=== PATIENT | male | born 1960 | race Caucasian/White ===

== ENCOUNTER → 2020-08-08 17:06 | Outpatient (CLI) | payer MEDICAID, SELFPAY ==
[2020-08-08 18:03] LABS: Anion Gap 10.4 mEq/L (5-15); Blood Urea Nitrogen 31 mg/dl (9-20); Calcium 9.2 mg/dl (8.4-10.2); Carbon Dioxide 29 mmol/L (22.0-30.0); Chloride 97 mmol/L (98-107); Estimated Glomerular Filt Rate 48 ml/min (>60); GFR (African American) 58 ML/MIN (>60); Potassium 4.4 mmoL/L (3.5-5.1); Sodium 132 mmol/L (136-145)
[2020-08-08 18:11] LABS: Glucose 469 mg/dl (74-100)
[2020-08-08 18:32] LABS: Hemoglobin A1C > 14.0 % (4.0-6.0)
== END ==
PROVIDERS: Visit Provider Family Medicine
DX: Z00.00 Encounter for general adult medical examination without abnormal findings (principal); I25.10 Atherosclerotic heart disease of native coronary artery without angina pectoris; E11.9 Type 2 diabetes mellitus without complications; E78.5 Hyperlipidemia, unspecified; I10 Essential (primary) hypertension; I73.9 Peripheral vascular disease, unspecified; Z79.4 Long term (current) use of insulin; Z72.0 Tobacco use
CPT/HCPCS: 80048; 83036

== ENCOUNTER → 2020-10-07 09:57 | Outpatient (CLI) | payer MEDICAID, SELFPAY ==
--- NOTE | 2020-10-07 09:59 | CA_ITS ---
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 Thomason CRT Ht: 6 ft 3 in Wt: 145lbs BSA: 1.91 BP: 122/62 mmHg Indications: Congestive Heart Failure, Shortness of Breath, Diabetes, Hyperlipidemia, Hypertension/HDD, stents, CABG x4, smoker 2D Dimensions LVOT 2.10 cm (M/F) 1.5-2.5 M-Mode Dimensions RVDd 3.26 cm (0.9-2.6) LA Diam 3.59 cm (1.9-4.0) LVDd 4.45 cm (3.5-5.7) Ao Diam 4.16 cm (2.0-3.7) LVDs 3.28 cm (3.5-5.7) IVSd 1.31 cm (0.6-1.1) PWd 1.31 cm (0.6-1.1) EF (Teich) 51.70% FS 26.30% EDV (Teich) 90.10 mL ESV (Teich) 43.50 mL LV Diastology E Decel Time 117.00 (160-240 msec) E/A Ratio 0.92 MED E' 3.90 (< 7 cm/sec) E'/MED E' Ratio 19.36 (>14) LAT E' 6.50 (<10 cm/sec) E/LAT E' Ratio 11.62 (>14) Mitral Valve MV A Velocity 82.00 (40-130 cm/s) E/A Ratio 0.92 MV Decel. Time 117.00 (160-240 ms) Pulmonary Valve PV Peak Velocity 135.00 (50-150 cm/s) Tricuspid Valve TR P. Velocity 128.00 cm/s Left Ventricle Left atrium is mildly enlarged, left ventricle is normal size, mild concentric left ventricular hypertrophy, visually estimated ejection fraction 40 to 45%, there appears to be moderate hypokinesis involving the distal septum and anteroapical wall. Endocardial surfaces are poorly visualized, grade 1 diastolic dysfunction seen with tissue Doppler evidence of raise left atrial pressure. Right Ventricle Right atrium and right ventricle are normal size and contractility. Aortic Valve Aortic valve is minimally thickened and fibrosed, there is no aortic stenosis or aortic insufficiency. Mitral Valve Mitral valve leaflets are minimally thickened, there is mild mitral regurgitation. Tricuspid Valve Tricuspid valve is grossly normal, there is mild tricuspid regurgitation, tricuspid regurgitation jet velocity is inadequate for calculation of the right ventricular systolic pressure. Pulmonic Valve Pulmonic valve is poorly visualized. Great Vessels Aortic root is normal size. Pericardium No significant pericardial effusion noted. Conclusion 1. Mildly enlarged left atrium, normal left ventricular size, mild concentric left ventricular hypertrophy, visually estimated ejection fraction of 40 to 45% with segmental wall motion abnormality described above, grade 1 diastolic dysfunction seen with tissue Doppler evidence of raise left atrial pressure. 2. Mild mitral and tricuspid regurgitation. 3. No significant pericardial effusion noted. Electronically signed by : Jeb Ye, 10/08/2020 05:41:08
== END ==
PROVIDERS: PCP Family Medicine; Visit Provider Nurse Practitioner Family
DX: R06.00 Dyspnea, unspecified (principal); I25.10 Atherosclerotic heart disease of native coronary artery without angina pectoris; I10 Essential (primary) hypertension; I25.2 Old myocardial infarction; E78.5 Hyperlipidemia, unspecified; I73.9 Peripheral vascular disease, unspecified; F17.200 Nicotine dependence, unspecified, uncomplicated; Z95.1 Presence of aortocoronary bypass graft
CPT/HCPCS: 93306

== ENCOUNTER → 2021-02-05 16:55 | Outpatient (CLI) | payer MEDICAID, SELFPAY ==
[2021-02-05 17:16] LABS: Basophils % 0.2 % (0.1-2.0); Eosinophils # 0.2 K/mm3 (0.0-0.4); Eosinophils % 1.2 % (0.1-12.0); Hematocrit 35.4 % (42.0-52.0); Hemoglobin 11.5 g/dL (14.1-18.0); Lymphocytes # 1.8 K/mm3 (0.7-4.5); Lymphocytes % 13.8 % (10-50); Mean Corpuscular HGB Conc 32.6 g/dL (31.8-35.4); Mean Corpuscular Hemoglobin 31.2 pg (27.0-31.2); Mean Corpuscular Volume 95.6 fl (80-94); Mean Platelet Volume 9.4 fl (7.4-10.4); Monocytes # 0.7 K/mm3 (0.1-1.0); Neutrophils # 10.3 K/mm3 (1.8-7.8); Neutrophils % 79.7 % (37.0-80.0); Platelet Count 225 K/mm3 (142-424); Red Cell Distribution Width 13.2 % (11.5-17.5); White Blood Count 12.9 K/mm3 (4.8-10.8)
[2021-02-05 17:36] LABS: Alanine Aminotransferase 16 U/L (12-78); Albumin Level 3.7 g/dl (3.5-5.0); Albumin/Globulin Ratio 1.4 (1.1-1.8); Alkaline Phosphatase 134 U/L (38-126); Anion Gap 11.9 mEq/L (5-15); Aspartate Amino Transferase 16 U/L (17-59); Bilirubin,Total 0.3 mg/dl (0.2-1.3); Blood Urea Nitrogen 37 mg/dl (9-20); Calcium 9.1 mg/dl (8.4-10.2); Carbon Dioxide 25 mmol/L (22.0-30.0); Chloride 101 mmol/L (98-107); Chol/HDL Ratio 2.8 (1-3.5); Cholesterol 72 mg/dl (140-200); Estimated Glomerular Filt Rate 44 ml/min (>60); GFR (African American) 53 ML/MIN (>60); Globulin 2.7 g/dL (1.3-3.2); HDL Cholesterol 26 mg/dl (40-60); Potassium 4.9 mmoL/L (3.5-5.1); Sodium 133 mmol/L (136-145); Total Protein,Serum 6.4 g/dl (6.3-8.2); Triglycerides 87 mg/dl (30-150); VLDL Cholesterol 17 mg/dL (0-40)
[2021-02-05 17:40] LABS: Glucose 478 mg/dl (74-100)
[2021-02-05 17:48] LABS: Direct LDL Cholesterol < 30.00 mg/dL (100-129)
[2021-02-05 17:53] LABS: T4 (Thyroxine) 10.3 ug/dl (5.53-11.0)
[2021-02-05 18:07] LABS: Prostate Specific Ag Screen 3.4 ng/ml (0.0-4.0); Thyroid Stimulating Hormone 1.12 uIU/mL (0.465-4.68)
[2021-02-05 18:34] LABS: Creatinine,Urine Random 66 mg/dL (Not Estab.)
[2021-02-05 19:54] LABS: Microalbumin/Creatinine Ratio 1055.4
== END ==
PROVIDERS: Visit Provider Family Medicine
DX: E11.9 Type 2 diabetes mellitus without complications (principal); Z79.4 Long term (current) use of insulin; Z12.5 Encounter for screening for malignant neoplasm of prostate; Z79.899 Other long term (current) drug therapy
CPT/HCPCS: 80053; 80061; 82043; 82570; 83036; 84436; 84443; 85025; G0103

== ENCOUNTER 2021-03-22 19:39 | Inpatient (IN) | payer MEDICAID, SELFPAY ==
[2021-03-22] VITALS (7 sets, daily range): BP systolic 136–178; BP diastolic 69–95; PULSE 95–101; RESP 16–22; TEMP 36.8; O2SAT 95–100; BMI 18.3; BMI 17.0
--- NOTE | 2021-03-22 20:02 | CT_ITS ---
PROCEDURE INFORMATION: Exam: CT Abdomen And Pelvis With Contrast Exam date and time: 03/22/2021 8:02 PM Age: 60 years old Clinical indication: Vomiting; Abdominal pain; Flank; Left; Additional info: Left flank pain w/ black emesis TECHNIQUE: Imaging protocol: Computed tomography of the abdomen and pelvis with contrast. Radiation optimization: All CT scans at this facility use at least one of these dose optimization techniques: automated exposure control; mA and/or kV adjustment per patient size (includes targeted exams where dose is matched to clinical indication); or iterative reconstruction. Contrast material: ISOVUE; Contrast volume: 75 ml; Contrast route: IV; COMPARISON: No relevant prior studies available. FINDINGS: Pleural spaces: Left pleural based scarring changes. Liver: Normal. No mass. Gallbladder and bile ducts: Normal. No calcified stones. No ductal dilation. Pancreas: Normal. No ductal dilation. Spleen: Splenic calcified granulomas. Adrenal glands: Normal. No mass. Kidneys and ureters: Normal. No hydronephrosis. Stomach and bowel: Unremarkable. No obstruction. No mucosal thickening. Appendix: No evidence of appendicitis. Intraperitoneal space: Unremarkable. No free air. No significant fluid collection. Vasculature: Abdominal aorta and iliac arteries contain scattered calcified and noncalcified plaque. Lymph nodes: Unremarkable. No enlarged lymph nodes. Urinary bladder: Unremarkable as visualized. Reproductive: Unremarkable as visualized. Bones/joints: Mid sternotomy wires and postoperative changes of CABG noted. Soft tissues: Unremarkable. IMPRESSION: No acute appearing findings.
[2021-03-22 20:19] LABS: Basophils % 0.2 % (0.1-2.0); Eosinophils % 0.3 % (0.1-12.0); Hematocrit 34.1 % (42.0-52.0); Hemoglobin 11.1 g/dL (14.1-18.0); Lymphocytes # 1.3 K/mm3 (0.7-4.5); Lymphocytes % 10.7 % (10-50); Mean Corpuscular HGB Conc 32.6 g/dL (31.8-35.4); Mean Corpuscular Hemoglobin 30.6 pg (27.0-31.2); Mean Corpuscular Volume 93.7 fl (80-94); Mean Platelet Volume 8.1 fl (7.4-10.4); Monocytes # 0.5 K/mm3 (0.1-1.0); Monocytes % 3.6 % (1.7-9.3); Neutrophils # 10.7 K/mm3 (1.8-7.8); Neutrophils % 85.3 % (37.0-80.0); Platelet Count 341 K/mm3 (142-424); Red Blood Count 3.64 M/mm3 (4.60-6.20); Red Cell Distribution Width 13.2 % (11.5-17.5); White Blood Count 12.5 K/mm3 (4.8-10.8)
[2021-03-22 20:25] LABS: Alanine Aminotransferase 80 U/L (12-78); Albumin Level 3.9 g/dl (3.5-5.0); Albumin/Globulin Ratio 1.3 (1.1-1.8); Alkaline Phosphatase 529 U/L (38-126); Amylase 40 U/L (30-110); Anion Gap 21.8 mEq/L (5-15); Aspartate Amino Transferase 24 U/L (17-59); Bilirubin,Total 0.6 mg/dl (0.2-1.3); Blood Urea Nitrogen 35 mg/dl (9-20); Calcium 9.5 mg/dl (8.4-10.2); Carbon Dioxide 30 mmol/L (22.0-30.0); Chloride 90 mmol/L (98-107); Creatinine Clearance Estimated 52 mL/min (50-200); Estimated Glomerular Filt Rate 52 ml/min (>60); GFR (African American) 62 ML/MIN (>60); Globulin 3.1 g/dL (1.3-3.2); Lipase 128 U/L (23-300); MANUAL DIFFERENTIAL MANUAL DIFFERENTIAL (MANUAL DIFF); Potassium 4.8 mmoL/L (3.5-5.1); Sodium 137 mmol/L (136-145)
[2021-03-22 20:26] LABS: Lactic Acid 1.4 mmol/L (0.7-2.1)
[2021-03-22 20:31] LABS: C-Reactive Protein 35.1 mg/L (0-4); Glucose 489 mg/dl (74-100)
[2021-03-22 20:44] LABS: Procalcitonin 0.136 ng/mL (0.0-2.0)
[2021-03-22 20:54] LABS: Erythrocyte Sedimentation Rate > 140 mm/hr (0-20)
[2021-03-22 20:59] LABS: Lymphocytes % 8 % (10-50); Monocytes % 8 % (2-9); Neutrophils % 84 % (42-76); Total Cells Counted 100
[2021-03-22 21:00] LABS: Platelet Estimate Normal; RBC Morphology Normal
--- NOTE | 2021-03-22 21:01 | HMH.EDNVD ---
ED Disposition Clinical Impression: History of coronary artery bypass graft, Renal insufficiency DKA (diabetic ketoacidoses) Qualifiers: Diabetes mellitus type: type 1 Diabetes mellitus complication detail: without coma Qualified Code(s): E10.10 - Type 1 diabetes mellitus with ketoacidosis without coma DM2 (diabetes mellitus, type 2) Qualifiers: Diabetes mellitus intermediate project manager insulin use: unspecified intermediate project manager insulin use status Diabetes mellitus complication status: with other specified complication Qualified Code(s): E11.69 - Type 2 diabetes mellitus with other specified complication Coronary artery disease Qualifiers: Coronary Disease-Associated Artery/Lesion type: [place] artery [place] vs. transplanted heart: [place] heart Associated angina: unspecified whether angina present Qualified Code(s): I25.10 - Atherosclerotic heart disease of [place] coronary artery without angina pectoris Disposition: Admitted As Inpatient Condition on Discharge: Fair Instructions: DI for Diarrhea and Traveler's Diarrhea -- Adult, DI for Diarrhea and Traveler's Diarrhea -- Child, DI for Nausea -- Adult, DI for Nausea -- Child Referrals: Balaji Rosado MD [Primary Care Provider] - - Critical Care Critical Care Time: No Attestation: On 03/22/21, the high probability of a clinically significant, sudden or life threatening deterioration of the following system(s) required my full and direct attention, intervention and personal management. The time I documented below is in addition to time spent performing reported procedures but includes the following listed in this critical care notation. Medical Decision Making - Medical Records Medical records reviewed: Yes: I reviewed the patient's medical records. - [place] Inquiry Pt receiving controlled substance: No Vital Signs: 03/22/21 19:50 Temperature 98.3 F Temperature Source Oral Pulse Rate [Right] 100 H Respiratory Rate 18 Blood Pressure [Right Arm] 149/83 H Blood Pressure Mean [Right Arm] 105 Blood Pressure Source [Right Arm] Automatic Cuff Blood Pressure Position [Right Arm] Supine 02 Sat by Pulse Oximetry 99 Oxygen Delivery Method Room Air - Lab Data Lab results reviewed: Yes: I reviewed the patient's lab results. Lab Results 03/22/21 20:00: WBC 12.5 H, RBC 3.64 L, Hgb 11.1 L, Hct 34.1 L, MCV 93.7, MCH 30.6, MCHC 32.6, RDW 13.2, Plt Count 341, MPV 8.1, Neut % (Auto) 85.3 H, Lymph % (Auto) 10.7, [place] % (Auto) 3.6, Eos % (Auto) 0.3, Baso % (Auto) 0.2, Neut # (Auto) 10.7 H, Lymph # (Auto) 1.3, [place] # (Auto) 0.5, Eos # (Auto) 0.0, Baso # (Auto) 0.0, Total Counted 100, Neutrophils % (Manual) 84 H, Lymphocytes % (Manual) 8 L, Monocytes % (Manual) 8, Platelet Estimate Normal, RBC Morphology Normal, ESR > 140 H 03/22/21 20:00: Sodium 137, Potassium 4.8, Chloride 90 L, Carbon Dioxide 30, Anion Gap 21.8 H, BUN 35 H, Creatinine 1.40 H, Estimated Creat Clear 52, Estimated GFR 52 L, Est GFR ( Amer) 62, Glucose 489 H*, Calcium 9.5, Total Bilirubin 0.6, AST 24, ALT 80 H, Alkaline Phosphatase 529 H, C-Reactive Protein 35.1 H, Total Protein 7.0, Albumin 3.9, Globulin 3.1, Albumin/Globulin Ratio 1.3, Amylase 40, Lipase 128, Procalcitonin 0.136 03/22/21 20:00: Lactate 1.4 Result diagrams: 03/22/21 20:00 03/22/21 20:00 Orders (Tests/Meds): ED MEDICATIONS Generic Name Dose Route Start Last Admin Trade Name Freq PRN Reason Stop Dose Admin Sodium Chloride 1,000 mls @ 999 mls/hr 03/22/21 20:15 03/22/21 21:01 Sod Chlor 0.9% 1000ml Bag IV 03/22/21 21:15 999 mls/hr .Q1H1M ROMULO Administration Discontinued Medications Generic Name Dose Route Start Last Admin Trade Name Freq PRN Reason Stop Dose Admin Pantoprazole Sodium 80 mg/ 100 mls @ 100 mls/hr 03/22/21 20:02 03/22/21 21:01 Sodium Chloride IV 03/22/21 21:01 100 mls/hr ONCE ONE Administration Iopamidol 75 ml 03/22/21 20:51 03/22/21 20:53 Iopamidol-370 (76%);100ml Bottle IV 03/22/21 20:52 75 ml ONCE ONE A
--- NOTE | 2021-03-22 21:02 | XR_ITS ---
PROCEDURE INFORMATION: Exam: XR Chest Exam date and time: 03/22/2021 9:02 PM Age: 60 years old Clinical indication: Other: Black emesis; Prior surgery; Surgery date: 6+ months; Patient HX: Bypass SX. Stents TECHNIQUE: Imaging protocol: XR of the chest. Views: 2 views. COMPARISON: No relevant prior studies available. FINDINGS: Lungs: Unremarkable. No consolidation. Pleural spaces: Unremarkable. No pleural effusion. No pneumothorax. Heart/Mediastinum: Unremarkable. No cardiomegaly. Bones/joints: Mid sternotomy wires and postoperative changes of CABG noted. Mild multilevel degenerative changes of the spine. IMPRESSION: No acute cardiopulmonary findings.
[2021-03-22 22:07] LABS: Adenovirus,PCR Not Detected (NotDetected); Bordetella Pertussis Not Detected (NotDetected); Chlamydophila Pneumoniae, PCR Not Detected (NotDetected); Coronavirus 19, PCR Not Detected (NotDetected); Coronavirus 229E Not Detected (NotDetected); Coronavirus NL63 Not Detected (NotDetected); Coronavirus OC43 Not Detected (NotDetected); Coronovirus HKU1,PCR Not Detected (NotDetected); Human Metapneumovirus Not Detected (NotDetected); Influenza A, PCR Not Detected (NotDetected); Influenza AH1, 2009 Not Detected (NotDetected); Influenza AH1, PCR Not Detected (NotDetected); Influenza AH3,PCR Not Detected (NotDetected); Influenza B, PCR Not Detected (NotDetected); Mycoplasma Pneumoniae, PCR Not Detected (NotDetected); Parainfluenza 1, PCR Not Detected (NotDetected); Parainfluenza 2, PCR Not Detected (NotDetected); Parainfluenza 3, PCR Not Detected (NotDetected); Parainfluenza 4, PCR Not Detected (NotDetected); Respiratory Syncytial Virus Not Detected (NotDetected); Rhinovirus/Enterovirus Not Detected (NotDetected)
--- NOTE | 2021-03-22 22:30 | PC.NURSE ---
password set up with family is Cindy
[2021-03-22 22:57] LABS: Occult Blood,Stool Negative (Negative)
[2021-03-22 23:01] LABS: Acetone, Serum (Rapid) Small (None Detect)
--- NOTE | 2021-03-22 23:49 | PC.NURSE ---
FSBS done result 384 Dr Muñoz Notified, no new orders at this time.
[2021-03-22 23:54] LABS: POC Glucose,Bedside 384 (70-110)
--- NOTE | 2021-03-22 23:59 | PC.NURSE ---
patient up to floor via wheelchair.
[2021-03-23] VITALS (8 sets, daily range): BP systolic 108–127; BP diastolic 52–70; PULSE 74–95; RESP 16–20; TEMP 36.7–36.9; O2SAT 97–99; BMI 16.9
[2021-03-23 05:55] LABS: POC Glucose,Bedside 410 (70-110)
[2021-03-23 06:21] LABS: Anion Gap 10.4 mEq/L (5-15); Blood Urea Nitrogen 34 mg/dl (9-20); Carbon Dioxide 33 mmol/L (22.0-30.0); Chloride 96 mmol/L (98-107); Creatinine Clearance Estimated 52 mL/min (50-200); Estimated Glomerular Filt Rate 56 ml/min (>60); GFR (African American) 68 ML/MIN (>60); Glucose 385 mg/dl (74-100); Potassium 4.4 mmoL/L (3.5-5.1); Sodium 135 mmol/L (136-145)
--- NOTE | 2021-03-23 06:23 | PC.NURSE ---
pateint has rested throughout shift, no complaints of nausea, vomiting or diarrhea this shift.
[2021-03-23 06:26] LABS: Basophils % 0.1 % (0.1-2.0); Eosinophils # 0.1 K/mm3 (0.0-0.4); Eosinophils % 0.6 % (0.1-12.0); Mean Corpuscular HGB Conc 34.1 g/dL (31.8-35.4); Mean Corpuscular Hemoglobin 30.8 pg (27.0-31.2); Mean Corpuscular Volume 90.4 fl (80-94); Mean Platelet Volume 8.1 fl (7.4-10.4); Monocytes # 0.4 K/mm3 (0.1-1.0); Monocytes % 4.2 % (1.7-9.3); Neutrophils # 7.6 K/mm3 (1.8-7.8); Platelet Count 293 K/mm3 (142-424); Red Blood Count 3.06 M/mm3 (4.60-6.20); Red Cell Distribution Width 13.2 % (11.5-17.5); White Blood Count 10.1 K/mm3 (4.8-10.8)
[2021-03-23 06:27] LABS: Hematocrit 27.7 % (42.0-52.0); Hemoglobin 9.4 g/dL (14.1-18.0)
[2021-03-23 07:16] LABS: Calcium 8.5 mg/dl (8.4-10.2)
[2021-03-23 08:37] LABS: Acetone, Serum (Rapid) Small (None Detect)
--- NOTE | 2021-03-23 08:43 | P.CONPHA_ITS ---
[facility] Pharmacy VTE Monitoring - Patient Demographics Admission date: 03/23/21 Report Date: 03/23/21 Time: 08:44 Allergies/Adverse Reactions: Patient Allergies gabapentin [From Neurontin] Allergy (Verified 03/22/21 20:05) Penicillins Allergy (Verified 03/22/21 20:05) acetaminophen [From Percocet] Adverse Reaction (Verified 03/12/21 13:09) Vomiting oxycodone [From Percocet] Adverse Reaction (Verified 03/12/21 13:09) Vomiting Height: 1.91 m Weight: 62.142 kg Patient Problems: Current Active Problems DKA (diabetic ketoacidoses) (Acute) Renal insufficiency (Acute) Coronary artery disease (Chronic) DM2 (diabetes mellitus, type 2) (Chronic) History of coronary artery bypass graft (Chronic) - VTE Risk Labs: VTE Related Lab Results Hgb 9.4 g/dL (14.1-18.0) L D 03/23/21 05:26 Hct 27.7 % (42.0-52.0) L 03/23/21 05:26 Plt Count 293 K/mm3 (142-424) 03/23/21 05:26 BUN 34 mg/dl (9-20) H 03/23/21 05:26 Creatinine 1.30 mg/dl (0.66-1.25) H 03/23/21 05:26 Estimated Creat Clear 52 mL/min (50-200) 03/23/21 05:26 Was VTE Risk Assessment Performed: Yes VTE Score: 7 VTE Risk Level: Moderate Risk Clinical Trial Participant: No - Prophylaxis VTE Prophylaxis Ordered?: Yes Types of VTE Prophylaxis: TEDS Knee High
--- NOTE | 2021-03-23 09:06 | HMH.HP ---
*Admission Date: 03/23/21 *Chief complaint: n/v *History of present illness: 60 yr old male presented to ed with c/o n/v with dark vomitus over the last 4 days with dec po intake but denied abd pain- no melena reported. pt states he has not been able to keep any food or liquids down. Pt states he has a hx of glucose being up and down when he is ill. Pt states no other family ill. pt admitted for elevated glucose, n/v for futher work up, iv fluids. pt states at this time he does not feel hungry. [facility] History I have reviewed the patient's past medical history: Yes Medical History: Reports:: Coronary Artery Disease, Cerebrovascular Accident, Depression, Diabetes Mellitus Type 2, Hyperlipidemia, Hypertension, Myocardial Infarction, Peripheral Vascular Disease Denies:: Cancer, MRSA *Have you ever received a pneumonia vaccine?: No (refused) *Have you received a flu vaccine this season?: No (refused) Laterality Cases: Left: Arthroscopy Knee Other Surgeries: Yes: CABG, Cardiac Catheterization, Cardiac Surgery, Open Heart Surgery Amputation: Yes (Toe) Fractures: No - *Social History Smoking Status: Current every day smoker Tobacco Type: cigarettes # Packs/Day (cigarettes): 1 Alcohol Intake: current Alcohol Intake Frequency:: a few times a month Substance Use Type: denies use *Occupational Status:: disabled *Travel in the last 8 weeks: None - Psychiatric History Pschychiatric History:: Reports:: Depression Family Hx:: Diabetes, Coronary Artery Disease, Stroke Review of Systems - Review of Systems Review of systems:: pertinent systems reviewed and negative unless documented below - Constitutional Denies body ache(s), Denies fever(s) - Eyes Denies blurry vision - ENT Denies sore throat - *Cardiovascular Denies chest pain at rest - *Respiratory Denies change in phlegm color, Denies shortness of breath - *Gastrointestinal Reports loose stools, Reports nausea, Reports vomiting - *Genitourinary Denies difficulty urinating - *Musculoskeletal Denies joint pain - Integumentary/Breasts Denies rash - *Neurologic Reports weakness, Denies localized weakness, Denies seizure-like activity - Psychiatric Denies lack of enjoyment - Endocrine Denies excessive sweating - Hematologic/Lymphatic Denies easy bruising - Allergic/Immunologic Denies itchy eyes Meds Home Medications Medication Instructions Recorded Confirmed Type albuterol sulfate 90 mcg/actuation 2 puff INHALATION Q4-6H PRN 07/25/18 03/22/21 History aerosol inhaler ascorbic acid (vitamin C) 500 mg 500 mg PO BID 07/25/18 03/23/21 History tablet nitroglycerin 0.4 mg sublingual 0.4 mg SUBLINGUAL Q5-15M PRN 07/25/18 03/22/21 History tablet ondansetron 4 mg disintegrating 4 mg PO TID PRN 07/25/18 03/22/21 History tablet hydrocodone 7.5 mg-acetaminophen 1 tab PO DAILY PRN #30 tab 03/12/21 03/23/21 Rx 325 mg tablet Aspirin [Low Dose Aspirin EC] 81 mg PO DAILY 03/22/21 03/23/21 History Atorvastatin Calcium [Lipitor 40mg 40 mg PO DAILY 03/22/21 03/23/21 History Tab] Furosemide [Furosemide 40MG tAB*] 40 mg PO DAILY 03/22/21 03/23/21 History Insulin Aspart [Insulin Aspart 15 unit SQ TID 03/22/21 03/23/21 History Flexpen] Insulin Degludec [Tresiba 100 unit SQ DAILY 03/22/21 03/23/21 History FlexTouch U-100] Metoprolol Tartrate [Lopressor 25 mg PO BID 03/22/21 03/23/21 History 25mg tablet] Semaglutide [Ozempic] 1 mg SQ WEEKLY 03/22/21 03/23/21 History Sennosides/Docusate Sodium 1 tab PO HS 03/22/21 03/23/21 History [Sennosides-Docusate Sodium Tab] Ticagrelor [Brilinta] 90 mg PO BID 03/22/21 03/23/21 History lisinopriL [Lisinopril 2.5mg Tab] 2.5 mg PO DAILY 03/22/21 03/23/21 History Allergies Allergy/AdvReac Type Severity Reaction Status Date / Time gabapentin [From Neurontin] Allergy Verified 03/22/21 20:05 Penicillins Allergy Verified 03/22/21 20:05 acetaminophen [From Percocet] AdvReac Vomiting Verified
[2021-03-23 10:11] LABS: POC Glucose,Bedside 224 (70-110)
--- NOTE | 2021-03-23 10:34 | HMH.PHAINT ---
clarified home medication list using list from [facility] primary care, patient's outpatient pharmacy and speaking with Dr. Rosado.
[2021-03-23 10:37] LABS: Microscopic, Urine URINE MICROSCOPIC (MICROSCOPIC)
[2021-03-23 10:58] LABS: Appearance,Urine CLEAR (Clear); Blood, Urine 2+ (Negative); Color,Urine YELLOW (Yellow); Glucose,Urine (UA) 3+ (Negative); Ketones,Urine 1+ (Negative); Leukocyte Esterase,Urine 2+ (Negative); Nitrate,Urine Negative (Negative); Protein,Urine 2+ (Negative); Urobilinogen,Urine 0.2 EU/dl (0.2)
[2021-03-23 11:39] LABS: Bilirubin,Urine 1+ (Negative)
[2021-03-23 11:58] LABS: POC Glucose,Bedside 250 (70-110)
--- NOTE | 2021-03-23 13:02 | SW/DCPLANNER ---
Addendum entered by Cici Gallardo 03/24/21 09:40: This patient will discharge home today. Patient has no further needs at this time. I have spoke with Rose Campbell regarding [facility] for this patient. Rose will follow up with this patient once he returns home. Original Note: I spoke with this patient today regarding discharge plans. Patient stated that he resides at home alone and his brother lives right beside him. Patient stated that he does well at home and intends on returning home once medically stable for discharge. Patient did not have nay needs at this time. I will continue to follow up with this patient until time for discharge.
--- NOTE | 2021-03-23 13:19 | PC.NURSE ---
late entry: 1009 called and clarified order with Dr Muñoz. pt sugar is 224, order for 5units ivp lispro insulin ordered. hold per Dr Muñoz, order was entered r/t thinking pt sugar was 410 and untreated. (pt had received 15 units sub q at 0600 when fsbs was 410)
--- NOTE | 2021-03-23 13:21 | PC.NURSE ---
late entry: 1148 pt is npo and is requesting something to eat. message left with front office associate staff.
[2021-03-23 16:41] LABS: POC Glucose,Bedside 257 (70-110)
[2021-03-23 17:21] LABS: Acetone, Serum (Rapid) None Detected (None Detect)
--- NOTE | 2021-03-23 19:35 | PC.NURSE ---
pt has rested well in his room this shift. bowel sounds are active, lungs are clear throughout. pt has slept off and on most of the day. urine in urinal continues to look very turbid. pt voices no complaints or concerns.
[2021-03-23 20:04] LABS: POC Glucose,Bedside 241 (70-110)
[2021-03-24] VITALS: BP 129/70; PULSE 79; PULSE 80; RESP 18; TEMP 36.8; O2SAT 98
--- NOTE | 2021-03-24 01:24 | PC.NURSE ---
He is A&Ox4. He reports that he ambulates with a straight cane at home. His shoes with braces are in the room. He reports chronic back painj. Refused acetaminophen. Reported that he normally takes vicodan. When asked about it he stated that it was lortab. He is voiding per urinal. Urine is yellow, cloudy; consistency of pineapple juice. He continues on RA.
[2021-03-24 04:00] VITALS: BP 144/82; PULSE 82; PULSE 90; RESP 16; TEMP 36.6; O2SAT 94
[2021-03-24 05:22] LABS: POC Glucose,Bedside 495 (70-110)
[2021-03-24 06:56] LABS: Basophils % 0.1 % (0.1-2.0); Eosinophils # 0.2 K/mm3 (0.0-0.4); Eosinophils % 1.6 % (0.1-12.0); Hematocrit 29.3 % (42.0-52.0); Hemoglobin 9.9 g/dL (14.1-18.0); Lymphocytes % 8.6 % (10-50); Mean Corpuscular HGB Conc 33.8 g/dL (31.8-35.4); Mean Corpuscular Hemoglobin 31.2 pg (27.0-31.2); Mean Corpuscular Volume 92.2 fl (80-94); Mean Platelet Volume 7.8 fl (7.4-10.4); Monocytes # 0.4 K/mm3 (0.1-1.0); Monocytes % 3.4 % (1.7-9.3); Neutrophils # 9.9 K/mm3 (1.8-7.8); Neutrophils % 86.2 % (37.0-80.0); Platelet Count 235 K/mm3 (142-424); Red Blood Count 3.18 M/mm3 (4.60-6.20); Red Cell Distribution Width 12.8 % (11.5-17.5); White Blood Count 11.5 K/mm3 (4.8-10.8)
[2021-03-24 07:00] LABS: MANUAL DIFFERENTIAL MANUAL DIFFERENTIAL (MANUAL DIFF)
[2021-03-24 07:06] LABS: Anion Gap 5.5 mEq/L (5-15); Blood Urea Nitrogen 30 mg/dl (9-20); Calcium 7.8 mg/dl (8.4-10.2); Carbon Dioxide 30 mmol/L (22.0-30.0); Chloride 100 mmol/L (98-107); Creatinine Clearance Estimated 62 mL/min (50-200); Estimated Glomerular Filt Rate 68 ml/min (>60); GFR (African American) 82 ML/MIN (>60); Potassium 3.5 mmoL/L (3.5-5.1); Sodium 132 mmol/L (136-145)
[2021-03-24 07:12] LABS: Glucose 420 mg/dl (74-100)
[2021-03-24 08:00] VITALS: BP 121/64; PULSE 80; PULSE 85; RESP 18; TEMP 36.9; O2SAT 100
--- NOTE | 2021-03-24 09:56 | HMH.DCSUM ---
General - General Admission date:: 03/22/21 Discharge date: 03/24/21 HPI HPI: 60 yr old male presented to ed with c/o n/v with dark vomitus over the last 4 days with dec po intake but denied abd pain- no melena reported. pt states he has not been able to keep any food or liquids down. Pt states he has a hx of glucose being up and down when he is ill. Pt states no other family ill. pt admitted for elevated glucose, n/v for futher work up, iv fluids. pt states at this time he does not feel hungry. Hospital Course Hospital Course: 60 yr old male presented to ed with c/o n/v with dark vomitus over the last 4 days with dec po intake but denied abd pain- no melena reported. pt states he has not been able to keep any food or liquids down. Pt states he has a hx of glucose being up and down when he is ill. Pt states no other family ill. pt admitted for elevated glucose, n/v for futher work up, iv fluids. pt states at this time he does not feel hungry. 03/22/2021 abdomen/pelvis CT: FINDINGS: Pleural spaces: Left pleural based scarring changes. Liver: Normal. No mass. Gallbladder and bile ducts: Normal. No calcified stones. No ductal dilation. Pancreas: Normal. No ductal dilation. Spleen: Splenic calcified granulomas. Adrenal glands: Normal. No mass. Kidneys and ureters: Normal. No hydronephrosis. Stomach and bowel: Unremarkable. No obstruction. No mucosal thickening. Appendix: No evidence of appendicitis. Intraperitoneal space: Unremarkable. No free air. No significant fluid collection. Vasculature: Abdominal aorta and iliac arteries contain scattered calcified and noncalcified plaque. Lymph nodes: Unremarkable. No enlarged lymph nodes. Urinary bladder: Unremarkable as visualized. Reproductive: Unremarkable as visualized. Bones/joints: Mid sternotomy wires and postoperative changes of CABG noted. Soft tissues: Unremarkable. IMPRESSION: No acute appearing findings. Electronically signed by Ivan Ken MD 03/22/2021 chest x-ray: FINDINGS: Lungs: Unremarkable. No consolidation. Pleural spaces: Unremarkable. No pleural effusion. No pneumothorax. Heart/Mediastinum: Unremarkable. No cardiomegaly. Bones/joints: Mid sternotomy wires and postoperative changes of CABG noted. Mild multilevel degenerative changes of the spine. IMPRESSION: No acute cardiopulmonary findings. Electronically signed by Ivan Ken MD Blood sugars have been 251-.300 Urine culture shows no growth at 24 hours Blood cultures x2 are pending 60-year-old male patient sitting up in bed resting quietly, he denies any shortness of breath, chest pain, nausea/vomiting/diarrhea, confusion, or sweating. Discussed home diabetes regimen, patient verbalizes understanding and will continue all medications per instruction. He also will follow up with primary care provider March 30 or will call office for any concerns. PLAN: 1. Continue current diabetic regimen 2. Follow-up with Dr. Rosado March 30 3. Call office for any concerns Objective Vital signs: Temp Pulse Resp BP Pulse Ox 98.4 F 85 18 121/64 100 03/24/21 08:00 03/24/21 08:00 03/24/21 08:00 03/24/21 08:00 03/24/21 08:00 no acute distress - *Routine HEENT Exam Head: Present: normocephalic Eye: Present: EOMI ENT: Present: mucous membranes moist - *Routine Neck Exam Present: supple, trachea midline. Absent: tracheal deviation - *Routine Respiratory Exam Present: CTA bilaterally. Absent: accessory muscle use - *Routine Cardiovascular Exam Present: RRR - *Routine Abdominal Exam Present: soft, normoactive bowel sounds. Absent: tenderness, firm - *Routine Extremities Exam Present: full ROM, pulses intact. Absent: cyanosis, clubbing, edema, calf tenderness - *Routine Skin Exam Present: intact, dry, warm. Absent: cyanosis, erythema - *Routine Neurological Exam Present: alert, oriented X3. Absent: motor
[2021-03-24 10:14] LABS: Lymphocytes % 10 % (10-50); Monocytes % 3 % (2-9); Neutrophils % 87 % (42-76); RBC Morphology Normal; Total Cells Counted 100
[2021-03-24 10:15] LABS: Platelet Estimate Normal
[2021-03-24 11:14] LABS: POC Glucose,Bedside 314 (70-110)
== END 2021-03-24 11:21 | disposition home or self-care (01) | DRG 639 ==
LOC: ER 23:06 → 2ND 23:16
PROVIDERS: Nurse Practitioner Family; Admitting Provider Emergency Medicine; Emergency Provider Emergency Medicine; PCP Family Medicine; Visit Provider Emergency Medicine
DX: E11.10 Type 2 diabetes mellitus with ketoacidosis without coma (principal); E78.5 Hyperlipidemia, unspecified; I25.10 Atherosclerotic heart disease of native coronary artery without angina pectoris; I10 Essential (primary) hypertension; I25.2 Old myocardial infarction; E11.51 Type 2 diabetes mellitus with diabetic peripheral angiopathy without gangrene; F17.210 Nicotine dependence, cigarettes, uncomplicated; Z79.4 Long term (current) use of insulin; Z88.5 Allergy status to narcotic agent; Z88.0 Allergy status to penicillin
CPT/HCPCS: 36415; 71046; 74177; 80048; 80053; 81001; 82009; 82150; 82272; 82962; 83605; 83690; 83735; 84145; 85007; 85025; 85651; 86140; 87040; 87086; 87088; 87186; 87581; 87633; 87798; 96365; 96375; 99284; G0328; J2405; Q9967

== ENCOUNTER → 2021-04-29 11:16 | Outpatient (CLI) | payer MEDICAID, SELFPAY ==
--- NOTE | 2021-04-29 11:21 | NM_ITS ---
APPROVED REPORT Exam: Nuclear Stress Test Indication: CAD, H/O M.I., CABG, CHF, HTN, D.M., HYPERLIPIDEMIA, TOB USE, FM HX., ANGINA, SOB, SYNCOPE, FATIGUE Patient Location: Outpatient Stress Tech: Darcy Bae [place] Tech:Rosa So, ARRIker RT (R)(N)(M) Ht: 6 ft 3 in Wt: 135 lbs HR: 87 bpm BP: 103/54 mmHg BSA: 1.86 m2 BMI: 16.8 Procedure: Patient received a 0.4 mg of intravenous Lexiscan, resting heart rate 87 bpm, resting blood pressure 103/54 mmHg, with Lexiscan maximum heart rate achived was 98 bpm which is % of the maximum predicted heart rate and blood pressure was 88/52 mmHg. TIGHTNESS Cardiac Stress and Resting SPECT Images: Cardiac Stress and Resting SPECT images were obtained using technetium 99m Myoview 31.1 mCi stress and 10.74 mCi at rest. Apical and septal dyskinesia Low ejection fraction of 40% Large fixed defect in the nterior wall extending toward the apex consistant with infarction. No reversible defects. Conclusion: Apical and septal dyskinesia Low ejection fraction of 40% Large fixed defect in the nterior wall extending toward the apex consistant with infarction. No reversible defects. Electronically signed by : Ivan Perales MD 05/01/2021 14:16:51
--- NOTE | 2021-04-29 13:56 | CA_ITS ---
APPROVED REPORT Exam: Pharmacologic Technologist: Darcy Bae, Ht: 6 ft 3 in Wt: 139 lbs BSA: 1.88 m2 HR: 87 bpm BP: 103/54 mmHg Medical History Medications: Lisinopril,,,,, Aspirin,,,,, Metoprolol,,,,, Atorvastatin,,,,, Iron,,,,, Albuterol,,,,, BRILINTA,,,,, Nitroglycerin,,,,, DOxycycline,,,,, ONdansetron,,,,, Gl[place],,,,, Furosemide,,,,, Stress Test Details Test: LEXISCAN HR Resting HR: 87 bpm Max Heart Rate (APMHR): 158.017383 bpm Max HR Achieved: 100 bpm Target HR (85% APMHR): 134.962095 bpm % of APMHR: 63.29 Recovery HR: 95 bpm BP Resting BP: 103/54 mmHg Max BP: 103/54 mmHg Recovery BP: 99.0/49.0 mmHg ECG Resting ECG: NSR, PAC, LAFB, poor R wave progression, cannot R/O old lateral VA Clinical Exercise duration: 04:00 min Highest Stage Achieved: Exercise capacity: 1.0 METs Stress ECG Conclusion Symptoms: SOA, mild chest tightness, lightheaded. Arrhythmias/Ectopy: Occ PAC. ST-T Changes: No signifficant changes. Conclusion: Unremarkable Lexiscan stress. Myoview images reported separately. Test Summary RECOVERY 04:20 . . 95 . 99/ 49 . . Stage 1 . . . . . . . Cardiolite injected Stage 1 01:00 . . 92 . . . . Stage 2 01:00 . . 96 . . . . Stage 3 01:00 . . 94 . 89/ 45 . . Stage 4 01:00 . . 94 . 92/ 48 . Stop exercise at 04:00 RECOVERY 01:00 . . 96 . 99/ 51 . . RECOVERY 02:00 . . 97 . 88/ 52 . . RECOVERY 03:00 . . 96 . 91/ 49 . . RECOVERY 04:00 . . 95 . 99/ 49 . . RECOVERY 04:20 . . 95 . 99/ 49 . . Electronically signed by : Kelvin Juan, 05/01/2021 13:17:47
== END ==
PROVIDERS: PCP Family Medicine; Visit Provider Physician Assistant
DX: R06.09 Other forms of dyspnea (principal); Z95.1 Presence of aortocoronary bypass graft; I20.8 Other forms of angina pectoris
CPT/HCPCS: 78452; 93017; A9502; J2785

== ENCOUNTER → 2021-05-14 12:10 | Outpatient (CLI) | payer MEDICAID, SELFPAY ==
[2021-05-14 13:10] LABS: Basophils % 0.4 % (0.1-2.0); Eosinophils # 0.2 K/mm3 (0.0-0.4); Eosinophils % 2.5 % (0.1-12.0); Hematocrit 29.7 % (42.0-52.0); Lymphocytes # 1.8 K/mm3 (0.7-4.5); Lymphocytes % 28.5 % (10-50); Mean Corpuscular HGB Conc 33.8 g/dL (31.8-35.4); Mean Corpuscular Hemoglobin 31.3 pg (27.0-31.2); Mean Corpuscular Volume 92.7 fl (80-94); Monocytes # 0.3 K/mm3 (0.1-1.0); Monocytes % 4.5 % (1.7-9.3); Neutrophils % 64.2 % (37.0-80.0); Platelet Count 266 K/mm3 (142-424); Red Cell Distribution Width 16.1 % (11.5-17.5); White Blood Count 6.2 K/mm3 (4.8-10.8)
[2021-05-14 13:24] LABS: Chloride 104 mmol/L (98-107); Sodium 138 mmol/L (136-145)
[2021-05-14 13:27] LABS: Blood Urea Nitrogen 14 mg/dl (9-20); Carbon Dioxide 27 mmol/L (22.0-30.0); Estimated Glomerular Filt Rate 98 ml/min (>60); GFR (African American) 119 ML/MIN (>60)
[2021-05-14 13:28] LABS: Calcium 8.6 mg/dl (8.4-10.2); Glucose 158 mg/dl (74-100)
== END ==
PROVIDERS: Visit Provider Internal Medicine
DX: Z01.812 Encounter for preprocedural laboratory examination (principal); Z20.822 Contact with and (suspected) exposure to COVID-19; I20.8 Other forms of angina pectoris; R94.31 Abnormal electrocardiogram [ECG] [EKG]
CPT/HCPCS: 36415; 80048; 85025; U0003

== ENCOUNTER 2021-05-15 08:10 | Day surgery (SDC) | payer MEDICAID, SELFPAY ==
[2021-05-15] VITALS (13 sets, daily range): BP systolic 110–186; BP diastolic 70–90; PULSE 66–88; RESP 16–20; TEMP 36.9; O2SAT 96–100; BMI 17.4
--- NOTE | 2021-05-15 | IR_ITS ---
APPROVED REPORT Patient Location: Outpatient [facility] Machine Setter: MAYNOR Michel RT (R) PROCEDURES Left heart catheterization Left ventriculogram Selective coronary angiogram Selective engagement left internal mammary artery Selective engagement of saphenous vein graft to the right coronary Selective engage the saphenous vein graft to circumflex artery Drug-eluting stent deployment to the proximal LAD INDICATION Typical angina pectoris, Coronary disease, History of coronary bypass surgery, Informed consent was obtained prior to the procedure. COMPLICATIONS NONE Estimated Blood Loss: LESS THAN 10 ML TECHNIQUE One percent lidocaine used to anesthetize the right groin. The right femoral artery was accessed via the Seldinger technique and a 5 Finnish sheath was placed in the right femoral artery. A JL 4, JR4 catheter were used to perform left heart catheterization, left ventriculogram selective coronary angiography as well as selective engagement of the 2 vein grafts and the left internal mammary artery. At the end of the diagnostic procedure therapeutic heparin was administered giving a therapeutic ACT and the 5 Finnish sheath was exchanged for a 6 Finnish sheath. An EBU 3.75 guide catheter was placed in the left main artery and a Choice PT floppy wire was used to traverse the stenosis in the LAD. A 2.5 x 12 mm resolute Dawood stent was deployed at 24 isaiah reducing the severe stenosis to 0%. At the end of the procedure the apparatus was removed the groin was reprepped gloves were changed sheath was removed and hemostasis was achieved using Perclose device patient was transferred the postop putting in stable addition ANGIOGRAPHIC RESULTS The left main artery Has a stent in the ostial segment which extends into the proximal LAD. The stent is widely patent in the left main The left anterior descending artery Has a stent which originates from the left main artery. Proximal there is a concentric 90% stenosis. Antegrade flow provides flow to the LAD. There is no competitive flow from the left internal mammary artery The circumflex artery Is subtotally occluded proximally The right coronary artery Is a dominant vessel and has proximal 50% stenosis and then occluded distally The SMITH ventriculogram reveals Mildly reduced at 45% with mild anterior wall hypokinesis The left ventricular end-diastolic pressure 10 mmHg Left internal mammary artery is widely patent to the diagonal artery with no demonstrable backflow feeding to the LAD. Proximally the diagonal artery has an ostial 90% stenosis Saphenous vein graft to the right coronary is widely patent Saphenous vein graft to the circumflex arteries widely patent IMPRESSION Unbypassed LAD with an adequate retrograde filling of the [place] vessel via COLON graft to the diagonal artery Successful stenting of a proximal ID severe disease reduced to less than 10% with 1 drug-eluting stent Patent saphenous vein graft to an obtuse marginal artery Patent saphenous vein graft to the posterior descending artery of the right coronary Reduced ejection fraction with normal left ventricular end-diastolic pressure PLAN 1. Dual antiplatelet therapy 2. Avoidance of tobacco products 3. Risk factor modification 4. Cardiac rehabilitation 5. LDL less than 55 Electronically signed by : Kelvin Juan, 05/15/2021 12:11:54
[2021-05-15 13:38] LABS: CATHL Activated Clotting Time 296 SEC (74-125)
--- NOTE | 2021-05-15 14:31 | HMH.PHACLD ---
Jama White has received discharge medication counseling on the following medications: PATIENT IS CURRENTLY BRILINTA 90 MG BID, ATORVASTATIN 40 MG HS, LISINOPRIL 2.5 MG DAILY, METOPROLOL TARTRATE 25 MG BID, AND ASPIRIN EC 81 MG DAILY. NO NEW MEDICATIONS.
== END 2021-05-15 14:28 | disposition hospice, home (50) ==
LOC: CATHLAB 08:11
PROVIDERS: PCP Family Medicine; Visit Provider Internal Medicine
DX: I25.118 Atherosclerotic heart disease of native coronary artery with other forms of angina pectoris (principal); E11.9 Type 2 diabetes mellitus without complications; Z79.4 Long term (current) use of insulin; Z79.02 Long term (current) use of antithrombotics/antiplatelets; Z95.1 Presence of aortocoronary bypass graft; I50.42 Chronic combined systolic (congestive) and diastolic (congestive) heart failure; I11.0 Hypertensive heart disease with heart failure; I48.0 Paroxysmal atrial fibrillation; F17.210 Nicotine dependence, cigarettes, uncomplicated; J44.9 Chronic obstructive pulmonary disease, unspecified
CPT/HCPCS: 85347; 92928; 93459; 99152; 99153; C1725; C1760; C1769; C1876; C1894; C9600; J1644; Q9967

== ENCOUNTER → 2021-05-21 17:25 | Outpatient (CLI) | payer MEDICAID, SELFPAY ==
[2021-05-21 18:05] LABS: Basophils % 0.6 % (0.1-2.0); Eosinophils # 0.2 K/mm3 (0.0-0.4); Eosinophils % 3.2 % (0.1-12.0); Hematocrit 30.4 % (42.0-52.0); Hemoglobin 10.1 g/dL (14.1-18.0); Lymphocytes # 2.5 K/mm3 (0.7-4.5); Lymphocytes % 35.9 % (10-50); Mean Corpuscular HGB Conc 33.2 g/dL (31.8-35.4); Mean Corpuscular Hemoglobin 31.1 pg (27.0-31.2); Mean Corpuscular Volume 93.6 fl (80-94); Mean Platelet Volume 9.2 fl (7.4-10.4); Monocytes # 0.4 K/mm3 (0.1-1.0); Monocytes % 5.2 % (1.7-9.3); Neutrophils # 3.8 K/mm3 (1.8-7.8); Neutrophils % 55.1 % (37.0-80.0); Platelet Count 306 K/mm3 (142-424); Red Blood Count 3.25 M/mm3 (4.60-6.20); Red Cell Distribution Width 15.7 % (11.5-17.5); White Blood Count 6.9 K/mm3 (4.8-10.8)
[2021-05-21 18:22] LABS: Chloride 105 mmol/L (98-107); Potassium 4.5 mmoL/L (3.5-5.1); Sodium 139 mmol/L (136-145)
[2021-05-21 18:25] LABS: Alanine Aminotransferase 30 U/L (12-78); Albumin Level 3.5 g/dl (3.5-5.0); Albumin/Globulin Ratio 1.3 (1.1-1.8); Alkaline Phosphatase 104 U/L (38-126); Anion Gap 12.5 mEq/L (5-15); Aspartate Amino Transferase 30 U/L (17-59); Bilirubin,Total 0.5 mg/dl (0.2-1.3); Blood Urea Nitrogen 26 mg/dl (9-20); Carbon Dioxide 26 mmol/L (22.0-30.0); Cholesterol 101 mg/dl (140-200); Estimated Glomerular Filt Rate 61 ml/min (>60); GFR (African American) 74 ML/MIN (>60); Globulin 2.7 g/dL (1.3-3.2); Total Protein,Serum 6.2 g/dl (6.3-8.2); Triglycerides 75 mg/dl (30-150); VLDL Cholesterol 15 mg/dL (0-40)
[2021-05-21 18:26] LABS: Calcium 9.1 mg/dl (8.4-10.2); Chol/HDL Ratio 2.7 (1-3.5); Glucose 175 mg/dl (74-100); HDL Cholesterol 38 mg/dl (40-60)
[2021-05-21 18:41] LABS: 25-OH Vitamin D, Total 32.6 ng/mL (30-100)
[2021-05-21 19:33] LABS: Hemoglobin A1C 7.2 % (4.0-6.0)
[2021-05-21 19:58] LABS: Thyroid Stimulating Hormone 2.67 uIU/mL (0.465-4.68)
[2021-05-23 13:16] LABS: C-Peptide 2.9 ng/mL (1.1-4.4)
== END ==
PROVIDERS: Visit Provider Nurse Practitioner Family
DX: E11.21 Type 2 diabetes mellitus with diabetic nephropathy (principal); I10 Essential (primary) hypertension; E78.5 Hyperlipidemia, unspecified; F17.200 Nicotine dependence, unspecified, uncomplicated; Z79.4 Long term (current) use of insulin; Z79.899 Other long term (current) drug therapy
CPT/HCPCS: 80053; 80061; 82306; 83036; 84436; 84443; 84681; 85025

== ENCOUNTER → 2021-08-04 08:26 | Outpatient (CLI) | payer MEDICAID, SELFPAY ==
--- NOTE | 2021-08-04 08:36 | CT_ITS ---
PROCEDURE: CT CHEST WO/W CON CLINCAL INDICATION: right rib pain/smoker COMPARISON: No exams were available for comparison TECHNIQUE: IV Contrast: 75ml Isovue 370 Axial images obtained with sagittal and coronal reformats. All CT scans at the facility use one or more dose reduction, viz: automated exposure control, ma/kV adjustment per patient size (including targeted exams where dose is matched to indication, i.e. head), or iterative reconstruction technique. FINDINGS: HEART AND MEDIASTINAL STRUCTURES: Status post CABG. No mediastinal or hilar mass or adenopathy. Coronary artery stents are present. LUNGS AND PLEURAL SPACES: COPD changes with scattered areas of scarring nonspecific subpleural nodular opacity right middle lobe anteriorly at 5 mm possibly due to an area scarring. Mildly prominent irregular density is present in the left lower lobe posteriorly in the subpleural region also may be due to an area of subpleural scarring. BONY STRUCTURES: Mild degenerative changes in the thoracic spine with mild kyphosis. There is minimal wedging of T7 and T8 which may be chronic. UPPER ABDOMEN: There is air within the upper esophagus. Mild nonspecific thickening of the GE junction. ADDITIONAL FINDINGS: No other significant abnormalities. IMPRESSION: COPD with suspected scarring in the left lower lobe. Nonspecific nodular opacity subpleural region right upper lobe at 5 mm. Recommend six-month follow-up to confirm stability of these 2 findings. No acute finding. Dictated by: Ivan Perales MD 08/05/2021 11:44 Ivan Perales MD in [place] 08/05/2021 11:44
--- NOTE | 2021-08-04 09:17 | CA_ITS ---
APPROVED REPORT Director Medical Science: Ayala Magana RVT Laterality: Bilateral Study Quality: Good Indications: carotid bruit Risk Factors Hypertension: TIA/CVA History Hyperlipidemia Diabetes Smoking Doppler Spectral Velocity Analysis ECA (R) 86.60/10.70 cm/s ECA (L) 73.80/10.70 cm/s dICA (R) 135.80/39.60 cm/s dICA (L) 112.30/22.50 cm/s Hoa (R) 102.70/25.70 cm/s Hoa (L) 144.40/31.00 cm/s pICA (R) 79.10/23.50 cm/s pICA (L) 99.40/21.40 cm/s dCCA (R) 68.40/15.00 cm/s dCCA (L) 92.00/24.60 cm/s pCCA (R) 85.50/12.80 cm/s pCCA (L) 79.10/11.80 cm/s Vert (R) 42.80/12.80 cm/s Vert (L) 72.70/15.00 cm/s ICA/CCA 1.98 ICA/CCA 1.57 Findings Study suggests less than 20% stenosis of the right internal cartoid artery. Study suggests 20-49% stenosis of the left internal cartoid artery. Antegrade flow seen bilateral vertebral arteries. Conclusion Study suggests less than 20% stenosis of the right internal cartoid artery. Study suggests 20-49% stenosis of the left internal cartoid artery. Antegrade flow seen bilateral vertebral arteries. Electronically signed by : Ivan Perales MD 08/04/2021 16:48:05
[2021-08-04 09:20] LABS: Blood Urea Nitrogen 32 mg/dl (9-20); Estimated Glomerular Filt Rate 56 ml/min (>60); GFR (African American) 68 ML/MIN (>60)
== END ==
PROVIDERS: Internal Medicine; Visit Provider Physician Assistant
DX: R09.89 Other specified symptoms and signs involving the circulatory and respiratory systems (principal); R06.00 Dyspnea, unspecified; E78.5 Hyperlipidemia, unspecified; F17.200 Nicotine dependence, unspecified, uncomplicated; I25.10 Atherosclerotic heart disease of native coronary artery without angina pectoris; I50.20 Unspecified systolic (congestive) heart failure; I11.0 Hypertensive heart disease with heart failure; I48.91 Unspecified atrial fibrillation; I73.9 Peripheral vascular disease, unspecified; Z95.1 Presence of aortocoronary bypass graft
CPT/HCPCS: 36415; 71270; 82565; 84520; 93880; Q9967

== ENCOUNTER → 2022-01-29 13:16 | Outpatient (CLI) | payer MEDICAID, SELFPAY ==
[2022-01-28 18:19] LABS: Basophils % 0.4 % (0.1-2.0); Eosinophils # 0.3 K/mm3 (0.0-0.4); Eosinophils % 3.9 % (0.1-12.0); Hematocrit 27.4 % (42.0-52.0); Hemoglobin 8.8 g/dL (14.1-18.0); Lymphocytes # 1.4 K/mm3 (0.7-4.5); Lymphocytes % 20.6 % (10-50); Mean Corpuscular Hemoglobin 31.1 pg (27.0-31.2); Mean Corpuscular Volume 97.3 fl (80-94); Mean Platelet Volume 8.9 fl (7.4-10.4); Monocytes # 0.5 K/mm3 (0.1-1.0); Neutrophils # 4.5 K/mm3 (1.8-7.8); Platelet Count 424 K/mm3 (142-424); Red Blood Count 2.81 M/mm3 (4.60-6.20); Red Cell Distribution Width 15.8 % (11.5-17.5); White Blood Count 6.6 K/mm3 (4.8-10.8)
[2022-01-28 18:47] LABS: Hemoglobin A1C 7.6 % (4.0-6.0)
[2022-01-28 18:54] LABS: Alanine Aminotransferase 16 U/L (12-78); Albumin Level 2.9 g/dl (3.5-5.0); Albumin/Globulin Ratio 1.1 (1.1-1.8); Alkaline Phosphatase 104 U/L (38-126); Aspartate Amino Transferase 18 U/L (17-59); Bilirubin,Total 0.5 mg/dl (0.2-1.3); Blood Urea Nitrogen 19 mg/dl (9-20); Carbon Dioxide 25 mmol/L (22.0-30.0); Chloride 108 mmol/L (98-107); Chol/HDL Ratio 3.6 (1-3.5); Cholesterol 153 mg/dl (140-200); Estimated Glomerular Filt Rate 76 ml/min (>60); GFR (African American) 92 ML/MIN (>60); Globulin 2.7 g/dL (1.3-3.2); Glucose 143 mg/dl (74-100); HDL Cholesterol 43 mg/dl (40-60); Sodium 137 mmol/L (136-145); Total Protein,Serum 5.6 g/dl (6.3-8.2); Triglycerides 93 mg/dl (30-150); VLDL Cholesterol 19 mg/dL (0-40)
[2022-01-28 19:05] LABS: Direct LDL Cholesterol 82.41 mg/dL (100-129)
[2022-01-28 19:25] LABS: Thyroid Stimulating Hormone 1.85 uIU/mL (0.465-4.68)
== END ==
PROVIDERS: Visit Provider Family Medicine
DX: R42 Dizziness and giddiness (principal); E11.10 Type 2 diabetes mellitus with ketoacidosis without coma; Z79.4 Long term (current) use of insulin
CPT/HCPCS: 80053; 80061; 83036; 84443; 85025

== ENCOUNTER → 2022-02-04 13:45 | Outpatient (CLI) | payer MEDICAID, SELFPAY ==
[2022-02-05 18:03] LABS: Hematocrit 27.8 % (42.0-52.0); Hemoglobin 9.3 g/dL (14.1-18.0)
[2022-02-05 19:41] LABS: Hemoglobin A1C 7.1 % (4.0-6.0)
== END ==
PROVIDERS: Visit Provider Nurse Practitioner Family
DX: E11.59 Type 2 diabetes mellitus with other circulatory complications (principal); Z79.4 Long term (current) use of insulin
CPT/HCPCS: 83036; 85014; 85018

== ENCOUNTER → 2022-03-04 09:33 | Outpatient (CLI) | payer MEDICAID, SELFPAY ==
[2022-03-04 10:10] LABS: Prothrombin Time 10.3 seconds (10.1-12.5)
[2022-03-04 10:57] LABS: Iron 79 ug/dL (49-181)
[2022-03-04 11:07] LABS: Total Iron Binding Capacity 282 ug/dL (261-462)
[2022-03-04 11:34] LABS: Ferritin 203 ng/ml (17.9-464)
[2022-03-04 14:12] LABS: Vitamin B12 757 pg/mL (239-931)
[2022-03-05 09:18] LABS: HIV Screen 4th Generation wRfx Non Reactive (Non Reactive)
== END ==
PROVIDERS: Visit Provider Surgery
DX: D64.9 Anemia, unspecified (principal); Z11.4 Encounter for screening for human immunodeficiency virus [HIV]
CPT/HCPCS: 36415; 82607; 82728; 83540; 83550; 85610; 86703; G0432

== ENCOUNTER → 2022-03-08 08:47 | Outpatient (CLI) | payer MEDICAID, SELFPAY ==
[2022-03-08 11:39] LABS: Occult Blood,Stool Negative (Negative)
== END ==
PROVIDERS: PCP Family Medicine; Visit Provider Surgery
DX: D64.9 Anemia, unspecified (principal)
CPT/HCPCS: 82272; G0328

== ENCOUNTER → 2022-08-09 12:54 | Outpatient (CLI) | payer MEDICAID, SELFPAY ==
--- NOTE | 2022-08-09 12:54 | CA_ITS ---
APPROVED REPORT EXAM: Comprehensive 2D, Doppler, and color-flow Echocardiogram [facility] Rn: Ayala Magana RVT Ht: 6 ft 3 in Wt: 150lbs BSA: 1.94 BP: 86/82 mmHg Indications: CHF,CAD,COPD,HTN,HLD,SYNCOPE 2D Dimensions LVOT 2.50 cm (M/F) 1.5-2.5 LA Volume 40.40 mL LA Volume Index 20.82 mL/m2 (M/F) 16-34 M-Mode Dimensions RVDd 2.97 cm (0.9-2.6) LA Diam 4.18 cm (1.9-4.0) LVDd 5.15 cm (3.5-5.7) Ao Diam 3.43 cm (2.0-3.7) LVDs 3.90 cm (3.5-5.7) IVSd 1.25 cm (0.6-1.1) PWd 0.86 cm (0.6-1.1) EF (Teich) 47.90% FS 24.30% EDV (Teich) 126.60 mL TAPSE 1.88 (<1.7) ESV (Teich) 65.90 mL LV Diastology E Decel Time 150.00 (160-240 msec) E/A Ratio 0.8 MED E' 5.10 (< 7 cm/sec) E'/MED E' Ratio 14.14 (>14) LAT E' 8.10 (<10 cm/sec) E/LAT E' Ratio 8.90 (>14) Aortic Valve AO Peak GR. 3.70 mmHg Mitral Valve MV E Max Raf. 72.00 (40-130 cm/s) MV A Velocity 91.00 (40-130 cm/s) E/A Ratio 0.80 MV Decel. Time 150.00 (160-240 ms) MV PHT 44.00 ms Pulmonary Valve PV Peak Velocity 114.00 (50-150 cm/s) Left Ventricle Left atrium is mildly enlarged, left ventricle is normal size mild concentric left ventricular hypertrophy, estimated ejection fraction 40 to 45% with mild left ventricular global hypokinesis, grade 1 diastolic dysfunction seen without tissue Doppler evidence of raise left atrial pressure. Right Ventricle Right atrium and right ventricle are mildly enlarged with normal contractility. Aortic Valve Aortic valve is minimally thickened and calcified without aortic stenosis or aortic insufficiency. Mitral Valve Mitral valve is grossly normal, there is mild mitral regurgitation. Tricuspid Valve Tricuspid valve grossly normal, there is mild tricuspid regurgitation, tricuspid regurgitation jet velocity is inadequate for calculation of the right ventricular systolic pressure. Pulmonic Valve Pulmonic valve is poorly visualized. Great Vessels Aortic root is normal size. Inferior vena cava is mildly dilated with more than 50% i inspiratory collapse. Pericardium No significant pericardial effusion noted. Conclusion 1. Mild biatrial lodgment, normal left ventricular size, mild concentric left ventricular hypertrophy, estimated ejection fraction 40 to 45% with mild left ventricular global hypokinesis, grade 1 diastolic dysfunction seen without tissue Doppler evidence of raise left atrial pressure. 2. Mildly enlarged right ventricle with normal contractility. 3. Mild mitral and tricuspid regurgitation. 4. No significant pericardial effusion noted. 5. Inferior vena cava is mildly dilated with more than 50% inspiratory collapse. Electronically signed by : Jeb Ye MD 08/09/2022 15:41:13
== END ==
PROVIDERS: PCP Family Medicine; Visit Provider Internal Medicine
DX: R06.02 Shortness of breath (principal); I11.0 Hypertensive heart disease with heart failure; I50.22 Chronic systolic (congestive) heart failure; I50.32 Chronic diastolic (congestive) heart failure; I25.118 Atherosclerotic heart disease of native coronary artery with other forms of angina pectoris; E78.2 Mixed hyperlipidemia; F17.200 Nicotine dependence, unspecified, uncomplicated
CPT/HCPCS: 93306

== ENCOUNTER → 2023-03-14 23:13 | Outpatient (CLI) | payer MEDICAID, SELFPAY ==
[2023-03-14 18:45] LABS: Basophils % 0.3 % (0.1-2.0); Eosinophils # 0.2 K/mm3 (0.0-0.4); Eosinophils % 2.2 % (0.1-12.0); Hematocrit 31.9 % (42.0-52.0); Hemoglobin 10.3 g/dL (14.1-18.0); Lymphocytes # 1.6 K/mm3 (0.7-4.5); Lymphocytes % 17.7 % (10-50); Mean Corpuscular HGB Conc 32.2 g/dL (31.8-35.4); Mean Corpuscular Volume 96.2 fl (80-94); Mean Platelet Volume 8.8 fl (7.4-10.4); Monocytes # 0.5 K/mm3 (0.1-1.0); Monocytes % 5.8 % (1.7-9.3); Neutrophils # 6.6 K/mm3 (1.8-7.8); Neutrophils % 73.9 % (37.0-80.0); Platelet Count 278 K/mm3 (142-424); Red Blood Count 3.31 M/mm3 (4.60-6.20); Red Cell Distribution Width 13.5 % (11.5-17.5)
[2023-03-14 19:23] LABS: Alanine Aminotransferase 16 U/L (12-78); Albumin Level 3.4 g/dl (3.5-5.0); Albumin/Globulin Ratio 1.3 (1.1-1.8); Alkaline Phosphatase 97 U/L (38-126); Anion Gap 12.8 mEq/L (5-15); Aspartate Amino Transferase 20 U/L (17-59); Bilirubin,Total 0.3 mg/dl (0.2-1.3); Blood Urea Nitrogen 41 mg/dl (9-20); Calcium 8.5 mg/dl (8.4-10.2); Carbon Dioxide 23 mmol/L (22.0-30.0); Chloride 110 mmol/L (98-107); Chol/HDL Ratio 2.5 (1-3.5); Cholesterol 96 mg/dl (140-200); Estimated Glomerular Filt Rate 44 ml/min (>60); GFR (African American) 53 ML/MIN (>60); Globulin 2.7 g/dL (1.3-3.2); Glucose 181 mg/dl (74-100); HDL Cholesterol 39 mg/dl (40-60); Potassium 4.8 mmoL/L (3.5-5.1); Sodium 141 mmol/L (136-145); Total Protein,Serum 6.1 g/dl (6.3-8.2); Triglycerides 94 mg/dl (30-150); VLDL Cholesterol 19 mg/dL (0-40)
[2023-03-14 19:37] LABS: Direct LDL Cholesterol 41.82 mg/dL (100-129)
[2023-03-14 20:51] LABS: Hemoglobin A1C 9.1 % (4.0-6.0)
== END ==
PROVIDERS: PCP Family Medicine; Visit Provider Family Medicine
DX: E11.9 Type 2 diabetes mellitus without complications (principal)
CPT/HCPCS: 80053; 80061; 83036; 85025

== ENCOUNTER → 2023-05-19 13:39 | Outpatient (CLI) | payer MEDICAID, SELFPAY ==
[2023-05-19 18:29] LABS: Chloride 105 mmol/L (98-107); Sodium 141 mmol/L (136-145)
[2023-05-19 18:31] LABS: Blood Urea Nitrogen 37 mg/dl (9-20); Estimated Glomerular Filt Rate 41 ml/min (>60); GFR (African American) 49 ML/MIN (>60)
[2023-05-19 18:32] LABS: Alanine Aminotransferase 23 U/L (12-78); Albumin Level 3.6 g/dl (3.5-5.0); Albumin/Globulin Ratio 1.3 (1.1-1.8); Alkaline Phosphatase 100 U/L (38-126); Aspartate Amino Transferase 25 U/L (17-59); Calcium 9.1 mg/dl (8.4-10.2); Carbon Dioxide 27 mmol/L (22.0-30.0); Cholesterol 110 mg/dl (140-200); Globulin 2.7 g/dL (1.3-3.2); Glucose 91 mg/dl (74-100); Total Protein,Serum 6.3 g/dl (6.3-8.2); Triglycerides 63 mg/dl (30-150); VLDL Cholesterol 13 mg/dL (0-40)
[2023-05-19 18:33] LABS: Chol/HDL Ratio 2.7 (1-3.5); HDL Cholesterol 41 mg/dl (40-60)
[2023-05-19 18:38] LABS: Bilirubin,Total 0.1 mg/dl (0.2-1.3)
[2023-05-19 18:41] LABS: Basophils % 0.4 % (0.1-2.0); Eosinophils # 0.3 K/mm3 (0.0-0.4); Eosinophils % 4.6 % (0.1-12.0); Hematocrit 32.4 % (42.0-52.0); Hemoglobin 10.3 g/dL (14.1-18.0); Lymphocytes # 1.7 K/mm3 (0.7-4.5); Lymphocytes % 28.4 % (10-50); Mean Corpuscular HGB Conc 31.7 g/dL (31.8-35.4); Mean Corpuscular Hemoglobin 30.6 pg (27.0-31.2); Mean Corpuscular Volume 96.8 fl (80-94); Mean Platelet Volume 9.7 fl (7.4-10.4); Monocytes # 0.4 K/mm3 (0.1-1.0); Monocytes % 6.4 % (1.7-9.3); Neutrophils # 3.6 K/mm3 (1.8-7.8); Neutrophils % 60.2 % (37.0-80.0); Platelet Count 252 K/mm3 (142-424); Red Blood Count 3.35 M/mm3 (4.60-6.20); Red Cell Distribution Width 14.1 % (11.5-17.5)
[2023-05-19 18:44] LABS: Direct LDL Cholesterol 50.34 mg/dL (100-129)
== END ==
PROVIDERS: PCP Family Medicine; Visit Provider Family Medicine
DX: Z76.0 Encounter for issue of repeat prescription (principal); N49.3 Fournier gangrene; I25.10 Atherosclerotic heart disease of native coronary artery without angina pectoris; I10 Essential (primary) hypertension; M15.4 Erosive (osteo)arthritis; E11.21 Type 2 diabetes mellitus with diabetic nephropathy; Z79.4 Long term (current) use of insulin; Z79.899 Other long term (current) drug therapy
CPT/HCPCS: 80053; 80061; 83036; 85025

== ENCOUNTER → 2023-08-26 08:48 | Outpatient (CLI) | payer MEDICAID, SELFPAY ==
[2023-08-26 18:35] LABS: Amphetamine/Metha Screen,Urine Negative ng/ml (<1000); Barbiturates Screen,Urine Negative ng/ml (<200)
[2023-08-26 18:36] LABS: Benzodiazepines Screen,Urine Negative ng/ml (<200)
[2023-08-26 18:37] LABS: Cannabinoid Screen,Urine Negative ng/ml (<50); Cocaine Screen,Urine Negative ng/ml (<300)
[2023-08-26 18:38] LABS: Methadone Screen,Urine Negative ng/ml (<300)
[2023-08-26 18:39] LABS: Opiate Screen,Urine Positive ng/ml (<300); Phencyclidine Screen,Urine Negative ng/ml (<25)
== END ==
PROVIDERS: PCP Family Medicine; Visit Provider Family Medicine
DX: Z79.899 Other long term (current) drug therapy (principal)
CPT/HCPCS: 80305

== ENCOUNTER → 2023-10-28 09:19 | Outpatient (CLI) | payer MEDICARE, MEDICAID, SELFPAY ==
[2023-10-28 18:13] LABS: Basophils % 0.3 % (0.1-2.0); Eosinophils # 0.2 K/mm3 (0.0-0.4); Eosinophils % 3.8 % (0.1-12.0); Hematocrit 30.5 % (42.0-52.0); Hemoglobin 10.3 g/dL (14.1-18.0); Lymphocytes # 1.5 K/mm3 (0.7-4.5); Lymphocytes % 24.4 % (10-50); Mean Corpuscular HGB Conc 33.6 g/dL (31.8-35.4); Mean Corpuscular Hemoglobin 31.4 pg (27.0-31.2); Mean Corpuscular Volume 93.5 fl (80-94); Monocytes # 0.4 K/mm3 (0.1-1.0); Monocytes % 6.8 % (1.7-9.3); Neutrophils % 64.7 % (37.0-80.0); Platelet Count 242 K/mm3 (142-424); Red Blood Count 3.26 M/mm3 (4.60-6.20); Red Cell Distribution Width 14.6 % (11.5-17.5); White Blood Count 6.2 K/mm3 (4.8-10.8)
[2023-10-28 18:43] LABS: Alanine Aminotransferase 23 U/L (12-78); Albumin Level 2.9 g/dl (3.5-5.0); Albumin/Globulin Ratio 1.1 (1.1-1.8); Alkaline Phosphatase 108 U/L (38-126); Anion Gap 7.4 mEq/L (5-15); Aspartate Amino Transferase 28 U/L (17-59); Bilirubin,Total 0.3 mg/dl (0.2-1.3); Blood Urea Nitrogen 16 mg/dl (9-20); Calcium 7.6 mg/dl (8.4-10.2); Carbon Dioxide 24 mmol/L (22.0-30.0); Chloride 110 mmol/L (98-107); Estimated Glomerular Filt Rate 47 ml/min (>60); GFR (African American) 57 ML/MIN (>60); Globulin 2.6 g/dL (1.3-3.2); Glucose 141 mg/dl (74-100); Potassium 3.4 mmoL/L (3.5-5.1); Sodium 138 mmol/L (136-145); Total Protein,Serum 5.5 g/dl (6.3-8.2)
[2023-10-28 19:10] LABS: Thyroid Stimulating Hormone 2.47 uIU/mL (0.465-4.68)
[2023-10-28 20:42] LABS: Hemoglobin A1C 8.1 % (4.0-6.0)
[2023-11-05 19:09] LABS: 1,25 Dihydroxy Vitamin D 21 pg/mL (.); 1,25-Dihydroxy, Vitamin D-2 <10 pg/mL (.); 1,25-Dihydroxy, Vitamin D-3 18 pg/mL (.)
== END ==
PROVIDERS: Family Medicine; PCP Family Medicine; Visit Provider Family Medicine
DX: R06.09 Other forms of dyspnea (principal); R06.02 Shortness of breath; I50.20 Unspecified systolic (congestive) heart failure; I20.89 Other forms of angina pectoris; I25.2 Old myocardial infarction; I10 Essential (primary) hypertension; E78.5 Hyperlipidemia, unspecified; G89.29 Other chronic pain; M15.4 Erosive (osteo)arthritis; F17.200 Nicotine dependence, unspecified, uncomplicated; Z95.1 Presence of aortocoronary bypass graft; N18.30 Chronic kidney disease, stage 3 unspecified; Z79.899 Other long term (current) drug therapy
CPT/HCPCS: 80053; 82652; 83036; 84443; 85025

== ENCOUNTER 2023-11-22 12:48 | Outpatient (CLI) | payer MEDICAID, SELFPAY ==
--- NOTE | 2023-11-22 12:52 | XR_ITS ---
FINAL REPORT CLINICAL HISTORY: dyspnea. weakness FINDINGS: TWO-VIEW CHEST The heart size is normal. The patient is status post median sternotomy. There is bibasilar atelectasis with small right and moderate left effusions. There is no pneumothorax. IMPRESSION: Bibasilar atelectasis with bilateral effusions, left greater than right. Reviewed, Interpreted and Dictated by Darren Tellez III, MD Transcribed by Cheryle Smith Authenticated and [facility]
== END 2023-11-22 23:59 ==
PROVIDERS: PCP Family Medicine; Visit Provider Internal Medicine
DX: I11.0 Hypertensive heart disease with heart failure (principal); I21.3 ST elevation (STEMI) myocardial infarction of unspecified site; I25.10 Atherosclerotic heart disease of native coronary artery without angina pectoris; I48.91 Unspecified atrial fibrillation; I50.20 Unspecified systolic (congestive) heart failure; I73.9 Peripheral vascular disease, unspecified; R06.00 Dyspnea, unspecified; E11.9 Type 2 diabetes mellitus without complications; E78.5 Hyperlipidemia, unspecified; J44.9 Chronic obstructive pulmonary disease, unspecified; Z95.1 Presence of aortocoronary bypass graft; Z79.4 Long term (current) use of insulin; F17.200 Nicotine dependence, unspecified, uncomplicated
CPT/HCPCS: 71046

== ENCOUNTER 2023-12-13 09:51 | Inpatient (IN) | payer MEDICARE, MEDICAID, SELFPAY ==
[2023-12-13] VITALS (13 sets, daily range): BP systolic 140–176; BP diastolic 62–98; PULSE 54–70; RESP 18–20; TEMP 36.4–37.1; O2SAT 84–97; BMI 24.0; BMI 23.8; BMI 24.4
--- NOTE | 2023-12-13 10:11 | EXP.UTC ---
Discharge Plan Disposition Patient Disposition: Still a Patient Condition: Fair Prescriptions Prescriptions: No Action nitroglycerin 0.4 mg tablet, sublingual 0.4 mg SUBLINGUAL Q5-15M PRN (Reason: Chest Pain) isosorbide mononitrate 60 mg tablet extended release 24 hr 60 mg PO DAILY Qty: 90 3RF clopidogrel [Plavix] 75 mg tablet 75 mg PO DAILY Qty: 90 3RF Breztri Aerosphere 160-9-4.8 mcg/actuation HFA aerosol inhaler 2 inh inhalation BID metoprolol succinate 100 mg tablet extended release 24 hr 100 mg PO BID Qty: 180 3RF Gvoke HypoPen 2-Pack 0.5 mg/0.1 mL auto-injector 1 mg SQ ONCE PRN (Reason: diabetis) insulin asp prt-insulin aspart [Novolog Mix 70-30FlexPen U-100] 100 unit/mL (70-30) insulin pen 10 unit SQ BID Qty: 15 3RF Rx Instructions: 12 units in PM furosemide [Lasix] 40 mg tablet See Rx Instructions .ROUTE .COMPLEX Qty: 120 4RF Rx Instructions: twice a day until edema improves, then back down to once a day cephalexin 500 mg capsule 500 mg PO Q8H 10 Days Qty: 30 0RF (DME) pen needle, diabetic [BD Ultra-Fine Cheryle Pen Needle] 32 gauge x 5/32 needle See Rx Instructions .Route Qty: 100 2RF Rx Instructions: As directed sennosides-docusate sodium [Stool Softener-Stimulant Laxat] 8.6-50 mg tablet See Rx Instructions .ROUTE .COMPLEX Qty: 30 0RF Dose Instruction: TAKE ONE (1) TABLET BY MOUTH AT BEDTIME. Rx Instructions: TAKE ONE (1) TABLET BY MOUTH AT BEDTIME. lisinopril 10 mg tablet 10 mg PO DAILY Qty: 90 3RF atorvastatin 40 mg tablet See Rx Instructions .ROUTE .COMPLEX Qty: 90 0RF Dose Instruction: TAKE 1 TABLET BY MOUTH DAILY. Rx Instructions: TAKE 1 TABLET BY MOUTH DAILY. (DME) Blood Glucose Test Strip See Rx Instructions .Route Qty: 50 10RF Rx Instructions: As directed ([facility]) blood-glucose meter Kit See Rx Instructions .Route Qty: 1 10RF Rx Instructions: As directed ([facility]) lancing device Misc See Rx Instructions .Route Qty: 1 10RF Rx Instructions: As directed hydrocodone-acetaminophen 7.5-325 mg tablet 1 tab PO BID PRN (Reason: pain) Qty: 60 0RF aspirin 81 MG tablet,delayed release (DR/EC) 81 mg PO DAILY Referrals Follow up/Referrals: Balaji Rosado MD [Primary Care Provider] - See instructions Discharge ED Provider: Gogo Nguyen [facility] [place] General Stated complaint: blisters on feet Time Seen by Provider: 12/13/23 10:11 History of Present Illness Provider Complaint: He states that he has been dealing with ulcers and blisters on his feet for some time now related to his diabetes. Over the past week he has had a worsening blister on is left heel. He states that he saw his pcp (Dr. Rosado) yesterday for his chf and the blister on his left foot. He was started on cephalexin then. Since then he states that the blister has busted and the wound has worsened. He has been chilling and feeling bad. He denies documented fever. Related Data Home Medications Medication Instructions Recorded Confirmed nitroglycerin 0.4 mg sublingual 0.4 mg sublingual Q5-15M PRN Chest 07/25/18 12/13/23 tablet Pain aspirin 81 mg tablet,delayed 81 mg PO DAILY heart health 03/22/21 12/13/23 release glucagon 0.5 mg/0.1 mL 1 mg SQ ONCE PRN diabetis 05/04/21 12/13/23 subcutaneous auto-injector (Gvoke HypoPen 2-Pack) budesonide 160 mcg-glycopyr 9 2 inh inhalation BID 10/28/23 12/13/23 mcg-formot 4.8 mcg/actuation HFA inhaler (Breztri Aerosphere) Previous Rx's Medication Instructions Recorded insulin aspar prot-insulin aspart 10 unit (0.1 mL) SQ BID #15 mL 01/10/23 100 unit/mL (70-30) subcutaneous pen (Novolog Mix 70-30FlexPen U-100) pen needle, diabetic 32 gauge x #100 ea 01/21/23 (BD Ultra-Fine Cheryle Pen Needle) isosorbide mononitrate 60 mg 60 mg PO DAILY #90 tabs 04/14/23 tablet,extended release 24 hr sennosides 8.6 mg-docusate sodium See Rx Instructions .Route 04/22/23 50 mg tablet (Stool .COMPLEX #30 tabs Softener-Stimulant Laxative) lisinopril 10 mg tablet 10 mg PO DAILY #90 tabs 10/17/23 atorvastatin 40 mg tablet See Rx Instructions .Route 10/24/23 .COMPLEX #90 tabs blood sugar diagnostic (Blood #50 ea 10/28/23 Glucose Test strips) blood-glucose meter #1 ea 10/28/23 clopidogrel 75 mg tablet (Plavix) 75 mg PO DAILY #90 tabs 10/28/23 lancing device #1 ea 10/28/23 metoprolol succinate 100 mg 100 mg PO BID #180 tabs 11/22/23 tablet,extended release 24 hr hydrocodone 7.5 mg-acetaminophen 1 tab PO BID PRN pain #60 tabs 12/01/23 325 mg tablet cephalexin 500 mg capsule 500 mg PO Q8H 10 days #30 caps 12/12/23 furosemide 40 mg tablet (Lasix) See Rx Instructions .Route 12/12/23 .COMPLEX #120 tabs Allergies Allergy/AdvReac Type Severity Reaction Status Date / Time gabapentin [From Neurontin] Allergy Verified 12/12/23 10:34 Penicillins Allergy Verified 12/12/23 10:34 acetaminophen [From Percocet] AdvReac Vomiting Verified 12/12/23 10:34 NSAIDS (Non-Steroidal AdvReac Verified 12/12/23 10:34 Anti-Inflamma oxycodone [From Percocet] AdvReac Vomiting Verified 12/12/23 10:34 PFSH PFSH Disclaimer: The information contained in this section may have been updated after the patient was seen, as this information can be updated by other users. Medical History Acute [place] Recent ST elevation myocardial infarction (STEMI) STEMI (ST elevation myocardial infarction) Social History Smoking Status: Current every day smoker tobacco type: cigarettes packs per day: 1 second hand exposure: No alcohol intake: never substance use type: denies use current occupational status: disabled Travel in the last 8 weeks: None housing: house current occupational exposures/hazards: No caffeine: Yes ROS Obtained: Yes All systems reviewed & no additional complaints except as documented Constitutional Constitutional: Reports as per HPI, Reports chills and Denies fever(s) Eyes Eyes: Denies eye discharge ENT Ears, Nose, Mouth, and Throat: Denies dizziness, Denies otalgia and Denies sore throat Cardiovascular Cardiovascular: Denies chest pain Respiratory Respiratory: Denies shortness of breath, Denies chest congestion, Denies cough, Denies stridor and Denies wheezing Gastrointestinal Gastrointestingal: Denies nausea or vomiting Musculoskeletal Musculoskeletal: Reports system reviewed and no additional complaints, except as documented and Denies arthralgias Integumentary/Breasts Skin/Breast: Reports as per HPI Neurologic Neurologic: Denies dizziness and Denies paresthesias Allergic/Immunologic Allergic/Immunologic: Denies wheezing Physical Exam General General appearance: alert and in no apparent distress Head Head exam: atraumatic, normocephalic and normal inspection Eye Eye exam: Present normal appearance, PERRL and EOMI ENT ENT exam: Present normal exam, normal oropharynx, mucous membranes moist, TM's normal bilaterally and normal external ear exam Neck Neck exam: Present normal inspection, full ROM and trachea midline; Absent meningismus or lymphadenopathy Chest Chest inspection: Present normal inspection and symmetric chest wall rise; Absent tenderness Respiratory Respiratory exam: Present normal lung sounds bilaterally; Absent respiratory distress Cardiovascular Cardiovascular exam: Present regular rate and normal rhythm; Absent JVD Abdominal Exam Abdominal exam: Present soft and normal bowel sounds; Absent distention, tenderness or guarding Extremities Exam Extremities exam: Present normal inspection, full ROM and normal capillary refill; Absent calf tenderness Back Exam Back exam: Present normal inspection; Absent tenderness Neurological Exam Neurological exam: Present alert and oriented X3 Psychiatric Psychiatric exam: Present normal affect and normal mood Skin Skin exam: Present other (there is a purplish area on his left heel that measures 5 cm diameter) Lymphatic Lymphatic Findings: no adenopathy Medical Decision Making Medical Records Medical records reviewed: No I reviewed the patient's medical records. [place] Inquiry Pt receiving controlled substance: No Medical Decision Narrative: He was transferred to the er for further evaluation due to the severity of the wound, his systemic symptoms and history of diabetes and chf.
--- NOTE | 2023-12-13 10:50 | CA_ITS ---
FINAL REPORT TECHNIQUE: Bilateral lower extremity venous duplex was performed with augmentation and compression. CLINICAL HISTORY: BLE swelling, blistering, pain, denies trauma, hx of CABG, CAD, smoker, HTN, HLD. Visible sores on bilateral legs with oozing from blisters. FINDINGS: Proper flow is seen throughout the deep venous systems bilaterally. There is no evidence of deep venous thrombosis. There are prominent right inguinal lymph nodes. Fatty kate is preserved. Nodes measure up to 2.8 cm. IMPRESSION: No evidence of deep venous thrombosis. Reviewed, Interpreted and Dictated by Luis Mccoy MD Transcribed by Cheryle Smtih Authenticated and [facility]
--- NOTE | 2023-12-13 10:50 | CT_ITS ---
FINAL REPORT CLINICAL HISTORY: BLE pain/swelling, diminished pulses FINDINGS: Post contrast axial imaging of the aorta and bilateral lower extremity was obtained and reviewed. This study was performed with techniques to keep radiation doses as low as reasonably achievable (ALARA). Individualized dose reduction techniques using automated exposure control or adjustment of mA and/or kV according to the patient's size were employed. There are moderate bilateral effusions with bibasilar consolidation. The liver parenchyma is homogeneous. The gallbladder is contracted. The spleen and pancreas appear unremarkable. Bilateral adrenal hyperplasia is identified. The kidneys appear unremarkable. There are multiple fluid-filled loops of small bowel. There are advanced hypertrophic changes of degenerative disc disease at L4-5 and L5-S1 with high-grade bilateral neural foraminal narrowing at L5-S1. The celiac axis and SMA are patent. There is widely patent single renal arteries. There is dense vascular calcification and irregularity throughout the infrarenal abdominal aorta. There is moderate calcification of the common iliac arteries bilaterally. The external iliac arteries are widely patent. Right lower extremity: Moderate calcification of the right common femoral artery. No significant stenosis identified. The superficial femoral artery is patent. There is mild calcification at the adductor canal. Moderate calcification in the popliteal artery results in stenosis of 50%. The trifurcation is patent. There is three-vessel runoff to the foot. There is extensive subcutaneous edema. Left lower extremity: There is moderate calcification in the left common femoral artery. Stenosis measures less than 50%. There is moderate calcifications in the adductor canal. There is stenosis measuring up to 60% in the adductor canal. The trifurcation is patent. There is three-vessel runoff to the foot. There is extensive subcutaneous edema. IMPRESSION: Bilateral effusions and bibasilar consolidation. Atherosclerotic calcification, most evident at the right popliteal artery and in the left adductor canal. Reviewed, Interpreted and Dictated by Luis Mccoy MD Transcribed by Cheryle Smith Authenticated and [facility]
--- NOTE | 2023-12-13 10:50 | CT_ITS ---
FINAL REPORT TECHNIQUE: The patient was injected with IV contrast. Axial images were obtained through the chest in a PE protocol. 3-D reconstruction images were also performed. Individualized dose reduction techniques using automated exposure control or adjustment of the MA and/or KV according to patient's size were employed. CLINICAL HISTORY: CP/BLE swelling FINDINGS: Mediastinal vasculature is adequately opacified. There are multiple sternotomy wires. There is dense coronary artery calcification. No pulmonary artery filling defects are identified to suggest PE. There is no aortic dissection. There is no axillary adenopathy. There is no hilar or mediastinal adenopathy. The heart size is normal. There is no pericardial effusion. Limited images of the upper abdomen are unremarkable. There are moderate bilateral pleural effusions with bibasilar consolidation. IMPRESSION: No pulmonary embolus. Moderate bilateral pleural effusions with bibasilar consolidation. Reviewed, Interpreted and Dictated by Luis Mccoy MD Transcribed by Dontae Galloway Authenticated and [facility]
--- NOTE | 2023-12-13 11:04 | PC.NURSE ---
vascular at bedside for doppler
[2023-12-13 11:08] LABS: Basophils % 0.6 % (0.1-2.0); Eosinophils # 0.2 K/mm3 (0.0-0.4); Eosinophils % 2.9 % (0.1-12.0); Hematocrit 29.9 % (42.0-52.0); Hemoglobin 9.6 g/dL (14.1-18.0); Lymphocytes # 1.2 K/mm3 (0.7-4.5); Lymphocytes % 16.6 % (10-50); Mean Corpuscular HGB Conc 32.1 g/dL (31.8-35.4); Mean Corpuscular Hemoglobin 30.6 pg (27.0-31.2); Mean Corpuscular Volume 95.2 fl (80-94); Mean Platelet Volume 9.5 fl (7.4-10.4); Monocytes # 0.4 K/mm3 (0.1-1.0); Monocytes % 6.2 % (1.7-9.3); Neutrophils # 5.3 K/mm3 (1.8-7.8); Neutrophils % 73.8 % (37.0-80.0); Platelet Count 280 K/mm3 (142-424); Red Blood Count 3.14 M/mm3 (4.60-6.20); Red Cell Distribution Width 15.4 % (11.5-17.5); White Blood Count 7.2 K/mm3 (4.8-10.8)
--- NOTE | 2023-12-13 11:10 | ED_ITS ---
Discharge Plan Disposition Patient Disposition: Admitted Condition: Fair Clinical Impressions Clinical Impression: CHF exacerbation, Leg swelling, Blister of foot, left, KENNA (acute kidney injury), Pleural effusion Discharge ED Provider: Gogo Nguyen General Adult HPI General Chief complaint: Skin/Abscess/Foreign Body Stated complaint: blisters on feet Time Seen by Provider: 12/13/23 10:11 Mode of Arrival: Wheelchair Source of Information: Patient Limitations: No Limitations Description of Symptoms (Recalled from ER Triage Doc. by RN): Patient states swelling in bilateral legs for awhile, blisters started to appear this morning. Blister to the left heel has opened. Patient was seen by yesterday and instructed to increase Lasix and started an antibiotic. History of Present Illness HPI narrative: This patient is a 63-year-old male with a history of type 2 diabetes, hypertension, hyperlipidemia, peripheral neuropathy, CAD status post stenting and CABG, atrial fibrillation, dual antiplatelet therapy with Brilinta and aspirin, CHF with an EF of 40 to 45%, COPD, and tobacco dependence presenting to the emergency department for evaluation with concern for bilateral lower extremity swelling. Patient is had lower extremity swelling for some time now, for which she has been seeing his primary care provider as well as cardiology. They have been increasing his beta-jhoana and diuretics, but it is not improving. His family does note that he does not keep his feet up at home. With prompted him to come in today was that he developed significant blistering to his lower extremities, especially on his left heel. No fevers, chills, redne ss, warmth, purulent drainage, or other concerns, but the blisters have been weeping. He was put on Keflex by his primary care provider as well with concern for possible cellulitis, but his symptoms been persisting. He went to the urgent treatment center today, who sent him over for evaluation because they were very concerned about the appearance of his legs. I had an interactive discussion with the provider who sent him over who describes a blistering. No other concerns noted at this time. Related Data Home Medications Medication Instructions Recorded Confirmed nitroglycerin 0.4 mg sublingual 0.4 mg sublingual Q5-15M PRN Chest 07/25/18 12/13/23 tablet Pain aspirin 81 mg tablet,delayed 81 mg PO DAILY heart health 03/22/21 12/13/23 release glucagon 0.5 mg/0.1 mL 1 mg SQ ONCE PRN diabetis 05/04/21 12/13/23 subcutaneous auto-injector (Gvoke HypoPen 2-Pack) budesonide 160 mcg-glycopyr 9 2 inh inhalation BID 10/28/23 12/13/23 mcg-formot 4.8 mcg/actuation HFA inhaler (Breztri Aerosphere) Previous Rx's Medication Instructions Recorded insulin aspar prot-insulin aspart 10 unit (0.1 mL) SQ BID #15 mL 01/10/23 100 unit/mL (70-30) subcutaneous pen (Novolog Mix 70-30FlexPen U-100) pen needle, diabetic 32 gauge x #100 ea 01/21/23 (BD Ultra-Fine Cheryle Pen Needle) isosorbide mononitrate 60 mg 60 mg PO DAILY #90 tabs 04/14/23 tablet,extended release 24 hr sennosides 8.6 mg-docusate sodium See Rx Instructions .Route 04/22/23 50 mg tablet (Stool .COMPLEX #30 tabs Softener-Stimulant Laxative) lisinopril 10 mg tablet 10 mg PO DAILY #90 tabs 10/17/23 atorvastatin 40 mg tablet See Rx Instructions .Route 10/24/23 .COMPLEX #90 tabs blood sugar diagnostic (Blood #50 ea 10/28/23 Glucose Test strips) blood-glucose meter #1 ea 10/28/23 clopidogrel 75 mg tablet (Plavix) 75 mg PO DAILY #90 tabs 10/28/23 lancing device #1 ea 10/28/23 metoprolol succinate 100 mg 100 mg PO BID #180 tabs 11/22/23 tablet,extended release 24 hr hydrocodone 7.5 mg-acetaminophen 1 tab PO BID PRN pain #60 tabs 12/01/23 325 mg tablet cephalexin 500 mg capsule 500 mg PO Q8H 10 days #30 caps 12/12/23 furosemide 40 mg tablet (Lasix) See Rx Instructions .Route 12/12/23 .COMPLEX #120 tabs Allergies Allergy/AdvReac Type Severity Reaction Status Date / Time gabapentin [From Neurontin] Allergy Verified 12/12/23 10:34 Penicillins Allergy Verified 12/12/23 10:34 acetaminophen [From Percocet] AdvReac Vomiting Verified 12/12/23 10:34 NSAIDS (Non-Steroidal AdvReac Verified 12/12/23 10:34 Anti-Inflamma oxycodone [From Percocet] AdvReac Vomiting Verified 12/12/23 10:34 [facility] Disclaimer: The information contained in this section may have been updated after the pat ient was seen, as this information can be updated by other users. Medical History Acute [place] Recent ST elevation myocardial infarction (STEMI) STEMI (ST elevation myocardial infarction) Social History Smoking Status: Current every day smoker tobacco type: cigarettes packs per day: 1 second hand exposure: No alcohol intake: never substance use type: denies use current occupational status: disabled Travel in the last 8 weeks: None housing: house current occupational exposures/hazards: No caffeine: Yes ROS Obtained: Yes All systems reviewed & no additional complaints except as documented Physical Exam General General appearance: alert and in no apparent distress Head Head exam: atraumatic and normocephalic Eye Eye exam: Present normal appearance, PERRL and EOMI ENT ENT exam: Present normal exam, normal oropharynx, mucous membranes moist and normal external ear exam Neck Neck exam: Present normal inspection, full ROM and trachea midline; Absent tenderness Chest Chest inspection: Present normal inspection and symmetric chest wall rise; Absent tenderness Respiratory Respiratory exam: Present normal lung sounds bilaterally; Absent respiratory distress, wheezes, stridor or accessory muscle use Cardiovascular Cardiovascular exam: Present regular rate and normal rhythm Abdominal Exam Abdominal exam: Present soft; Absent distention, tenderness or guarding Extremities Exam Extremities exam: Present normal capillary refill, edema (Significant bilateral lower extremity edema, worse in the right lower extremity, with chronic skin meghan nges large fluid-filled blister to the left heel without surrounding erythema, warmth, or purulence. Limited range of motion of the bilateral ankles given significant swelling. ) and other (Warm and well-perfused distally in the bilateral lower extremities with chronically diminished sensation secondary to peripheral neuropathy); Absent tenderness Back Exam Back exam: Present normal inspection and full ROM; Absent tenderness Neurological Exam Neurological exam: Present alert, oriented X3, CN II-XII intact and normal gait; Absent motor sensory deficit Psychiatric Psychiatric exam: Present normal affect and normal mood Skin Skin exam: Present warm and dry Medical Decision Making Medical Records Medical records reviewed: Yes I reviewed the patient's medical records. [place] Inquiry Pt receiving controlled substance: No Vital Signs: 12/13/23 10:00 12/13/23 10:47 12/13/23 12:00 Temperature 98.5 F 98.7 F Temperature Source Oral Oral Pulse Rate 54 L Pulse Rate [Right Radial] 57 L 57 L Respiratory Rate 18 18 20 Blood Pressure 167/74 H Blood Pressure [Right Arm] 151/89 H 176/82 H Blood Pressure Mean 105 Blood Pressure Mean [Right Arm] 109 113 Blood Pressure Source [Right Arm] Automatic Cuff Automatic Cuff Blood Pressure Position [Right Arm] Sitting Sitting 02 Sat by Pulse Oximetry 96 96 96 Oxygen Delivery Method Room Air Room Air 12/13/23 12:30 12/13/23 13:00 12/13/23 13:59 Temperature Temperature Source Pulse Rate 54 L 57 L 61 Pulse Rate [Right Radial] Respiratory Rate 20 20 20 Blood Pressure 157/66 H 160/62 H 140/71 Blood Pressure [Right Arm] Blood Pressure Mean 96 94 94 Blood Pressure Mean [Right Arm] Blood Pressure Source [Right Arm] Blood Pressure Position [Right Arm] 02 Sat by Pulse Oximetry 92 L 91 L 92 L Oxygen Delivery Method 12/13/23 14:01 Temperature Temperature Source Pulse Rate 62 Pulse Rate [Right Radial] Respiratory Rate 20 Blood Pressure 155/70 H Blood Pressure [Right Arm] Blood Pressure Mean 90 Blood Pressure Mean [Right Arm] Blood Pressure Source [Right Arm] Blood Pressure Position [Right Arm] 02 Sat by Pulse Oximetry 84 L Oxygen Delivery Method Lab Data Lab results reviewed: Yes I reviewed the patient's lab results. Lab Results 12/13/23 10:55: WBC 7.2, RBC 3.14 L, Hgb 9.6 L, Hct 29.9 L, MCV 95.2 H, MCH 30.6, MCHC 32.1, RDW 15.4, Plt Count 280, MPV 9.5, Neut % (Auto) 73.8, Lymph % (Auto) 16.6, [place] % (Auto) 6.2, Eos % (Auto) 2.9, Baso % (Auto) 0.6, Neut # (Auto) 5.3, Lymph # (Auto) 1.2, [place] # (Auto) 0.4, Eos # (Auto) 0.2, Baso # (Auto) 0.0, ESR > 140 H, PT 11.2, INR 1.04, APTT 27.8, Sodium 141, Potassium 4.7, Chloride 108 H, Carbon Dioxide 30, Anion Gap 7.7, BUN 40 H, Creatinine 2.00 H, Estimated Creat Clear 46, Estimated GFR 34 L, Est GFR ( Amer) 41 L, G lucose 185 H, Lactate 0.5 L, Calcium 8.1 L, Total Bilirubin 0.3, AST 36, ALT 34, Alkaline Phosphatase 162 H, Total Creatine Kinase 108, C-Reactive Protein 11.1 H , NT-Pro-B Natriuret Pep 50627 H, Total Protein 6.2 L, Albumin 3.0 L, Globulin 3.2, Albumin/Globulin Ratio 0.9 L 12/13/23 10:55 12/13/23 10:55 Orders (Tests/Meds): ED MEDICATIONS Generic Name Dose Route Start Last Admin Trade Name Freq PRN Reason Stop Dose Admin Hydrocodone Bitart/Acetaminophen 1 tab 12/13/23 14:11 Apap/Hydrocodone 325mg/7.5mg Tab PO 01/12/24 14:10 BIDP PRN Moderate Pain (4-6) Aspirin 81 mg 12/14/23 09:00 Aspirin Ec 81mg Tablet PO 01/13/24 08:59 DAILY [facility] Atorvastatin Calcium 40 mg 12/14/23 09:00 Atorvastatin 40mg Tablet PO 01/13/24 08:59 DAILY [facility] Clopidogrel Bisulfate 75 mg 12/14/23 09:00 Clopidogrel 75mg Tab PO 01/13/24 08:59 DAILY [facility] Insulin Human Lispro 0 unit 12/13/23 16:30 Humalog 100 Units/Ml 3ml Vial (Ssi) SQ 01/12/24 16:29 ACHS [facility] Protocol Isosorbide Mononitrate 60 mg 12/14/23 09:00 Isosorbide [place] 60mg Tab.Er.24h PO 01/13/24 08:59 DAILY [facility] Metoprolol Succinate 100 mg 12/13/23 21:00 Metoprolol Succinate Xl 100mg Tablet PO 01/12/24 20:59 BID [facility] Non-Formulary Medication 2 inh 12/13/23 21:00 [id number] [Breztri Aerosphere] IH 01/12/24 20:59 BID ROMULO Discontinued Medications Generic Name Dose Route Start Last Admin Trade Name Gabriel PRN Reason Stop Dose Admin Bumetanide 2 mg 12/13/23 14:10 12/13/23 14:19 Bumetanide 1mg/4ml Vial IV 12/13/23 14:11 2 mg ONCE ONE Administration Iopamidol 195 ml 12/13/23 11:51 12/13/23 11:56 Iopamidol-370 (76%);100ml Bottle IV 12/13/23 11:52 195 ml ONCE ONE Administration Sodium Chloride 10 ml 12/13/23 11:51 12/13/23 11:56 Sodium Chloride 0.9% 10ml Syr (Rad Only) IV 12/13/23 11:52 10 ml ONCE ONE Administration Sodium Chloride 50 ml 12/13/23 11:51 12/13/23 11:55 0.9 % Sodium Chloride 50 Ml Vial IV 12/13/23 11:52 50 ml ONCE ONE Administration Sodium Chloride 50 ml 12/13/23 11:55 12/13/23 11:56 0.9 % Sodium Chloride 50 Ml Vial IV 12/13/23 11:56 50 ml ONCE ONE Administration ORDERS Category Date Time Status CT angio abdomen/femoral Stat Cat Scan 12/13/23 10:[address] angio chest PE protocol Stat Cat Scan 12/13/23 10:50 Completed Cardiology Consult [Consult to Cardiology] [CONS] Cons 12/13/23 14:10 Active Routine Activated Partial Thrombo Time Stat Lab 12/13/23 10:55 Completed Brain Natriuretic Peptide Stat Lab 12/13/23 10:55 Completed CRP [C-Reactive Protein] Stat Lab 12/13/23 10:55 Completed Complete Blood Count Auto Diff AMLAB Lab 12/14/23 06:00 Ordered Complete Blood Count Auto Diff Stat Lab 12/13/23 10:55 Completed Comprehensive Metabolic Panel AMLAB Lab 12/14/23 06:00 Ordered Comprehensive Metabolic Panel Stat Lab 12/13/23 10:55 Completed Creatine Kinase Stat Lab 12/13/23 10:55 Completed Erythrocyte Sedimentation Rate Stat Lab 12/13/23 10:55 Completed Lactic Acid Stat Lab 12/13/23 10:55 Completed Magnesium AMLAB Lab 12/14/23 06:00 Ordered Prothrombin Time INR Stat Lab 12/13/23 10:55 Completed Blood Culture Stat Micro 12/13/23 14:30 Received CA venous doppler LE BI Stat Y 12/13/23 10:50 Completed Medical Decision Narrative: In summary, this patient is a 63-year-old male presenting to the Emergency Department for evaluation of bilateral lower extremity swelling and blistering. Differential diagnoses considered include but are not limited to CHF exacerbation, venous insufficiency, DVT, phlegmasia, cellulitis, NSTI, arterial insufficiency. Ruling out the most morbid conditions drove assessment. It should be noted patient's history includes extensive cardiac history as well as type 2 diabetes and COPD which are not at goal therapy. This complicates all aspects of care by increasing patient's risk for morbidity. I reviewed patient's past medical records and noted previous evaluations by cardiology as well as primary care provider detailing workup and instructions as per HPI. On exam, the patient is in no acute distress. Vitals are reassuring on cardiac telemetry. He does have significant bilateral lower extremity edema with blistering and chronic skin changes, however he does not have any redness, warmth, purulence, or other concerns. He is warm and well-perfused. Workup included CBC, CMP, ESR, CRP, PT, PTT, lactic acid, CK, bilateral DVT ultrasound, and CT angiogram with runoff. Patient's labs did demonstrate a KENNA with creatinine of 2, however I feel the benefit of imaging would outweigh any risk for potential kidney injury at this time. Given this, decision was made to proceed with CT angiogram despite the risk. I independently interpreted CT scans prior to the radiologist read and noted atherosclerosis without definitive occlusion. No soft tissue gas noted. He does have pleural effusions. Please see their read for final interpretation. Labs were obtained that demonstrated KENNA as above. He also has a elevated BNP.. I had an interactive discussion with the solid waste facility operator who advised that the patient does not have DVT, however he has significant inguinal lymphadenopathy in the right groin, and his right lower extremity swelling is significantly worse. At this time, feel patient has complex situation with fluid overload secondary to CHF as well as KENNA. Given the severity of his CHF exacerbation, feel he would benefit from admission for continued monitoring. I called and had an interactive discussion with Dr. Handley who graciously spoke with the patient for admission. He was admitted in stable condition. Critical Care Critical Care Time Critical Care Time: No
[2023-12-13 11:13] LABS: Chloride 108 mmol/L (98-107); Potassium 4.7 mmoL/L (3.5-5.1); Sodium 141 mmol/L (136-145)
[2023-12-13 11:15] LABS: Blood Urea Nitrogen 40 mg/dl (9-20); Creatinine Clearance Estimated 46 mL/min (50-200); Estimated Glomerular Filt Rate 34 ml/min (>60); GFR (African American) 41 ML/MIN (>60)
[2023-12-13 11:16] LABS: Alanine Aminotransferase 34 U/L (12-78); Albumin/Globulin Ratio 0.9 (1.1-1.8); Alkaline Phosphatase 162 U/L (38-126); Anion Gap 7.7 mEq/L (5-15); Aspartate Amino Transferase 36 U/L (17-59); Bilirubin,Total 0.3 mg/dl (0.2-1.3); Calcium 8.1 mg/dl (8.4-10.2); Carbon Dioxide 30 mmol/L (22.0-30.0); Globulin 3.2 g/dL (1.3-3.2); Glucose 185 mg/dl (74-100); Total Protein,Serum 6.2 g/dl (6.3-8.2)
[2023-12-13 11:17] LABS: Lactic Acid 0.5 mmol/L (0.7-2.1)
[2023-12-13 11:21] LABS: C-Reactive Protein 11.1 mg/L (0-4)
[2023-12-13 11:38] LABS: Creatine Kinase 108 U/L (55-170)
[2023-12-13] MEDS: 0.9 % SODIUM CHLORIDE 50 ML VIAL IV ×2 (11:55→11:56)
[2023-12-13] MEDS: SODIUM CHLORIDE 0.9% 10ML SYR (RAD ONLY) 10 ML IV (11:56)
[2023-12-13] MEDS: IOPAMIDOL-370 (76%);100ML BOTTLE 195 ML IV (11:56)
[2023-12-13 12:06] LABS: Erythrocyte Sedimentation Rate > 140 mm/hr (0-20)
[2023-12-13 12:07] LABS: NT Pro Brain Natriuretic Pep. 44300 pg/mL (0-125)
[2023-12-13 12:10] LABS: Activated Partial Thrombo Time 27.8 seconds (22.8-30.6); INR 1.04 (0.9-1.1); Prothrombin Time 11.2 seconds (10.1-12.5)
--- NOTE | 2023-12-13 14:05 | PC.NURSE ---
PT PLACED ON 2L/NC FOR O2 SAT 85%
--- NOTE | 2023-12-13 14:07 | PC.NURSE ---
DR WILL SPEAKING WITH DR QUINTERO FOR ADMISSION
--- NOTE | 2023-12-13 14:08 | PC.NURSE ---
LAB NOTIFIED FOR CULTURES
--- NOTE | 2023-12-13 14:10 | PC.NURSE ---
CARE MANAGEMENT NOTIFIED OF ADMISSION
--- NOTE | 2023-12-13 14:14 | P.HP_ITS ---
History of Present Illness *Admission Date: 12/13/23 *Reason for visit:: leg swelling *History of present illness: Mr. White is a 63yo M with history of diabetes, hyperlipidemia, neuropathy, CAD, CABG, A-fib and heart failure with reduced ejection fraction. Presented to the ER with complaint of worsening bilateral lower extremity edema, blister on left heel that ruptured today. States the blister began to appear over the past 24 hours on his left heel and open this morning. Had seen his PCP yesterday who instructed him to increase his Lasix. On arrival to the ER he states he has had worsening swelling for some time. He has been following with cardiology and his PCP. They have made adjustments in the outpatient setting but he has not seen improvement. He denies any bleeding, warmth, streaking redness, fever, chills. Has been having weeping of serous fluid from his blisters. Started on Keflex yesterday. Initially presented to the [facility] and was sent to the ER for further evaluation. On workup, noted to have severely elevated BNP and elevated creatinine. Medicine consulted for admission for treatment of CHF exacerbation, edema, blisters on legs. On arrival to the floor, patient is on room air. Hemodynamically stable. 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 [facility] Disclaimer: The information contained in this section may have been updated after the patient was seen, as this information can be updated by other users. Medical History Acute GA Afib Amputation toe CHF (congestive heart failure) Diabetes mellitus FH: CABG (coronary artery bypass surgery) History of cataract Recent ST elevation myocardial infarction (STEMI) STEMI (ST elevation myocardial infarction) Surgical History History of colonoscopy History of knee surgery Family History Family history of cancer Family history of coronary artery disease Social History Smoking Status: Current every day smoker tobacco type: cigarettes packs per day: 1 second hand exposure: No alcohol intake: never substance use type: denies use current occupational status: disabled Travel in the last 8 weeks: None housing: house current occupational exposures/hazards: No caffeine: Yes Review of Systems Review of Systems Review of systems (narrative): 14 point review of systems performed, pertinent positives and negatives as per HPI ENT Ears, Nose, Mouth, and Throat: Denies dizziness *Neurologic Neurologic: Denies dizziness and Denies paresthesias Meds Home Medications and Allergies Home Medications Medication Instructions Recorded Confirmed Type nitroglycerin 0.4 mg sublingual 0.4 mg sublingual Q5-15M PRN Chest 07/25/18 12/13/23 History tablet Pain aspirin 81 mg tablet,delayed 81 mg PO DAILY heart health 03/22/21 12/13/23 History release glucagon 0.5 mg/0.1 mL 1 mg SQ ONCE PRN diabetis 05/04/21 12/13/23 History subcutaneous auto-injector (Gvoke HypoPen 2-Pack) insulin aspar prot-insulin aspart 10 unit (0.1 mL) SQ BID #15 mL 01/10/23 12/13/23 Rx 100 unit/mL (70-30) subcutaneous pen (Novolog Mix 70-30FlexPen U-100) pen needle, diabetic 32 gauge x #100 ea 01/21/23 12/12/23 Rx 5/32 (BD Ultra-Fine Cheryle Pen Needle) isosorbide mononitrate 60 mg 60 mg PO DAILY #90 tabs 04/14/23 12/13/23 Rx tablet,extended release 24 hr sennosides 8.6 mg-docusate sodium See Rx Instructions .Route 04/22/23 12/13/23 Rx 50 mg tablet (Stool .COMPLEX #30 tabs Softener-Stimulant Laxative) lisinopril 10 mg tablet 10 mg PO DAILY #90 tabs 10/17/23 12/13/23 Rx atorvastatin 40 mg tablet See Rx Instructions .Route 10/24/23 12/13/23 Rx .COMPLEX #90 tabs blood sugar diagnostic (Blood #50 ea 10/28/23 12/12/23 Rx Glucose Test strips) blood-glucose meter #1 ea 10/28/23 12/12/23 Rx budesonide 160 mcg-glycopyr 9 2 inh inhalation BID 10/28/23 12/13/23 History mcg-formot 4.8 mcg/actuation HFA inhaler (Breztri Aerosphere) clopidogrel 75 mg tablet (Plavix) 75 mg PO DAILY #90 tabs 10/28/23 12/13/23 Rx lancing device #1 ea 10/28/23 12/12/23 Rx metoprolol succinate 100 mg 100 mg PO BID #180 tabs 11/22/23 12/13/23 Rx tablet,extended release 24 hr hydrocodone 7.5 mg-acetaminophen 1 tab PO BID PRN pain #60 tabs 12/01/23 12/13/23 Rx 325 mg tablet cephalexin 500 mg capsule 500 mg PO Q8H 10 days #30 caps 12/12/23 12/13/23 Rx furosemide 40 mg tablet (Lasix) See Rx Instructions .Route 12/12/23 12/13/23 Rx .COMPLEX #120 tabs New Prescriptions to Start Prescriptions: Allergies Allergy/AdvReac Type Severity Reaction Status Date / Time gabapentin [From Neurontin] Allergy Verified 12/13/23 16:01 Penicillins Allergy Verified 12/13/23 16:01 acetaminophen [From Percocet] AdvReac Vomiting Verified 12/13/23 16:01 NSAIDS (Non-Steroidal AdvReac Verified 12/13/23 16:01 Anti-Inflamma oxycodone [From Percocet] AdvReac Vomiting Verified 12/13/23 16:01 Exam Data for Last 24 hours Vital signs and Labs for Last 24 Hours: Temp Pulse Resp BP Pulse Ox O2 Del Method 98.7 F 57 L 20 160/62 H 91 L Room Air 12/13/23 10:47 12/13/23 13:00 12/13/23 13:00 12/13/23 13:00 12/13/23 13:00 12/13/23 10:47 Laboratory Results - last 24 hr 12/13/23 10:55: WBC 7.2, RBC 3.14 L, Hgb 9.6 L, Hct 29.9 L, MCV 95.2 H, MCH 30.6, MCHC 32.1, RDW 15.4, Plt Count 280, MPV 9.5, Neut % (Auto) 73.8, Lymph % (Auto) 16.6, [place] % (Auto) 6.2, Eos % (Auto) 2.9, Baso % (Auto) 0.6, Neut # (Auto) 5.3, Lymph # (Auto) 1.2, [place] # (Auto) 0.4, Eos # (Auto) 0.2, Baso # (Auto) 0.0, ESR > 140 H, PT 11.2, INR 1.04, APTT 27.8, Sodium 141, Potassium 4.7, Chloride 108 H, Carbon Dioxide 30, Anion Gap 7.7, BUN 40 H, Creatinine 2.00 H, Estimated Creat Clear 46, Estimated GFR 34 L, Est GFR ( Amer) 41 L, Glucose 185 H, Lactate 0.5 L, Calcium 8.1 L, Total Bilirubin 0.3, AST 36, ALT 34, Alkaline Phosphatase 162 H, Total Creatine Kinase 108, C-Reactive Protein 11.1 H, NT-Pro-B Natriuret Pep 69901 H, Total Protein 6.2 L, Albumin 3.0 L, Globulin 3.2, Albumin/Globulin Ratio 0.9 L I & O for Last 24 hours: Intake & Output 12/10/23 12/11/23 12/12/23 12/13/23 23:59 23:59 23:59 23:59 Weight 87.09 kg Constitutional Constitutional: no acute distress, average body habitus, chronically ill appearing and cooperative *Routine HEENT Exam Head: Present normocephalic and atraumatic Eye: Present EOMI and PERRL ENT: Present mucous membranes moist *Routine Neck Exam Neck: Present supple; Absent JVD Routine Chest/Breast/Axilla Exam Chest wall: Absent tenderness *Routine Respiratory Exam Respiratory: Present crackles (In bases); Absent accessory muscle use, respiratory distress, rhonchi or wheezes *Routine Cardiovascular Exam Cardiovascular: Present RRR, Normal S1 and Normal S2; Absent murmur *Routine Abdominal Exam Abdominal: Present soft and normoactive bowel sounds; Absent tenderness or distended *Routine Rectal Exam Rectal:: deferred *Routine Genitalia Exam Genitalia:: deferred *Routine Extremities Exam Extremities: Present edema (2+ today's, blistering of lower extremities with weeping); Absent cyanosis or clubbing Comments: Thenar wasting bilaterally; weak peripheral pulses *Routine Skin Exam Skin: Present intact and erythema; Absent cyanosis Comments: Chronic stasis changes of the legs *Routine Neurological Exam Neurological: Present alert, oriented X3, CN II-XII intact and moving all extremities; Absent sensory deficit or altered mental status Routine Psychiatric Exam Psychiatric: Present normal affect and normal thought process; Absent suicidal ideation or homicidal ideation Assessment and Plan *Assessment and plan (1) CHF (congestive heart failure): Status: Chronic Qualifiers: Heart failure chronicity: acute on chronic Heart failure type: diastolic Qualified Code(s): I50.33 - Acute on chronic diastolic (congestive) heart failure Category: Medical Code(s): I50.9 - Heart failure, unspecified (2) KENNA (acute kidney injury): Status: Acute Category: Medical Code(s): N17.9 - Acute kidney failure, unspecified (3) Blister of foot, left: Status: Acute Category: Medical Code(s): S90.822A - Blister (nonthermal), left foot, initial encounter (4) Chronic obstructive lung disease: Status: Chronic Qualifiers: COPD type: unspecified COPD Qualified Code(s): J44.9 - Chronic obstructive pulmonary disease, unspecified Category: Medical Code(s): J44.9 - Chronic obstructive pulmonary disease, unspecified (5) Peripheral vascular disease: Status: Chronic Category: Medical Code(s): I73.9 - Peripheral vascular disease, unspecified (6) Atrial fibrillation: Status: Chronic Qualifiers: Atrial fibrillation type: paroxysmal Qualified Code(s): I48.0 - Paroxysmal atrial fibrillation Category: Medical Code(s): I48.91 - Unspecified atrial fibrillation (7) HTN (hypertension): Status: Chronic Qualifiers: Hypertension type: essential hypertension Qualified Code(s): I10 - Essential (primary) hypertension Category: Medical Code(s): I10 - Essential (primary) hypertension (8) HLD (hyperlipidemia): Status: Chronic Qualifiers: Hyperlipidemia type: mixed hyperlipidemia Qualified Code(s): E78.2 - Mixed hyperlipidemia Category: Medical Code(s): E78.5 - Hyperlipidemia, unspecified (9) DM2 (diabetes mellitus, type 2): Status: Chronic Qualifiers: Diabetes mellitus complication detail: with other circulatory complications Diabetes mellitus complication status: with circulatory complication 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 Presents with increased swelling and weeping of his legs and KENNA. Discussed case with the ER physician, request admission for diuresis and cardiology consult. Medicine agreed to admit. Will diurese x 1 today. Monitor for urine output. Requires inpatient management. Problems addressed as follows: Acute on chronic combined CHF -Cardiology consulted, appreciate their recommendations. - Continue Lipitor 40 mg daily, aspirin 81 mg daily, Plavix 75 mg daily. Continue metoprolol succinate 100 mg twice daily and isosorbide mononitrate 60 mg daily. - Holding lisinopril 10 mg daily given KENNA. - Will attempt diuresis with 2 mg Bumex IV x 1. Repeat labs in the morning to monitor kidney function. - Echo from July 2022 shows EF of 40 to 45% with grade 1 diastolic dysfunction. Repeat echo pending. - BNP elevated at 44,300 - repeat CBC, CMP Mg pending for the morning Anemia: Hemoglobin 9.6 on presentation, chronically 9-10. Iron studies, folate, and B12 pending Diabetes: A1C pending. SSI with FSGS achs KENNA: Creatinine 2.0, baseline 1.5. Patient states he wants to be DNR, will have nurse verify Diabetic diet Heparin subcu
[2023-12-13] MEDS: BUMETANIDE 1MG/4ML VIAL 2 MG IV (14:19)
--- NOTE | 2023-12-13 14:29 | PC.NURSE ---
Report called to PHIL Enciso
--- NOTE | 2023-12-13 15:44 | PC.NURSE ---
Pt. on the floor.
[2023-12-13 15:54] LABS: POC Glucose,Bedside 185 (70-110)
--- NOTE | 2023-12-13 16:23 | PC.WOUNDNOTE ---
Left Lower Extremity
[2023-12-13] MEDS: humaLOG 100 UNITS/ML 3ML VIAL (SSI) SQ ×2 (16:30→20:42)
--- NOTE | 2023-12-13 16:45 | PC.NURSE ---
urine sent to lab.
--- NOTE | 2023-12-13 17:01 | PC.NURSE ---
Betadine dressing 4x4 and cling applied to left heel per dr. Handley request.
[2023-12-13 20:16] LABS: POC Glucose,Bedside 240 (70-110)
[2023-12-13] MEDS: METOPROLOL SUCCINATE XL 100MG TABLET 100 MG PO (20:43)
[2023-12-13] MEDS: IPRATROPIUM/ALBUTEROL 3 ML NEB IH (23:25)
[2023-12-14] VITALS (11 sets, daily range): BP systolic 99–169; BP diastolic 61–94; PULSE 57–87; RESP 18–20; TEMP 36.4–36.8; O2SAT 90–97; BMI 24.3
[2023-12-14 05:24] LABS: POC Glucose,Bedside 108 (70-110)
[2023-12-14] MEDS: IPRATROPIUM/ALBUTEROL 3 ML NEB IH ×4 (06:20→23:04)
[2023-12-14 06:37] LABS: Basophils % 0.5 % (0.1-2.0); Eosinophils # 0.2 K/mm3 (0.0-0.4); Hematocrit 24.6 % (42.0-52.0); Lymphocytes # 1.3 K/mm3 (0.7-4.5); Lymphocytes % 16.5 % (10-50); Mean Corpuscular HGB Conc 33.3 g/dL (31.8-35.4); Mean Corpuscular Hemoglobin 31.4 pg (27.0-31.2); Mean Corpuscular Volume 94.3 fl (80-94); Mean Platelet Volume 9.2 fl (7.4-10.4); Monocytes # 0.5 K/mm3 (0.1-1.0); Neutrophils # 5.9 K/mm3 (1.8-7.8); Neutrophils % 73.9 % (37.0-80.0); Platelet Count 252 K/mm3 (142-424); Red Blood Count 2.62 M/mm3 (4.60-6.20); Red Cell Distribution Width 15.2 % (11.5-17.5); White Blood Count 7.9 K/mm3 (4.8-10.8)
[2023-12-14 06:40] LABS: Alanine Aminotransferase 30 U/L (12-78); Albumin Level 2.5 g/dl (3.5-5.0); Albumin/Globulin Ratio 0.8 (1.1-1.8); Alkaline Phosphatase 131 U/L (38-126); Anion Gap 9.1 mEq/L (5-15); Aspartate Amino Transferase 31 U/L (17-59); Bilirubin,Total 0.2 mg/dl (0.2-1.3); Blood Urea Nitrogen 43 mg/dl (9-20); Calcium 7.8 mg/dl (8.4-10.2); Carbon Dioxide 27 mmol/L (22.0-30.0); Chloride 109 mmol/L (98-107); Creatinine Clearance Estimated 43 mL/min (50-200); Estimated Glomerular Filt Rate 30 ml/min (>60); GFR (African American) 37 ML/MIN (>60); Globulin 3.1 g/dL (1.3-3.2); Glucose 95 mg/dl (74-100); Magnesium 2.1 mg/dl (1.6-2.3); Potassium 5.1 mmoL/L (3.5-5.1); Sodium 140 mmol/L (136-145); Total Protein,Serum 5.6 g/dl (6.3-8.2)
[2023-12-14 06:55] LABS: Hemoglobin 8.2 g/dL (14.1-18.0)
--- NOTE | 2023-12-14 08:08 | HMH.PHAINT1 ---
Pharmacy Intervention Comments: Home med list verified with patient at bedside and with external pharmacy list.
[2023-12-14] MEDS: ASPIRIN EC 81MG TABLET 81 MG PO (08:50)
[2023-12-14] MEDS: METOPROLOL SUCCINATE XL 100MG TABLET 100 MG PO ×2 (08:51→22:00)
[2023-12-14] MEDS: CLOPIDOGREL 75MG TAB 75 MG PO (08:51)
[2023-12-14] MEDS: ISOSORBIDE MONO 60MG TAB.ER.24H 60 MG PO (08:51)
[2023-12-14] MEDS: ATORVASTATIN 40MG TABLET 40 MG PO (08:51)
[2023-12-14] MEDS: HYDRALAZINE HCL 25MG TABLET 25 MG PO (10:01)
[2023-12-14] MEDS: EMPAGLIFLOZIN 10MG TABLET 10 MG PO (10:01)
[2023-12-14] MEDS: BUMETANIDE 1 MG TABLET 2 MG PO ×2 (10:01→15:53)
[2023-12-14] MEDS: SPIRONOLACTONE 25MG TABLET 25 MG PO (10:02)
[2023-12-14 10:46] LABS: Iron 31 ug/dL (49-181)
[2023-12-14 10:56] LABS: Total Iron Binding Capacity 251 ug/dL (261-462)
--- NOTE | 2023-12-14 11:21 | HMH.PTWOUND ---
Rehab Inpt Wound Evaluation Rehab IP Wound Evaluation Start: 12/13/23 16:44 Freq: ONCE Status: Active Protocol: Document 12/14/23 11:00 AFSHIN (Rec: 12/14/23 11:17 AFSHIN [id number]) Rehab PT Wound Assessment Subjective Subjective Pt greeted semi-supine in bed and agreeable to PT evaluation . Pt reports he had his left heel wound prior to admission to [facility]. Per history and physical: Mr. White is a 63yo M with history of diabetes, hyperlipidemia, neuropathy, CAD, CABG, A-fib and heart failure with reduced ejection fraction. Presented to the ER with complaint of worsening bilateral lower extremity edema, blister on left heel that ruptured today. States the blister began to appear over the past 24 hours on his left heel and open this morning. Had seen his PCP yesterday who instructed him to increase his Lasix. On arrival to the ER he states he has had worsening swelling for some time. He has been following with cardiology and his PCP. They have made adjustments in the outpatient setting but he has not seen improvement. He denies any bleeding, warmth, streaking redness, fever, chills. Has been having weeping of serous fluid from his blisters. Started on Keflex yesterday. Initially presented to the [facility] and was sent to the ER for further evaluation. On workup , noted to have severely elevated BNP and elevated creatinine. Medicine consulted for admission for treatment of CHF exacerbation, edema, blisters on legs. Wound Left Heel Wound Type Blister Is This a Chronic Wound No Wound Length (cm) 5.5 Wound Width (cm) 8.0 Wound Bed Appearance [place] Wound Margins Description Well Defined Edema Degree 1+ Query Text:1+ Trace, Barely Detectable, Rebound 15-30 seconds 2+ Moderate, Slight Indentation, Rebound 10-20 seconds 3+ Deep, Deeper Indentation, Rebound > 30 seconds 4+ Very Deep, Rebound > 60 seconds Wound Drainage Description Serous Drainage Amount Moderate Primary Dressing Absorbant Pad Comment Calcium alginate Wound Secondary Dressing Type Non-Adherent Gauze Pad,Gauze Roll/Wrap,Adhering Gauze Roll Plan/Recommendation Comment Pt able to d/c home from [facility] when deemed medically stable. Nursing to continue dressing changes once every 2-3 days. Eval Complexity Eval Charge Codes 51957 - High Complexity PHYSICIAN CERTIFICATION: I certify the specified therapy services for Jama Cindy are required, authorized, and reviewed every 30 days.
[2023-12-14 11:23] LABS: Ferritin 42.5 ng/ml (17.9-464)
--- NOTE | 2023-12-14 11:28 | P.CONCA_ITS ---
History of Present Illness History of Present Illness Consult date: 12/14/23 Requesting physician: Donato Handley Consult reason: congestive heart failure Chief complaint: leg swelling Additional Medical History:: History of present illness: 63-year-old white male established patient of our office with history of CAD status post CABG 2017, stents in 2017 and 2020. He has ischemic cardiomyopathy with EF 40%, COPD, diabetes, hypertension. Patient presented to the emergency room yesterday with complaints of worsening lower extremity edema and a ruptured blister on his left heel. Workup in the ED are revealed proBNP 44,000, CTA chest with moderate bilateral effusions, creatinine 2.2. Venous ultrasound was negative for DVT. He was admitted overnight for diuresis and medical management. This morning denies chest pain but does have ongoing orthopnea and productive cough. His left lower extremity is wrapped, he has numerous excoriations and skin breakdown bilateral lower extremities. He has right 4th- 5th toes amputated. [facility] Disclaimer: The information contained in this section may have been updated after the patient was seen, as this information can be updated by other users. Medical History Acute IA Afib Amputation toe CHF (congestive heart failure) Diabetes mellitus FH: CABG (coronary artery bypass surgery) History of cataract Recent ST elevation myocardial infarction (STEMI) STEMI (ST elevation myocardial infarction) Surgical History History of colonoscopy History of knee surgery Family History Other Family history of cancer Family history of coronary artery disease Social History Smoking Status: Current every day smoker tobacco type: cigarettes packs per day: 1 second hand exposure: No alcohol intake: never substance use type: denies use current occupational status: disabled Travel in the last 8 weeks: None housing: house current occupational exposures/hazards: No caffeine: Yes Review of Systems Constitutional Constitutional: Reports fatigue and Reports weakness Eyes Eyes: Denies loss of vision ENT Ears, Nose, Mouth, and Throat: Denies dizziness *Cardiovascular Cardiovascular: Denies chest pain, Reports dyspnea and Reports orthopnea *Respiratory Respiratory: Denies cough and Reports dyspnea *Gastrointestinal Gastrointestinal: Denies change in stool character, Denies nausea and Denies vomiting *Genitourinary Genitourinary: Denies difficulty urinating *Musculoskeletal Musculoskeletal: Denies muscle weakness Integumentary/Breasts Skin/Breast: Denies changing lesions, Reports skin ulcer and Reports sores Comments: BLE Edema knee high *Neurologic Neurologic: Denies dizziness, Denies loss of vision, Denies paresthesias and Reports weakness Endocrine Endocrine: Reports fatigue Exam Data for Last 24 hours Vital signs and Labs for Last 24 Hours: Temp Pulse Resp BP Pulse Ox O2 Del Method O2 Flow Rate 98.1 F 61 18 169/82 H 90 L Room Air 2 12/14/23 11:18 12/14/23 11:18 12/14/23 11:18 12/14/23 11:18 12/14/23 11:18 12/14/23 11:18 12/14/23 06:20 Laboratory Results - last 24 hr 12/13/23 10:55: WBC 7.2, RBC 3.14 L, Hgb 9.6 L, Hct 29.9 L, MCV 95.2 H, MCH 30.6, MCHC 32.1, RDW 15.4, Plt Count 280, MPV 9.5, Neut % (Auto) 73.8, Lymph % (Auto) 16.6, [place] % (Auto) 6.2, Eos % (Auto) 2.9, Baso % (Auto) 0.6, Neut # (Auto) 5.3, Lymph # (Auto) 1.2, [place] # (Auto) 0.4, Eos # (Auto) 0.2, Baso # (Auto) 0.0, ESR > 140 H, PT 11.2, INR 1.04, APTT 27.8, Total Creatine Kinase 108, NT-Pro-B Natriuret Pep 49939 H 12/13/23 15:48: POC Glucose 185 H 12/13/23 20:05: POC Glucose 240 H 12/14/23 05:12: POC Glucose 108 12/14/23 06:20: WBC 7.9, RBC 2.62 L, Hgb 8.2 L D, Hct 24.6 L, MCV 94.3 H, MCH 31.4 H, MCHC 33.3, RDW 15.2, Plt Count 252, MPV 9.2, Neut % (Auto) 73.9, Lymph % (Auto) 16.5, [place] % (Auto) 6.0, Eos % (Auto) 3.0, Baso % (Auto) 0.5, Neut # (Auto) 5.9, Lymph # (Auto) 1.3, [place] # (Auto) 0.5, Eos # (Auto) 0.2, Baso # (Auto) 0.0, Sodium 140, Potassium 5.1, Chloride 109 H, Carbon Dioxide 27, Anion Gap 9.1, BUN 43 H, Creatinine 2.20 H, Estimated Creat Clear 43, Estimated GFR 30 L, Est GFR ( Amer) 37 L, Glucose 95 D, Calcium 7.8 L, Magnesium 2.1, Iron 31 L, TIBC 251 L, Iron Saturation 12.86576 L, Total Bilirubin 0.2, AST 31, ALT 30, Alkaline Phosphatase 131 H, Total Protein 5.6 L, Albumin 2.5 L D, Globulin 3.1, Albumin/Globulin Ratio 0.8 L I & O for Last 24 hours: Intake & Output 12/11/23 12/12/23 12/13/23 12/14/23 23:59 23:59 23:59 23:59 Intake Total 600 / 720 590 / 590 Output Total 0 / 0 Balance 600 / 720 590 / 590 Weight 195 lb 7 oz 195 lb 8 oz Constitutional Constitutional: no acute distress and cooperative *Routine HEENT Exam Eye: Present PERRL *Routine Respiratory Exam Respiratory: Present CTA bilaterally; Absent accessory muscle use, wheezes or crackles Comments: Moderately severe bilateral wheezing and coarse breath sounds with productive cough *Routine Cardiovascular Exam Cardiovascular: Present RRR, Normal S1 and Normal S2; Absent murmur, gallop or rubs *Routine Abdominal Exam Abdominal: Present soft; Absent tenderness *Routine Extremities Exam Extremities: Present pulses intact; Absent cyanosis or edema *Routine Skin Exam Skin: Present intact; Absent erythema or wounds Comments: Left lower extremity wound is wrapped, he has numerous superficial excoriations and erythema noted to bilateral lower extremities. Right fourth and fifth dig its are amputated. *Routine Neurological Exam Neurological: Present alert and oriented X3 Routine Psychiatric Exam Psychiatric: Present cooperative Meds Home Medications and Allergies Home Medications Medication Instructions Recorded Confirmed Type nitroglycerin 0.4 mg sublingual 0.4 mg sublingual Q5-15M PRN Chest 07/25/18 12/13/23 History tablet Pain aspirin 81 mg tablet,delayed 81 mg PO DAILY 03/22/21 12/13/23 History release glucagon 0.5 mg/0.1 mL 1 mg SQ ONCE PRN Low blood sugar 05/04/21 12/13/23 History subcutaneous auto-injector (Gvoke HypoPen 2-Pack) pen needle, diabetic 32 gauge x #100 ea 01/21/23 12/12/23 Rx /32 (BD Ultra-Fine Cheryle Pen Needle) isosorbide mononitrate 60 mg 60 mg PO DAILY #90 tabs 04/14/23 12/13/23 Rx tablet,extended release 24 hr lisinopril 10 mg tablet 10 mg PO DAILY #90 tabs 10/17/23 12/13/23 Rx blood sugar diagnostic (Blood #50 ea 10/28/23 12/12/23 Rx Glucose Test strips) blood-glucose meter #1 ea 10/28/23 12/12/23 Rx budesonide 160 mcg-glycopyr 9 2 inh inhalation BID 10/28/23 12/13/23 History mcg-formot 4.8 mcg/actuation HFA inhaler (Breztri Aerosphere) clopidogrel 75 mg tablet (Plavix) 75 mg PO DAILY #90 tabs 10/28/23 12/13/23 Rx lancing device #1 ea 10/28/23 12/12/23 Rx cephalexin 500 mg capsule 500 mg PO Q8H 10 days #30 caps 12/12/23 12/13/23 Rx atorvastatin 40 mg tablet 40 mg PO HS 12/14/23 12/14/23 History furosemide 20 mg tablet 40 mg PO DAILY 12/14/23 12/14/23 History hydrocodone 5 mg-acetaminophen 325 1 tab PO TID 12/14/23 12/14/23 History mg tablet insulin aspar prot-insulin aspart 10 - 12 unit SQ BIDP PRN Blood 12/14/23 12/14/23 History 100 unit/mL (70-30) subcutaneous sugar pen (Novolog Mix 70-30FlexPen U-100) metoprolol succinate 100 mg 100 mg PO DAILY 12/14/23 12/14/23 History tablet,extended release 24 hr sennosides 8.6 mg-docusate sodium 1 tab PO HS 12/14/23 12/14/23 History 50 mg tablet (Senna with Docusate Sodium) New Prescriptions to Start Prescriptions: Allergies Allergy/AdvReac Type Severity Reaction Status Date / Time gabapentin [From Neurontin] Allergy Verified 12/13/23 16:01 Penicillins Allergy Verified 12/13/23 16:01 acetaminophen [From Percocet] AdvReac Vomiting Verified 12/13/23 16:01 NSAIDS (Non-Steroidal AdvReac Verified 12/13/23 16:01 Anti-Inflamma oxycodone [From Percocet] AdvReac Vomiting Verified 12/13/23 16:01 Assessment and Plan *Assessment and plan (1) Acute on chronic left systolic heart failure: Status: Acute Category: Medical Code(s): I50.23 - Acute on chronic systolic (congestive) heart failure (2) Chronic obstructive lung disease: Status: Chronic Qualifiers: COPD type: unspecified COPD Qualified Code(s): J44.9 - Chronic obstructive pulmonary disease, unspecified Category: Medical Code(s): J44.9 - Chronic obstructive pulmonary disease, unspecified (3) History of coronary artery bypass graft: Status: Chronic Category: Surgical Code(s): Z95.1 - Presence of aortocoronary bypass graft (4) Coronary arteriosclerosis: Status: Chronic Category: Medical Code(s): I25.10 - Atherosclerotic heart disease of [place] coronary artery without angina pectoris (5) Tobacco dependence syndrome: Status: Chronic Category: Medical Code(s): F17.200 - Nicotine dependence, unspecified, uncomplicated (6) DM2 (diabetes mellitus, type 2): Status: Chronic 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 Diabetes mellitus complication status: with circulatory complication Diabetes mellitus complication detail: with other circulatory complications Qualified Code(s): E11.59 - Type 2 diabetes mellitus with other circulatory complications Category: Medical Code(s): E11.9 - Type 2 diabetes mellitus without complications (7) HTN (hypertension): Status: Chronic Qualifiers: Hypertension type: essential hypertension Qualified Code(s): I10 - Essential (primary) hypertension Category: Medical Code(s): I10 - Essential (primary) hypertension Plan Acute on chronic HFrEF -Known diagnosis with EF 40%, presented to ER with moderate bilateral effusions and proBNP 44,000 -Add Bumex 2 mg twice daily, may increase dose depending on his response -Continue home dose metoprolol, hold lisinoprilin order to transition to Entresto -Add hydralazine, Imdur, Jardiance, Aldactone. -strict I/O, low Na diet MV-CAD s/p CABGx4 2016 and numerous stents 2017, 2020 - CCS = 0 - Cont DAPT, BB, Statin PAD with BLE wounds - inpatient wound care - DC Tob - cont DAPT, Statin - further workup outpatient COPD with ongoing tobacco use - recommend tob cessation - nebs, steroids, ab per Hospitalist DM-II - add Jardiance for CV benefit - glucose management per primary service 12/14: Stable but needs more diuresis and med management. Anticipate 2-3 day admission
[2023-12-14] MEDS: humaLOG 100 UNITS/ML 3ML VIAL (SSI) SQ ×3 (11:34→22:56)
[2023-12-14 11:37] LABS: Vitamin B12 827 pg/mL (239-931)
--- NOTE | 2023-12-14 11:45 | P.PN_ITS ---
Subjective *Date: 12/14/23 *Time: 11:45 Interval history: Denies any chest pain, shortness of breath, nausea, vomiting. Tolerating diuretic well. No fever or chills Medical Exam Vital signs and Labs for Last 24 Hours: Vital Signs Temp Pulse Pulse Resp BP BP Pulse Ox 12/14/23 11:31 87 12/14/23 11:31 77 12/14/23 11:18 98.1 F 61 18 169/82 H 90 L 12/14/23 10:48 12/14/23 08:00 69 12/14/23 08:00 12/14/23 09:00 12/14/23 08:00 12/14/23 08:00 97.9 F 67 18 160/70 H 90 L 12/14/23 06:20 60 12/14/23 06:20 57 L 12/14/23 06:20 94 L 12/14/23 04:00 97.6 F 59 L 20 99/61 L 97 12/14/23 04:00 57 L 12/14/23 00:00 60 12/14/23 05:00 12/14/23 03:00 12/14/23 00:45 12/14/23 00:00 97 12/14/23 00:00 97.9 F 60 18 168/81 H 97 12/13/23 23:00 12/13/23 21:00 12/13/23 23:25 60 12/13/23 23:25 60 12/13/23 23:25 91 L 12/13/23 20:00 62 12/13/23 20:00 97.6 F 62 18 150/98 H 90 L 12/13/23 19:36 97 12/13/23 16:00 97.6 F 58 L 19 169/71 H 97 12/13/23 16:20 70 12/13/23 17:44 12/13/23 16:00 95 12/13/23 16:09 12/13/23 15:16 97.9 F 56 L 18 169/71 H 12/13/23 14:01 62 20 155/70 H 84 L 12/13/23 13:59 61 20 140/71 92 L 12/13/23 13:00 57 L 20 160/62 H 91 L 12/13/23 12:30 54 L 20 157/66 H 92 L 12/13/23 12:00 54 L 20 167/74 H 96 O2 Del Method O2 Flow Rate 12/14/23 11:31 12/14/23 11:31 12/14/23 11:18 Room Air 12/14/23 10:48 Room Air 12/14/23 08:00 12/14/23 08:00 Room Air 12/14/23 09:00 Room Air 12/14/23 08:00 Room Air 12/14/23 08:00 Room Air 12/14/23 06:20 12/14/23 06:20 12/14/23 06:20 Nasal Cannula 2 12/14/23 04:00 Nasal Cannula 2 12/14/23 04:00 12/14/23 00:00 12/14/23 05:00 Nasal Cannula 2 12/14/23 03:00 Nasal Cannula 2 12/14/23 00:45 Nasal Cannula 2 12/14/23 00:00 Nasal Cannula 2 12/14/23 00:00 Nasal Cannula 2 12/13/23 23:00 Nasal Cannula 2 12/13/23 21:00 Room Air 12/13/23 23:25 12/13/23 23:25 12/13/23 23:25 Nasal Cannula 2 12/13/23 20:00 12/13/23 20:00 Room Air 12/13/23 19:36 Room Air 12/13/23 16:00 Room Air 12/13/23 16:20 12/13/23 17:44 Room Air 12/13/23 16:00 Room Air 12/13/23 16:09 Room Air 12/13/23 15:16 Nasal Cannula 2 12/13/23 14:01 12/13/23 13:59 12/13/23 13:00 12/13/23 12:30 12/13/23 12:00 Intake and Output 12/13/23 12/14/23 12/14/23 23:59 07:59 15:59 Intake Total 600 / 720 120 / 590 470 / 590 Output Total 0 / 0 Balance 600 / 720 120 / 590 470 / 590 Intake: Intake, Oral Amount 600 / 720 120 / 590 470 / 590 Output: Output, Urine Amount 0 / 0 Other: Number of Voids 1 Number of Unmeasured Voids 1 Weight 88.649 kg 88.677 kg Patient Weight 12/14/23 23:59 Weight 88.677 kg Laboratory Results - last 24 hr 12/13/23 10:55: WBC 7.2, RBC 3.14 L, Hgb 9.6 L, Hct 29.9 L, MCV 95.2 H, MCH 30.6, MCHC 32.1, RDW 15.4, Plt Count 280, MPV 9.5, Neut % (Auto) 73.8, Lymph % (Auto) 16.6, [place] % (Auto) 6.2, Eos % (Auto) 2.9, Baso % (Auto) 0.6, Neut # (Auto) 5.3, Lymph # (Auto) 1.2, [place] # (Auto) 0.4, Eos # (Auto) 0.2, Baso # (Auto) 0.0, ESR > 140 H, PT 11.2, INR 1.04, APTT 27.8, NT-Pro-B Natriuret Pep 55745 H 12/13/23 15:48: POC Glucose 185 H 12/13/23 20:05: POC Glucose 240 H 12/14/23 05:12: POC Glucose 108 12/14/23 06:20: WBC 7.9, RBC 2.62 L, Hgb 8.2 L D, Hct 24.6 L, MCV 94.3 H, MCH 31.4 H, MCHC 33.3, RDW 15.2, Plt Count 252, MPV 9.2, Neut % (Auto) 73.9, Lymph % (Auto) 16.5, [place] % (Auto) 6.0, Eos % (Auto) 3.0, Baso % (Auto) 0.5, Neut # (Auto) 5.9, Lymph # (Auto) 1.3, [place] # (Auto) 0.5, Eos # (Auto) 0.2, Baso # (Auto) 0.0, Sodium 140, Potassium 5.1, Chloride 109 H, Carbon Dioxide 27, Anion Gap 9.1, BUN 43 H, Creatinine 2.20 H, Estimated Creat Clear 43, Estimated GFR 30 L, Est GFR ( Amer) 37 L, Glucose 95 D, Calcium 7.8 L, Magnesium 2.1, Iron 31 L, TIBC 251 L, Iron Saturation 12.03897 L, Ferritin 42.5 D, Total Bilirubin 0.2, AST 31, ALT 30, Alkaline Phosphatase 131 H, Total Protein 5.6 L, Albumin 2.5 L D, Globulin 3.1, Albumin/Globulin Ratio 0.8 L I & O for Labs for Last 24 Hours: Intake & Output 12/11/23 12/12/23 12/13/23 12/14/23 23:59 23:59 23:59 23:59 Intake Total 600 / 720 590 / 590 Output Total 0 / 0 Balance 600 / 720 590 / 590 Weight 88.649 kg 88.677 kg Constitutional: Present no acute distress, average body habitus, chronically ill appearing and cooperative Head: Present atraumatic and normocephalic ENT: Present normal exam Neck: Present normal inspection Respiratory: Present prolonged expiratory phase and normal respiratory effort; Absent rhonchi, wheezes or crackles Cardiac: Present Reg Rate and Rhythm GI: Present normal bowel sounds; Absent tenderness Extremities: Present normal inspection, full ROM and edema (2+ to knees, wrinkling of skin) Comment:: Thenar wasting bilaterally Skin: Present intact; Absent erythema Comment:: Ruptured blister left heel, no erythema. Serous drainage. Stasis changes of legs bilaterally Neuro: Present Grossly Intact, alert, awake, oriented x 3 and moves all extremities Assessment and Plan *Assessment and plan (1) CHF (congestive heart failure): Status: Chronic Qualifiers: Heart failure chronicity: acute on chronic Heart failure type: diastolic Qualified Code(s): I50.33 - Acute on chronic diastolic (congestive) heart failure Category: Medical Code(s): I50.9 - Heart failure, unspecified (2) KENNA (acute kidney injury): Status: Acute Category: Medical Code(s): N17.9 - Acute kidney failure, unspecified (3) Blister of foot, left: Status: Acute Category: Medical Code(s): S90.822A - Blister (nonthermal), left foot, initial encounter (4) Chronic obstructive lung disease: Status: Chronic Qualifiers: COPD type: unspecified COPD Qualified Code(s): J44.9 - Chronic obstructive pulmonary disease, unspecified Category: Medical Code(s): J44.9 - Chronic obstructive pulmonary disease, unspecified (5) Peripheral vascular disease: Status: Chronic Category: Medical Code(s): I73.9 - Peripheral vascular disease, unspecified (6) Atrial fibrillation: Status: Chronic Qualifiers: Atrial fibrillation type: paroxysmal Qualified Code(s): I48.0 - Paroxysmal atrial fibrillation Category: Medical Code(s): I48.91 - Unspecified atrial fibrillation (7) HTN (hypertension): Status: Chronic Qualifiers: Hypertension type: essential hypertension Qualified Code(s): I10 - Essential (primary) hypertension Category: Medical Code(s): I10 - Essential (primary) hypertension (8) HLD (hyperlipidemia): Status: Chronic Qualifiers: Hyperlipidemia type: mixed hyperlipidemia Qualified Code(s): E78.2 - Mixed hyperlipidemia Category: Medical Code(s): E78.5 - Hyperlipidemia, unspecified (9) DM2 (diabetes mellitus, type 2): Status: Chronic Qualifiers: Diabetes mellitus custodial insulin use: with remote computer terminal operator use Diabetes mellitus complication status: with circulatory complication Diabetes mellitus complication detail: with other circulatory complications Qualified Code(s): E11.59 - Type 2 diabetes mellitus with other circulatory complications Category: Medical Code(s): E11.9 - Type 2 diabetes mellitus without complications (10) Pleural effusion: Status: Acute Category: Medical Code(s): J90 - Pleural effusion, not elsewhere classified Plan 63-year-old male with history of combined heart failure, CABG, CKD, diabetes, peripheral artery disease. Presents with increased swelling and weeping of his legs and KENNA. Discussed case with the ER physician, request admission for diuresis and cardiology consult. Medicine agreed to admit. Monitoring urine output, responding to Bumex. Improvement in wrinkling of legs. Continues to require inpatient management. Problems addressed as follows: Acute on chronic combined CHF Peripheral artery disease -Cardiology consulted, appreciate their recommendations. Discussed case today, recommend continuing Bumex 2 mg twice daily IV. Hold on lisinopril or Entresto in the setting of KENNA. Will continue metoprolol, hydralazine, Imdur, Jardiance, Aldactone. Close monitoring of kidney function with diuresis. - Continue Lipitor 40 mg daily, aspirin 81 mg daily, Plavix 75 mg daily. - Echo from July 2022 shows EF of 40 to 45% with grade 1 diastolic dysfunction. Repeat echo obtained, read pending - BNP elevated at 44,300 on admission. - repeat CBC, CMP Mg pending for the morning -Wound care consult for blister on heel. COPD: On room air intermittently, goal sats greater 90%. DuoNeb scheduled every 6 hours Anemia: Hemoglobin 9.6 on presentation, chronically 9-10. Iron studies, folate, and B12 pending Diabetes: A1C 8.1 in October.. SSI with FSGS achs. Addition of Jardiance today. Glucose 95 on morning labs. KENNA: Creatinine 2.0, baseline 1.5. Tobacco use disorder: Nicotine patch while admitted. Patient has no desire to quit. Patient states he wants to be DNR, will have nurse verify Diabetic diet Heparin subcu
[2023-12-14 11:59] LABS: Folate > 20.00 ng/mL
[2023-12-14] MEDS: HYDRALAZINE HCL 25MG TABLET 50 MG PO ×2 (13:54→22:00)
--- NOTE | 2023-12-14 16:52 | PC.NURSE ---
Patient is alert, oriented x4. PT continues with dressing to lower left extremity. Denies any pain at this time. No discomfort noted. Patient was bladder scanned noted 359 mls per scan , notified doctor, no new orders at this time, continue to monitor.
--- NOTE | 2023-12-14 18:38 | PC.NURSE ---
Patient stated that he voided but he did not use his urinal. Re educated on using the urinal
[2023-12-14 22:11] LABS: POC Glucose,Bedside 241 (70-110)
--- NOTE | 2023-12-14 22:53 | CA_ITS ---
APPROVED REPORT EXAM: Comprehensive 2D, Doppler, and color-flow Echocardiogram Refrigeration Operator: Linda Thomason CRT Ht: 6 ft 3 in Wt: 189lbs BSA: 2.14 BP: 163/60 mmHg Indications: Chest Pressure, Congestive Heart Failure, COPD, CAD, Hypertension/HDD, CABG M-Mode Dimensions RVDd 2.83 cm (0.9-2.6) LA Diam 4.13 cm (1.9-4.0) LVDd 5.49 cm (3.5-5.7) LVDs 3.74 cm (3.5-5.7) IVSd 1.63 cm (0.6-1.1) PWd 1.07 cm (0.6-1.1) EF (Teich) 59.40% FS 31.90% EDV (Teich) 146.80 mL ESV (Teich) 59.60 mL LV Diastology E Decel Time 173 (160-240 msec) E/A Ratio 1.84 MED A' 5.70 cm/s LAT A' 6.70 cm/s Aortic Valve AO Peak GR. 5.50 mmHg Mitral Valve MV E Max Raf. 132.0 (40-130 cm/s) MV A Velocity 72.0 (40-130 cm/s) E/A Ratio 1.84 MV PHT 51.0 ms Pulmonary Valve PV Peak Velocity 293.0 (50-150 cm/s) Tricuspid Valve TR P. Velocity 302.00 cm/s RAP Estimate 10.00 mmHg RVSP 46.50 mmHg Left Ventricle The left ventricle is normal size. The left ventricular systolic function is low-normal. There is increased LV wall thickness. There is normal LV segmental wall motion. The left ventricular diastolic function is normal. LVEF is 50%. Right Ventricle Right ventricle is moderate to severely dilated. Right ventricle is moderately hypokinetic. Atria The left atrium size is normal. Right atrium is mildly dilated. There is no Doppler evidence of interatrial shunt. Aortic Valve The aortic valve is normal in structure. The aortic valve is trileaflet. There is no aortic valvular stenosis. No aortic regurgitation is present. Mitral Valve The mitral valve is normal in structure. No evidence of mitral valve stenosis. Mild mitral regurgitation. Tricuspid Valve The tricuspid valve leaflets are thin and pliable. Mild tricuspid regurgitation. RVSP is 35 mmHg + RA pressure. Pulmonic Valve The pulmonary valve is normal in structure. Mild pulmonic regurgitation. Great Vessels The aortic root is normal in size. The ascending aorta is not well visualized. The IVC is not well visualized. Pericardium There is no pericardial effusion. Pleural effusion is present. Other Information Study Quality: Adequate Conclusion Low-normal LV systolic function (LVEF 50%). Moderate to severe RV dilation with moderate RV dysfunction. Mild MR, mild TR, mild CT. Elevated RVSP 35 mmHg + RA pressure. Pleural effusion is present. Electronically signed by : Noemy Wilson MD 12/16/2023 19:28:27
[2023-12-14] MEDS: APAP/HYDROCODONE 325MG/7.5MG TAB 1 TAB PO (22:55)
[2023-12-15] VITALS (9 sets, daily range): BP systolic 131–153; BP diastolic 64–81; PULSE 56–76; RESP 16–19; TEMP 36.6–36.7; O2SAT 94–97; BMI 24.9
[2023-12-15] MEDS: IPRATROPIUM/ALBUTEROL 3 ML NEB IH ×3 (05:30→23:45)
[2023-12-15 06:58] LABS: POC Glucose,Bedside 124 (70-110)
[2023-12-15] MEDS: BUMETANIDE 1 MG TABLET 2 MG PO (08:15)
[2023-12-15] MEDS: CLOPIDOGREL 75MG TAB 75 MG PO (08:15)
[2023-12-15] MEDS: EMPAGLIFLOZIN 10MG TABLET 10 MG PO (08:15)
[2023-12-15] MEDS: ASPIRIN EC 81MG TABLET 81 MG PO (08:15)
[2023-12-15] MEDS: ATORVASTATIN 40MG TABLET 40 MG PO (08:15)
[2023-12-15] MEDS: METOPROLOL SUCCINATE XL 100MG TABLET 100 MG PO ×2 (08:16→21:08)
[2023-12-15] MEDS: ISOSORBIDE MONO 60MG TAB.ER.24H 60 MG PO (08:16)
[2023-12-15] MEDS: SPIRONOLACTONE 25MG TABLET 25 MG PO (08:16)
[2023-12-15] MEDS: HYDRALAZINE HCL 25MG TABLET 50 MG PO ×3 (08:16→21:08)
[2023-12-15] MEDS: APAP/HYDROCODONE 325MG/7.5MG TAB 1 TAB PO (08:20)
--- NOTE | 2023-12-15 09:03 | XR_ITS ---
FINAL REPORT CLINICAL HISTORY: CHF, COPD COMPARISON: 11/22/2023 FINDINGS: The heart size is mildly enlarged. Sternotomy wires are present. There is a small right and moderate left pleural effusion with bibasilar atelectasis. There is no pneumothorax. There is no osseous abnormality. IMPRESSION: Bilateral pleural effusions with bibasilar atelectasis, similar to the prior study Reviewed, Interpreted and Dictated by Luis Mccoy MD Transcribed by Nila Koehler Authenticated and [facility]
--- NOTE | 2023-12-15 09:15 | PC.NURSE ---
pts 02 on room air was 85. pt is back on 2L NC at the moment
[2023-12-15 10:47] LABS: NT Pro Brain Natriuretic Pep. 60200 pg/mL (0-125)
[2023-12-15 10:52] LABS: Basophils % 0.4 % (0.1-2.0); Chloride 108 mmol/L (98-107); Eosinophils # 0.2 K/mm3 (0.0-0.4); Eosinophils % 2.6 % (0.1-12.0); Hematocrit 23.1 % (42.0-52.0); Hemoglobin 7.9 g/dL (14.1-18.0); Lymphocytes # 1.2 K/mm3 (0.7-4.5); Mean Corpuscular Hemoglobin 32.1 pg (27.0-31.2); Mean Corpuscular Volume 94.3 fl (80-94); Mean Platelet Volume 9.1 fl (7.4-10.4); Monocytes # 0.5 K/mm3 (0.1-1.0); Monocytes % 6.6 % (1.7-9.3); Neutrophils # 5.7 K/mm3 (1.8-7.8); Neutrophils % 74.4 % (37.0-80.0); Platelet Count 228 K/mm3 (142-424); Red Blood Count 2.45 M/mm3 (4.60-6.20); Red Cell Distribution Width 15.7 % (11.5-17.5); Sodium 137 mmol/L (136-145); White Blood Count 7.6 K/mm3 (4.8-10.8)
[2023-12-15 10:53] LABS: Potassium 5.1 mmoL/L (3.5-5.1)
[2023-12-15 10:55] LABS: Blood Urea Nitrogen 48 mg/dl (9-20); Creatinine Clearance Estimated 33 mL/min (50-200); Estimated Glomerular Filt Rate 22 ml/min (>60); GFR (African American) 27 ML/MIN (>60)
[2023-12-15 10:56] LABS: Anion Gap 7.1 mEq/L (5-15); Calcium 7.6 mg/dl (8.4-10.2); Carbon Dioxide 27 mmol/L (22.0-30.0); Glucose 148 mg/dl (74-100)
[2023-12-15] MEDS: humaLOG 100 UNITS/ML 3ML VIAL (SSI) SQ ×3 (11:28→21:07)
--- NOTE | 2023-12-15 12:11 | SW/DCPLANNER ---
Addendum entered by Cici Gallardo 12/23/23 12:25: I have updated [facility] and faxed information that patient will discharge today. Addendum entered by Cici Gallardo 12/19/23 10:12: I have updated [facility] that patient did not discharge over the weekend. I will follow up w/ [facility] once medically stable for discharge. Discharge date is unknown at this time. Addendum entered by Cici Gallardo 12/16/23 10:51: I have updated Shankar that patient will not discharge today. Addendum entered by Cici Gallardo 12/16/23 09:26: Shankar w/ [facility] stated that services will begin this weekend. Original Note: I spoke w/ this patient regarding plans once medically stable for discharge. Patient will require assistance w/ dressing changes and is agreeable to home health services w/ [facility]. Patient information/order for wound care will be faxed to [facility] at time of discharge. Patient may discharge later this afternoon.
--- NOTE | 2023-12-15 14:58 | EXP.CARD.PN ---
Subjective Subjective Date: 12/15/23 Time: 10:00 Interval history: Diuresed well overnight. Legs feeling much better. 2D echo shows EF 50% mild LVH but he has moderate to severe RV dilation with group 3 cor pulmonale. Blood pressure is much improved 130s. Patient reports he is still fatigued and mildly short of breath. Exam Data for Last 24 hours Vital signs and Labs for Last 24 Hours: Temp Pulse Resp BP Pulse Ox O2 Del Method O2 Flow Rate 97.9 F 62 17 153/81 H 97 Room Air 2 12/15/23 11:54 12/15/23 11:54 12/15/23 11:54 12/15/23 11:54 12/15/23 11:54 12/15/23 12:38 12/15/23 11:54 Laboratory Results - last 24 hr 12/14/23 21:49: POC Glucose 241 H 12/15/23 06:38: POC Glucose 124 H 12/15/23 09:52: WBC 7.6, RBC 2.45 L, Hgb 7.9 L, Hct 23.1 L, MCV 94.3 H, MCH 32.1 H, MCHC 34.0, RDW 15.7, Plt Count 228, MPV 9.1, Neut % (Auto) 74.4, Lymph % (Auto) 16.0, [place] % (Auto) 6.6, Eos % (Auto) 2.6, Baso % (Auto) 0.4, Neut # (Auto) 5.7, Lymph # (Auto) 1.2, [place] # (Auto) 0.5, Eos # (Auto) 0.2, Baso # (Auto) 0.0, Sodium 137, Potassium 5.1, Chloride 108 H, Carbon Dioxide 27, Anion Gap 7.1, BUN 48 H, Creatinine 2.90 H D, Estimated Creat Clear 33, Estimated GFR 22 L, Est GFR ( Amer) 27 L D, Glucose 148 H, Calcium 7.6 L, NT-Pro-B Natriuret Pep 45857 H I & O for Last 24 hours: Intake & Output 12/12/23 12/13/23 12/14/23 12/15/23 23:59 23:59 23:59 23:59 Intake Total 600 / 720 1070 / 1190 830 / 830 Output Total 0 / 0 300 / 500 350 / 350 Balance 600 / 720 770 / 690 480 / 480 Weight 195 lb 7 oz 195 lb 8 oz 200 lb 6.4 oz Constitutional Constitutional: no acute distress and cooperative *Routine HEENT Exam Eye: Present PERRL *Routine Respiratory Exam Respiratory: Present CTA bilaterally; Absent accessory muscle use, wheezes or crackles Comments: Moderately severe bilateral wheezing and coarse breath sounds with productive cough *Routine Cardiovascular Exam Cardiovascular: Present RRR, Normal S1 and Normal S2; Absent murmur, gallop or rubs *Routine Abdominal Exam Abdominal: Present soft; Absent tenderness *Routine Extremities Exam Extremities: Present pulses intact; Absent cyanosis or edema *Routine Skin Exam Skin: Present intact; Absent erythema or wounds Comments: Left lower extremity wound is wrapped, he has numerous superficial excoriations and erythema noted to bilateral lower extremities. 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 *Routine Neurological Exam Neurological: Present alert and oriented X3 Routine Psychiatric Exam Psychiatric: Present cooperative Progress Note: A&P Assessment and plan (1) CHF (congestive heart failure): Status: Chronic (2) KENNA (acute kidney injury): Status: Acute (3) Blister of foot, left: Status: Acute (4) Chronic obstructive lung disease: Status: Chronic (5) Peripheral vascular disease: Status: Chronic (6) Atrial fibrillation: Status: Chronic (7) HTN (hypertension): Status: Chronic (8) HLD (hyperlipidemia): Status: Chronic (9) DM2 (diabetes mellitus, type 2): Status: Chronic (10) Pleural effusion: Status: Acute Assessment and Plan Assessment and Plan for All Diagnoses:: Acute on chronic HFpEF, Cor Pulmonale -Known diagnosis with EF 40%, presented to ER with moderate bilateral effusions and proBNP 44,000 -Continue home dose metoprolol, hold lisinoprilin order to transition to Entresto -Cont hydralazine, Imdur, Jardiance, Aldactone. -strict I/O, low Na diet 12/15: Repeat ECHO shows normal EF, severe RV dilation. ProBNP up to 60k, Cr up to 2.9. Reduce Bumex. Trend labs daily. MV-CAD s/p CABGx4 2016 and numerous stents 2017, 2020 - CCS = 0 - Cont DAPT, BB, Statin PAD with BLE wounds - inpatient wound care - DC Tob - cont DAPT, Statin - further workup outpatient COPD with ongoing tobacco use - recommend tob cessation - nebs, steroids, ab per Hospitalist DM-II - add Jardiance for CV benefit - glucose management per primary service
--- NOTE | 2023-12-15 15:17 | XR_ITS ---
FINAL REPORT CLINICAL HISTORY: increased cough, COPD exac vs PNA COMPARISON: 12/15/2023 FINDINGS: SINGLE-VIEW CHEST There is mild cardiomegaly. The patient is status post median sternotomy. Bilateral pleural effusions are noted, left greater than right. There is patchy airspace opacity at the left base, probably due to pneumonia. Findings are similar to prior. There is no pneumothorax. IMPRESSION: No significant change. Reviewed, Interpreted and Dictated by Luis Mccoy MD Transcribed by Cheryle Smith Authenticated and [facility]
--- NOTE | 2023-12-15 17:09 | EXP.ACUTE.PN ---
Subjective *Date: 12/15/23 *Time: 22:14 Interval history: Patient not feeling much better today. Having some nausea. Oxygen this morning but is weaned to room air during the day. Somewhat of a productive cough today. Afebrile. No diarrhea. Tolerating at least 50% of p.o. intake. Voiding independently with diuresis Medical Exam Vital signs and Labs for Last 24 Hours: Vital Signs Temp Pulse Pulse Resp BP Pulse Ox O2 Del Method 12/15/23 15:48 97.9 F 70 19 141/68 H 95 Nasal Cannula 12/15/23 15:00 Nasal Cannula 12/15/23 12:38 Room Air 12/15/23 11:00 Nasal Cannula 12/15/23 11:54 97.9 F 62 17 153/81 H 97 Nasal Cannula 12/15/23 08:00 Nasal Cannula 12/15/23 09:00 Nasal Cannula 12/15/23 08:00 Nasal Cannula 12/15/23 08:00 70 12/15/23 08:00 97.8 F 61 17 131/64 94 L Nasal Cannula 12/15/23 04:00 56 L 12/15/23 05:30 56 L 12/15/23 05:30 57 L 12/15/23 05:30 95 Nasal Cannula 12/15/23 05:00 Nasal Cannula 12/15/23 03:00 Nasal Cannula 12/15/23 04:00 97.9 F 57 L 16 153/76 H 96 12/15/23 01:00 Nasal Cannula 12/14/23 23:00 Nasal Cannula 12/14/23 21:00 Nasal Cannula 12/15/23 00:00 60 12/15/23 00:00 Nasal Cannula 12/15/23 00:00 97.8 F 60 18 147/67 H 97 Room Air 12/14/23 20:00 70 12/14/23 23:04 63 12/14/23 23:04 63 12/14/23 20:00 98.3 F 70 20 163/94 H 90 L Room Air 12/14/23 18:52 63 12/14/23 18:52 63 12/14/23 18:52 92 L Nasal Cannula 12/14/23 18:30 Room Air O2 Flow Rate 12/15/23 15:48 2 12/15/23 15:00 2 12/15/23 12:38 12/15/23 11:00 12/15/23 11:54 2 12/15/23 08:00 2 12/15/23 09:00 12/15/23 08:00 1 12/15/23 08:00 12/15/23 08:00 1 12/15/23 04:00 12/15/23 05:30 12/15/23 05:30 12/15/23 05:30 2 12/15/23 05:00 2 12/15/23 03:00 2 12/15/23 04:00 12/15/23 01:00 2 12/14/23 23:00 2 12/14/23 21:00 2 12/15/23 00:00 12/15/23 00:00 2 12/15/23 00:00 12/14/23 20:00 12/14/23 23:04 12/14/23 23:04 12/14/23 20:00 12/14/23 18:52 12/14/23 18:52 12/14/23 18:52 2 12/14/23 18:30 Intake and Output 12/15/23 12/15/23 12/15/23 07:59 15:59 23:59 Intake Total 120 / 830 710 / 830 Output Total 350 / 350 Balance -230 / 480 710 / 480 Intake: Intake, Oral Amount 120 / 830 710 / 830 Output: Output, Urine Amount 350 / 350 Other: Number of Unmeasured Voids 0 Weight 90.9 kg Patient Weight 12/15/23 23:59 Weight 90.9 kg Laboratory Results - last 24 hr 12/14/23 21:49: POC Glucose 241 H 12/15/23 06:38: POC Glucose 124 H 12/15/23 09:52: WBC 7.6, RBC 2.45 L, Hgb 7.9 L, Hct 23.1 L, MCV 94.3 H, MCH 32.1 H, MCHC 34.0, RDW 15.7, Plt Count 228, MPV 9.1, Neut % (Auto) 74.4, Lymph % (Auto) 16.0, [place] % (Auto) 6.6, Eos % (Auto) 2.6, Baso % (Auto) 0.4, Neut # (Auto) 5.7, Lymph # (Auto) 1.2, [place] # (Auto) 0.5, Eos # (Auto) 0.2, Baso # (Auto) 0.0, Sodium 137, Potassium 5.1, Chloride 108 H, Carbon Dioxide 27, Anion Gap 7.1, BUN 48 H, Creatinine 2.90 H D, Estimated Creat Clear 33, Estimated GFR 22 L, Est GFR ( Amer) 27 L D, Glucose 148 H, Calcium 7.6 L, NT-Pro-B Natriuret Pep 64774 H I & O for Labs for Last 24 Hours: Intake & Output 12/12/23 12/13/23 12/14/23 12/15/23 23:59 23:59 23:59 23:59 Intake Total 600 / 720 1070 / 1190 830 / 830 Output Total 0 / 0 300 / 500 350 / 350 Balance 600 / 720 770 / 690 480 / 480 Weight 88.649 kg 88.677 kg 90.9 kg Constitutional: Present no acute distress, average body habitus, chronically ill appearing and cooperative Head: Present atraumatic and normocephalic ENT: Present normal exam Neck: Present normal inspection Respiratory: Present prolonged expiratory phase, rhonchi, crackles (bases) and normal respiratory effort; Absent wheezes Cardiac: Present Reg Rate and Rhythm GI: Present normal bowel sounds; Absent tenderness Extremities: Present normal inspection, full ROM and edema (2+ to knees, wrinkling of skin) Comment:: Thenar wasting bilaterally Skin: Present intact; Absent erythema Comment:: Ruptured blister left heel, no erythema. Serous drainage. Stasis changes of legs bilaterally Neuro: Present Grossly Intact, alert, awake, oriented x 3 and moves all extremities Assessment and Plan *Assessment and plan (1) CHF (congestive heart failure): Status: Chronic Qualifiers: Heart failure chronicity: acute on chronic Heart failure type: diastolic Qualified Code(s): I50.33 - Acute on chronic diastolic (congestive) heart failure Category: Medical Code(s): I50.9 - Heart failure, unspecified (2) COPD exacerbation: Status: Acute Category: Medical Code(s): J44.1 - Chronic obstructive pulmonary disease with (acute) exacerbation (3) KENNA (acute kidney injury): Status: Acute Category: Medical Code(s): N17.9 - Acute kidney failure, unspecified (4) Blister of foot, left: Status: Acute Category: Medical Code(s): S90.822A - Blister (nonthermal), left foot, initial encounter (5) Chronic obstructive lung disease: Status: Chronic Qualifiers: COPD type: unspecified COPD Qualified Code(s): J44.9 - Chronic obstructive pulmonary disease, unspecified Category: Medical Code(s): J44.9 - Chronic obstructive pulmonary disease, unspecified (6) Peripheral vascular disease: Status: Chronic Category: Medical Code(s): I73.9 - Peripheral vascular disease, unspecified (7) Atrial fibrillation: Status: Chronic Qualifiers: Atrial fibrillation type: paroxysmal Qualified Code(s): I48.0 - Paroxysmal atrial fibrillation Category: Medical Code(s): I48.91 - Unspecified atrial fibrillation (8) HTN (hypertension): Status: Chronic Qualifiers: Hypertension type: essential hypertension Qualified Code(s): I10 - Essential (primary) hypertension Category: Medical Code(s): I10 - Essential (primary) hypertension (9) HLD (hyperlipidemia): Status: Chronic Qualifiers: Hyperlipidemia type: mixed hyperlipidemia Qualified Code(s): E78.2 - Mixed hyperlipidemia Category: Medical Code(s): E78.5 - Hyperlipidemia, unspecified (10) DM2 (diabetes mellitus, type 2): Status: Chronic Qualifiers: Diabetes mellitus complication detail: with other circulatory complications Diabetes mellitus complication status: with circulatory complication Diabetes mellitus group home insulin use: with group home use Qualified Code(s): E11.59 - Type 2 diabetes mellitus with other circulatory complications Category: Medical Code(s): E11.9 - Type 2 diabetes mellitus without complications (11) Pleural effusion: Status: Acute Category: Medical Code(s): J90 - Pleural effusion, not elsewhere classified Plan 63-year-old male with history of combined heart failure, CABG, CKD, diabetes, peripheral artery disease. Presents with increased swelling and weeping of his legs and KENNA. Discussed case with the ER physician, request admission for diuresis and cardiology consult. Medicine agreed to admit. Monitoring urine output, responding to Bumex. Improvement in wrinkling of legs. Creatinine increased to 2.9. Wound care assisting with management of heel. Continues to require inpatient management. Problems addressed as follows: Acute on chronic combined CHF Peripheral artery disease -Cardiology consulted, appreciate their recommendations. Discussed case today, recommend continuing Bumex, will decrease to once daily given bump in creatinine. Hold on lisinopril or Entresto in the setting of KENNA. Will continue metoprolol, hydralazine, Imdur, Jardiance, Aldactone. Close monitoring of kidney function with diuresis. - Continue Lipitor 40 mg daily, aspirin 81 mg daily, Plavix 75 mg daily. - Echo from July 2022 shows EF of 40 to 45% with grade 1 diastolic dysfunction. Repeat echo obtained, read pending - BNP elevated at 60K today. -Wound care consulted and assisting with blister on heel. COPD: On room air intermittently, goal sats greater 90%. DuoNeb scheduled every 6 hours Anemia: Hemoglobin decreased to 7.9, iron studies low, will order Venofer 200mg x 1 tomorrow morning; CBC ordered for the morning Diabetes: A1C 8.1 in October.. SSI with FSGS achs. Addition of Jardiance. KENNA: Creatinine increased to 2.9. Holding diuresis at this time. Repeat CMP, magnesium ordered for the morning. baseline 1.5. Tobacco use disorder: Nicotine patch while admitted. Patient has no desire to quit. Patient states he wants to be DNR, will have nurse verify Diabetic diet Heparin subcu
[2023-12-15] MEDS: DOXYCYCLINE HYCLATE 100 MG in 0.9 % SODIUM CHLORIDE 250 ML 166.667 MG IV (17:53)
--- NOTE | 2023-12-15 18:06 | PC.NURSE ---
patient is alert oriented x4, denies any pain or discomfort. Oxygen on 2L NC staying around 94-95 percent with that. Denies any SOB. Head kept elevated.
[2023-12-15 20:54] LABS: POC Glucose,Bedside 165 (70-110)
[2023-12-16] VITALS (22 sets, daily range): BP systolic 133–169; BP diastolic 62–86; PULSE 58–75; RESP 16–20; TEMP 36.6–37.1; O2SAT 93–97; BMI 24.9
[2023-12-16] MEDS: DOXYCYCLINE HYCLATE 100 MG in 0.9 % SODIUM CHLORIDE 250 ML 166.667 MG IV ×2 (04:50→16:16)
[2023-12-16] MEDS: APAP/HYDROCODONE 325MG/7.5MG TAB 1 TAB PO ×2 (04:58→20:13)
[2023-12-16] MEDS: IPRATROPIUM/ALBUTEROL 3 ML NEB IH ×4 (06:41→23:43)
[2023-12-16 06:56] LABS: Basophils % 0.4 % (0.1-2.0); Eosinophils # 0.2 K/mm3 (0.0-0.4); Eosinophils % 2.6 % (0.1-12.0); Hematocrit 23.8 % (42.0-52.0); Hemoglobin 7.7 g/dL (14.1-18.0); Lymphocytes # 1.2 K/mm3 (0.7-4.5); Lymphocytes % 17.2 % (10-50); Mean Corpuscular HGB Conc 32.6 g/dL (31.8-35.4); Mean Corpuscular Hemoglobin 30.9 pg (27.0-31.2); Mean Corpuscular Volume 94.6 fl (80-94); Mean Platelet Volume 8.8 fl (7.4-10.4); Monocytes # 0.5 K/mm3 (0.1-1.0); Monocytes % 7.8 % (1.7-9.3); Neutrophils # 4.8 K/mm3 (1.8-7.8); Platelet Count 229 K/mm3 (142-424); Red Blood Count 2.51 M/mm3 (4.60-6.20); Red Cell Distribution Width 15.8 % (11.5-17.5); White Blood Count 6.7 K/mm3 (4.8-10.8)
[2023-12-16 07:09] LABS: Alanine Aminotransferase 25 U/L (12-78); Albumin Level 2.4 g/dl (3.5-5.0); Albumin/Globulin Ratio 0.8 (1.1-1.8); Alkaline Phosphatase 118 U/L (38-126); Anion Gap 9.9 mEq/L (5-15); Aspartate Amino Transferase 28 U/L (17-59); Bilirubin,Total 0.2 mg/dl (0.2-1.3); Blood Urea Nitrogen 50 mg/dl (9-20); Calcium 7.9 mg/dl (8.4-10.2); Carbon Dioxide 23 mmol/L (22.0-30.0); Chloride 110 mmol/L (98-107); Creatinine Clearance Estimated 27 mL/min (50-200); Estimated Glomerular Filt Rate 18 ml/min (>60); GFR (African American) 21 ML/MIN (>60); Globulin 2.9 g/dL (1.3-3.2); Glucose 82 mg/dl (74-100); Magnesium 2.1 mg/dl (1.6-2.3); Potassium 4.9 mmoL/L (3.5-5.1); Sodium 138 mmol/L (136-145); Total Protein,Serum 5.3 g/dl (6.3-8.2)
[2023-12-16] MEDS: CLOPIDOGREL 75MG TAB 75 MG PO (08:31)
[2023-12-16] MEDS: HYDRALAZINE HCL 25MG TABLET 50 MG PO ×3 (08:31→20:07)
[2023-12-16] MEDS: SPIRONOLACTONE 25MG TABLET 25 MG PO (08:31)
[2023-12-16] MEDS: ATORVASTATIN 40MG TABLET 40 MG PO (08:31)
[2023-12-16] MEDS: METOPROLOL SUCCINATE XL 100MG TABLET 100 MG PO ×2 (08:31→20:07)
[2023-12-16] MEDS: ASPIRIN EC 81MG TABLET 81 MG PO (08:31)
[2023-12-16] MEDS: ISOSORBIDE MONO 60MG TAB.ER.24H 60 MG PO (08:31)
[2023-12-16] MEDS: 0.9 % SODIUM CHLORIDE 250 ML 25 ML IV (08:38)
[2023-12-16] MEDS: IRON SUCROSE COMPLEX 200 MG in 0.9 % SODIUM CHLORIDE 100 ML 220 MG IV (08:38)
[2023-12-16] MEDS: humaLOG 100 UNITS/ML 3ML VIAL (SSI) SQ ×3 (11:37→20:08)
--- NOTE | 2023-12-16 11:37 | EXP.CARD.PN ---
Subjective Subjective Date: 12/16/23 Time: 10:00 Interval history: Breathing peripheral edema subjectively better, creatinine up further overnight to 3.5 Exam Data for Last 24 hours Vital signs and Labs for Last 24 Hours: Temp Pulse Resp BP Pulse Ox O2 Del Method O2 Flow Rate 98.1 F 60 16 161/75 H 95 Nasal Cannula 2 12/16/23 10:55 12/16/23 11:09 12/16/23 10:55 12/16/23 10:55 12/16/23 10:55 12/16/23 09:00 12/16/23 09:00 Laboratory Results - last 24 hr 12/15/23 20:44: POC Glucose 165 H 12/16/23 06:32: WBC 6.7, RBC 2.51 L, Hgb 7.7 L, Hct 23.8 L, MCV 94.6 H, MCH 30.9, MCHC 32.6, RDW 15.8, Plt Count 229, MPV 8.8, Neut % (Auto) 72.0, Lymph % (Auto) 17.2, [place] % (Auto) 7.8, Eos % (Auto) 2.6, Baso % (Auto) 0.4, Neut # (Auto) 4.8, Lymph # (Auto) 1.2, [place] # (Auto) 0.5, Eos # (Auto) 0.2, Baso # (Auto) 0.0, Sodium 138, Potassium 4.9, Chloride 110 H, Carbon Dioxide 23, Anion Gap 9.9, BUN 50 H, Creatinine 3.50 H D, Estimated Creat Clear 27, Estimated GFR 18 L*, Est GFR ( Amer) 21 L D, Glucose 82 D, Calcium 7.9 L, Magnesium 2.1, Total Bilirubin 0.2, AST 28, ALT 25, Alkaline Phosphatase 118, Total Protein 5.3 L, Albumin 2.4 L, Globulin 2.9, Albumin/Globulin Ratio 0.8 L, Blood Type Confirm O Positive 12/16/23 08:09: Blood Type O Positive, Antibody Screen Negative, Crossmatch (G) See Detail I & O for Last 24 hours: Intake & Output 12/13/23 12/14/23 12/15/23 12/16/23 23:59 23:59 23:59 23:59 Intake Total 600 / 720 1070 / 1190 1550 / 1670 892 / 892 Output Total 0 / 0 300 / 500 450 / 450 350 / 350 Balance 600 / 720 770 / 690 1100 / 1220 542 / 542 Weight 195 lb 7 oz 195 lb 8 oz 200 lb 6.4 oz 200 lb 6.4 oz Microbiology Reports for the Last 24 Hours: Microbiology 12/13/23 14:30 Blood Blood Culture - Preliminary 12/13/23 10:55 Blood Blood Culture - Preliminary Constitutional Constitutional: no acute distress and cooperative *Routine HEENT Exam Eye: Present PERRL *Routine Respiratory Exam Respiratory: Present CTA bilaterally; Absent accessory muscle use, wheezes or crackles Comments: Moderately severe bilateral wheezing and coarse breath sounds with productive cough *Routine Cardiovascular Exam Cardiovascular: Present RRR, Normal S1 and Normal S2; Absent murmur, gallop or rubs *Routine Abdominal Exam Abdominal: Present soft; Absent tenderness *Routine Extremities Exam Extremities: Present pulses intact; Absent cyanosis or edema *Routine Skin Exam Skin: Present intact; Absent erythema or wounds Comments: Left lower extremity wound is wrapped, he has numerous superficial excoriations and erythema noted to bilateral lower extremities. 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 *Routine Neurological Exam Neurological: Present alert and oriented X3 Routine Psychiatric Exam Psychiatric: Present cooperative Progress Note: A&P Assessment and plan (1) CHF (congestive heart failure): Status: Chronic (2) COPD exacerbation: Status: Acute (3) KENNA (acute kidney injury): Status: Acute (4) Blister of foot, left: Status: Acute (5) Chronic obstructive lung disease: Status: Chronic (6) Peripheral vascular disease: Status: Chronic (7) Atrial fibrillation: Status: Chronic (8) HTN (hypertension): Status: Chronic (9) HLD (hyperlipidemia): Status: Chronic (10) DM2 (diabetes mellitus, type 2): Status: Chronic (11) Pleural effusion: Status: Acute Assessment and Plan Assessment and Plan for All Diagnoses:: Acute on chronic HFpEF, Cor Pulmonale -Known diagnosis with EF 40%, presented to ER with moderate bilateral effusions and proBNP 44,000 -Continue home dose metoprolol, hold lisinoprilin order to transition to Entresto -Cont hydralazine, Imdur, Jardiance, Aldactone. -strict I/O, low Na diet 12/15: Repeat ECHO shows normal EF, severe RV dilation. ProBNP up to 60k, Cr up to 2.9. Reduce Bumex. Trend labs daily. 12/16: Worsening renal function, hold diuretics and Aldactone, gentle fluid resuscitation MV-CAD s/p CABGx4 2016 and numerous stents 2017, 2020 - CCS = 0 - Cont DAPT, BB, Statin PAD with BLE wounds - inpatient wound care - DC Tob - cont DAPT, Statin - further workup outpatient COPD with ongoing tobacco use - recommend tob cessation - nebs, steroids, ab per Hospitalist DM-II - add Jardiance for CV benefit - glucose management per primary service Severe iron deficiency anemia -Transfusion in process by primary service 12/16: Difficult to manage volume status with concurrent heart failure and renal failure, presenting in volume overload. He needs gentle fluid resuscitation while maintaining intravascular volume but also needs blood transfusion and iron supplementation. I expect he will be here several more days.
[2023-12-16 11:49] LABS: POC Glucose,Bedside 171 (70-110)
--- NOTE | 2023-12-16 13:29 | P.PN_ITS ---
Subjective *Date: 12/16/23 *Time: 13:29 Interval history: Patient still feeling weak. Denies any fever. Cough mildly productive. Tolerating 2 L intermittently with weaning to room air intermittently. No nausea or vomiting. Medical Exam Vital signs and Labs for Last 24 Hours: Vital Signs Temp Pulse Pulse Resp BP BP Pulse Ox 12/16/23 12:55 98.3 F 60 18 146/77 H 95 12/16/23 12:10 98.4 F 62 18 148/74 H 94 L 12/16/23 08:00 95 12/16/23 11:10 98.2 F 61 16 157/71 H 95 12/16/23 11:09 60 12/16/23 11:09 60 12/16/23 10:55 98.1 F 60 16 161/75 H 95 12/16/23 10:40 98.0 F 60 20 145/62 H 95 12/16/23 10:25 97.9 F 61 16 157/69 H 96 12/16/23 09:00 12/16/23 10:20 98.3 F 61 16 139/71 94 L 12/16/23 10:15 98.4 F 61 18 133/68 94 L 12/16/23 08:00 94 L 12/16/23 10:10 98.7 F 62 16 152/72 H 95 12/16/23 10:05 97.8 F 61 16 148/80 H 94 L 12/16/23 07:40 97.8 F 66 18 157/77 H 97 12/16/23 06:43 12/16/23 05:00 12/16/23 06:41 73 12/16/23 06:41 75 12/16/23 06:41 93 L 12/16/23 04:00 62 12/16/23 04:00 98.4 F 62 16 155/71 H 95 12/16/23 03:00 12/16/23 00:00 97.8 F 62 18 156/78 H 95 12/16/23 00:49 12/16/23 00:00 62 12/15/23 23:45 67 12/15/23 23:45 67 12/15/23 21:00 12/15/23 20:00 66 12/15/23 20:00 98.0 F 63 18 145/65 H 95 12/15/23 18:32 74 12/15/23 18:32 76 12/15/23 18:32 94 L 12/15/23 18:25 12/15/23 16:00 12/15/23 17:00 12/15/23 15:48 97.9 F 70 19 141/68 H 95 12/15/23 15:00 O2 Del Method O2 Flow Rate 12/16/23 12:55 12/16/23 12:10 12/16/23 08:00 Nasal Cannula 2 12/16/23 11:10 12/16/23 11:09 12/16/23 11:09 12/16/23 10:55 12/16/23 10:40 12/16/23 10:25 12/16/23 09:00 Nasal Cannula 2 12/16/23 10:20 12/16/23 10:15 12/16/23 08:00 Nasal Cannula 2 12/16/23 10:10 12/16/23 10:05 12/16/23 07:40 Nasal Cannula 2 12/16/23 06:43 Nasal Cannula 2 12/16/23 05:00 Nasal Cannula 2 12/16/23 06:41 12/16/23 06:41 12/16/23 06:41 Nasal Cannula 3 12/16/23 04:00 12/16/23 04:00 12/16/23 03:00 Nasal Cannula 2 12/16/23 00:00 Nasal Cannula 2 12/16/23 00:49 Nasal Cannula 2 12/16/23 00:00 12/15/23 23:45 12/15/23 23:45 12/15/23 21:00 Nasal Cannula 2 12/15/23 20:00 12/15/23 20:00 Nasal Cannula 12/15/23 18:32 12/15/23 18:32 12/15/23 18:32 Nasal Cannula 2 12/15/23 18:25 Nasal Cannula 2 12/15/23 16:00 Nasal Cannula 12/15/23 17:00 Nasal Cannula 12/15/23 15:48 Nasal Cannula 2 12/15/23 15:00 Nasal Cannula 2 Intake and Output 12/15/23 12/16/23 12/16/23 23:59 07:59 15:59 Intake Total 720 / 1670 590 / 1510 920 / 1510 Output Total 100 / 450 350 / 350 Balance 620 / 1220 240 / 1160 920 / 1160 Intake: Intake, Oral Amount 470 / 1420 590 / 1260 670 / 1260 Intake, Total IV Amount 250 / 250 Doxycycline Hyclate 100 mg In 0 250 / 250 .9 % Sodium Chloride 250 ml @ 166.667 mls/hr IV 0500,1700 [facility] Rx#:[id number] Intake (Blood Product) Amt 250 / 250 Red Blood Cells Unit 250 / 250 [id number] Output: Output, Urine Amount 100 / 450 350 / 350 Other: Number of Unmeasured Voids 1 Weight 90.9 kg 90.9 kg Patient Weight 12/16/23 23:59 Weight 90.9 kg Laboratory Results - last 24 hr 12/15/23 20:44: POC Glucose 165 H 12/16/23 06:32: WBC 6.7, RBC 2.51 L, Hgb 7.7 L, Hct 23.8 L, MCV 94.6 H, MCH 30.9, MCHC 32.6, RDW 15.8, Plt Count 229, MPV 8.8, Neut % (Auto) 72.0, Lymph % (Auto) 17.2, [place] % (Auto) 7.8, Eos % (Auto) 2.6, Baso % (Auto) 0.4, Neut # (Auto) 4.8, Lymph # (Auto) 1.2, [place] # (Auto) 0.5, Eos # (Auto) 0.2, Baso # (Auto) 0.0, Sodium 138, Potassium 4.9, Chloride 110 H, Carbon Dioxide 23, Anion Gap 9.9, BUN 50 H, Creatinine 3.50 H D, Estimated Creat Clear 27, Estimated GFR 18 L*, Est GFR ( Amer) 21 L D, Glucose 82 D, Calcium 7.9 L, Magnesium 2.1, Total Bilirubin 0.2, AST 28, ALT 25, Alkaline Phosphatase 118, Total Protein 5.3 L, Albumin 2.4 L, Globulin 2.9, Albumin/Globulin Ratio 0.8 L, Blood Type Confirm O Positive 12/16/23 08:09: Blood Type O Positive, Antibody Screen Negative, Crossmatch (AHG) See Detail 12/16/23 11:36: POC Glucose 171 H I & O for Labs for Last 24 Hours: Intake & Output 12/13/23 12/14/23 12/15/23 12/16/23 23:59 23:59 23:59 23:59 Intake Total 600 / 720 1070 / 1190 1550 / 1670 1510 / 1510 Output Total 0 / 0 300 / 500 450 / 450 350 / 350 Balance 600 / 720 770 / 690 1100 / 1220 1160 / 1160 Weight 88.649 kg 88.677 kg 90.9 kg 90.9 kg Microbiology Reports for the Last 24 Hours: Microbiology 12/13/23 14:30 Blood Blood Culture - Preliminary 12/13/23 10:55 Blood Blood Culture - Preliminary Constitutional: Present no acute distress, average body habitus, chronically ill appearing and cooperative Head: Present atraumatic and normocephalic ENT: Present normal exam Neck: Present normal inspection Respiratory: Present prolonged expiratory phase, rhonchi, crackles (bases) and normal respiratory effort; Absent wheezes Cardiac: Present Reg Rate and Rhythm GI: Present normal bowel sounds; Absent tenderness Extremities: Present normal inspection, full ROM and edema (1+ to knees, wrinkling of skin) Comment:: Thenar wasting bilaterally Skin: Present intact; Absent erythema Comment:: Ruptured blister left heel, no erythema. Serous drainage. Stasis changes of legs bilaterally Neuro: Present Grossly Intact, alert, awake, oriented x 3 and moves all extremities Assessment and Plan *Assessment and plan (1) CHF (congestive heart failure): Status: Chronic Qualifiers: Heart failure chronicity: acute on chronic Heart failure type: diastolic Qualified Code(s): I50.33 - Acute on chronic diastolic (congestive) heart failure Category: Medical Code(s): I50.9 - Heart failure, unspecified (2) COPD exacerbation: Status: Acute Category: Medical Code(s): J44.1 - Chronic obstructive pulmonary disease with (acute) exacerbation (3) KENNA (acute kidney injury): Status: Acute Category: Medical Code(s): N17.9 - Acute kidney failure, unspecified (4) Blister of foot, left: Status: Acute Category: Medical Code(s): S90.822A - Blister (nonthermal), left foot, initial encounter (5) Chronic obstructive lung disease: Status: Chronic Qualifiers: COPD type: unspecified COPD Qualified Code(s): J44.9 - Chronic obstructive pulmonary disease, unspecified Category: Medical Code(s): J44.9 - Chronic obstructive pulmonary disease, unspecified (6) Peripheral vascular disease: Status: Chronic Category: Medical Code(s): I73.9 - Peripheral vascular disease, unspecified (7) Atrial fibrillation: Status: Chronic Qualifiers: Atrial fibrillation type: paroxysmal Qualified Code(s): I48.0 - Paroxysmal atrial fibrillation Category: Medical Code(s): I48.91 - Unspecified atrial fibrillation (8) HTN (hypertension): Status: Chronic Qualifiers: Hypertension type: essential hypertension Qualified Code(s): I10 - Essential (primary) hypertension Category: Medical Code(s): I10 - Essential (primary) hypertension (9) HLD (hyperlipidemia): Status: Chronic Qualifiers: Hyperlipidemia type: mixed hyperlipidemia Qualified Code(s): E78.2 - Mixed hyperlipidemia Category: Medical Code(s): E78.5 - Hyperlipidemia, unspecified (10) DM2 (diabetes mellitus, type 2): Status: Chronic Qualifiers: Diabetes mellitus half-way insulin use: 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 Diabetes mellitus complication status: with circulatory complication Diabetes mellitus complication detail: with other circulatory complications Qualified Code(s): E11.59 - Type 2 diabetes mellitus with other circulatory complications Category: Medical Code(s): E11.9 - Type 2 diabetes mellitus without complications (11) Pleural effusion: Status: Acute Category: Medical Code(s): J90 - Pleural effusion, not elsewhere classified (12) Anemia: Status: Acute Qualifiers: Anemia type: iron deficiency Iron deficiency anemia type: unspecified iron deficiency Qualified Code(s): D50.9 - Iron deficiency anemia, unspecified Category: Medical Code(s): D64.9 - Anemia, unspecified Plan 63-year-old male with history of combined heart failure, CABG, CKD, diabetes, peripheral artery disease. Presents with increased swelling and weeping of his legs and KENNA. Discussed case with the ER physician, request admission for diuresis and cardiology consult. Medicine agreed to admit. Monitoring urine output, responding to Bumex. Improvement in wrinkling of legs. Creatinine increased again. Hemoglobin low, necessitating transfusion. Continues to require inpatient management. Problems addressed as follows: Acute on chronic combined CHF Peripheral artery disease -Cardiology consulted, appreciate their recommendations. Holding on diuretics. Hold on lisinopril or Entresto in the setting of KENNA. Will continue metoprolol, hydralazine, Imdur, Jardiance, Aldactone. - Continue Lipitor 40 mg daily, aspirin 81 mg daily, Plavix 75 mg daily. - Echo from July 2022 shows EF of 40 to 45% with grade 1 diastolic dysfunction. Repeat echo obtained, read pending -Wound care consulted and assisting with blister on heel. COPD: On room air intermittently, goal sats greater 90%. DuoNeb scheduled every 6 hours Anemia: Hemoglobin decreased to 7.7, in the setting of CAD and PAD, will transfuse with goal of hemoglobin of 9. 1 unit packed red blood cells today. Status post 1 dose of Venofer this morning. Diabetes: A1C 8.1 in October.. SSI with FSGS achs. Addition of Jardiance. KENNA: Creatinine increased to 3.5, BUN 50. Holding diuretics today. Repeat BMP this afternoon, Repeat CMP, magnesium ordered for the morning. baseline ~1.5. Tobacco use disorder: Nicotine patch while admitted. Patient has no desire to quit. DNR Diabetic diet Heparin subcu
[2023-12-16 14:24] LABS: Hematocrit 26.6 % (42.0-52.0)
[2023-12-16 14:26] LABS: Anion Gap 10.1 mEq/L (5-15); Blood Urea Nitrogen 53 mg/dl (9-20); Calcium 7.8 mg/dl (8.4-10.2); Carbon Dioxide 25 mmol/L (22.0-30.0); Chloride 108 mmol/L (98-107); Creatinine Clearance Estimated 27 mL/min (50-200); Estimated Glomerular Filt Rate 18 ml/min (>60); GFR (African American) 21 ML/MIN (>60); Glucose 160 mg/dl (74-100); Potassium 5.1 mmoL/L (3.5-5.1); Sodium 138 mmol/L (136-145)
[2023-12-16 14:44] LABS: Hemoglobin 8.8 g/dL (14.1-18.0)
[2023-12-16 16:25] LABS: POC Glucose,Bedside 195 (70-110)
[2023-12-16 20:19] LABS: POC Glucose,Bedside 222 (70-110)
[2023-12-17] VITALS (9 sets, daily range): BP systolic 135–159; BP diastolic 49–83; PULSE 50–64; RESP 18–20; TEMP 36.6–36.8; O2SAT 94–98; BMI 24.9
--- NOTE | 2023-12-17 05:07 | PC.NURSE ---
0430 RECEIVED REPORT FROM Ga DESAI RN. VITAL SIGNS STABLE. H&H IMPROVED AFTER BLOOD TRANSFUSION YESTERDAU. SR ON TELE. NO C/O PAIN OR SOA. 02 2LNC.
[2023-12-17] MEDS: DOXYCYCLINE HYCLATE 100 MG in 0.9 % SODIUM CHLORIDE 250 ML 166.667 MG IV ×2 (05:22→16:26)
[2023-12-17 05:41] LABS: POC Glucose,Bedside 125 (70-110)
[2023-12-17] MEDS: IPRATROPIUM/ALBUTEROL 3 ML NEB IH ×4 (06:05→23:30)
[2023-12-17 07:06] LABS: Alanine Aminotransferase 26 U/L (12-78); Albumin Level 2.5 g/dl (3.5-5.0); Albumin/Globulin Ratio 0.8 (1.1-1.8); Alkaline Phosphatase 115 U/L (38-126); Anion Gap 9.9 mEq/L (5-15); Aspartate Amino Transferase 29 U/L (17-59); Bilirubin,Total 0.3 mg/dl (0.2-1.3); Blood Urea Nitrogen 54 mg/dl (9-20); Carbon Dioxide 25 mmol/L (22.0-30.0); Chloride 110 mmol/L (98-107); Creatinine Clearance Estimated 27 mL/min (50-200); Estimated Glomerular Filt Rate 18 ml/min (>60); GFR (African American) 21 ML/MIN (>60); Glucose 113 mg/dl (74-100); Potassium 4.9 mmoL/L (3.5-5.1); Sodium 140 mmol/L (136-145); Total Protein,Serum 5.5 g/dl (6.3-8.2)
[2023-12-17 07:11] LABS: Basophils % 0.4 % (0.1-2.0); Eosinophils # 0.3 K/mm3 (0.0-0.4); Eosinophils % 4.2 % (0.1-12.0); Hematocrit 27.5 % (42.0-52.0); Hemoglobin 9.1 g/dL (14.1-18.0); Lymphocytes # 1.3 K/mm3 (0.7-4.5); Lymphocytes % 19.9 % (10-50); Mean Corpuscular HGB Conc 33.2 g/dL (31.8-35.4); Mean Corpuscular Hemoglobin 31.2 pg (27.0-31.2); Mean Corpuscular Volume 94.1 fl (80-94); Monocytes # 0.5 K/mm3 (0.1-1.0); Monocytes % 7.2 % (1.7-9.3); Neutrophils # 4.4 K/mm3 (1.8-7.8); Neutrophils % 68.3 % (37.0-80.0); Platelet Count 224 K/mm3 (142-424); Red Blood Count 2.92 M/mm3 (4.60-6.20); Red Cell Distribution Width 15.4 % (11.5-17.5); White Blood Count 6.5 K/mm3 (4.8-10.8)
[2023-12-17 07:39] LABS: Magnesium 2.3 mg/dl (1.6-2.3)
[2023-12-17] MEDS: CLOPIDOGREL 75MG TAB 75 MG PO (08:21)
[2023-12-17] MEDS: METOPROLOL SUCCINATE XL 100MG TABLET 100 MG PO ×2 (08:21→20:57)
[2023-12-17] MEDS: ATORVASTATIN 40MG TABLET 40 MG PO (08:21)
[2023-12-17] MEDS: HYDRALAZINE HCL 25MG TABLET 50 MG PO ×3 (08:21→20:57)
[2023-12-17] MEDS: ASPIRIN EC 81MG TABLET 81 MG PO (08:21)
[2023-12-17] MEDS: ISOSORBIDE MONO 60MG TAB.ER.24H 60 MG PO (08:21)
[2023-12-17] MEDS: APAP/HYDROCODONE 325MG/7.5MG TAB 1 TAB PO ×2 (08:24→18:10)
--- NOTE | 2023-12-17 11:19 | P.PN_ITS ---
Subjective *Date: 12/17/23 *Time: 12:02 Interval history: Patient still feeling weak. Denies any fever. Cough mildly productive. Tolerating 2 L intermittently with weaning to room air intermittently. No nausea or vomiting. states he feels marginally better. Medical Exam Vital signs and Labs for Last 24 Hours: Vital Signs Temp Pulse Pulse Resp BP BP Pulse Ox 12/17/23 08:00 98.2 F 63 20 154/76 H 94 L 12/17/23 08:59 12/17/23 08:20 12/17/23 06:05 58 L 12/17/23 06:05 58 L 12/17/23 06:05 98 12/17/23 06:45 12/17/23 05:00 12/17/23 04:00 97.9 F 57 L 18 143/49 H 97 12/17/23 04:00 50 L 12/17/23 00:00 60 12/17/23 03:00 12/17/23 01:00 12/16/23 23:00 12/16/23 21:00 12/17/23 00:00 98.1 F 58 L 18 135/62 94 L 12/17/23 00:00 12/16/23 20:00 12/16/23 20:00 98.5 F 70 18 169/77 H 93 L 12/16/23 23:49 58 L 12/16/23 23:49 58 L 12/16/23 20:00 70 12/16/23 19:00 12/16/23 17:57 60 12/16/23 17:57 61 12/16/23 17:57 96 12/16/23 17:00 12/16/23 16:00 59 L 12/16/23 16:00 94 L 12/16/23 15:00 12/16/23 13:55 98.2 F 59 L 16 167/86 H 95 12/16/23 12:00 60 12/16/23 13:00 12/16/23 12:55 98.3 F 60 18 146/77 H 95 12/16/23 12:10 98.4 F 62 18 148/74 H 94 L O2 Del Method O2 Flow Rate 12/17/23 08:00 Room Air 12/17/23 08:59 Room Air 12/17/23 08:20 Room Air 12/17/23 06:05 12/17/23 06:05 12/17/23 06:05 Nasal Cannula 2 12/17/23 06:45 Room Air 12/17/23 05:00 Nasal Cannula 2 12/17/23 04:00 Nasal Cannula 2 12/17/23 04:00 12/17/23 00:00 12/17/23 03:00 Nasal Cannula 2 12/17/23 01:00 Nasal Cannula 2 12/16/23 23:00 Nasal Cannula 2 12/16/23 21:00 Nasal Cannula 2 12/17/23 00:00 Nasal Cannula 2 12/17/23 00:00 Nasal Cannula 2 12/16/23 20:00 Nasal Cannula 2 12/16/23 20:00 Nasal Cannula 2 12/16/23 23:49 12/16/23 23:49 12/16/23 20:00 12/16/23 19:00 Nasal Cannula 2 12/16/23 17:57 12/16/23 17:57 12/16/23 17:57 Nasal Cannula 2 12/16/23 17:00 Nasal Cannula 2 12/16/23 16:00 12/16/23 16:00 Nasal Cannula 2 12/16/23 15:00 Nasal Cannula 2 12/16/23 13:55 12/16/23 12:00 12/16/23 13:00 Nasal Cannula 2 12/16/23 12:55 12/16/23 12:10 Intake and Output 12/16/23 12/17/23 12/17/23 23:59 07:59 15:59 Intake Total 240 1989 490 / 1160 670 / 1160 Output Total 300 / 800 475 / 475 Balance -60 / 1190 15 / 685 670 / 685 Intake: Intake, Oral Amount 240 / 1740 240 / 660 420 / 660 Intake, Total IV Amount 250 / 500 250 / 500 Doxycycline Hyclate 100 mg In 0 250 / 500 250 / 500 .9 % Sodium Chloride 250 ml @ 166.667 mls/hr IV 0500,1700 [facility] Rx#:[id number] Output: Output, Urine Amount 300 / 800 475 / 475 Other: Number of Unmeasured Voids 1 Weight 90.9 kg Patient Weight 12/17/23 23:59 Weight 90.9 kg Laboratory Results - last 24 hr 12/16/23 08:09: Crossmatch (AHG) See Detail 12/16/23 11:36: POC Glucose 171 H 12/16/23 14:03: Hgb 8.8 L D, Hct 26.6 L, Sodium 138, Potassium 5.1, Chloride 108 H, Carbon Dioxide 25, Anion Gap 10.1, BUN 53 H, Creatinine 3.50 H, Estimated Creat Clear 27, Estimated GFR 18 L*, Est GFR ( Amer) 21 L, Glucose 160 H D, Calcium 7.8 L 12/16/23 16:15: POC Glucose 195 H 12/16/23 20:07: POC Glucose 222 H 12/17/23 05:27: POC Glucose 125 H 12/17/23 06:47: WBC 6.5, RBC 2.92 L, Hgb 9.1 L, Hct 27.5 L, MCV 94.1 H, MCH 31.2, MCHC 33.2, RDW 15.4, Plt Count 224, MPV 9.0, Neut % (Auto) 68.3, Lymph % (Auto) 19.9, [place] % (Auto) 7.2, Eos % (Auto) 4.2, Baso % (Auto) 0.4, Neut # (Auto) 4.4, Lymph # (Auto) 1.3, [place] # (Auto) 0.5, Eos # (Auto) 0.3, Baso # (Auto) 0.0, Sodium 140, Potassium 4.9, Chloride 110 H, Carbon Dioxide 25, Anion Gap 9.9, BUN 54 H, Creatinine 3.50 H, Estimated Creat Clear 27, Estimated GFR 18 L*, Est GFR ( Amer) 21 L, Glucose 113 H D, Calcium 8.0 L, Magnesium 2.3, Total Bilirubin 0.3, AST 29, ALT 26, Alkaline Phosphatase 115, Total Protein 5.5 L, Albumin 2.5 L, Globulin 3.0, Albumin/Globulin Ratio 0.8 L I & O for Labs for Last 24 Hours: Intake & Output 12/14/23 12/15/23 12/16/23 12/17/23 23:59 23:59 23:59 23:59 Intake Total 1070 / 1190 1550 / 1670 1750 / 1990 1160 / 1160 Output Total 300 / 500 450 / 450 800 / 800 475 / 475 Balance 770 / 690 1100 / 1220 950 / 1190 685 / 685 Weight 88.677 kg 90.9 kg 90.9 kg 90.9 kg Microbiology Reports for the Last 24 Hours: Microbiology 12/13/23 14:30 Blood Blood Culture - Preliminary 12/13/23 10:55 Blood Blood Culture - Preliminary Constitutional: Present no acute distress, average body habitus, chronically ill appearing and cooperative Head: Present atraumatic and normocephalic ENT: Present normal exam Neck: Present normal inspection Respiratory: Present prolonged expiratory phase, rhonchi, crackles (bases) and normal respiratory effort; Absent wheezes Cardiac: Present Reg Rate and Rhythm GI: Present normal bowel sounds; Absent tenderness Extremities: Present normal inspection, full ROM and edema (2+ to knees, wrinkling of skin) Comment:: Thenar wasting bilaterally Skin: Present intact; Absent erythema Comment:: Ruptured blister left heel, no erythema. Serous drainage. Stasis changes of legs bilaterally Neuro: Present Grossly Intact, alert, awake, oriented x 3 and moves all extremities Assessment and Plan *Assessment and plan (1) CHF (congestive heart failure): Status: Chronic Qualifiers: Heart failure chronicity: acute on chronic Heart failure type: diastolic Qualified Code(s): I50.33 - Acute on chronic diastolic (congestive) heart failure Category: Medical Code(s): I50.9 - Heart failure, unspecified (2) COPD exacerbation: Status: Acute Category: Medical Code(s): J44.1 - Chronic obstructive pulmonary disease with (acute) exacerbation (3) KENNA (acute kidney injury): Status: Acute Category: Medical Code(s): N17.9 - Acute kidney failure, unspecified (4) Blister of foot, left: Status: Acute Category: Medical Code(s): S90.822A - Blister (nonthermal), left foot, initial encounter (5) Chronic obstructive lung disease: Status: Chronic Qualifiers: COPD type: unspecified COPD Qualified Code(s): J44.9 - Chronic obstructive pulmonary disease, unspecified Category: Medical Code(s): J44.9 - Chronic obstructive pulmonary disease, unspecified (6) Peripheral vascular disease: Status: Chronic Category: Medical Code(s): I73.9 - Peripheral vascular disease, unspecified (7) Atrial fibrillation: Status: Chronic Qualifiers: Atrial fibrillation type: paroxysmal Qualified Code(s): I48.0 - Paroxysmal atrial fibrillation Category: Medical Code(s): I48.91 - Unspecified atrial fibrillation (8) HTN (hypertension): Status: Chronic Qualifiers: Hypertension type: essential hypertension Qualified Code(s): I10 - Essential (primary) hypertension Category: Medical Code(s): I10 - Essential (primary) hypertension (9) HLD (hyperlipidemia): Status: Chronic Qualifiers: Hyperlipidemia type: mixed hyperlipidemia Qualified Code(s): E78.2 - Mixed hyperlipidemia Category: Medical Code(s): E78.5 - Hyperlipidemia, unspecified (10) DM2 (diabetes mellitus, type 2): Status: Chronic Qualifiers: Diabetes mellitus complication detail: with other circulatory complications Diabetes mellitus complication status: with circulatory complication Diabetes mellitus helper coordinator insulin use: with helper coordinator use Qualified Code(s): E11.59 - Type 2 diabetes mellitus with other circulatory complications Category: Medical Code(s): E11.9 - Type 2 diabetes mellitus without complications (11) Pleural effusion: Status: Acute Category: Medical Code(s): J90 - Pleural effusion, not elsewhere classified (12) Anemia: Status: Acute Qualifiers: Anemia type: iron deficiency Iron deficiency anemia type: unspecified iron deficiency Qualified Code(s): D50.9 - Iron deficiency anemia, unspecified Category: Medical Code(s): D64.9 - Anemia, unspecified Plan 63-year-old male with history of combined heart failure, CABG, CKD, diabetes, peripheral artery disease. Presents with increased swelling and weeping of his legs and KENNA. Discussed case with the ER physician, request admission for diur esis and cardiology consult. Medicine agreed to admit. Monitoring urine output. Holding Bumex. Has been improvement in edema but kidney function worsened. Kidney function stable today. Continues to require inpatient management. Problems addressed as follows: Acute on chronic combined CHF Peripheral artery disease - Cardiology consulted, appreciate their recommendations. Holding on diuretics. Hold on lisinopril or Entresto in the setting of KENNA. Will continue metoprolol, hydralazine, Imdur, Jardiance, Aldactone. - Continue Lipitor 40 mg daily, aspirin 81 mg daily, Plavix 75 mg daily. - Echo from July 2022 shows EF of 40 to 45% with grade 1 diastolic dysfunction. Repeat echo obtained, read pending - Wound care consulted and assisting with blister on heel. COPD: On room air intermittently, goal sats greater 90%. DuoNeb scheduled every 6 hours Anemia: Hemoglobin responded well to transfusion. 9.1 today. Transfusion threshold less than 9. Diabetes: A1C 8.1 in October.. SSI with FSGS achs. Addition of Jardiance. KENNA: Creatinine elevated and consistent today at 3.5, BUN 54. Holding diuretics today. repeat CMP, magnesium ordered for the morning. baseline ~1.5. Tobacco use disorder: Nicotine patch while admitted. Patient has no desire to quit. DNR Diabetic diet Heparin subcu
[2023-12-17] MEDS: humaLOG 100 UNITS/ML 3ML VIAL (SSI) SQ ×3 (11:32→20:57)
[2023-12-17 12:06] LABS: POC Glucose,Bedside 200 (70-110)
--- NOTE | 2023-12-17 15:46 | PC.NURSE ---
Patient weaned to room air but then 86% oxygenation on room air at rest. 2LNC reapplied. VS stable, lung sounds diminished. New dressing to left foot applied after patient shower.
[2023-12-17 16:36] LABS: POC Glucose,Bedside 254 (70-110)
--- NOTE | 2023-12-17 18:50 | XR_ITS ---
PROCEDURE INFORMATION: Exam: XR Chest Exam date and time: 12/17/2023 9:24 PM Age: 63 years old Clinical indication: Shortness of breath; Additional info: SOA TECHNIQUE: Imaging protocol: Radiologic exam of the chest. Views: 1 view. COMPARISON: CR XR CHEST PORTABLE 15/12/2023 15:40 FINDINGS: Lungs: Collapse of portions of the lower lungs. Left lung opacities appear mildly worse compared to prior study. Pleural spaces: Unchanged bilateral pleural effusions. Heart/Mediastinum: Cardiomegaly. Bones/joints: Status post median sternotomy. IMPRESSION: 1. Unchanged bilateral pleural effusions. 2. Collapse of portions of the lower lungs. Superimposed aspiration or infection is possible. 3. Left lung opacities appear mildly worse compared to prior study.
[2023-12-17 20:49] LABS: POC Glucose,Bedside 155 (70-110)
[2023-12-18] VITALS (14 sets, daily range): BP systolic 115–155; BP diastolic 53–74; PULSE 50–73; RESP 16–20; TEMP 36.7–36.9; O2SAT 90–98; BMI 26.4
--- NOTE | 2023-12-18 02:48 | PC.NURSE ---
Pt is A&Ox4 and is currently on 2L of O2 and is tolerating it well. Pt has C/O of pain this shift. No other distress or needs noted.
--- NOTE | 2023-12-18 03:20 | PC.NURSE ---
Pt has 2+ scrotal edema and has a small cut on penis from using the urinal, area cleaned with gauze and normal saline. KYM Wiseman notified at this time and asked to assess pt. no new orders at this time
--- NOTE | 2023-12-18 03:29 | PC.NURSE ---
2+ bilateral lower extremity edema noted.
[2023-12-18] MEDS: DOXYCYCLINE HYCLATE 100 MG in 0.9 % SODIUM CHLORIDE 250 ML 166.667 MG IV ×2 (04:07→16:40)
[2023-12-18] MEDS: IPRATROPIUM/ALBUTEROL 3 ML NEB IH ×4 (06:25→23:30)
[2023-12-18 06:39] LABS: POC Glucose,Bedside 170 (70-110)
[2023-12-18] MEDS: humaLOG 100 UNITS/ML 3ML VIAL (SSI) SQ ×3 (06:43→22:37)
[2023-12-18] MEDS: APAP/HYDROCODONE 325MG/7.5MG TAB 1 TAB PO ×2 (06:43→22:54)
[2023-12-18 07:42] LABS: Alanine Aminotransferase 28 U/L (12-78); Albumin Level 2.8 g/dl (3.5-5.0); Albumin/Globulin Ratio 0.9 (1.1-1.8); Alkaline Phosphatase 138 U/L (38-126); Anion Gap 10.2 mEq/L (5-15); Aspartate Amino Transferase 35 U/L (17-59); Bilirubin,Total 0.2 mg/dl (0.2-1.3); Blood Urea Nitrogen 55 mg/dl (9-20); Calcium 8.1 mg/dl (8.4-10.2); Carbon Dioxide 25 mmol/L (22.0-30.0); Chloride 110 mmol/L (98-107); Creatinine Clearance Estimated 27 mL/min (50-200); Estimated Glomerular Filt Rate 18 ml/min (>60); GFR (African American) 21 ML/MIN (>60); Globulin 3.1 g/dL (1.3-3.2); Glucose 126 mg/dl (74-100); Potassium 5.2 mmoL/L (3.5-5.1); Sodium 140 mmol/L (136-145); Total Protein,Serum 5.9 g/dl (6.3-8.2)
[2023-12-18 07:49] LABS: Basophils % 0.5 % (0.1-2.0); Eosinophils # 0.3 K/mm3 (0.0-0.4); Eosinophils % 4.3 % (0.1-12.0); Hematocrit 29.3 % (42.0-52.0); Hemoglobin 9.3 g/dL (14.1-18.0); Lymphocytes # 1.3 K/mm3 (0.7-4.5); Lymphocytes % 18.5 % (10-50); Mean Corpuscular HGB Conc 31.7 g/dL (31.8-35.4); Mean Corpuscular Hemoglobin 30.8 pg (27.0-31.2); Mean Platelet Volume 9.2 fl (7.4-10.4); Monocytes # 0.5 K/mm3 (0.1-1.0); Monocytes % 7.4 % (1.7-9.3); Neutrophils % 69.3 % (37.0-80.0); Platelet Count 252 K/mm3 (142-424); Red Blood Count 3.02 M/mm3 (4.60-6.20); Red Cell Distribution Width 15.4 % (11.5-17.5); White Blood Count 7.2 K/mm3 (4.8-10.8)
[2023-12-18 07:53] LABS: Magnesium 2.2 mg/dl (1.6-2.3)
[2023-12-18] MEDS: ALBUMIN HUMAN 50 ML IV ×4 (08:27→14:57)
[2023-12-18] MEDS: CLOPIDOGREL 75MG TAB 75 MG PO (09:07)
[2023-12-18] MEDS: ASPIRIN EC 81MG TABLET 81 MG PO (09:07)
[2023-12-18] MEDS: ATORVASTATIN 40MG TABLET 40 MG PO (09:07)
[2023-12-18] MEDS: HYDRALAZINE HCL 25MG TABLET 50 MG PO ×3 (09:08→22:36)
[2023-12-18] MEDS: ISOSORBIDE MONO 60MG TAB.ER.24H 60 MG PO (09:08)
[2023-12-18] MEDS: METOPROLOL SUCCINATE XL 100MG TABLET 100 MG PO ×2 (09:08→22:36)
--- NOTE | 2023-12-18 09:39 | P.PN_ITS ---
Subjective *Date: 12/18/23 *Time: 17:44 Interval history: Stable shortness of breath this morning, on 2 L during interview. No fevers overnight. Blood pressure improved. Has significant scrotal swelling and edema of penis on morning exam. Tolerating p.o. intake. Medical Exam Vital signs and Labs for Last 24 Hours: Vital Signs Temp Pulse Pulse Resp BP Pulse Ox O2 Del Method 12/18/23 09:10 Nasal Cannula 12/18/23 08:20 Nasal Cannula 12/18/23 08:00 98.2 F 62 18 131/69 97 Nasal Cannula 12/18/23 04:00 98.2 F 61 18 152/72 H 96 Nasal Cannula 12/18/23 07:00 Nasal Cannula 12/18/23 05:00 Nasal Cannula 12/18/23 06:25 61 12/18/23 06:25 64 12/18/23 06:25 96 Nasal Cannula 12/18/23 04:00 60 12/18/23 02:38 Nasal Cannula 12/18/23 01:00 Nasal Cannula 12/18/23 00:00 98.0 F 64 18 138/59 L 95 Nasal Cannula 12/18/23 00:00 98 Nasal Cannula 12/18/23 00:00 70 12/17/23 20:00 60 12/17/23 23:30 95 Nasal Cannula 12/17/23 20:00 98 Nasal Cannula 12/17/23 23:00 Nasal Cannula 12/17/23 21:00 Nasal Cannula 12/17/23 19:00 Nasal Cannula 12/17/23 20:00 98.2 F 64 18 159/72 H 98 Nasal Cannula 12/17/23 16:00 63 19 155/76 H 97 Nasal Cannula 12/17/23 16:59 Nasal Cannula 12/17/23 16:00 60 12/17/23 15:10 Room Air 12/17/23 12:00 60 12/17/23 13:15 Nasal Cannula 12/17/23 11:10 Nasal Cannula 12/17/23 12:00 64 20 153/83 H 95 Nasal Cannula 12/17/23 11:43 60 12/17/23 11:43 60 12/17/23 11:43 96 Nasal Cannula O2 Flow Rate 12/18/23 09:10 2 12/18/23 08:20 2 12/18/23 08:00 12/18/23 04:00 2 12/18/23 07:00 2 12/18/23 05:00 2 12/18/23 06:25 12/18/23 06:25 12/18/23 06:25 2 12/18/23 04:00 12/18/23 02:38 2 12/18/23 01:00 2 12/18/23 00:00 2 12/18/23 00:00 2 12/18/23 00:00 12/17/23 20:00 12/17/23 23:30 2 12/17/23 20:00 2 12/17/23 23:00 2 12/17/23 21:00 2 12/17/23 19:00 2 12/17/23 20:00 2 12/17/23 16:00 2 12/17/23 16:59 2 12/17/23 16:00 12/17/23 15:10 12/17/23 12:00 12/17/23 13:15 2 12/17/23 11:10 2 12/17/23 12:00 12/17/23 11:43 12/17/23 11:43 12/17/23 11:43 2 Intake and Output 12/17/23 12/18/23 12/18/23 23:59 07:59 15:59 Intake Total 270 / 2090 1080 / 1680 600 / 1680 Output Total 100 / 575 900 / 900 0 / 900 Balance 170 / 1515 180 / 780 600 / 780 Intake: Intake, Oral Amount 270 / 1590 1080 / 1680 600 / 1680 Output: Output, Urine Amount 100 / 575 900 / 900 0 / 900 Other: Number of Voids 2 0 Number of Unmeasured Voids 2 Weight 95.453 kg Patient Weight 12/18/23 23:59 Weight 95.453 kg Laboratory Results - last 24 hr 12/17/23 11:20: POC Glucose 200 H 12/17/23 16:27: POC Glucose 254 H 12/17/23 20:34: POC Glucose 155 H 12/18/23 06:23: WBC 7.2, RBC 3.02 L, Hgb 9.3 L, Hct 29.3 L, MCV 97.0 H, MCH 30.8, MCHC 31.7 L, RDW 15.4, Plt Count 252, MPV 9.2, Neut % (Auto) 69.3, Lymph % (Auto) 18.5, [place] % (Auto) 7.4, Eos % (Auto) 4.3, Baso % (Auto) 0.5, Neut # (Aut o) 5.0, Lymph # (Auto) 1.3, [place] # (Auto) 0.5, Eos # (Auto) 0.3, Baso # (Auto) 0.0, Sodium 140, Potassium 5.2 H, Chloride 110 H, Carbon Dioxide 25, Anion Gap 10.2, BUN 55 H, Creatinine 3.50 H, Estimated Creat Clear 27, Estimated GFR 18 L* , Est GFR ( Amer) 21 L, Glucose 126 H, Calcium 8.1 L, Magnesium 2.2, Total Bilirubin 0.2, AST 35, ALT 28, Alkaline Phosphatase 138 H, Total Protein 5.9 L, Albumin 2.8 L D, Globulin 3.1, Albumin/Globulin Ratio 0.9 L 12/18/23 06:32: POC Glucose 170 H I & O for Labs for Last 24 Hours: Intake & Output 12/15/23 12/16/23 12/17/23 12/18/23 23:59 23:59 23:59 23:59 Intake Total 1550 / 1670 1750 / 1990 1850 / 2090 1680 / 1680 Output Total 450 / 450 800 / 800 575 / 575 900 / 900 Balance 1100 / 1220 950 / 1190 1275 / 1515 780 / 780 Weight 90.9 kg 90.9 kg 90.9 kg 95.453 kg Constitutional: Present no acute distress, average body habitus, chronically ill appearing and cooperative Head: Present atraumatic and normocephalic ENT: Present normal exam Neck: Present normal inspection Respiratory: Present prolonged expiratory phase, rhonchi, crackles (bases) and normal respiratory effort; Absent wheezes Cardiac: Present Reg Rate and Rhythm GI: Present normal bowel sounds; Absent tenderness Comment:: Edema of penis Extremities: Present normal inspection, full ROM and edema (2+ to knees, wrinkling of skin) Comment:: Thenar wasting bilaterally Skin: Present intact; Absent erythema Comment:: Ruptured blister left heel, no erythema. Serous drainage. Stasis changes of legs bilaterally Neuro: Present Grossly Intact, alert, awake, oriented x 3 and moves all extremities Assessment and Plan *Assessment and plan (1) CHF (congestive heart failure): Status: Chronic Qualifiers: Heart failure chronicity: acute on chronic Heart failure type: diastolic Qualified Code(s): I50.33 - Acute on chronic diastolic (congestive) heart failure Category: Medical Code(s): I50.9 - Heart failure, unspecified (2) COPD exacerbation: Status: Acute Category: Medical Code(s): J44.1 - Chronic obstructive pulmonary disease with (acute) exacerbation (3) KENNA (acute kidney injury): Status: Acute Category: Medical Code(s): N17.9 - Acute kidney failure, unspecified (4) Blister of foot, left: Status: Acute Category: Medical Code(s): S90.822A - Blister (nonthermal), left foot, initial encounter (5) Chronic obstructive lung disease: Status: Chronic Qualifiers: COPD type: unspecified COPD Qualified Code(s): J44.9 - Chronic obstructive pulmonary disease, unspecified Category: Medical Code(s): J44.9 - Chronic obstructive pulmonary disease, unspecified (6) Peripheral vascular disease: Status: Chronic Category: Medical Code(s): I73.9 - Peripheral vascular disease, unspecified (7) Atrial fibrillation: Status: Chronic Qualifiers: Atrial fibrillation type: paroxysmal Qualified Code(s): I48.0 - Paroxysmal atrial fibrillation Category: Medical Code(s): I48.91 - Unspecified atrial fibrillation (8) HTN (hypertension): Status: Chronic Qualifiers: Hypertension type: essential hypertension Qualified Code(s): I10 - Essential (primary) hypertension Category: Medical Code(s): I10 - Essential (primary) hypertension (9) HLD (hyperlipidemia): Status: Chronic Qualifiers: Hyperlipidemia type: mixed hyperlipidemia Qualified Code(s): E78.2 - Mixed hyperlipidemia Category: Medical Code(s): E78.5 - Hyperlipidemia, unspecified (10) DM2 (diabetes mellitus, type 2): Status: Chronic Qualifiers: Diabetes mellitus fci insulin use: with termite exterminator helper use Diabetes mellitus complication status: with circulatory complication Diabetes mellitus complication detail: with other circulatory complications Qualified Code(s): E11.59 - Type 2 diabetes mellitus with other circulatory complications Category: Medical Code(s): E11.9 - Type 2 diabetes mellitus without complications (11) Pleural effusion: Status: Acute Category: Medical Code(s): J90 - Pleural effusion, not elsewhere classified (12) Anemia: Status: Acute Qualifiers: Anemia type: iron deficiency Iron deficiency anemia type: unspecified iron deficiency Qualified Code(s): D50.9 - Iron deficiency anemia, unspecified Category: Medical Code(s): D64.9 - Anemia, unspecified Plan 63-year-old male with history of combined heart failure, CABG, CKD, diabetes, peripheral artery disease. Presents with increased swelling and weeping of his legs and KENNA. Discussed case with the ER physician, request admission for diuresis and cardiology consult. Medicine agreed to admit. Monitoring urine output. Given increased swelling in his genital region and shortness of breath, will reattempt to diurese today. Giving Lasix in conjunction with albumin. Continues to require inpatient management. Problems addressed as follows: Acute on chronic combined CHF Peripheral artery disease Scrotal edema - Cardiology consulted, appreciate their recommendations. Hold on lisinopril or Entresto in the setting of KENNA. Will continue metoprolol, hydralazine, Imdur, Jardiance, Aldactone. - Continue Lipitor 40 mg daily, aspirin 81 mg daily, Plavix 75 mg daily. -Initiate diuresis today with 25 g of albumin followed by 80 mg Lasix. If respo nds well with morning dose will give a second dose in the afternoon. Repeat BMP ordered for the afternoon to monitor electrolytes and kidney function. - Echo from July 2022 shows EF of 40 to 45% with grade 1 diastolic dysfunction. Repeat echo obtained, read pending - Wound care consulted and assisting with blister on heel. COPD: On room air intermittently, goal sats greater 90%. Wears 2 L overnight. DuoNeb scheduled every 6 hours Anemia: Hemoglobin responded well to transfusion. 9.3 today. Transfusion threshold less than 9. Diabetes: A1C 8.1 in October.. SSI with FSGS achs. Addition of Jardiance. KENNA: Creatinine elevated and consistent today at 3.5, BUN 55. Reattempt diuresis with albumin and Lasix combo. Albumin 2.8 on morning labs. Potassium elevated at 5.2 with magnesium 2.2. Repeat CMP, magnesium, CBC ordered for the morning. Tobacco use disorder: Nicotine patch while admitted. Patient has no desire to quit. DNR Diabetic diet Heparin subcu
[2023-12-18] MEDS: FUROSEMIDE 40MG/4ML VIAL 80 MG IV ×2 (09:42→15:32)
--- NOTE | 2023-12-18 10:05 | EXP.PHA.PN ---
Subjective *Date: 12/18/23 *Time: 10:05 Medical Exam Vital signs and Labs for Last 24 Hours: Vital Signs Temp Pulse Pulse Resp BP Pulse Ox O2 Del Method 12/18/23 08:00 60 12/18/23 09:10 Nasal Cannula 12/18/23 08:20 Nasal Cannula 12/18/23 08:00 98.2 F 62 18 131/69 97 Nasal Cannula 12/18/23 04:00 98.2 F 61 18 152/72 H 96 Nasal Cannula 12/18/23 07:00 Nasal Cannula 12/18/23 05:00 Nasal Cannula 12/18/23 06:25 61 12/18/23 06:25 64 12/18/23 06:25 96 Nasal Cannula 12/18/23 04:00 60 12/18/23 02:38 Nasal Cannula 12/18/23 01:00 Nasal Cannula 12/18/23 00:00 98.0 F 64 18 138/59 L 95 Nasal Cannula 12/18/23 00:00 98 Nasal Cannula 12/18/23 00:00 70 12/17/23 20:00 60 12/17/23 23:30 95 Nasal Cannula 12/17/23 20:00 98 Nasal Cannula 12/17/23 23:00 Nasal Cannula 12/17/23 21:00 Nasal Cannula 12/17/23 19:00 Nasal Cannula 12/17/23 20:00 98.2 F 64 18 159/72 H 98 Nasal Cannula 12/17/23 16:00 63 19 155/76 H 97 Nasal Cannula 12/17/23 16:59 Nasal Cannula 12/17/23 16:00 60 12/17/23 15:10 Room Air 12/17/23 12:00 60 12/17/23 13:15 Nasal Cannula 12/17/23 11:10 Nasal Cannula 12/17/23 12:00 64 20 153/83 H 95 Nasal Cannula 12/17/23 11:43 60 12/17/23 11:43 60 12/17/23 11:43 96 Nasal Cannula O2 Flow Rate 12/18/23 08:00 12/18/23 09:10 2 12/18/23 08:20 2 12/18/23 08:00 12/18/23 04:00 2 12/18/23 07:00 2 12/18/23 05:00 2 12/18/23 06:25 12/18/23 06:25 12/18/23 06:25 2 12/18/23 04:00 12/18/23 02:38 2 12/18/23 01:00 2 12/18/23 00:00 2 12/18/23 00:00 2 12/18/23 00:00 12/17/23 20:00 12/17/23 23:30 2 12/17/23 20:00 2 12/17/23 23:00 2 12/17/23 21:00 2 12/17/23 19:00 2 12/17/23 20:00 2 12/17/23 16:00 2 12/17/23 16:59 2 12/17/23 16:00 12/17/23 15:10 12/17/23 12:00 12/17/23 13:15 2 12/17/23 11:10 2 12/17/23 12:00 12/17/23 11:43 12/17/23 11:43 12/17/23 11:43 2 Intake and Output 12/17/23 12/18/23 12/18/23 23:59 07:59 15:59 Intake Total 270 / 2090 1080 / 1680 600 / 1680 Output Total 100 / 575 900 / 900 0 / 900 Balance 170 / 1515 180 / 780 600 / 780 Intake: Intake, Oral Amount 270 / 1590 1080 / 1680 600 / 1680 Output: Output, Urine Amount 100 / 575 900 / 900 0 / 900 Other: Number of Voids 2 0 Number of Unmeasured Voids 2 Weight 95.453 kg Patient Weight 12/18/23 23:59 Weight 95.453 kg Laboratory Results - last 24 hr 12/17/23 11:20: POC Glucose 200 H 12/17/23 16:27: POC Glucose 254 H 12/17/23 20:34: POC Glucose 155 H 12/18/23 06:23: WBC 7.2, RBC 3.02 L, Hgb 9.3 L, Hct 29.3 L, MCV 97.0 H, MCH 30.8, MCHC 31.7 L, RDW 15.4, Plt Count 252, MPV 9.2, Neut % (Auto) 69.3, Lymph % (Auto) 18.5, [place] % (Auto) 7.4, Eos % (Auto) 4.3, Baso % (Auto) 0.5, Neut # (Auto) 5.0, Lymph # (Auto) 1.3, [place] # (Auto) 0.5, Eos # (Auto) 0.3, Baso # (Auto) 0.0, Sodium 140, Potassium 5.2 H, Chloride 110 H, Carbon Dioxide 25, Anion Gap 10.2, BUN 55 H, Creatinine 3.50 H, Estimated Creat Clear 27, Estimated GFR 18 L*, Est GFR ( Amer) 21 L, Glucose 126 H, Calcium 8.1 L, Magnesium 2.2, Total Bilirubin 0.2, AST 35, ALT 28, Alkaline Phosphatase 138 H, Total Protein 5.9 L, Albumin 2.8 L D, Globulin 3.1, Albumin/Globulin Ratio 0.9 L 12/18/23 06:32: POC Glucose 170 H I & O for Labs for Last 24 Hours: Intake & Output 12/15/23 12/16/23 12/17/23 12/18/23 23:59 23:59 23:59 23:59 Intake Total 1550 / 1670 1750 / 1990 1850 / 2090 1680 / 1680 Output Total 450 / 450 800 / 800 575 / 575 900 / 900 Balance 1100 / 1220 950 / 1190 1275 / 1515 780 / 780 Weight 90.9 kg 90.9 kg 90.9 kg 95.453 kg The patient's infection will respond to the chosen ABx?: Yes Is the patient receiving the right drug, dose, and route?: Yes Could a more targeted ABx be ordered?: No (BLD CX (-) X2, WBC WNL. CONTINUE CURRENT ABX.)
[2023-12-18 12:10] LABS: POC Glucose,Bedside 234 (70-110)
--- NOTE | 2023-12-18 13:56 | PC.NURSE ---
Dressing changed per order
[2023-12-18 16:49] LABS: POC Glucose,Bedside 142 (70-110)
--- NOTE | 2023-12-18 17:51 | PC.NURSE ---
VS stable, patient diuresed with lasix. Bilateral edema in feet and ankles still pitting +3, scrotal edema still noted. Patient remained on 2LNC. Dressing changed.
[2023-12-18 18:06] LABS: Chloride 109 mmol/L (98-107)
[2023-12-18 18:07] LABS: Potassium 5.2 mmoL/L (3.5-5.1); Sodium 142 mmol/L (136-145)
[2023-12-18 18:09] LABS: Blood Urea Nitrogen 55 mg/dl (9-20); Creatinine Clearance Estimated 27 mL/min (50-200); Estimated Glomerular Filt Rate 17 ml/min (>60); GFR (African American) 20 ML/MIN (>60)
[2023-12-18 18:10] LABS: Anion Gap 11.2 mEq/L (5-15); Calcium 8.2 mg/dl (8.4-10.2); Carbon Dioxide 27 mmol/L (22.0-30.0); Glucose 116 mg/dl (74-100)
[2023-12-18 21:02] LABS: POC Glucose,Bedside 208 (70-110)
[2023-12-18 23:02] LABS: POC Glucose,Bedside 217 (70-110)
[2023-12-19] VITALS (15 sets, daily range): BP systolic 100–151; BP diastolic 54–73; PULSE 59–72; RESP 17–18; TEMP 36.6–36.8; O2SAT 94–99; BMI 26.5
--- NOTE | 2023-12-19 | US_ITS ---
FINAL REPORT TECHNIQUE: Ultrasound images of the kidneys and bladder were obtained. CLINICAL HISTORY: KENNA FINDINGS: The right kidney measures 9.9 cm in length. It is normal in echogenicity. There is no hydronephrosis. The left kidney measures 10.0 cm in length. It is normal in echogenicity. There is no hydronephrosis. Incidental note is made of bilateral pleural effusions. IMPRESSION: No evidence of urinary tract obstruction. Reviewed, Interpreted and Dictated by Anna Aldana MD Transcribed by Cheryle Smith Authenticated and [facility]
[2023-12-19] MEDS: IPRATROPIUM/ALBUTEROL 3 ML NEB IH ×3 (05:45→18:25)
[2023-12-19] MEDS: DOXYCYCLINE HYCLATE 100 MG in 0.9 % SODIUM CHLORIDE 250 ML 166.667 MG IV ×2 (06:03→16:54)
[2023-12-19 06:26] LABS: Basophils % 0.6 % (0.1-2.0); Eosinophils # 0.3 K/mm3 (0.0-0.4); Eosinophils % 4.1 % (0.1-12.0); Hematocrit 26.2 % (42.0-52.0); Hemoglobin 8.4 g/dL (14.1-18.0); Lymphocytes # 1.4 K/mm3 (0.7-4.5); Lymphocytes % 23.8 % (10-50); Mean Corpuscular HGB Conc 32.2 g/dL (31.8-35.4); Mean Corpuscular Hemoglobin 30.9 pg (27.0-31.2); Mean Corpuscular Volume 95.9 fl (80-94); Mean Platelet Volume 8.7 fl (7.4-10.4); Monocytes # 0.4 K/mm3 (0.1-1.0); Monocytes % 7.3 % (1.7-9.3); Neutrophils # 3.9 K/mm3 (1.8-7.8); Neutrophils % 64.2 % (37.0-80.0); Platelet Count 213 K/mm3 (142-424); Red Blood Count 2.73 M/mm3 (4.60-6.20); Red Cell Distribution Width 15.1 % (11.5-17.5)
[2023-12-19 06:35] LABS: POC Glucose,Bedside 93 (70-110)
[2023-12-19 06:43] LABS: Alanine Aminotransferase 37 U/L (12-78); Albumin Level 2.9 g/dl (3.5-5.0); Alkaline Phosphatase 120 U/L (38-126); Anion Gap 8.9 mEq/L (5-15); Aspartate Amino Transferase 45 U/L (17-59); Bilirubin,Total 0.3 mg/dl (0.2-1.3); Blood Urea Nitrogen 58 mg/dl (9-20); Calcium 8.3 mg/dl (8.4-10.2); Carbon Dioxide 27 mmol/L (22.0-30.0); Chloride 110 mmol/L (98-107); Creatinine Clearance Estimated 30 mL/min (50-200); Estimated Glomerular Filt Rate 18 ml/min (>60); GFR (African American) 22 ML/MIN (>60); Globulin 2.9 g/dL (1.3-3.2); Glucose 63 mg/dl (74-100); Potassium 4.9 mmoL/L (3.5-5.1); Sodium 141 mmol/L (136-145); Total Protein,Serum 5.8 g/dl (6.3-8.2)
[2023-12-19 07:55] LABS: Magnesium 2.1 mg/dl (1.6-2.3)
--- NOTE | 2023-12-19 09:54 | HMH.OTEV ---
OT Inpatient Evaluation Rehab OT IP Evaluation Start: 12/18/23 13:50 Freq: ONCE Status: Active Protocol: Document 12/19/23 09:48 [facility] (Rec: 12/19/23 09:54 [facility] [id number]) Rehab OT IP Assessment Subjective History Pt oriented x4 on arrival. Pt agreeable to engage in therapy evaluation. Pt admitted on 12/13/23 due to leg swelling and CHF exacerbation . History and PHysical : Mr. White is a 63yo M with history of diabetes, hyperlipidemia, neuropathy, CAD, CABG, A-fib and heart failure with reduced ejection fraction. Presented to the ER with complaint of worsening bilateral lower extremity edema, blister on left heel that ruptured today. States the blister began to appear over the past 24 hours on his left heel and open this morning. Had seen his PCP yesterday who instructed him to increase his Lasix. On arrival to the ER he states he has had worsening swelling for some time. He has been following with cardiology and his PCP. They have made adjustments in the outpatient setting but he has not seen improvement. He denies any bleeding, warmth, streaking redness, fever, chills. Has been having weeping of serous fluid from his blisters. Started on Keflex yesterday. Initially presented to the [facility] and was sent to the ER for further evaluation. On workup , noted to have severely elevated BNP and elevated creatinine. Medicine consulted for admission for treatment of CHF exacerbation, edema, blisters on legs. Subjective I live with my brother. Prior to being in the hospital , pt lived with his brother. Pt claims he is normally independent with most ADLs, but does require assistance with lower body dressing and bathing for improved safety. Pt is dependent upon brother for completion of all IADLs ( cleaning, cooking, grocery shopping, etc). Pt does use a rolling walker during functional transfers. Objective Patient Orientation Person,Place,Birthday,Year Right Upper Extremity Gross ROM WFL Left Upper Extremity Gross ROM WFL Bed Mobility bed mobility-scooting,bed mobility - supine/sit Assist Level Minimal x 1 (25% assist) Transfer Training Sit/Stand Transfer Assist Level Contact Guard/Hand Hold Lower Body Dressing Ability Maximum Assistance Rehab OT IP prob,goals,plan Problems Date of Evaluation: 12/19/23 OT IP Problems Bed Mobility,Transfers,Balance ,Self care,Safety Rehab Potential Rehab Potential Good Equipment Needs Assistive Devices Rolling / Wheeled Walker Plan OT intervention Plan Bed Mobility,Transfers,Balance ,Safety,Therapeutic Exercise OT Plan Frequency Daily Duration LOS Discharge Goals Bed Mobility Ability Standby Assistance Sit to Stand Chair Transfer Ability Supervision/Stand by Chair Transfer Ability Supervision/Stand by Chair Transfer Technique Sit to/from Ambulatory Chair Transfer Assistive Devices Rolling Walker Feeding Ability Independent Lower Body Dressing Ability Moderate Assistance Upper Body Dressing Ability Standby Assistance Bathing Ability Moderate Assistance Performing Toilet Hygiene Ability Minimal Assistance Overall Commode/Toilet Transfer Ability Contact Guard Commode/Toilet Transfer Technique Sit to/from Ambulatory Commode/Toilet Transfer Assistive Grab Bars Devices Oral Care Assist Standby Assistance Decrease in Endurance Yes Discharge Plan OT Discharge Plan Pt will continue to be seen for OT services while at [facility]. Pt appears to be close to baseline with functional transfers and ADL independence . Pt can return home with brother once he is medically stable per physician. Therapist does recommend HHOT evaluation upon returning home for continued skilled therapy . Eval Complexity Eval Charge Codes 44250 - Moderate Complexity PHYSICIAN CERTIFICATION: I certify the specified therapy services for Jama White are required, authorized, and reviewed every 30 days.
[2023-12-19] MEDS: ASPIRIN EC 81MG TABLET 81 MG PO (09:58)
[2023-12-19] MEDS: CLOPIDOGREL 75MG TAB 75 MG PO (09:59)
[2023-12-19] MEDS: HYDRALAZINE HCL 25MG TABLET 50 MG PO ×2 (09:59→21:29)
[2023-12-19] MEDS: ALBUMIN HUMAN 50 ML IV ×2 (09:59→10:35)
[2023-12-19] MEDS: FUROSEMIDE 40MG/4ML VIAL 80 MG IV (09:59)
[2023-12-19] MEDS: ATORVASTATIN 40MG TABLET 40 MG PO (09:59)
[2023-12-19] MEDS: ISOSORBIDE MONO 60MG TAB.ER.24H 60 MG PO (09:59)
[2023-12-19] MEDS: METOPROLOL SUCCINATE XL 100MG TABLET 100 MG PO ×2 (09:59→21:29)
--- NOTE | 2023-12-19 10:01 | P.CONS_ITS ---
History of Present Illness History of present illness: Mr. Wihte is a 63-year-old male with reported show diabetes, CAD, CHF with reduced EF presented ER with worsening lower extremity swelling and been admitted and managed for heart failure exacerbation and pulmonary was called for further evaluation. He does have greater than 30 PPD and has a history of COPD. [facility] Disclaimer: The information contained in this section may have been updated after the patient was seen, as this information can be updated by other users. Medical History (Updated 12/19/23 @ 11:25 by Darren Kline MD) Acute [place] Acute respiratory failure with hypoxia Afib Amputation toe CHF (congestive heart failure) COPD mixed type Diabetes mellitus FH: CABG (coronary artery bypass surgery) History of cataract Pleural effusion, bilateral Recent ST elevation myocardial infarction (STEMI) STEMI (ST elevation myocardial infarction) Surgical History History of colonoscopy History of knee surgery Family History Other Family history of cancer Family history of coronary artery disease Social History Smoking Status: Current every day smoker tobacco type: cigarettes packs per day : 1 second hand exposure: No alcohol intake: never substance use type: denies use current occupational status: disabled Travel in the last 8 weeks: None housing: house current occupational exposures/hazards: No caffeine: Yes Review of Systems Constitutional Constitutional: Reports fatigue and Reports weakness Eyes Eyes: Denies itchy eyes and Denies loss of vision ENT Ears, Nose, Mouth, and Throat: Denies dizziness, Denies lip swelling and Denies throat swelling *Cardiovascular Cardiovascular: Reports dyspnea, Reports dyspnea on exertion, Reports leg edema, Reports orthopnea and Reports pedal edema *Respiratory Respiratory: Reports chest congestion, Reports cough, Reports dyspnea, Reports dyspnea on exertion, Denies excessive phlegm production and Denies wheezing *Gastrointestinal Gastrointestinal: Denies abdominal pain, Denies belching and Denies cramping *Musculoskeletal Musculoskeletal: Reports back pain, Reports myalgias and Reports other (No small joint swelling or Pain) *Neurologic Neurologic: Denies dizziness, Denies loss of vision, Denies paresthesias and Reports weakness Psychiatric Psychiatric: Denies homicidal ideation and Denies suicidal ideation Endocrine Endocrine: Reports fatigue and Denies heat intolerance Hematologic/Lymphatic Hematologic/Lymphatic: Denies easy bleeding and Denies lymphadenopathy Allergic/Immunologic Allergic/Immunologic: Denies itchy eyes, Denies lip swelling, Denies throat swelling and Denies wheezing Pulmonology Exam Inpatient Vital signs and Labs for Last 24 Hours: Temp Pulse Resp BP Pulse Ox O2 Del Method O2 Flow Rate 97.8 F 64 17 151/67 H 97 Nasal Cannula 2 12/19/23 07:42 12/19/23 07:42 12/19/23 07:42 12/19/23 07:42 12/19/23 07:42 12/19/23 09:47 12/19/23 09:00 FiO2 28 12/18/23 18:57 Laboratory Results - last 24 hr 12/18/23 12:00: POC Glucose 234 H 12/18/23 16:38: POC Glucose 142 H 12/18/23 17:52: Sodium 142, Potassium 5.2 H, Chloride 109 H, Carbon Dioxide 27, Anion Gap 11.2, BUN 55 H, Creatinine 3.70 H, Estimated Creat Clear 27, Estimated GFR 17 L*, Est GFR ( Amer) 20 L, Glucose 116 H, Calcium 8.2 L 12/18/23 19:59: POC Glucose 208 H 12/18/23 22:35: POC Glucose 217 H 12/19/23 05:44: WBC 6.0, RBC 2.73 L, Hgb 8.4 L, Hct 26.2 L, MCV 95.9 H, MCH 30.9, MCHC 32.2, RDW 15.1, Plt Count 213, MPV 8.7, Neut % (Auto) 64.2, Lymph % (Auto) 23.8, [place] % (Auto) 7.3, Eos % (Auto) 4.1, Baso % (Auto) 0.6, Neut # (Auto) 3.9, Lymph # (Auto) 1.4, [place] # (Auto) 0.4, Eos # (Auto) 0.3, Baso # (Auto) 0.0, Sodium 141, Potassium 4.9, Chloride 110 H, Carbon Dioxide 27, Anion Gap 8.9, BUN 58 H, Creatinine 3.40 H, Estimated Creat Clear 30, Estimated GFR 18 L*, Est GFR ( Amer) 22 L, Glucose 63 L D, Calcium 8.3 L, Magnesium 2.1, Total Bilirubin 0.3, AST 45 D, ALT 37 D, Alkaline Phosphatase 120, Total Protein 5.8 L, Albumin 2.9 L, Globulin 2.9, Albumin/Globulin Ratio 1.0 L 12/19/23 05:47: POC Glucose 93 I & O for Labs for Last 24 Hours: Intake & Output 12/16/23 12/17/23 12/18/23 12/19/23 23:59 23:59 23:59 23:59 Intake Total 0 / 1989 1850 / 2090 2970 / 2970 Output Total 800 / 800 575 / 575 3550 / 3550 1700 / 1700 Balance 950 / 1190 1275 / 1515 -580 / -580 -1700 / -1700 Weight 200 lb 6.403 oz 200 lb 6.403 oz 210 lb 7 oz 211 lb 2 oz Constitutional: Present moderate distress Head: Present normocephalic and atraumatic ENT: Present normal exam, normal oropharynx and mucous membranes moist Neck: Present normal inspection and full ROM Respiratory: Present respiratory distress, crackles and able to speak in complete sentences; Absent prolonged expiratory phase or wheezes Cardiac: Present S1/S2, Tachycardia and radial pulses present GI: Present soft and distention; Absent tenderness or guarding Skin: Present intact; Absent cyanosis or jaundice Neuro: Present alert, awake and oriented x 3 Extremities: Present normal inspection and edema; Absent clubbing or cyanosis Psychiatric: Present normal affect and cooperative Meds Home Medications and Allergies Home Medications Medication Instructions Recorded Confirmed Type nitroglycerin 0.4 mg sublingual 0.4 mg sublingual Q5-15M PRN Chest 07/25/18 12/15/23 History tablet Pain aspirin 81 mg tablet,delayed 81 mg PO DAILY 03/22/21 12/15/23 History release glucagon 0.5 mg/0.1 mL 1 mg SQ ONCE PRN Low blood sugar 05/04/21 12/15/23 History subcutaneous auto-injector (Gvoke HypoPen 2-Pack) pen needle, diabetic 32 gauge x #100 ea 01/21/23 12/15/23 Rx /32 (BD Ultra-Fine Cheryle Pen Needle) isosorbide mononitrate 60 mg 60 mg PO DAILY #90 tabs 04/14/23 12/15/23 Rx tablet,extended release 24 hr lisinopril 10 mg tablet 10 mg PO DAILY #90 tabs 10/17/23 12/15/23 Rx blood sugar diagnostic (Blood #50 ea 10/28/23 12/15/23 Rx Glucose Test strips) blood-glucose meter #1 ea 10/28/23 12/15/23 Rx budesonide 160 mcg-glycopyr 9 2 inh inhalation BID 10/28/23 12/15/23 History mcg-formot 4.8 mcg/actuation HFA inhaler (Breztri Aerosphere) clopidogrel 75 mg tablet (Plavix) 75 mg PO DAILY #90 tabs 10/28/23 12/15/23 Rx lancing device #1 ea 10/28/23 12/15/23 Rx cephalexin 500 mg capsule 500 mg PO Q8H 10 days #30 caps 12/12/23 12/15/23 Rx atorvastatin 40 mg tablet 40 mg PO HS 12/14/23 12/15/23 History furosemide 20 mg tablet 40 mg PO DAILY 12/14/23 12/15/23 History hydrocodone 5 mg-acetaminophen 325 1 tab PO TID 12/14/23 12/15/23 History mg tablet insulin aspar prot-insulin aspart 10 - 12 unit SQ BIDP PRN Blood 12/14/23 12/15/23 History 100 unit/mL (70-30) subcutaneous sugar pen (Novolog Mix 70-30FlexPen U-100) metoprolol succinate 100 mg 100 mg PO DAILY 12/14/23 12/15/23 History tablet,extended release 24 hr sennosides 8.6 mg-docusate sodium 1 tab PO HS 12/14/23 12/15/23 History 50 mg tablet (Senna with Docusate Sodium) New Prescriptions to Start Prescriptions: Allergies Allergy/AdvReac Type Severity Reaction Status Date / Time gabapentin [From Neurontin] Allergy Verified 12/13/23 16:01 Penicillins Allergy Verified 12/13/23 16:01 acetaminophen [From Percocet] AdvReac Vomiting Verified 12/13/23 16:01 NSAIDS (Non-Steroidal AdvReac Verified 12/13/23 16:01 Anti-Inflamma oxycodone [From Percocet] AdvReac Vomiting Verified 12/13/23 16:01 Results Laboratory Findings 12/19/23 05:44 12/19/23 05:44 PT/INR, D-dimer PT 11.2 seconds (10.1-12.5) 12/13/23 10:55 INR 1.04 (0.9-1.1) 12/13/23 10:55 Abnormal lab findings: Abnormal Labs 12/13/23 12/13/23 12/13/23 10:55 15:48 20:05 RBC 3.14 L Hgb 9.6 L Hct 29.9 L MCV 95.2 H MCH MCHC ESR > 140 H Potassium Chloride 108 H BUN 40 H Creatinine 2.00 H Estimated GFR 34 L Est GFR ( Amer) 41 L Glucose 185 H POC Glucose 185 H 240 H Lactate 0.5 L Calcium 8.1 L Iron TIBC Iron Saturation Alkaline Phosphatase 162 H C-Reactive Protein 11.1 H NT-Pro-B Natriuret Pep 95587 H Total Protein 6.2 L Albumin 3.0 L Albumin/Globulin Ratio 0.9 L Crossmatch ([facility]) 12/14/23 12/14/23 12/15/23 06:20 21:49 06:38 RBC 2.62 L Hgb 8.2 L D Hct 24.6 L MCV 94.3 H MCH 31.4 H MCHC ESR Potassium Chloride 109 H BUN 43 H Creatinine 2.20 H Estimated GFR 30 L Est GFR ( Amer) 37 L Glucose POC Glucose 241 H 124 H Lactate Calcium 7.8 L Iron 31 L TIBC 251 L Iron Saturation 12.39279 L Alkaline Phosphatase 131 H C-Reactive Protein NT-Pro-B Natriuret Pep Total Protein 5.6 L Albumin 2.5 L D Albumin/Globulin Ratio 0.8 L Crossmatch ([facility]) 12/15/23 12/15/23 12/16/23 09:52 20:44 06:32 RBC 2.45 L 2.51 L Hgb 7.9 L 7.7 L Hct 23.1 L 23.8 L MCV 94.3 H 94.6 H MCH 32.1 H MCHC ESR Potassium Chloride 108 H 110 H BUN 48 H 50 H Creatinine 2.90 H D 3.50 H D Estimated GFR 22 L 18 L* Est GFR ( Amer) 27 L D 21 L D Glucose 148 H POC Glucose 165 H Lactate Calcium 7.6 L 7.9 L Iron TIBC Iron Saturation Alkaline Phosphatase C-Reactive Protein NT-Pro-B Natriuret Pep 83676 H Total Protein 5.3 L Albumin 2.4 L Albumin/Globulin Ratio 0.8 L Crossmatch ([facility]) 12/16/23 12/16/23 12/16/23 08:09 11:36 14:03 RBC Hgb 8.8 L D Hct 26.6 L MCV MCH MCHC ESR Potassium Chloride 108 H BUN 53 H Creatinine 3.50 H Estimated GFR 18 L* Est GFR ( Amer) 21 L Glucose 160 H D POC Glucose 171 H Lactate Calcium 7.8 L Iron TIBC Iron Saturation Alkaline Phosphatase C-Reactive Protein NT-Pro-B Natriuret Pep Total Protein Albumin Albumin/Globulin Ratio Crossmatch ([facility]) See Detail 12/16/23 12/16/23 12/17/23 16:15 20:07 05:27 RBC Hgb Hct MCV MCH MCHC ESR Potassium Chloride BUN Creatinine Estimated GFR Est GFR ( Am) Glucose POC Glucose 195 H 222 H 125 H Lactate Calcium Iron TIBC Iron Saturation Alkaline Phosphatase C-Reactive Protein NT-Pro-B Natriuret Pep Total Protein Albumin Albumin/Globulin Ratio Crossmatch ([facility]) 12/17/23 12/17/23 12/17/23 06:47 11:20 16:27 RBC 2.92 L Hgb 9.1 L Hct 27.5 L MCV 94.1 H MCH MCHC ESR Potassium Chloride 110 H BUN 54 H Creatinine 3.50 H Estimated GFR 18 L* Est GFR ( Amer) 21 L Glucose 113 H D POC Glucose 200 H 254 H Lactate Calcium 8.0 L Iron TIBC Iron Saturation Alkaline Phosphatase C-Reactive Protein NT-Pro-B Natriuret Pep Total Protein 5.5 L Albumin 2.5 L Albumin/Globulin Ratio 0.8 L Crossmatch ([facility]) 12/17/23 12/18/23 12/18/23 20:34 06:23 06:32 RBC 3.02 L Hgb 9.3 L Hct 29.3 L MCV 97.0 H MCH MCHC 31.7 L ESR Potassium 5.2 H Chloride 110 H BUN 55 H Creatinine 3.50 H Estimated GFR 18 L* Est GFR ( Amer) 21 L Glucose 126 H POC Glucose 155 H 170 H Lactate Calcium 8.1 L Iron TIBC Iron Saturation Alkaline Phosphatase 138 H C-Reactive Protein NT-Pro-B Natriuret Pep Total Protein 5.9 L Albumin 2.8 L D Albumin/Globulin Ratio 0.9 L Crossmatch (G) 12/18/23 12/18/23 12/18/23 12:00 16:38 17:52 RBC Hgb Hct MCV MCH MCHC ESR Potassium 5.2 H Chloride 109 H BUN 55 H Creatinine 3.70 H Estimated GFR 17 L* Est GFR ( Amer) 20 L Glucose 116 H POC Glucose 234 H 142 H Lactate Calcium 8.2 L Iron TIBC Iron Saturation Alkaline Phosphatase C-Reactive Protein NT-Pro-B Natriuret Pep Total Protein Albumin Albumin/Globulin Ratio Crossmatch ([facility]) 12/18/23 12/18/23 12/19/23 19:59 22:35 05:44 RBC 2.73 L Hgb 8.4 L Hct 26.2 L MCV 95.9 H MCH MCHC ESR Potassium Chloride 110 H BUN 58 H Creatinine 3.40 H Estimated GFR 18 L* Est GFR ( Amer) 22 L Glucose 63 L D POC Glucose 208 H 217 H Lactate Calcium 8.3 L Iron TIBC Iron Saturation Alkaline Phosphatase C-Reactive Protein NT-Pro-B Natriuret Pep Total Protein 5.8 L Albumin 2.9 L Albumin/Globulin Ratio 1.0 L Crossmatch ([facility]) Assessment and Plan *Assessment and plan (1) COPD mixed type: Status: Acute Category: Medical Code(s): J44.9 - Chronic obstructive pulmonary disease, unspecified (2) Pleural effusion, bilateral: Status: Acute Category: Medical Code(s): J90 - Pleural effusion, not elsewhere classified (3) Acute respiratory failure with hypoxia: Status: Acute Category: Medical Code(s): J96.01 - Acute respiratory failure with hypoxia Plan Mr. White is a 63-year-old male with reported show diabetes, CAD, CHF with reduced EF presented ER with worsening lower extremity swelling and been admitted and managed for heart failure exacerbation and pulmonary was called for further evaluation. He does have greater than 30 PPD and has a history of COPD. Heart failure EF 50%. CKD stage IV. CT upon admission bilateral effusions right greater than left. No dense consolidation/airspace disease noted in the rest of the lung [place]. Patient needing 2 L oxygen supplementation since admission. Chest x-ray 12/17/2023 concerning for worsening left pleural effusion along with adjacent atelectasis, repeat chest x-ray concern for slight worsening effusions right greater than left. Patient has been aggressively diuresed in the last 48 hours. Oxygen requirements stable since admission at 2 to 3 L. He is not using any oxygen at baseline at home. Plan: Monitor clinically and will reevaluate the need for thoracentesis. DuoNebs every 6 hours on a scheduled basis Thank for involving pulmonary in this patient care. Will continue to follow.
--- NOTE | 2023-12-19 10:01 | CA_ITS ---
FINAL REPORT TECHNIQUE: Grayscale, color Doppler and duplex Doppler ultrasound of the kidneys, aorta and renal arteries was performed. Multiple velocities were measured. CLINICAL HISTORY: KENNA,HTN COMPARISON: None FINDINGS: Aorta velocity: 120 cm/sec Right kidney: 9.3 cm. No evidence of hydronephrosis or mass. Right intrarenal RI: 0.81-0.85, elevated Right renal artery velocity: 135 cm/sec. Right RAR (Renal artery-Aortic Ratio): 1.12 Left Kidney: 9.0 cm. No evidence of hydronephrosis or mass. Left intrarenal RI: 0.63-0.91, elevated Left renal artery velocity: 139 cm/sec. Left RAR (Renal Artery-Aortic Ratio): 1.16 IMPRESSION: No evidence of significant renal artery stenosis. Elevated resistive indices bilaterally which can be seen with medical renal disease. CT angiogram or postcontrast MR angiogram would be more sensitive for evaluation of possible renal artery stenosis. Reviewed, Interpreted and Dictated by Anna Aldana MD Transcribed by Nila Koehler Authenticated and [facility]
--- NOTE | 2023-12-19 10:05 | XR_ITS ---
FINAL REPORT CLINICAL HISTORY: Hypoxia COMPARISON: 12/17/2023 FINDINGS: No acute pulmonary opacity is present. There is advanced atelectasis. There are moderate bilateral pleural effusions. Mediastinum is unremarkable. Status post CABG. Heart size is normal. IMPRESSION: No significant change. Reviewed, Interpreted and Dictated by Anna Aldana MD Transcribed by Nila Koehler Authenticated and [facility]
[2023-12-19 10:12] LABS: POC Glucose,Bedside 101 (70-110)
--- NOTE | 2023-12-19 10:15 | HMH.PTEV ---
Physical Therapy Evaluation Rehab PT IP Evaluation Start: 12/18/23 13:50 Freq: ONCE Status: Active Protocol: Document 12/19/23 10:08 AFSHIN (Rec: 12/19/23 10:14 AFSHIN [id number]) Subjective/History History History Per history and physical: Mr. White is a 63yo M with history of diabetes, hyperlipidemia, neuropathy, CAD, CABG, A-fib and heart failure with reduced ejection fraction. Presented to the ER with complaint of worsening bilateral lower extremity edema, blister on left heel that ruptured today. States the blister began to appear over the past 24 hours on his left heel and open this morning. Had seen his PCP yesterday who instructed him to increase his Lasix. On arrival to the ER he states he has had worsening swelling for some time. He has been following with cardiology and his PCP. They have made adjustments in the outpatient setting but he has not seen improvement. He denies any bleeding, warmth, streaking redness, fever, chills. Has been having weeping of serous fluid from his blisters. Started on Keflex yesterday. Initially presented to the [facility] and was sent to the ER for further evaluation. On workup , noted to have severely elevated BNP and elevated creatinine. Medicine consulted for admission for treatment of CHF exacerbation, edema, blisters on legs. Subjective Subjective Pt agreeable to PT evaluation. PLOF per pt report: Lives with brother. Independent with functional mobility using RW. Ramped enterance into home. Driving prior. New diagnosis of cancer in past 12 No months? Rehab PT IP Eval Objective Appearance Patient Behavior Appropriate,Cooperative Patient Orientation Person,Place,Birthday, Situation Speech Pattern Clear Ambulation Patient Able to Ambulate Yes Ambulation Observation Ambulation Distance (feet) 20 Ambulation Assistive Device Rolling Walker Ambulation Ability Contact Guard/Hand Hold Transfers Bed Transfer Ability Supervision/Stand by Sit to Stand Bed Transfer Ability Contact Guard/Hand Hold Rehab PT IP prob,goals,plan Problems Date of Evaluation: 12/19/23 PT IP Problems Bed Mobility,Transfers,Gait, Balance,Self care,Safety Rehab Potential Rehab Potential Good Equipment Needs Assistive Devices Rolling / Wheeled Walker Plan PT Intervention Plan Bed Mobility,Transfers,Gait, Balance,Safety,Therapeutic Exercise Other Intervention Plan 1-2x daily PT Plan Frequency Daily Duration LOS Discharge Goals Bed Transfer Ability Independent Sit to Stand Chair Transfer Ability Supervision/Stand by Ambulation Assistive Device Rolling Walker Ambulation Distance (feet) 40 Discharge Plan PT Discharge Plan Pt safe to return home (with care as needed by brother) when deemed medically necessary. Pt would benefit from skilled physical therapy to address deficits and prevent further functional decline while at [facility]. Eval Complexity Eval Charge Codes 94795 - High Complexity PHYSICIAN CERTIFICATION: I certify the specified therapy services for Jama White are required, authorized, and reviewed every 30 days.
--- NOTE | 2023-12-19 10:35 | P.PN_ITS ---
Subjective Subjective Date: 12/19/23 Time: 10:35 Principal diagnosis: CHF, edema Interval history: 63 yo WM in bed in NAD. Still with exertional SOA and LE/scrotal edema. Dr. Handley started combo of albumin and diuretic yesterday with good urine output and no worsening of renal functions. Chest x-ray still shows bilateral pleural effusions. Renal artery duplex and renal ultrasound pending today Echocardiogram from Tuesday showed improvement in EF to 50% but with moderate to severe RV dilatation with moderate RV dysfunction. RVSP is 35 mmHg plus RA pressure. Exam Data for Last 24 hours Vital signs and Labs for Last 24 Hours: Temp Pulse Resp BP Pulse Ox O2 Del Method O2 Flow Rate 97.8 F 60 17 151/67 H 96 Nasal Cannula 2 12/19/23 07:42 12/19/23 08:00 12/19/23 07:42 12/19/23 07:42 12/19/23 08:00 12/19/23 09:47 12/19/23 09:00 FiO2 28 12/18/23 18:57 Laboratory Results - last 24 hr 12/18/23 12:00: POC Glucose 234 H 12/18/23 16:38: POC Glucose 142 H 12/18/23 17:52: Sodium 142, Potassium 5.2 H, Chloride 109 H, Carbon Dioxide 27, Anion Gap 11.2, BUN 55 H, Creatinine 3.70 H, Estimated Creat Clear 27, Estimated GFR 17 L*, Est GFR ( Amer) 20 L, Glucose 116 H, Calcium 8.2 L 12/18/23 19:59: POC Glucose 208 H 12/18/23 22:35: POC Glucose 217 H 12/19/23 05:44: WBC 6.0, RBC 2.73 L, Hgb 8.4 L, Hct 26.2 L, MCV 95.9 H, MCH 30.9, MCHC 32.2, RDW 15.1, Plt Count 213, MPV 8.7, Neut % (Auto) 64.2, Lymph % (Auto) 23.8, [place] % (Auto) 7.3, Eos % (Auto) 4.1, Baso % (Auto) 0.6, Neut # (Auto) 3.9, Lymph # (Auto) 1.4, [place] # (Auto) 0.4, Eos # (Auto) 0.3, Baso # (Auto) 0.0, Sodium 141, Potassium 4.9, Chloride 110 H, Carbon Dioxide 27, Anion Gap 8.9, BUN 58 H, Creatinine 3.40 H, Estimated Creat Clear 30, Estimated GFR 18 L*, Est GFR ( Amer) 22 L, Glucose 63 L D, Calcium 8.3 L, Magnesium 2.1, Total Bilirubin 0.3, AST 45 D, ALT 37 D, Alkaline Phosphatase 120, Total Protein 5.8 L, Albumin 2.9 L, Globulin 2.9, Albumin/Globulin Ratio 1.0 L 12/19/23 05:47: POC Glucose 93 12/19/23 09:56: POC Glucose 101 I & O for Last 24 hours: Intake & Output 12/16/23 12/17/23 12/18/23 12/19/23 11:59 11:59 11:59 11:59 Intake Total 1852 / 1852 2017 2370 / 2370 1290 / 1290 Output Total 450 / 450 925 / 925 1300 / 1300 4050 / 4050 Balance 1402 / 1402 1093 / 1093 1070 / 1070 -2760 / -2760 Weight 200 lb 6.4 oz 200 lb 6.403 oz 210 lb 7 oz 211 lb 2 oz Constitutional Constitutional: no acute distress *Routine Cardiovascular Exam Cardiovascular: Present RRR *Routine Exam Penile: Present swelling *Routine Extremities Exam Extremities: Present edema *Routine Neurological Exam Neurological: Present alert and oriented X3 Progress Note: A&P Assessment and plan (1) CHF (congestive heart failure): Status: Chronic (2) COPD exacerbation: Status: Acute (3) KENNA (acute kidney injury): Status: Acute (4) Blister of foot, left: Status: Acute (5) Chronic obstructive lung disease: Status: Chronic (6) Peripheral vascular disease: Status: Chronic (7) Atrial fibrillation: Status: Chronic (8) HTN (hypertension): Status: Chronic (9) HLD (hyperlipidemia): Status: Chronic (10) DM2 (diabetes mellitus, type 2): Status: Chronic (11) Pleural effusion: Status: Acute (12) Anemia: Status: Acute Assessment and Plan Assessment and Plan for All Diagnoses:: Acute on chronic HFpEF, Cor Pulmonale -Known diagnosis with EF 40%, presented to ER with moderate bilateral effusions and proBNP 44,000 -Continue home dose metoprolol -No DEDE/ARB/Entresto due to Acute on CKD -Cont hydralazine, Imdur -strict I/O, low Na diet 12/15: Repeat ECHO shows normal EF, severe RV dilation. ProBNP up to 60k, Cr up to 2.9. Reduce Bumex. Trend labs daily. 12/16: Worsening renal function, hold diuretics and Aldactone, gentle fluid resuscitation 12/19: Worsening CKD over the last 6-8 months. Concern for Nephrotic syndrome. Renal artery duplex and renal ultrasound today Getting combo of albumin and lasix yesterday resulted in about 3 L of urine output overnight. Repeating today. MV-CAD s/p CABGx4 2016 and numerous stents 2017, 2020 - CCS = 0 - Cont DAPT, BB, Statin PAD with BLE wounds - inpatient wound care - DC Tob - cont DAPT, Statin - further workup outpatient COPD with ongoing tobacco use - recommend tob cessation - nebs, steroids, ab per Hospitalist DM-II - glucose management per primary service - will not use Jardiance/SGLT2 inhibitor due to GFR <20 Severe iron deficiency anemia -s/p transfusion to Hgb 9.3 but down to 8.4 today Acute on chronic CKD, now stage 4 -Cr 3.4 with GFR 18 -hypoalbuminemia/hypoproteinemia -?Nephrotic syndrome Pulmonary asked to consult for pleural effusions Primary issue seems to be renal driven with collection of fluid in legs, scrotum/penis and abdomen as well as lungs. Per Dr. Salguero, will switch to/start bumex gtt since lasix is dependent on protein binding.
[2023-12-19] MEDS: BUMETANIDE 10 MG in 0.9 % SODIUM CHLORIDE 60 ML 5 MG IV (13:14)
--- NOTE | 2023-12-19 14:18 | EXP.ACUTE.PN ---
Subjective *Date: 12/19/23 *Time: 14:34 Interval history: Stable on 2 L this morning. Afebrile. Diuresed well yesterday, had approximately 3 L of output. Has continued to auto diurese overnight. Tolerating p.o. intake. No fever, chest pain, nausea or vomiting. Medical Exam Vital signs and Labs for Last 24 Hours: Vital Signs Temp Pulse Pulse Resp BP Pulse Ox O2 Del Method 12/19/23 12:58 62 12/19/23 12:58 62 12/19/23 12:58 94 L Nasal Cannula 12/19/23 11:09 97.9 F 60 17 100/57 L 95 Nasal Cannula 12/19/23 08:00 60 12/19/23 08:00 96 Nasal Cannula 12/19/23 09:47 Nasal Cannula 12/19/23 09:00 Nasal Cannula 12/19/23 07:42 97.8 F 64 17 151/67 H 97 Nasal Cannula 12/19/23 07:00 Nasal Cannula 12/19/23 05:00 Room Air 12/19/23 05:45 61 12/19/23 05:45 61 12/19/23 05:45 96 Nasal Cannula 12/19/23 04:20 63 12/19/23 04:00 98.2 F 59 L 18 127/60 99 Nasal Cannula 12/19/23 00:30 66 12/19/23 03:00 Nasal Cannula 12/19/23 00:00 98.2 F 63 18 140/54 L 99 Nasal Cannula 12/19/23 01:00 Nasal Cannula 12/18/23 23:00 Nasal Cannula 12/18/23 21:00 Nasal Cannula 12/18/23 23:31 65 12/18/23 23:30 66 12/18/23 22:57 62 155/74 H 12/18/23 20:00 98.4 F 73 18 115/69 95 12/18/23 20:00 70 12/18/23 18:57 Nasal Cannula 12/18/23 18:56 62 12/18/23 18:56 61 12/18/23 18:44 Nasal Cannula 12/18/23 17:15 Nasal Cannula 12/18/23 16:00 50 L 12/18/23 15:54 58 L 16 148/69 H 97 Nasal Cannula 12/18/23 15:13 Nasal Cannula O2 Flow Rate FiO2 12/19/23 12:58 12/19/23 12:58 12/19/23 12:58 3 12/19/23 11:09 2 12/19/23 08:00 12/19/23 08:00 3 12/19/23 09:47 12/19/23 09:00 2 12/19/23 07:42 3 12/19/23 07:00 2 12/19/23 05:00 12/19/23 05:45 12/19/23 05:45 12/19/23 05:45 3 12/19/23 04:20 12/19/23 04:00 2 12/19/23 00:30 12/19/23 03:00 2 12/19/23 00:00 2 12/19/23 01:00 2 12/18/23 23:00 2 12/18/23 21:00 2 12/18/23 23:31 12/18/23 23:30 12/18/23 22:57 12/18/23 20:00 2 12/18/23 20:00 12/18/23 18:57 2 28 12/18/23 18:56 12/18/23 18:56 12/18/23 18:44 2 12/18/23 17:15 2 12/18/23 16:00 12/18/23 15:54 12/18/23 15:13 2 Intake and Output 12/18/23 12/19/23 12/19/23 23:59 07:59 15:59 Intake Total 770 / 2970 570 / 570 Output Total 2125 / 3550 1700 / 2400 700 / 2400 Balance -1355 / -580 -1700 / -1830 -130 / -1830 Intake: Intake, Oral Amount 420 / 2520 470 / 470 Intake, Total IV Amount 350 / 450 100 / 100 Albumin Human 50 ml @ 100 mls/ 100 / 200 hr IV Q1H ROMULO Rx#:[id number] Albumin Human 50 ml @ 100 mls/ 100 / 100 hr IV Q1H ROMULO Rx#:[id number] Doxycycline Hyclate 100 mg In 0 250 / 250 .9 % Sodium Chloride 250 ml @ 166.667 mls/hr IV 0500,1700 ROMULO Rx#:[id number] Output: Output, Urine Amount 2125 / 3550 1700 / 2400 700 / 2400 Other: Number of Unmeasured Voids 1 1 Weight 95.765 kg Patient Weight 12/19/23 23:59 Weight 95.765 kg Laboratory Results - last 24 hr 12/18/23 16:38: POC Glucose 142 H 12/18/23 17:52: Sodium 142, Potassium 5.2 H, Chloride 109 H, Carbon Dioxide 27, Anion Gap 11.2, BUN 55 H, Creatinine 3.70 H, Estimated Creat Clear 27, Estimated GFR 17 L*, Est GFR ( Amer) 20 L, Glucose 116 H, Calcium 8.2 L 12/18/23 19:59: POC Glucose 208 H 12/18/23 22:35: POC Glucose 217 H 12/19/23 05:44: WBC 6.0, RBC 2.73 L, Hgb 8.4 L, Hct 26.2 L, MCV 95.9 H, MCH 30.9, MCHC 32.2, RDW 15.1, Plt Count 213, MPV 8.7, Neut % (Auto) 64.2, Lymph % (Auto) 23.8, [place] % (Auto) 7.3, Eos % (Auto) 4.1, Baso % (Auto) 0.6, Neut # (Auto) 3.9, Lymph # (Auto) 1.4, [place] # (Auto) 0.4, Eos # (Auto) 0.3, Baso # (Auto) 0.0, Sodium 141, Potassium 4.9, Chloride 110 H, Carbon Dioxide 27, Anion Gap 8.9, BUN 58 H, Creatinine 3.40 H, Estimated Creat Clear 30, Estimated GFR 18 L*, Est GFR ( Amer) 22 L, Glucose 63 L D, Calcium 8.3 L, Magnesium 2.1, Total Bilirubin 0.3, AST 45 D, ALT 37 D, Alkaline Phosphatase 120, Total Protein 5.8 L, Albumin 2.9 L, Globulin 2.9, Albumin/Globulin Ratio 1.0 L 12/19/23 05:47: POC Glucose 93 12/19/23 09:56: POC Glucose 101 I & O for Labs for Last 24 Hours: Intake & Output 12/16/23 12/17/23 12/18/23 12/19/23 23:59 23:59 23:59 23:59 Intake Total 1749 / 2089 2970 / 2970 570 / 570 Output Total 800 / 800 575 / 575 3550 / 3550 2400 / 2400 Balance 950 / 1190 1275 / 1515 -580 / -580 -1830 / -1830 Weight 90.9 kg 90.9 kg 95.453 kg 95.765 kg Constitutional: Present no acute distress, average body habitus, chronically ill appearing and cooperative Head: Present atraumatic and normocephalic ENT: Present normal exam Neck: Present normal inspection Respiratory: Present prolonged expiratory phase, rhonchi, crackles (bases) and normal respiratory effort; Absent wheezes Cardiac: Present Reg Rate and Rhythm GI: Present normal bowel sounds; Absent tenderness Comment:: Edema of penis Extremities: Present normal inspection, full ROM and edema (3+ to thighs) Comment:: Thenar wasting bilaterally Skin: Present intact; Absent erythema Comment:: Clean dressing on left heel. Stasis changes bilateral lower extremities. Neuro: Present Grossly Intact, alert, awake, oriented x 3 and moves all extremities Assessment and Plan *Assessment and plan (1) Acute respiratory failure with hypoxia: Status: Acute Category: Medical Code(s): J96.01 - Acute respiratory failure with hypoxia (2) Pleural effusion, bilateral: Status: Acute Category: Medical Code(s): J90 - Pleural effusion, not elsewhere classified (3) Blister of foot, left: Status: Acute Category: Medical Code(s): S90.822A - Blister (nonthermal), left foot, initial encounter (4) Chronic obstructive lung disease: Status: Chronic Qualifiers: COPD type: unspecified COPD Qualified Code(s): J44.9 - Chronic obstructive pulmonary disease, unspecified Category: Medical Code(s): J44.9 - Chronic obstructive pulmonary disease, unspecified (5) Peripheral vascular disease: Status: Chronic Category: Medical Code(s): I73.9 - Peripheral vascular disease, unspecified (6) Atrial fibrillation: Status: Chronic Qualifiers: Atrial fibrillation type: paroxysmal Qualified Code(s): I48.0 - Paroxysmal atrial fibrillation Category: Medical Code(s): I48.91 - Unspecified atrial fibrillation (7) HTN (hypertension): Status: Chronic Qualifiers: Hypertension type: essential hypertension Qualified Code(s): I10 - Essential (primary) hypertension Category: Medical Code(s): I10 - Essential (primary) hypertension (8) HLD (hyperlipidemia): Status: Chronic Qualifiers: Hyperlipidemia type: mixed hyperlipidemia Qualified Code(s): E78.2 - Mixed hyperlipidemia Category: Medical Code(s): E78.5 - Hyperlipidemia, unspecified (9) DM2 (diabetes mellitus, type 2): Status: Chronic Qualifiers: 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 Diabetes mellitus complication status: with circulatory complication Diabetes mellitus complication detail: with other circulatory complications Qualified Code(s): E11.59 - Type 2 diabetes mellitus with other circulatory complications Category: Medical Code(s): E11.9 - Type 2 diabetes mellitus without complications (10) Anemia: Status: Acute Qualifiers: Anemia type: iron deficiency Iron deficiency anemia type: unspecified iron deficiency Qualified Code(s): D50.9 - Iron deficiency anemia, unspecified Category: Medical Code(s): D64.9 - Anemia, unspecified Plan 63-year-old male with history of combined heart failure, CABG, CKD, diabetes, peripheral artery disease. Presents with increased swelling and weeping of his legs and KENNA. Discussed case with the ER physician, request admission for diuresis and cardiology consult. Medicine agreed to admit. Monitoring urine output. Given increased swelling in his genital region and shortness of breath, will reattempt to diurese again today. Giving Lasix in conjunction with albumin. Continues to require inpatient management. Problems addressed as follows: Acute on chronic combined CHF Peripheral artery disease Scrotal edema - Cardiology consulted, appreciate their recommendations. Hold on lisinopril or Entresto in the setting of KENNA. Will continue metoprolol, hydralazine, Imdur, Jardiance, Aldactone. - Continue Lipitor 40 mg daily, aspirin 81 mg daily, Plavix 75 mg daily. -Repeat diuresis today x 1 with 25 g of albumin followed by 80 mg Lasix. Patient is -3 L fluid balance in the past 24 hours since diuresing with Lasix albumin combo. Repeat BMP ordered for the afternoon to monitor electrolytes and kidney function. - Echo from July 2022 shows EF of 40 to 45% with grade 1 diastolic dysfunction. Repeat echo obtained, read pending - Wound care consulted and assisting with blister on heel. COPD Pleural effusions Pulmonology consulted, monitoring clinically for need for thoracentesis. Continue DuoNebs every 6 hours as scheduled. On room air intermittently, goal sats greater 90%. Wears 2 L overnight. Anemia: Hemoglobin 8.4 this morning. If persistently below 9 tomorrow, will transfuse. Diabetes: A1C 8.1 in October.. SSI with FSGS achs. Addition of Jardiance. KENNA on CKD: Creatinine elevated and consistent today at 3.4, BUN 58. Tolerating diuresis. Continue albumin Lasix combo x 1 today. Potassium better at 4.9. Repeat CMP, magnesium, CBC ordered for the morning. Tobacco use disorder: Nicotine patch while admitted. Patient has no desire to quit. DNR Diabetic diet Heparin subcu
--- NOTE | 2023-12-19 15:51 | PC.NURSE ---
Pt. is aox 4, up assist times one to restroom, 02-2L NC, no complaints at this time.
[2023-12-19 16:45] LABS: POC Glucose,Bedside 284 (70-110)
[2023-12-19] MEDS: humaLOG 100 UNITS/ML 3ML VIAL (SSI) SQ (16:54)
[2023-12-19] MEDS: humaLOG MIX 75/25 3ML FLEXPEN 8 UNIT SQ (17:13)
[2023-12-19 18:44] LABS: Anion Gap 13.8 mEq/L (5-15); Blood Urea Nitrogen 63 mg/dl (9-20); Calcium 8.3 mg/dl (8.4-10.2); Carbon Dioxide 25 mmol/L (22.0-30.0); Chloride 109 mmol/L (98-107); Creatinine Clearance Estimated 29 mL/min (50-200); Estimated Glomerular Filt Rate 18 ml/min (>60); GFR (African American) 21 ML/MIN (>60); Glucose 156 mg/dl (74-100); Potassium 4.8 mmoL/L (3.5-5.1); Sodium 143 mmol/L (136-145)
[2023-12-19] MEDS: APAP/HYDROCODONE 325MG/7.5MG TAB 1 TAB PO (21:28)
[2023-12-19] MEDS: SENNOSIDES 8.6MG/DOCUSATE 50MG TABLET 1 TAB PO (21:29)
[2023-12-19 22:07] LABS: POC Glucose,Bedside 125 (70-110)
[2023-12-20] VITALS (14 sets, daily range): BP systolic 133–155; BP diastolic 62–82; PULSE 60–88; RESP 16–18; TEMP 36.3–36.7; O2SAT 90–97; BMI 25.9
[2023-12-20] MEDS: IPRATROPIUM/ALBUTEROL 3 ML NEB IH ×5 (00:12→23:30)
[2023-12-20] MEDS: BUMETANIDE 10 MG in 0.9 % SODIUM CHLORIDE 60 ML 5 MG IV ×2 (05:48→12:02)
[2023-12-20] MEDS: DOXYCYCLINE HYCLATE 100 MG in 0.9 % SODIUM CHLORIDE 250 ML 166.667 MG IV (05:52)
--- NOTE | 2023-12-20 06:07 | PC.NURSE ---
Pt found on RA with sats 80%, placed back on 3L
[2023-12-20] MEDS: humaLOG 100 UNITS/ML 3ML VIAL (SSI) SQ ×3 (06:54→20:30)
[2023-12-20] MEDS: humaLOG MIX 75/25 3ML FLEXPEN 8 UNIT SQ ×2 (06:54→17:39)
[2023-12-20 07:05] LABS: Basophils % 0.5 % (0.1-2.0); Eosinophils # 0.2 K/mm3 (0.0-0.4); Eosinophils % 2.6 % (0.1-12.0); Hematocrit 24.9 % (42.0-52.0); Hemoglobin 8.1 g/dL (14.1-18.0); Lymphocytes # 1.3 K/mm3 (0.7-4.5); Lymphocytes % 18.3 % (10-50); Mean Corpuscular HGB Conc 32.5 g/dL (31.8-35.4); Mean Corpuscular Hemoglobin 30.9 pg (27.0-31.2); Mean Corpuscular Volume 95.1 fl (80-94); Monocytes # 0.6 K/mm3 (0.1-1.0); Monocytes % 7.8 % (1.7-9.3); Neutrophils # 5.1 K/mm3 (1.8-7.8); Neutrophils % 70.9 % (37.0-80.0); Platelet Count 192 K/mm3 (142-424); Red Blood Count 2.62 M/mm3 (4.60-6.20); Red Cell Distribution Width 15.4 % (11.5-17.5); White Blood Count 7.1 K/mm3 (4.8-10.8)
[2023-12-20 07:16] LABS: Alanine Aminotransferase 37 U/L (12-78); Albumin/Globulin Ratio 1.1 (1.1-1.8); Alkaline Phosphatase 124 U/L (38-126); Anion Gap 10.7 mEq/L (5-15); Aspartate Amino Transferase 39 U/L (17-59); Bilirubin,Total 0.3 mg/dl (0.2-1.3); Blood Urea Nitrogen 62 mg/dl (9-20); Calcium 8.2 mg/dl (8.4-10.2); Carbon Dioxide 25 mmol/L (22.0-30.0); Chloride 111 mmol/L (98-107); Creatinine Clearance Estimated 30 mL/min (50-200); Estimated Glomerular Filt Rate 19 ml/min (>60); GFR (African American) 23 ML/MIN (>60); Globulin 2.7 g/dL (1.3-3.2); Glucose 155 mg/dl (74-100); Magnesium 1.9 mg/dl (1.6-2.3); Potassium 4.7 mmoL/L (3.5-5.1); Sodium 142 mmol/L (136-145); Total Protein,Serum 5.7 g/dl (6.3-8.2)
[2023-12-20] MEDS: HYDRALAZINE HCL 25MG TABLET 50 MG PO ×3 (08:00→20:24)
[2023-12-20] MEDS: METOPROLOL SUCCINATE XL 100MG TABLET 100 MG PO ×2 (08:01→20:24)
[2023-12-20] MEDS: ASPIRIN EC 81MG TABLET 81 MG PO (08:01)
[2023-12-20] MEDS: ATORVASTATIN 40MG TABLET 40 MG PO ×2 (08:01→20:24)
[2023-12-20] MEDS: CLOPIDOGREL 75MG TAB 75 MG PO (08:01)
[2023-12-20] MEDS: ISOSORBIDE MONO 60MG TAB.ER.24H 60 MG PO (08:01)
--- NOTE | 2023-12-20 09:52 | P.PN_ITS ---
Subjective *Date: 12/20/23 *Time: 11:01 Interval history: No acute respiratory events overnight. Patient admits mild improvement in his respiratory symptoms. Pulmonology Exam Inpatient Vital signs and Labs for Last 24 Hours: Temp Pulse Resp BP Pulse Ox O2 Del Method O2 Flow Rate 98.1 F 70 18 146/68 H 97 Nasal Cannula 3 12/20/23 07:37 12/20/23 08:00 12/20/23 07:37 12/20/23 07:37 12/20/23 07:37 12/20/23 07:37 12/20/23 07:37 FiO2 28 12/18/23 18:57 Laboratory Results - last 24 hr 12/19/23 09:56: POC Glucose 101 12/19/23 16:22: Sodium 143, Potassium 4.8, Chloride 109 H, Carbon Dioxide 25, Anion Gap 13.8, BUN 63 H, Creatinine 3.50 H, Estimated Creat Clear 29, Estimated GFR 18 L*, Est GFR ( Amer) 21 L, Glucose 156 H D, Calcium 8.3 L 12/19/23 16:37: POC Glucose 284 H 12/19/23 21:58: POC Glucose 125 H 12/20/23 06:30: WBC 7.1, RBC 2.62 L, Hgb 8.1 L, Hct 24.9 L, MCV 95.1 H, MCH 30.9, MCHC 32.5, RDW 15.4, Plt Count 192, MPV 9.0, Neut % (Auto) 70.9, Lymph % (Auto) 18.3, [place] % (Auto) 7.8, Eos % (Auto) 2.6, Baso % (Auto) 0.5, Neut # (Auto) 5.1, Lymph # (Auto) 1.3, [place] # (Auto) 0.6, Eos # (Auto) 0.2, Baso # (Au to) 0.0, Sodium 142, Potassium 4.7, Chloride 111 H, Carbon Dioxide 25, Anion Gap 10.7, BUN 62 H, Creatinine 3.30 H, Estimated Creat Clear 30, Estimated GFR 19 L* , Est GFR ( Amer) 23 L, Glucose 155 H, Calcium 8.2 L, Magnesium 1.9, [place] Bilirubin 0.3, AST 39, ALT 37, Alkaline Phosphatase 124, Total Protein 5.7 L , Albumin 3.0 L, Globulin 2.7, Albumin/Globulin Ratio 1.1 I & O for Labs for Last 24 Hours: Intake & Output 12/17/23 12/18/23 12/19/23 12/20/23 23:59 23:59 23:59 23:59 Intake Total 1850 / 2090 2970 / 2970 1060 / 1300 922.833 / 922.833 Output Total 575 / 575 3550 / 3550 3950 / 3950 750 / 750 Balance 1275 / 1515 -580 / -580 -2890 / -2650 172.833 / 172.833 Weight 200 lb 6.403 oz 210 lb 7 oz 211 lb 2 oz 205 lb 14.4 oz Microbiology Reports for the Last 24 Hours: Microbiology 12/13/23 14:30 Blood Blood Culture - Final 12/13/23 10:55 Blood Blood Culture - Final Constitutional: Present moderate distress Head: Present normocephalic and atraumatic ENT: Present normal exam, normal oropharynx and mucous membranes moist Neck: Present normal inspection and full ROM Respiratory: Present respiratory distress, crackles and able to speak in complete sentences; Absent prolonged expiratory phase or wheezes Cardiac: Present S1/S2, Tachycardia and radial pulses present GI: Present soft and distention; Absent tenderness or guarding Skin: Present intact; Absent cyanosis or jaundice Neuro: Present alert, awake and oriented x 3 Extremities: Present normal inspection and edema; Absent clubbing or cyanosis Psychiatric: Present normal affect and cooperative Assessment and Plan *Assessment and plan (1) COPD mixed type: Status: Acute Category: Medical Code(s): J44.9 - Chronic obstructive pulmonary disease, unspecified (2) Pleural effusion, bilateral: Status: Acute Category: Medical Code(s): J90 - Pleural effusion, not elsewhere classified (3) Acute respiratory failure with hypoxia: Status: Acute Category: Medical Code(s): J96.01 - Acute respiratory failure with hypoxia Plan Mr. White is a 63-year-old male with reported show diabetes, CAD, CHF with reduced EF presented ER with worsening lower extremity swelling and been admitted and managed for heart failure exacerbation and pulmonary was called for further evaluation. He does have greater than 30 PPD and has a history of COPD. Heart failure EF 50%. CKD stage IV. CT upon admission bilateral effusions right greater than left. No dense consolidation/airspace disease noted in the rest of the lung [place]. Patient needing 2 L oxygen supplementation since admission. Chest x-ray 12/17/2023 concerning for worsening left pleural effusion along with adjacent atelectasis, repeat chest x-ray concern for slight worsening effusions right greater than left. Patient has been aggressively diuresed in the last 48 hours. Oxygen requirements stable since admission at 2 to 3 L. He is not using any oxygen at baseline at home. Interval update: No acute respiratory vents overnight. Auscultation clear with no significant wheezing. Improving ox requirements, saturating 98% on 3 L nasal cannula today, weaned to 1 L. Will continue to follow. Plan: Monitor clinically and will reevaluate the need for thoracentesis. Continue DuoNebs every 6 hours scheduled Thank for involving pulmonary in this patient care. Will continue to follow.
--- NOTE | 2023-12-20 11:20 | PC.NURSE ---
RESP CARE NOTE: Pt placed on [address] Kline, SpO2 remains at 95% on 1 lpm. Will continue to monitor patient.
--- NOTE | 2023-12-20 13:43 | EXP.CARD.PN ---
Subjective Subjective Date: 12/20/23 Time: 13:44 Principal diagnosis: CHF, edema Interval history: 63-year-old white male sitting at bedside in no acute distress. Breathing seems to be slightly better. His lower extremity edema appears slightly less tense today. Negative urine output of 1 L overnight on Bumex drip. Renal functions stable Exam Data for Last 24 hours Vital signs and Labs for Last 24 Hours: Temp Pulse Resp BP Pulse Ox O2 Del Method O2 Flow Rate 97.4 F L 78 16 140/65 95 Room Air 1 12/20/23 12:00 12/20/23 12:57 12/20/23 12:00 12/20/23 12:00 12/20/23 12:00 12/20/23 12:00 12/20/23 11:20 FiO2 28 12/18/23 18:57 Laboratory Results - last 24 hr 12/19/23 16:22: Sodium 143, Potassium 4.8, Chloride 109 H, Carbon Dioxide 25, Anion Gap 13.8, BUN 63 H, Creatinine 3.50 H, Estimated Creat Clear 29, Estimated GFR 18 L*, Est GFR ( Amer) 21 L, Glucose 156 H D, Calcium 8.3 L 12/19/23 16:37: POC Glucose 284 H 12/19/23 21:58: POC Glucose 125 H 12/20/23 06:30: WBC 7.1, RBC 2.62 L, Hgb 8.1 L, Hct 24.9 L, MCV 95.1 H, MCH 30.9, MCHC 32.5, RDW 15.4, Plt Count 192, MPV 9.0, Neut % (Auto) 70.9, Lymph % (Auto) 18.3, [place] % (Auto) 7.8, Eos % (Auto) 2.6, Baso % (Auto) 0.5, Neut # (Auto) 5.1, Lymph # (Auto) 1.3, [place] # (Auto) 0.6, Eos # (Auto) 0.2, Baso # (Auto) 0.0, Sodium 142, Potassium 4.7, Chloride 111 H, Carbon Dioxide 25, Anion Gap 10.7, BUN 62 H, Creatinine 3.30 H, Estimated Creat Clear 30, Estimated GFR 19 L*, Est GFR ( Amer) 23 L, Glucose 155 H, Calcium 8.2 L, Magnesium 1.9, Total Bilirubin 0.3, AST 39, ALT 37, Alkaline Phosphatase 124, Total Protein 5.7 L, Albumin 3.0 L, Globulin 2.7, Albumin/Globulin Ratio 1.1 I & O for Last 24 hours: Intake & Output 12/18/23 12/19/23 12/20/23 12/21/23 11:59 11:59 11:59 11:59 Intake Total 2370 / 2370 1390 / 1390 1932.833 / 1932.833 541.167 / 541.167 Output Total 1300 / 1300 4750 / 4750 2300 / 2750 1250 / 1250 Balance 1070 / 1070 -3360 / -3360 -367.167 / -817.167 -708.833 / -708.833 Weight 210 lb 7 oz 211 lb 2 oz 205 lb 14.4 oz Microbiology Reports for the Last 24 Hours: Microbiology 12/13/23 14:30 Blood Blood Culture - Final 12/13/23 10:55 Blood Blood Culture - Final Constitutional Constitutional: no acute distress *Routine Respiratory Exam Respiratory: Present decreased breath sounds and CTA bilaterally *Routine Cardiovascular Exam Cardiovascular: Present RRR *Routine Exam Penile: Present swelling *Routine Extremities Exam Extremities: Present edema Progress Note: A&P Assessment and plan (1) COPD mixed type: Status: Acute (2) Pleural effusion, bilateral: Status: Acute (3) Acute respiratory failure with hypoxia: Status: Acute (4) Blister of foot, left: Status: Acute (5) Chronic obstructive lung disease: Status: Chronic (6) Peripheral vascular disease: Status: Chronic (7) Atrial fibrillation: Status: Chronic (8) HTN (hypertension): Status: Chronic (9) HLD (hyperlipidemia): Status: Chronic (10) DM2 (diabetes mellitus, type 2): Status: Chronic (11) Pleural effusion: Status: Acute (12) Anemia: Status: Acute Assessment and Plan Assessment and Plan for All Diagnoses:: Acute on chronic HFpEF, Cor Pulmonale/Bilateral pleural effusions -Known diagnosis with EF 40%, presented to ER with moderate bilateral effusions and proBNP 44,000 -Continue home dose metoprolol -No DEDE/ARB/Entresto due to Acute on CKD -Cont hydralazine, Imdur -strict I/O, low Na diet 12/15: Repeat ECHO shows normal EF, severe RV dilation. ProBNP up to 60k, Cr up to 2.9. Reduce Bumex. Trend labs daily. 12/16: Worsening renal function, hold diuretics and Aldactone, gentle fluid resuscitation 12/19: Worsening CKD over the last 6-8 months. Concern for Nephrotic syndrome or cardio-renal syndrome. 12/20: Renal artery duplex yesterday showed evidence of elevated resistive indices bilaterally which can be seen with medical renal disease. No evidence of FRANCIS. Renal ultrasound essentially negative. MV-CAD s/p CABGx4 2016 and numerous stents 2017, 2020 - CCS = 0 - Cont DAPT, BB, Statin PAD with BLE wounds - inpatient wound care - DC Tob - cont DAPT, Statin - further workup outpatient COPD with ongoing tobacco use - recommend tob cessation - nebs, steroids, ab per Hospitalist DM-II - glucose management per primary service - will not use Jardiance/SGLT2 inhibitor due to GFR <20 Severe iron deficiency anemia -s/p transfusion to Hgb 9.3 but down to 8.1 today Acute on chronic CKD, now stage 4 -Cr 3.3 with GFR 19 -hypoalbuminemia/hypoproteinemia -?Nephrotic syndrome Pulmonary following Primary issue seems to be renal driven with collection of fluid in legs, scrotum/penis and abdomen as well as lungs. Continue Bumex drip If patient does not have significant improvement tomorrow then consider right heart catheterization.
[2023-12-20 15:07] LABS: POC Glucose,Bedside 122 (70-110)
[2023-12-20 16:01] LABS: POC Glucose,Bedside 171 (70-110)
--- NOTE | 2023-12-20 16:55 | EXP.PN ---
Subjective *Date: 12/20/23 *Time: 17:39 Interval history: seen and evaluated at bedside, he mentions his leg swelling has been improving, but he still has significant more swelling than normal, denied CP, N/V Exam Data for Last 24 hours Vital signs and Labs for Last 24 Hours: Temp Pulse Resp BP Pulse Ox O2 Del Method O2 Flow Rate 97.7 F 66 18 155/82 H 92 L Nasal Cannula 1 12/20/23 15:36 12/20/23 15:36 12/20/23 15:36 12/20/23 15:36 12/20/23 15:36 12/20/23 15:36 12/20/23 15:36 FiO2 28 12/18/23 18:57 Laboratory Results - last 24 hr 12/19/23 16:22: Sodium 143, Potassium 4.8, Chloride 109 H, Carbon Dioxide 25, Anion Gap 13.8, BUN 63 H, Creatinine 3.50 H, Estimated Creat Clear 29, Estimated GFR 18 L*, Est GFR ( Amer) 21 L, Glucose 156 H D, Calcium 8.3 L 12/19/23 21:58: POC Glucose 125 H 12/20/23 06:30: WBC 7.1, RBC 2.62 L, Hgb 8.1 L, Hct 24.9 L, MCV 95.1 H, MCH 30.9, MCHC 32.5, RDW 15.4, Plt Count 192, MPV 9.0, Neut % (Auto) 70.9, Lymph % (Auto) 18.3, [place] % (Auto) 7.8, Eos % (Auto) 2.6, Baso % (Auto) 0.5, Neut # (Auto) 5.1, Lymph # (Auto) 1.3, [place] # (Auto) 0.6, Eos # (Auto) 0.2, Baso # (Auto) 0.0, Sodium 142, Potassium 4.7, Chloride 111 H, Carbon Dioxide 25, Anion Gap 10.7, BUN 62 H, Creatinine 3.30 H, Estimated Creat Clear 30, Estimated GFR 19 L*, Est GFR ( Amer) 23 L, Glucose 155 H, Calcium 8.2 L, Magnesium 1.9, Total Bilirubin 0.3, AST 39, ALT 37, Alkaline Phosphatase 124, Total Protein 5.7 L, Albumin 3.0 L, Globulin 2.7, Albumin/Globulin Ratio 1.1 12/20/23 12:01: POC Glucose 122 H 12/20/23 15:48: POC Glucose 171 H I & O for Last 24 hours: Intake & Output 12/17/23 12/18/23 12/19/23 12/20/23 23:59 23:59 23:59 23:59 Intake Total 1850 / 2090 2970 / 2970 1060 / 1300 1514.000 / 1514.000 Output Total 575 / 575 3550 / 3550 3950 / 3950 1999 Balance 1275 / 1515 -580 / -580 -2890 / -2650 -486.000 / -486.000 Weight 90.9 kg 95.453 kg 95.765 kg 93.395 kg Microbiology Reports for the Last 24 Hours: Microbiology 12/13/23 14:30 Blood Blood Culture - Final 12/13/23 10:55 Blood Blood Culture - Final Constitutional Constitutional: no acute distress *Routine HEENT Exam Head: Present normocephalic Eye: Present EOMI and PERRL ENT: Present mucous membranes moist *Routine Neck Exam Neck: Present supple; Absent lymphadenopathy *Routine Respiratory Exam Respiratory: Present CTA bilaterally *Routine Cardiovascular Exam Cardiovascular: Present RRR *Routine Abdominal Exam Abdominal: Present soft and normoactive bowel sounds; Absent tenderness *Routine Extremities Exam Extremities: Present edema; Absent cyanosis or clubbing Comments: pitting edema b/l *Routine Skin Exam Skin: Present warm; Absent rash *Routine Neurological Exam Neurological: Present alert and oriented X3 Assessment and Plan *Assessment and plan (1) Acute respiratory failure with hypoxia: Status: Acute Category: Medical Code(s): J96.01 - Acute respiratory failure with hypoxia (2) Pleural effusion, bilateral: Status: Acute Category: Medical Code(s): J90 - Pleural effusion, not elsewhere classified (3) Blister of foot, left: Status: Acute Category: Medical Code(s): S90.822A - Blister (nonthermal), left foot, initial encounter (4) Chronic obstructive lung disease: Status: Chronic Qualifiers: COPD type: unspecified COPD Qualified Code(s): J44.9 - Chronic obstructive pulmonary disease, unspecified Category: Medical Code(s): J44.9 - Chronic obstructive pulmonary disease, unspecified (5) Peripheral vascular disease: Status: Chronic Category: Medical Code(s): I73.9 - Peripheral vascular disease, unspecified (6) Atrial fibrillation: Status: Chronic Qualifiers: Atrial fibrillation type: paroxysmal Qualified Code(s): I48.0 - Paroxysmal atrial fibrillation Category: Medical Code(s): I48.91 - Unspecified atrial fibrillation (7) HTN (hypertension): Status: Chronic Qualifiers: Hypertension type: essential hypertension Qualified Code(s): I10 - Essential (primary) hypertension Category: Medical Code(s): I10 - Essential (primary) hypertension (8) HLD (hyperlipidemia): Status: Chronic Qualifiers: Hyperlipidemia type: mixed hyperlipidemia Qualified Code(s): E78.2 - Mixed hyperlipidemia Category: Medical Code(s): E78.5 - Hyperlipidemia, unspecified (9) DM2 (diabetes mellitus, type 2): Status: Chronic Qualifiers: Diabetes mellitus complication detail: with other circulatory complications Diabetes mellitus complication status: with circulatory complication Diabetes mellitus nursing home insulin use: with nursing home use Qualified Code(s): E11.59 - Type 2 diabetes mellitus with other circulatory complications Category: Medical Code(s): E11.9 - Type 2 diabetes mellitus without complications (10) Anemia: Status: Acute Qualifiers: Anemia type: iron deficiency Iron deficiency anemia type: unspecified iron deficiency Qualified Code(s): D50.9 - Iron deficiency anemia, unspecified Category: Medical Code(s): D64.9 - Anemia, unspecified Plan 63-year-old male with history of combined heart failure, CABG, CKD, diabetes, peripheral artery disease. Presents with increased swelling and weeping of his legs and KENNA. Discussed case with the ER physician, request admission for diuresis and cardiology consult. Medicine agreed to admit. Monitoring urine output. Given increased swelling in his genital region and shortness of breath, will reattempt to diurese again today. Giving Lasix in conjunction with albumin. Continues to require inpatient management. Problems addressed as follows: Acute on chronic combined CHF Peripheral artery disease Scrotal edema - Cardiology consulted, appreciate their recommendations. Hold on lisinopril or Entresto in the setting of KENNA. Will continue metoprolol, hydralazine, Imdur, Jardiance, Aldactone. - Continue Lipitor 40 mg daily, aspirin 81 mg daily, Plavix 75 mg daily. -Repeat diuresis today x 1 with 25 g of albumin followed by 80 mg Lasix. Patient is -3 L fluid balance in the past 24 hours since diuresing with Lasix albumin combo. Repeat BMP ordered for the afternoon to monitor electrolytes and kidney function. - Echo from July 2022 shows EF of 40 to 45% with grade 1 diastolic dysfunction. Repeat echo obtained, read pending - Wound care consulted and assisting with blister on heel. COPD Pleural effusions Pulmonology consulted, monitoring clinically for need for thoracentesis. Continue DuoNebs every 6 hours as scheduled. On room air intermittently, goal sats greater 90%. Wears 2 L overnight. continue diuresis Anemia: Hemoglobin 8.4 this morning. If persistently below 9 tomorrow, will transfuse. Diabetes: A1C 8.1 in October.. SSI with FSGS achs. Addition of Jardiance. KENNA on CKD: Creatinine elevated and consistent today at 3.4, BUN 58. Tolerating diuresis. Continue albumin Lasix combo x 1 today. Potassium better at 4.9. Repeat CMP, magnesium, CBC ordered for the morning. Tobacco use disorder: Nicotine patch while admitted. Patient has no desire to quit. DNR Diabetic diet Heparin subcu Plan to continue diuresis
[2023-12-20] MEDS: SENNOSIDES 8.6MG/DOCUSATE 50MG TABLET 1 TAB PO (20:24)
[2023-12-20 20:35] LABS: POC Glucose,Bedside 191 (70-110)
[2023-12-21] VITALS (28 sets, daily range): BP systolic 123–171; BP diastolic 56–79; PULSE 60–84; RESP 16–20; TEMP 36.5–36.9; O2SAT 90–98; BMI 25.9
--- NOTE | 2023-12-21 | IR_ITS ---
APPROVED REPORT Patient Location: Inpatient Cow Tester: MAYNOR Sarmiento RT (R) PROCEDURES Right heart catheterization INDICATION Congestive heart failure, Acute kidney failure, Pulmonary hypertension Informed consent was obtained prior to the procedure. COMPLICATIONS None Estimated Blood Loss: Less than 10 mls TECHNIQUE One percent lidocaine was used to anesthetize the right anterior aspect of the neck. A supervisor treating and pumping needle was used to identify the right internal jugular vein. Following this a larger cannulation needle was used to cannulate the right internal jugular vein and a wire was passed into the vein. Prior to the 7 Amharic sheath being inserted the wire was confirmed under fluoroscopic guidance to be in the inferior vena cava. A 7 Amharic sheath was introduced and a [place] catheter was floated using hemodynamic waveforms in the pulmonary artery, right ventricle , and right atrium. Saturations were obtained in the pulmonary artery and the right atrium. At the end of the procedure the patient was transferred to the postop holding area in stable condition for sheath removal. ANGIOGRAPHIC RESULTS Right atrial pressure 8 mmHg Right ventricular pressure 55/12 mmHg Pulmonary artery pressure 50/17 mmHg Pulmonary artery occlusion pressure 17 mmHg Right atrial saturation 72% Pulmonary artery saturation 70% Aortic saturation 100% Hemoglobin 8.1 Cardiac output 8.5 L/min via Syed Cardiac index 3.8 IMPRESSION Moderate pulmonary hypertension Persistently elevated left-sided filling pressures Normal cardiac output PLAN 1. Management to be determined by primary cardiology treatment team Electronically signed by : Kelvin Juan MD 12/21/2023 14:19:20
[2023-12-21] MEDS: IPRATROPIUM/ALBUTEROL 3 ML NEB IH ×4 (05:55→23:02)
[2023-12-21 06:25] LABS: POC Glucose,Bedside 138 (70-110)
[2023-12-21 07:16] LABS: Alanine Aminotransferase 38 U/L (12-78); Albumin Level 3.1 g/dl (3.5-5.0); Albumin/Globulin Ratio 1.1 (1.1-1.8); Alkaline Phosphatase 137 U/L (38-126); Anion Gap 11.7 mEq/L (5-15); Aspartate Amino Transferase 40 U/L (17-59); Bilirubin,Total 0.4 mg/dl (0.2-1.3); Blood Urea Nitrogen 66 mg/dl (9-20); Calcium 8.5 mg/dl (8.4-10.2); Carbon Dioxide 27 mmol/L (22.0-30.0); Chloride 107 mmol/L (98-107); Creatinine Clearance Estimated 31 mL/min (50-200); Estimated Glomerular Filt Rate 20 ml/min (>60); GFR (African American) 24 ML/MIN (>60); Globulin 2.8 g/dL (1.3-3.2); Glucose 112 mg/dl (74-100); Potassium 4.7 mmoL/L (3.5-5.1); Sodium 141 mmol/L (136-145); Total Protein,Serum 5.9 g/dl (6.3-8.2)
[2023-12-21] MEDS: APAP/HYDROCODONE 325MG/7.5MG TAB 1 TAB PO ×2 (07:36→20:20)
[2023-12-21] MEDS: humaLOG MIX 75/25 3ML FLEXPEN 8 UNIT SQ ×2 (07:40→16:52)
[2023-12-21] MEDS: HYDRALAZINE HCL 25MG TABLET 50 MG PO ×3 (07:41→20:19)
[2023-12-21] MEDS: CLOPIDOGREL 75MG TAB 75 MG PO (07:41)
[2023-12-21] MEDS: ASPIRIN EC 81MG TABLET 81 MG PO (07:41)
[2023-12-21] MEDS: METOPROLOL SUCCINATE XL 100MG TABLET 100 MG PO ×2 (07:42→20:19)
[2023-12-21] MEDS: ISOSORBIDE MONO 60MG TAB.ER.24H 60 MG PO (07:42)
--- NOTE | 2023-12-21 07:42 | PC.NURSE ---
PT REQUESTING MORNING MEDS AT THIS TIME BEFORE LAYING BACK DOWN.
--- NOTE | 2023-12-21 09:52 | EXP.PULM.PN ---
Subjective *Date: 12/21/23 *Time: 11:24 Interval history: No acute respiratory events overnight. Patient denies any new respiratory complaints. Pulmonology Exam Inpatient Vital signs and Labs for Last 24 Hours: Temp Pulse Resp BP Pulse Ox O2 Del Method O2 Flow Rate 98.5 F 75 20 167/79 H 98 Room Air 1 12/21/23 07:40 12/21/23 07:40 12/21/23 07:40 12/21/23 07:40 12/21/23 08:57 12/21/23 09:00 12/21/23 08:57 FiO2 28 12/18/23 18:57 Laboratory Results - last 24 hr 12/20/23 12:01: POC Glucose 122 H 12/20/23 15:48: POC Glucose 171 H 12/20/23 20:28: POC Glucose 191 H 12/21/23 06:18: POC Glucose 138 H 12/21/23 06:38: Sodium 141, Potassium 4.7, Chloride 107, Carbon Dioxide 27, Anion Gap 11.7, BUN 66 H, Creatinine 3.20 H, Estimated Creat Clear 31, Estimated GFR 20 L, Est GFR ( Amer) 24 L, Glucose 112 H, Calcium 8.5, Total Bilirubin 0.4, AST 40, ALT 38, Alkaline Phosphatase 137 H, Total Protein 5.9 L, Albumin 3.1 L, Globulin 2.8, Albumin/Globulin Ratio 1.1 I & O for Labs for Last 24 Hours: Intake & Output 12/18/23 12/19/23 12/20/23 12/21/23 23:59 23:59 23:59 23:59 Intake Total 2970 / 2970 1060 / 1300 2024.000 / 2144.000 1470 / 1470 Output Total 3550 / 3550 3950 / 3950 2200 / 2200 2100 / 2100 Balance -580 / -580 -2890 / -2650 -176.000 / -56.000 -630 / -630 Weight 210 lb 7 oz 211 lb 2 oz 205 lb 14.4 oz 205 lb 14.411 oz Microbiology Reports for the Last 24 Hours: Microbiology 12/13/23 14:30 Blood Blood Culture - Final 12/13/23 10:55 Blood Blood Culture - Final Constitutional: Present mild distress Head: Present normocephalic and atraumatic ENT: Present normal exam, normal oropharynx and mucous membranes moist Neck: Present normal inspection and full ROM Respiratory: Present respiratory distress and able to speak in complete sentences; Absent prolonged expiratory phase or wheezes Cardiac: Present S1/S2, Tachycardia and radial pulses present GI: Present soft and distention; Absent tenderness or guarding Skin: Present intact; Absent cyanosis or jaundice Neuro: Present alert, awake and oriented x 3 Extremities: Present normal inspection and edema; Absent clubbing or cyanosis Psychiatric: Present normal affect and cooperative Assessment and Plan *Assessment and plan (1) COPD mixed type: Status: Acute Category: Medical Code(s): J44.9 - Chronic obstructive pulmonary disease, unspecified (2) Pleural effusion, bilateral: Status: Acute Category: Medical Code(s): J90 - Pleural effusion, not elsewhere classified (3) Acute respiratory failure with hypoxia: Status: Acute Category: Medical Code(s): J96.01 - Acute respiratory failure with hypoxia Plan Mr. White is a 63-year-old male with reported show diabetes, CAD, CHF with reduced EF presented ER with worsening lower extremity swelling and been admitted and managed for heart failure exacerbation and pulmonary was called for further evaluation. He does have greater than 30 PPD and has a history of COPD. Heart failure EF 50%. CKD stage IV. CT upon admission bilateral effusions right greater than left. No dense consolidation/airspace disease noted in the rest of the lung [place]. Patient needing 2 L oxygen supplementation since admission. Chest x-ray 12/17/2023 concerning for worsening left pleural effusion along with adjacent atelectasis, repeat chest x-ray concern for slight worsening effusions right greater than left. Patient has been aggressively diuresed in the last 48 hours. Oxygen requirements stable since admission at 2 to 3 L. He is not using any oxygen at baseline at home. Interval update: No acute respiratory vents overnight. Stable stable on 1 L nasal cannula, saturating 95% on 1 L, will wean to room air we will closely monitor. Plan: Monitor clinically and will reevaluate the need for thoracentesis. Continue DuoNebs every 6 hours scheduled Thank for involving pulmonary in this patient care. Will continue to follow.
--- NOTE | 2023-12-21 10:24 | EXP.CARD.PN ---
Subjective Subjective Date: 12/21/23 Time: 10:25 Principal diagnosis: CHF, edema Interval history: 63 yo WM in bed in NAD. Breathing only mildy improved per pt. Still with LE edema but not worse. I/0 negative 1100 ml overnight Cr down to 3.2 Bumex [address] stopped by Dr. Landeros Exam Data for Last 24 hours Vital signs and Labs for Last 24 Hours: Temp Pulse Resp BP Pulse Ox O2 Del Method O2 Flow Rate 98.5 F 70 20 167/79 H 98 Room Air 1 12/21/23 07:40 12/21/23 08:00 12/21/23 07:40 12/21/23 07:40 12/21/23 08:57 12/21/23 09:00 12/21/23 08:57 FiO2 28 12/18/23 18:57 Laboratory Results - last 24 hr 12/20/23 12:01: POC Glucose 122 H 12/20/23 15:48: POC Glucose 171 H 12/20/23 20:28: POC Glucose 191 H 12/21/23 06:18: POC Glucose 138 H 12/21/23 06:38: Sodium 141, Potassium 4.7, Chloride 107, Carbon Dioxide 27, Anion Gap 11.7, BUN 66 H, Creatinine 3.20 H, Estimated Creat Clear 31, Estimated GFR 20 L, Est GFR ( Amer) 24 L, Glucose 112 H, Calcium 8.5, Total Bilirubin 0.4, AST 40, ALT 38, Alkaline Phosphatase 137 H, Total Protein 5.9 L, Albumin 3.1 L, Globulin 2.8, Albumin/Globulin Ratio 1.1 I & O for Last 24 hours: Intake & Output 12/18/23 12/19/23 12/20/23 12/21/23 11:59 11:59 11:59 11:59 Intake Total 2370 / 2370 1390 / 1390 1932.833 / 3367.505 3508.167 / 2521.167 Output Total 1300 / 1300 4750 / 4750 2300 / 2750 3550 / 3550 Balance 1070 / 1070 -3360 / -3360 -367.167 / -817.167 -1028.833 / -1028.833 Weight 210 lb 7 oz 211 lb 2 oz 205 lb 14.4 oz 205 lb 14.411 oz Constitutional Constitutional: no acute distress *Routine Respiratory Exam Respiratory: Present decreased breath sounds *Routine Cardiovascular Exam Cardiovascular: Present RRR *Routine Extremities Exam Extremities: Present edema Progress Note: A&P Assessment and plan (1) COPD mixed type: Status: Acute (2) Pleural effusion, bilateral: Status: Acute (3) Acute respiratory failure with hypoxia: Status: Acute (4) Blister of foot, left: Status: Acute (5) Chronic obstructive lung disease: Status: Chronic (6) Peripheral vascular disease: Status: Chronic (7) Atrial fibrillation: Status: Chronic (8) HTN (hypertension): Status: Chronic (9) HLD (hyperlipidemia): Status: Chronic (10) DM2 (diabetes mellitus, type 2): Status: Chronic (11) Pleural effusion: Status: Acute (12) Anemia: Status: Acute Assessment and Plan Assessment and Plan for All Diagnoses:: Acute on chronic HFpEF, Cor Pulmonale/Bilateral pleural effusions -Known diagnosis with EF 40%, presented to ER with moderate bilateral effusions and proBNP 44,000 -Continue home dose metoprolol -No DEDE/ARB/Entresto due to Acute on CKD -Cont hydralazine, Imdur -strict I/O, low Na diet 12/15: Repeat ECHO shows normal EF, severe RV dilation. ProBNP up to 60k, Cr up to 2.9. Reduce Bumex. Trend labs daily. 12/16: Worsening renal function, hold diuretics and Aldactone, gentle fluid resuscitation 12/19: Worsening CKD over the last 6-8 months. Concern for Nephrotic syndrome or cardio-renal syndrome. 12/20: Renal artery duplex showed evidence of elevated resistive indices bilaterally which can be seen with medical renal disease. No evidence of FRANCIS. Renal ultrasound essentially negative. MV-CAD s/p CABGx4 2016 and numerous stents 2017, 2020 - CCS = 0 - Cont DAPT, BB, Statin PAD with BLE wounds - inpatient wound care - DC Tob - cont DAPT, Statin - further workup outpatient COPD with ongoing tobacco use - recommend tob cessation - nebs, steroids, ab per Hospitalist DM-II - glucose management per primary service - will not use Jardiance/SGLT2 inhibitor due to GFR <20 Severe iron deficiency anemia -s/p transfusion to Hgb 9.3 but down to 8.1 yesterday Acute on chronic CKD, now stage 4 -Cr 3.2 with GFR 20 -hypoalbuminemia/hypoproteinemia -?Nephrotic syndrome Pulmonary following Primary issue seems to be renal driven with collection of fluid in legs, scrotum/penis and abdomen as well as lungs. Recommend right heart catheterization today
[2023-12-21] MEDS: humaLOG 100 UNITS/ML 3ML VIAL (SSI) SQ ×3 (11:13→20:18)
[2023-12-21 11:20] LABS: POC Glucose,Bedside 161 (70-110)
--- NOTE | 2023-12-21 12:09 | PC.NURSE ---
Home Medications Cindy, Jama Medication Instructions Recorded Confirmed nitroglycerin 0.4 mg sublingual 0.4 mg sublingual Q5-15M PRN Chest 07/25/18 12/15/23 tablet Pain aspirin 81 mg tablet,delayed 81 mg PO DAILY 03/22/21 12/15/23 release glucagon 0.5 mg/0.1 mL 1 mg SQ ONCE PRN Low blood sugar 05/04/21 12/15/23 subcutaneous auto-injector (Gvoke HypoPen 2-Pack) budesonide 160 mcg-glycopyr 9 2 inh inhalation BID 10/28/23 12/15/23 mcg-formot 4.8 mcg/actuation HFA inhaler (Breztri Aerosphere) atorvastatin 40 mg tablet 40 mg PO HS 12/14/23 12/15/23 furosemide 20 mg tablet 40 mg PO DAILY 12/14/23 12/15/23 hydrocodone 5 mg-acetaminophen 325 1 tab PO TID 12/14/23 12/15/23 mg tablet insulin aspar prot-insulin aspart 10 - 12 unit SQ BIDP PRN Blood 12/14/23 12/15/23 100 unit/mL (70-30) subcutaneous sugar pen (Novolog Mix 70-30FlexPen U-100) metoprolol succinate 100 mg 100 mg PO DAILY 12/14/23 12/15/23 tablet,extended release 24 hr sennosides 8.6 mg-docusate sodium 1 tab PO HS 12/14/23 12/15/23 50 mg tablet (Senna with Docusate Sodium) Previous Rx's Medication Instructions Recorded pen needle, diabetic 32 gauge x #100 ea 01/21/23 (BD Ultra-Fine Cheryle Pen Needle) isosorbide mononitrate 60 mg 60 mg PO DAILY #90 tabs 04/14/23 tablet,extended release 24 hr lisinopril 10 mg tablet 10 mg PO DAILY #90 tabs 10/17/23 blood sugar diagnostic (Blood #50 ea 10/28/23 Glucose Test strips) blood-glucose meter #1 ea 10/28/23 clopidogrel 75 mg tablet (Plavix) 75 mg PO DAILY #90 tabs 10/28/23 lancing device #1 ea 10/28/23 cephalexin 500 mg capsule 500 mg PO Q8H 10 days #30 caps 12/12/23
[2023-12-21 13:34] LABS: Chloride 105 mmol/L (98-107); Potassium 4.4 mmoL/L (3.5-5.1); Sodium 140 mmol/L (136-145)
[2023-12-21 13:35] LABS: Basophils % 0.6 % (0.1-2.0); Eosinophils # 0.2 K/mm3 (0.0-0.4); Eosinophils % 3.3 % (0.1-12.0); Hematocrit 22.1 % (42.0-52.0); Hemoglobin 8.3 g/dL (14.1-18.0); Lymphocytes # 1.1 K/mm3 (0.7-4.5); Lymphocytes % 18.8 % (10-50); Mean Corpuscular HGB Conc 37.3 g/dL (31.8-35.4); Mean Corpuscular Hemoglobin 35.9 pg (27.0-31.2); Mean Platelet Volume 9.1 fl (7.4-10.4); Monocytes # 0.5 K/mm3 (0.1-1.0); Monocytes % 8.3 % (1.7-9.3); Neutrophils # 4.2 K/mm3 (1.8-7.8); Neutrophils % 69.1 % (37.0-80.0); Platelet Count 179 K/mm3 (142-424); Red Cell Distribution Width 15.4 % (11.5-17.5)
[2023-12-21 13:37] LABS: Anion Gap 9.4 mEq/L (5-15); Blood Urea Nitrogen 70 mg/dl (9-20); Calcium 8.1 mg/dl (8.4-10.2); Carbon Dioxide 30 mmol/L (22.0-30.0); Creatinine Clearance Estimated 30 mL/min (50-200); Estimated Glomerular Filt Rate 19 ml/min (>60); GFR (African American) 23 ML/MIN (>60); Glucose 107 mg/dl (74-100)
--- NOTE | 2023-12-21 13:52 | PC.NURSE ---
PT OFF FLOOR TO CONTROL OPERATOR
[2023-12-21] MEDS: diphenhydrAMINE 50MG/ML VIAL 50 MG IV (13:58)
[2023-12-21] MEDS: HEPARIN 1,000 UNITS/500ML NS (CATH LAB) 3000 UNIT IV (13:59)
[2023-12-21] MEDS: LIDOCAINE 1% 10ML MDV 20 ML IJ (13:59)
[2023-12-21] MEDS: 0.9 % SODIUM CHLORIDE 500 ML 25 ML IV (13:59)
[2023-12-21] MEDS: MIDAZOLAM HCL 1MG/1ML 5ML VIAL 1 MG IV (14:12)
[2023-12-21] MEDS: FENTANYL 100MCG/2ML VIAL 25 MCG IV (14:12)
[2023-12-21 14:29] LABS: CATHL Arterial O2 SAT 70.2 % (90-100); CATHL Venous O2 SAT 72.1 % (75-80)
--- NOTE | 2023-12-21 15:22 | P.PN_ITS ---
Subjective *Date: 12/21/23 *Time: 15:22 Interval history: seen and evaluated at bedside, he mentions his leg swelling has been improving, He has 1L UO last night,, denied CP, N/V Exam Data for Last 24 hours Vital signs and Labs for Last 24 Hours: Temp Pulse Resp BP Pulse Ox O2 Del Method O2 Flow Rate 97.7 F 70 18 123/56 L 93 L Nasal Cannula 1 12/21/23 11:48 12/21/23 11:57 12/21/23 11:48 12/21/23 11:48 12/21/23 11:48 12/21/23 15:00 12/21/23 15:00 FiO2 28 12/18/23 18:57 Laboratory Results - last 24 hr 12/20/23 15:48: POC Glucose 171 H 12/20/23 20:28: POC Glucose 191 H 12/21/23 06:18: POC Glucose 138 H 12/21/23 06:38: Sodium 141, Potassium 4.7, Chloride 107, Carbon Dioxide 27, Anion Gap 11.7, BUN 66 H, Creatinine 3.20 H, Estimated Creat Clear 31, Estimated GFR 20 L, Est GFR ( Amer) 24 L, Glucose 112 H, Calcium 8.5, Total Bilirubin 0.4, AST 40, ALT 38, Alkaline Phosphatase 137 H, Total Protein 5.9 L, Albumin 3.1 L, Globulin 2.8, Albumin/Globulin Ratio 1.1 12/21/23 11:09: POC Glucose 161 H 12/21/23 13:20: WBC 6.0, RBC 2.30 L, Hgb 8.3 L, Hct 22.1 L, MCV 96.0 H, MCH 35.9 H, MCHC 37.3 H, RDW 15.4, Plt Count 179, MPV 9.1, Neut % (Auto) 69.1, Lymph % (Auto) 18.8, [place] % (Auto) 8.3, Eos % (Auto) 3.3, Baso % (Auto) 0.6, Neut # (Auto) 4.2, Lymph # (Auto) 1.1, [place] # (Auto) 0.5, Eos # (Auto) 0.2, Baso # (Auto) 0.0, Sodium 140, Potassium 4.4, Chloride 105, Carbon Dioxide 30, Anion Gap 9.4, BUN 70 H, Creatinine 3.30 H, Estimated Creat Clear 30, Estimated GFR 19 L*, Est GFR ( Amer) 23 L, Glucose 107 H, Calcium 8.1 L 12/21/23 14:10: ABG O2 Sat (Measured) 70.2 L, POC VBG O2 Sat (Adele) 72.1 L I & O for Last 24 hours: Intake & Output 12/18/23 12/19/23 12/20/23 12/21/23 23:59 23:59 23:59 23:59 Intake Total 2970 / 2970 1060 / 1300 2024.000 / 2144.000 1470 / 1470 Output Total 3550 / 3550 3950 / 3950 2200 / 2200 2950 / 2950 Balance -580 / -580 -2890 / -2650 -176.000 / -56.000 -1480 / -1480 Weight 95.453 kg 95.765 kg 93.395 kg 93.395 kg Constitutional Constitutional: no acute distress *Routine HEENT Exam Head: Present normocephalic Eye: Present EOMI and PERRL ENT: Present mucous membranes moist *Routine Neck Exam Neck: Present supple; Absent lymphadenopathy *Routine Respiratory Exam Respiratory: Present CTA bilaterally *Routine Cardiovascular Exam Cardiovascular: Present RRR *Routine Abdominal Exam Abdominal: Present soft and normoactive bowel sounds; Absent tenderness *Routine Extremities Exam Extremities: Present edema; Absent cyanosis or clubbing Comments: pitting edema b/l *Routine Skin Exam Skin: Present warm; Absent rash *Routine Neurological Exam Neurological: Present alert and oriented X3 Assessment and Plan *Assessment and plan (1) Acute respiratory failure with hypoxia: Status: Acute Category: Medical Code(s): J96.01 - Acute respiratory failure with hypoxia (2) Pleural effusion, bilateral: Status: Acute Category: Medical Code(s): J90 - Pleural effusion, not elsewhere classified (3) Blister of foot, left: Status: Acute Category: Medical Code(s): S90.822A - Blister (nonthermal), left foot, initial encounter (4) Chronic obstructive lung disease: Status: Chronic Qualifiers: COPD type: unspecified COPD Qualified Code(s): J44.9 - Chronic obstructive pulmonary disease, unspecified Category: Medical Code(s): J44.9 - Chronic obstructive pulmonary disease, unspecified (5) Peripheral vascular disease: Status: Chronic Category: Medical Code(s): I73.9 - Peripheral vascular disease, unspecified (6) Atrial fibrillation: Status: Chronic Qualifiers: Atrial fibrillation type: paroxysmal Qualified Code(s): I48.0 - Pa roxysmal atrial fibrillation Category: Medical Code(s): I48.91 - Unspecified atrial fibrillation (7) HTN (hypertension): Status: Chronic Qualifiers: Hypertension type: essential hypertension Qualified Code(s): I10 - Essential (primary) hypertension Category: Medical Code(s): I10 - Essential (primary) hypertension (8) HLD (hyperlipidemia): Status: Chronic Qualifiers: Hyperlipidemia type: mixed hyperlipidemia Qualified Code(s): E78.2 - Mixed hyperlipidemia Category: Medical Code(s): E78.5 - Hyperlipidemia, unspecified (9) DM2 (diabetes mellitus, type 2): Status: Chronic Qualifiers: 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 mellitus 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 control servicer insulin use: with termite control servicer use Diabetes mellitus complication status: with circulatory complication Diabetes mellitus complication detail: with other circulatory complications Qualified Code(s): E11.59 - Type 2 diabetes mellitus with other circulatory complications Category: Medical Code(s): E11.9 - Type 2 diabetes mellitus without complications (10) Anemia: Status: Acute Qualifiers: Anemia type: iron deficiency Iron deficiency anemia type: unspecified iron deficiency Qualified Code(s): D50.9 - Iron deficiency anemia, unspecified Category: Medical Code(s): D64.9 - Anemia, unspecified Plan 63-year-old male with history of combined heart failure, CABG, CKD, diabetes, peripheral artery disease. Presents with increased swelling and weeping of his legs and KENNA. Discussed case with the ER physician, request admission for diuresis and cardiology consult. Medicine agreed to admit. Monitoring urine output. Given increased swelling in his genital region and shortness of breath, will reattempt to diurese again today. Giving Lasix in conjunction with albumin. Continues to require inpatient management. Problems addressed as follows: Acute on chronic combined CHF Peripheral artery disease Scrotal edema - Cardiology consulted, appreciate their recommendations. Hold on lisinopril or Entresto in the setting of KENNA. Will continue metoprolol, hydralazine, Imdur, Jardiance, Aldactone. - Continue Lipitor 40 mg daily, aspirin 81 mg daily, Plavix 75 mg daily. -Repeat diuresis today x 1 with 25 g of albumin followed by 80 mg Lasix. Patient is -3 L fluid balance in the past 24 hours since diuresing with Lasix albumin combo. Repeat BMP ordered for the afternoon to monitor electrolytes and kidney function. - Echo from July 2022 shows EF of 40 to 45% with grade 1 diastolic dysfunction. Repeat echo obtained, read pending - Wound care consulted and assisting with blister on heel. COPD Pleural effusions Pulmonology consulted, monitoring clinically for need for thoracentesis. Continue DuoNebs every 6 hours as scheduled. On room air intermittently, goal sats greater 90%. Wears 2 L overnight. continue diuresis Anemia: Hemoglobin 8.4 this morning. If persistently below 9 tomorrow, will transfuse. Diabetes: A1C 8.1 in October.. SSI with FSGS achs. Addition of Jardiance. KENNA on CKD: Creatinine elevated and consistent today at 3.4, BUN 58. Tolerating diuresis. Continue albumin Lasix combo x 1 today. Potassium better at 4.9. Repeat CMP, magnesium, CBC ordered for the morning. Tobacco use disorder: Nicotine patch while admitted. Patient has no desire to quit. DNR Diabetic diet Heparin subcu R heart cath today, monitor Cr, dc tomorrow
[2023-12-21] MEDS: BUMETANIDE 1MG/4ML VIAL 1 MG IV (16:49)
[2023-12-21 17:02] LABS: POC Glucose,Bedside 224 (70-110)
--- NOTE | 2023-12-21 17:35 | PC.NURSE ---
A&OX4. TOLERATING RA-1LNC WELL. PT HAS +2 PITTING EDEMA TO BLE, ALONG WITH PENIS AND SCROTUM. WOUNDS TO BILAT FEET DRESSED, CDI. PT ABLE TO STAND UP AT THE SIDE OF BED AND USE URINAL. HAS HAD ADEQUATE U/O THIS SHIFT. DID GET UP TO SHOWER. HAD R HEART CATH TODAY, TOLERATED WELL. SITE TO R JUGULAR CDI. PT HAS A LARGE APPETITE. RECEIVING INSULIN PER MAR. NO NEEDS OR C/O THUS FAR THIS SHIFT. VSS.
[2023-12-21 20:19] LABS: POC Glucose,Bedside 210 (70-110)
[2023-12-21] MEDS: ATORVASTATIN 40MG TABLET 40 MG PO (20:20)
[2023-12-21] MEDS: SENNOSIDES 8.6MG/DOCUSATE 50MG TABLET 1 TAB PO (20:21)
[2023-12-22] VITALS (8 sets, daily range): BP systolic 120–147; BP diastolic 55–74; PULSE 55–70; RESP 18; TEMP 36.3–36.9; O2SAT 91–96; BMI 24.6
[2023-12-22] MEDS: IPRATROPIUM/ALBUTEROL 3 ML NEB IH (05:37)
[2023-12-22 05:45] LABS: POC Glucose,Bedside 137 (70-110)
--- NOTE | 2023-12-22 06:14 | PC.NURSE ---
Patient rested well throughout shift. Medicated for PRN pain per MAR. Adequate urinary output with decreased swelling overall. Patient believes he is ready to go home. Plan is to discharge home today. FRANKIE GARCIA.
[2023-12-22] MEDS: humaLOG MIX 75/25 3ML FLEXPEN 8 UNIT SQ ×2 (07:35→16:39)
[2023-12-22 07:49] LABS: Chloride 106 mmol/L (98-107); Potassium 4.9 mmoL/L (3.5-5.1); Sodium 139 mmol/L (136-145)
[2023-12-22 07:52] LABS: Alanine Aminotransferase 39 U/L (12-78); Albumin/Globulin Ratio 1.1 (1.1-1.8); Alkaline Phosphatase 147 U/L (38-126); Anion Gap 8.9 mEq/L (5-15); Aspartate Amino Transferase 42 U/L (17-59); Bilirubin,Total 0.4 mg/dl (0.2-1.3); Blood Urea Nitrogen 73 mg/dl (9-20); Carbon Dioxide 29 mmol/L (22.0-30.0); Creatinine Clearance Estimated 28 mL/min (50-200); Estimated Glomerular Filt Rate 19 ml/min (>60); GFR (African American) 23 ML/MIN (>60); Globulin 2.8 g/dL (1.3-3.2); Total Protein,Serum 5.8 g/dl (6.3-8.2)
[2023-12-22 07:53] LABS: Glucose 131 mg/dl (74-100)
[2023-12-22] MEDS: METOPROLOL SUCCINATE XL 100MG TABLET 100 MG PO ×2 (08:24→21:18)
[2023-12-22] MEDS: BUMETANIDE 1MG/4ML VIAL 1 MG IV ×2 (08:24→16:34)
[2023-12-22] MEDS: ASPIRIN EC 81MG TABLET 81 MG PO (08:24)
[2023-12-22] MEDS: HYDRALAZINE HCL 25MG TABLET 50 MG PO ×3 (08:24→21:17)
[2023-12-22] MEDS: CLOPIDOGREL 75MG TAB 75 MG PO (08:24)
[2023-12-22] MEDS: ISOSORBIDE MONO 60MG TAB.ER.24H 60 MG PO (08:24)
[2023-12-22] MEDS: APAP/HYDROCODONE 325MG/7.5MG TAB 1 TAB PO ×2 (08:25→21:18)
--- NOTE | 2023-12-22 09:55 | EXP.PULM.PN ---
Subjective *Date: 12/22/23 *Time: 11:25 Interval history: No acute respiratory events overnight. Patient admits continued improvement in his respiratory symptoms. Pulmonology Exam Inpatient Vital signs and Labs for Last 24 Hours: Temp Pulse Resp BP Pulse Ox O2 Del Method O2 Flow Rate 98 F 65 18 146/65 H 92 L Room Air 1 12/22/23 08:00 12/22/23 08:00 12/22/23 08:00 12/22/23 08:00 12/22/23 08:00 12/22/23 09:00 12/22/23 06:19 FiO2 28 12/18/23 18:57 Laboratory Results - last 24 hr 12/21/23 11:09: POC Glucose 161 H 12/21/23 13:20: WBC 6.0, RBC 2.30 L, Hgb 8.3 L, Hct 22.1 L, MCV 96.0 H, MCH 35.9 H, MCHC 37.3 H, RDW 15.4, Plt Count 179, MPV 9.1, Neut % (Auto) 69.1, Lymph % (Auto) 18.8, [place] % (Auto) 8.3, Eos % (Auto) 3.3, Baso % (Auto) 0.6, Neut # (Auto) 4.2, Lymph # (Auto) 1.1, [place] # (Auto) 0.5, Eos # (Auto) 0.2, Baso # (Auto) 0.0, Sodium 140, Potassium 4.4, Chloride 105, Carbon Dioxide 30, Anion Gap 9.4, BUN 70 H, Creatinine 3.30 H, Estimated Creat Clear 30, Estimated GFR 19 L*, Est GFR ( Amer) 23 L, Glucose 107 H, Calcium 8.1 L 12/21/23 14:10: ABG O2 Sat (Measured) 70.2 L, POC VBG O2 Sat (Adele) 72.1 L 12/21/23 16:49: POC Glucose 224 H 12/21/23 20:12: POC Glucose 210 H 12/22/23 05:38: POC Glucose 137 H 12/22/23 06:29: Sodium 139, Potassium 4.9, Chloride 106, Carbon Dioxide 29, Anion Gap 8.9, BUN 73 H, Creatinine 3.30 H, Estimated Creat Clear 28, Estimated GFR 19 L*, Est GFR ( Amer) 23 L, Glucose 131 H D, Calcium 8.0 L, Total Bilirubin 0.4, AST 42, ALT 39, Alkaline Phosphatase 147 H, Total Protein 5.8 L, Albumin 3.0 L, Globulin 2.8, Albumin/Globulin Ratio 1.1 I & O for Labs for Last 24 Hours: Intake & Output 12/19/23 12/20/23 12/21/23 12/22/23 23:59 23:59 23:59 23:59 Intake Total 1060 / 1300 2024.000 / 2144.000 2715 / 2715 500 / 500 Output Total 3950 / 3950 2200 / 2200 5050 / 5050 500 / 500 Balance -2890 / -2650 -176.000 / -56.000 -2335 / -2335 0 / 0 Weight 211 lb 2 oz 205 lb 14.4 oz 205 lb 14.411 oz 196 lb Microbiology Reports for the Last 24 Hours: Microbiology 12/13/23 14:30 Blood Blood Culture - Final 12/13/23 10:55 Blood Blood Culture - Final Constitutional: Present mild distress Head: Present normocephalic and atraumatic ENT: Present normal exam, normal oropharynx and mucous membranes moist Neck: Present normal inspection and full ROM Respiratory: Present respiratory distress and able to speak in complete sentences; Absent prolonged expiratory phase or wheezes Cardiac: Present S1/S2, Tachycardia and radial pulses present GI: Present soft and distention; Absent tenderness or guarding Skin: Present intact; Absent cyanosis or jaundice Neuro: Present alert, awake and oriented x 3 Extremities: Present normal inspection and edema; Absent clubbing or cyanosis Psychiatric: Present normal affect and cooperative Assessment and Plan *Assessment and plan (1) COPD mixed type: Status: Acute Category: Medical Code(s): J44.9 - Chronic obstructive pulmonary disease, unspecified (2) Pleural effusion, bilateral: Status: Acute Category: Medical Code(s): J90 - Pleural effusion, not elsewhere classified (3) Acute respiratory failure with hypoxia: Status: Acute Category: Medical Code(s): J96.01 - Acute respiratory failure with hypoxia Plan Mr. White is a 63-year-old male with reported show diabetes, CAD, CHF with reduced EF presented ER with worsening lower extremity swelling and been admitted and managed for heart failure exacerbation and pulmonary was called for further evaluation. He does have greater than 30 PPD and has a history of COPD. Heart failure EF 50%. CKD stage IV. CT upon admission bilateral effusions right greater than left. No dense consolidation/airspace disease noted in the rest of the lung [place]. Patient needing 2 L oxygen supplementation since admission. Chest x-ray 12/17/2023 concerning for worsening left pleural effusion along with adjacent atelectasis, repeat chest x-ray concern for slight worsening effusions right greater than left. Patient has been aggressively diuresed in the last 48 hours. Oxygen requirements stable since admission at 2 to 3 L. He is not using any oxygen at baseline at home. Interval update: No acute respiratory events overnight. Continued to remain on room air. Chest x-ray from this morning personally reviewed, improving pulmonary effusions. No need for thoracentesis at this point of time. Continue diuresis protocol as per primary team Plan: Continue DuoNebs every 6 hours scheduled Thank for involving pulmonary in this patient care. Will continue to follow.
--- NOTE | 2023-12-22 09:56 | XR_ITS ---
FINAL REPORT CLINICAL HISTORY: effusions COMPARISON: 12/19/2023 FINDINGS: No acute pulmonary opacity is present. There is bilateral pleural effusion, left greater than right which is stable. There is mild cardiomegaly. Patient is status post CABG. IMPRESSION: No significant change. Reviewed, Interpreted and Dictated by Anna Aldana MD Transcribed by Cheryle Smith Authenticated and . [facility] [place]
--- NOTE | 2023-12-22 10:28 | EXP.CARD.PN ---
Subjective Subjective Date: 12/22/23 Time: 10:28 Principal diagnosis: CHF, edema Interval history: 63-year-old white male in bed in no acute distress. Breathing continues to improve slowly. Still with significant bilateral lower extremity edema although improving. Diuresed 1.7 L overnight Creatinine 3.3 and stable Exam Data for Last 24 hours Vital signs and Labs for Last 24 Hours: Temp Pulse Resp BP Pulse Ox O2 Del Method O2 Flow Rate 98 F 65 18 146/65 H 92 L Room Air 1 12/22/23 08:00 12/22/23 08:00 12/22/23 08:00 12/22/23 08:00 12/22/23 08:00 12/22/23 09:00 12/22/23 06:19 FiO2 28 12/18/23 18:57 Laboratory Results - last 24 hr 12/21/23 11:09: POC Glucose 161 H 12/21/23 13:20: WBC 6.0, RBC 2.30 L, Hgb 8.3 L, Hct 22.1 L, MCV 96.0 H, MCH 35.9 H, MCHC 37.3 H, RDW 15.4, Plt Count 179, MPV 9.1, Neut % (Auto) 69.1, Lymph % (Auto) 18.8, [place] % (Auto) 8.3, Eos % (Auto) 3.3, Baso % (Auto) 0.6, Neut # (Auto) 4.2, Lymph # (Auto) 1.1, [place] # (Auto) 0.5, Eos # (Auto) 0.2, Baso # (Auto) 0.0, Sodium 140, Potassium 4.4, Chloride 105, Carbon Dioxide 30, Anion Gap 9.4, BUN 70 H, Creatinine 3.30 H, Estimated Creat Clear 30, Estimated GFR 19 L*, Est GFR ( Amer) 23 L, Glucose 107 H, Calcium 8.1 L 12/21/23 14:10: ABG O2 Sat (Measured) 70.2 L, POC VBG O2 Sat (Adele) 72.1 L 12/21/23 16:49: POC Glucose 224 H 12/21/23 20:12: POC Glucose 210 H 12/22/23 05:38: POC Glucose 137 H 12/22/23 06:29: Sodium 139, Potassium 4.9, Chloride 106, Carbon Dioxide 29, Anion Gap 8.9, BUN 73 H, Creatinine 3.30 H, Estimated Creat Clear 28, Estimated GFR 19 L*, Est GFR ( Amer) 23 L, Glucose 131 H D, Calcium 8.0 L, Total Bilirubin 0.4, AST 42, ALT 39, Alkaline Phosphatase 147 H, Total Protein 5.8 L, Albumin 3.0 L, Globulin 2.8, Albumin/Globulin Ratio 1.1 I & O for Last 24 hours: Intake & Output 12/19/23 12/20/23 12/21/23 12/22/23 11:59 11:59 11:59 11:59 Intake Total 1390 / 1390 1932.833 / 2756.220 6973.167 / 2521.167 1745 / 1745 Output Total 4750 / 4750 2300 / 2750 4400 / 4400 2600 / 2600 Balance -3360 / -3360 -367.167 / -817.167 -1878.833 / -1878.833 -855 / -855 Weight 211 lb 2 oz 205 lb 14.4 oz 205 lb 14.411 oz 196 lb *Routine Respiratory Exam Respiratory: Present rales *Routine Cardiovascular Exam Cardiovascular: Present RRR *Routine Extremities Exam Extremities: Present edema Progress Note: A&P Assessment and plan (1) COPD mixed type: Status: Acute (2) Pleural effusion, bilateral: Status: Acute (3) Acute respiratory failure with hypoxia: Status: Acute (4) Blister of foot, left: Status: Acute (5) Chronic obstructive lung disease: Status: Chronic (6) Peripheral vascular disease: Status: Chronic (7) Atrial fibrillation: Status: Chronic (8) HTN (hypertension): Status: Chronic (9) HLD (hyperlipidemia): Status: Chronic (10) DM2 (diabetes mellitus, type 2): Status: Chronic (11) Pleural effusion: Status: Acute (12) Anemia: Status: Acute Assessment and Plan Assessment and Plan for All Diagnoses:: Acute on chronic HFpEF, Cor Pulmonale/Bilateral pleural effusions -Known diagnosis with EF 40%, presented to ER with moderate bilateral effusions and proBNP 44,000 -Continue home dose metoprolol -No DEDE/ARB/Entresto due to Acute on CKD -Cont hydralazine, Imdur -strict I/O, low Na diet 1/25: Repeat ECHO shows normal EF, severe RV dilation. ProBNP up to 60k, Cr up to 2.9. Reduce Bumex. Trend labs daily. 12/16: Worsening renal function, hold diuretics and Aldactone, gentle fluid resuscitation 12/19: Worsening CKD over the last 6-8 months. Concern for Nephrotic syndrome or cardio-renal syndrome. 12/20: Renal artery duplex showed evidence of elevated resistive indices bilaterally which can be seen with medical renal disease. No evidence of FRANCIS. Renal ultrasound essentially negative. 12/21: RHC with PCWP of 17 mm Hg 12/22: Feeling better. Legs improving. MV-CAD s/p CABGx4 2016 and numerous stents 2020 - CCS = 0 - Cont DAPT, BB, Statin PAD with BLE wounds - inpatient wound care - DC Tob - cont DAPT, Statin - further workup outpatient COPD with ongoing tobacco use - recommend tob cessation - nebs, steroids, ab per Hospitalist DM-II - glucose management per primary service - will not use Jardiance/SGLT2 inhibitor due to GFR <20 Severe iron deficiency anemia -s/p transfusion with Hgb stable at 8.3 Acute on chronic CKD, now stage 4 -Cr 3.3 with GFR 19 -hypoalbuminemia/hypoproteinemia -?Nephrotic syndrome Right heart cath showed wedge pressure of 17 continue diuresis and following renal status Likely home tomorrow if renal status stable and improvement continues.
[2023-12-22] MEDS: humaLOG 100 UNITS/ML 3ML VIAL (SSI) SQ ×2 (11:10→16:39)
[2023-12-22 11:18] LABS: POC Glucose,Bedside 254 (70-110)
--- NOTE | 2023-12-22 13:47 | EXP.PN ---
Subjective *Date: 12/22/23 *Time: 13:47 Interval history: seen and evaluated at bedside, he mentions his leg swelling has been improving, he is on RA,, denied CP, N/V Exam Data for Last 24 hours Vital signs and Labs for Last 24 Hours: Temp Pulse Resp BP Pulse Ox O2 Del Method O2 Flow Rate 98.4 F 60 18 129/57 L 91 L Room Air 1 12/22/23 11:57 12/22/23 11:57 12/22/23 11:57 12/22/23 11:57 12/22/23 11:57 12/22/23 13:00 12/22/23 06:19 FiO2 28 12/18/23 18:57 Laboratory Results - last 24 hr 12/21/23 14:10: ABG O2 Sat (Measured) 70.2 L, POC VBG O2 Sat (Adele) 72.1 L 12/21/23 16:49: POC Glucose 224 H 12/21/23 20:12: POC Glucose 210 H 12/22/23 05:38: POC Glucose 137 H 12/22/23 06:29: Sodium 139, Potassium 4.9, Chloride 106, Carbon Dioxide 29, Anion Gap 8.9, BUN 73 H, Creatinine 3.30 H, Estimated Creat Clear 28, Estimated GFR 19 L*, Est GFR ( Amer) 23 L, Glucose 131 H D, Calcium 8.0 L, Total Bilirubin 0.4, AST 42, ALT 39, Alkaline Phosphatase 147 H, Total Protein 5.8 L, Albumin 3.0 L, Globulin 2.8, Albumin/Globulin Ratio 1.1 12/22/23 10:56: POC Glucose 254 H I & O for Last 24 hours: Intake & Output 12/19/23 12/20/23 12/21/23 12/22/23 23:59 23:59 23:59 23:59 Intake Total 1060 / 1300 2024.000 / 2144.000 2715 / 2715 500 / 500 Output Total 3950 / 3950 2200 / 2200 5050 / 5050 500 / 500 Balance -2890 / -2650 -176.000 / -56.000 -2335 / -2335 0 / 0 Weight 95.765 kg 93.395 kg 93.395 kg 88.904 kg Constitutional Constitutional: no acute distress *Routine HEENT Exam Head: Present normocephalic Eye: Present EOMI and PERRL ENT: Present mucous membranes moist *Routine Neck Exam Neck: Present supple; Absent lymphadenopathy *Routine Respiratory Exam Respiratory: Present CTA bilaterally *Routine Cardiovascular Exam Cardiovascular: Present RRR *Routine Abdominal Exam Abdominal: Present soft and normoactive bowel sounds; Absent tenderness *Routine Extremities Exam Extremities: Absent cyanosis, clubbing or edema *Routine Skin Exam Skin: Present warm; Absent rash *Routine Neurological Exam Neurological: Present alert and oriented X3 Assessment and Plan *Assessment and plan (1) Acute respiratory failure with hypoxia: Status: Acute Category: Medical Code(s): J96.01 - Acute respiratory failure with hypoxia (2) Pleural effusion, bilateral: Status: Acute Category: Medical Code(s): J90 - Pleural effusion, not elsewhere classified (3) Blister of foot, left: Status: Acute Category: Medical Code(s): S90.822A - Blister (nonthermal), left foot, initial encounter (4) Chronic obstructive lung disease: Status: Chronic Qualifiers: COPD type: unspecified COPD Qualified Code(s): J44.9 - Chronic obstructive pulmonary disease, unspecified Category: Medical Code(s): J44.9 - Chronic obstructive pulmonary disease, unspecified (5) Peripheral vascular disease: Status: Chronic Category: Medical Code(s): I73.9 - Peripheral vascular disease, unspecified (6) Atrial fibrillation: Status: Chronic Qualifiers: Atrial fibrillation type: paroxysmal Qualified Code(s): I48.0 - Paroxysmal atrial fibrillation Category: Medical Code(s): I48.91 - Unspecified atrial fibrillation (7) HTN (hypertension): Status: Chronic Qualifiers: Hypertension type: essential hypertension Qualified Code(s): I10 - Essential (primary) hypertension Category: Medical Code(s): I10 - Essential (primary) hypertension (8) HLD (hyperlipidemia): Status: Chronic Qualifiers: Hyperlipidemia type: mixed hyperlipidemia Qualified Code(s): E78.2 - Mixed hyperlipidemia Category: Medical Code(s): E78.5 - Hyperlipidemia, unspecified (9) DM2 (diabetes mellitus, type 2): Status: Chronic Qualifiers: Diabetes mellitus residential insulin use: with residential use Diabetes mellitus complication status: with circulatory complication Diabetes mellitus complication detail: with other circulatory complications Qualified Code(s): E11.59 - Type 2 diabetes mellitus with other circulatory complications Category: Medical Code(s): E11.9 - Type 2 diabetes mellitus without complications (10) Anemia: Status: Acute Qualifiers: Anemia type: iron deficiency Iron deficiency anemia type: unspecified iron deficiency Qualified Code(s): D50.9 - Iron deficiency anemia, unspecified Category: Medical Code(s): D64.9 - Anemia, unspecified Plan 63-year-old male with history of combined heart failure, CABG, CKD, diabetes, peripheral artery disease. Presents with increased swelling and weeping of his legs and KENNA. Discussed case with the ER physician, request admission for diuresis and cardiology consult. Medicine agreed to admit. Monitoring urine output. Given increased swelling in his genital region and shortness of breath, will reattempt to diurese again today. Giving Lasix in conjunction with albumin. Continues to require inpatient management. Problems addressed as follows: Acute on chronic combined CHF Peripheral artery disease Scrotal edema - Cardiology consulted, appreciate their recommendations. Hold on lisinopril or Entresto in the setting of KENNA. Will continue metoprolol, hydralazine, Imdur, Jardiance, Aldactone. - Continue Lipitor 40 mg daily, aspirin 81 mg daily, Plavix 75 mg daily. -Repeat diuresis today x 1 with 25 g of albumin followed by 80 mg Lasix. Patient is -3 L fluid balance in the past 24 hours since diuresing with Lasix albumin combo. Repeat BMP ordered for the afternoon to monitor electrolytes and kidney function. - Echo from July 2022 shows EF of 40 to 45% with grade 1 diastolic dysfunction. Repeat echo obtained, read pending - Wound care consulted and assisting with blister on heel. COPD Pleural effusions Pulmonology consulted, monitoring clinically for need for thoracentesis. Continue DuoNebs every 6 hours as scheduled. On room air intermittently, goal sats greater 90%. Wears 2 L overnight. continue diuresis Anemia: Hemoglobin 8.4 this morning. If persistently below 9 tomorrow, will transfuse. Diabetes: A1C 8.1 in October.. SSI with FSGS achs. Addition of Jardiance. KENNA on CKD: Creatinine elevated and consistent today at 3.4, BUN 58. Tolerating diuresis. Continue albumin Lasix combo x 1 today. Potassium better at 4.9. Repeat CMP, magnesium, CBC ordered for the morning. Tobacco use disorder: Nicotine patch while admitted. Patient has no desire to quit. DNR Diabetic diet Heparin subcu Cardiology wishes to continue diuresis inpatient, likely DC tomorrow
[2023-12-22 16:48] LABS: POC Glucose,Bedside 179 (70-110)
--- NOTE | 2023-12-22 17:50 | PC.NURSE ---
A&OX4. TOLERATING RA WELL T/O SHIFT. PT CONTINUES TO RECEIVE IV BUMEX WITH ADEQUATE U/O. EDEMA SEEMS EVEN BETTER TODAY, BUT STILL +2 PITTING EDEMA PRESENT TO BLE, AND EDEMA NOTED TO PENIS AND SCROTUM. PT HAS BEEN IN BED ASLEEP MAJORITY OF THE DAY. DOES STAND TO USE URINAL. HAS A LARGE APPETITE. COVERED WITH INSULIN PER JAN. HAVE UPDATED PT BROTHER ON POC TODAY. ANTICIPATED D/C TOMORROW. PT C/O PAIN IN HIS HIPS AND BACK X1 THIS SHIFT, TX PER JAN. EFFECTIVENESS NOTED. NO OTHER NEEDS OR C/O AT THIS TIME. VSS.
[2023-12-22] MEDS: ATORVASTATIN 40MG TABLET 40 MG PO (21:17)
[2023-12-22] MEDS: SENNOSIDES 8.6MG/DOCUSATE 50MG TABLET 1 TAB PO (21:18)
[2023-12-22 21:21] LABS: POC Glucose,Bedside 103 (70-110)
[2023-12-23] VITALS: BP 132/64; PULSE 60; RESP 18; TEMP 36.7; O2SAT 92
[2023-12-23] MEDS: ACETAMINOPHEN 325MG TAB 650 MG PO (00:15)
[2023-12-23 04:00] VITALS: BP 126/64; PULSE 60; PULSE 64; PULSE 80; RESP 18; TEMP 36.8; O2SAT 96; BMI 23.8
[2023-12-23] MEDS: humaLOG 100 UNITS/ML 3ML VIAL (SSI) SQ (05:11)
[2023-12-23 05:14] LABS: POC Glucose,Bedside 182 (70-110)
--- NOTE | 2023-12-23 05:31 | PC.NURSE ---
A/O X 4. PLEASANT AND COOPERATIVE. BRP WITH STANDBY ASSIST. UTILIZES WALKER. DRSG TO RIGHT FOOT/HEEL C/D/I. BANDAIDES OFF RIGHT TOES. HAS 2+ PITTING EDEMA BLEs AND FEET. SCRATCHES AND SUPERFICIAL CUTS ALONG THE LENGTH OF BOTH LEGS. SKIN RED TO JORDAN AREAS. 02 SAT 92% ON ROOM AIR. C/O BACK PAIN 04/30. MEDICATED WITH TYLENOL AND NORCO 7.5MG PRN.
[2023-12-23] MEDS: FLUTICASONE/UMECLIDIN/VILANTER 100/62.5/25MCG INHALER 1 PUFF IH (06:56)
[2023-12-23 08:00] VITALS: BP 116/54; PULSE 57; PULSE 60; RESP 18; TEMP 36.6; O2SAT 93; O2SAT 94
--- NOTE | 2023-12-23 08:30 | EXP.CARD.PN ---
Subjective Subjective Date: 12/23/23 Time: 08:30 Principal diagnosis: CHF, edema Interval history: 63 yo WM in bed in NAD. Breathing slowly improving. Exam Data for Last 24 hours Vital signs and Labs for Last 24 Hours: Temp Pulse Resp BP Pulse Ox O2 Del Method O2 Flow Rate 98.2 F 80 18 126/64 96 Room Air 1 12/23/23 04:00 12/23/23 04:00 12/23/23 04:00 12/23/23 04:00 12/23/23 04:00 12/23/23 07:37 12/22/23 06:19 FiO2 28 12/18/23 18:57 Laboratory Results - last 24 hr 12/22/23 10:56: POC Glucose 254 H 12/22/23 16:36: POC Glucose 179 H 12/22/23 21:14: POC Glucose 103 12/23/23 05:07: POC Glucose 182 H I & O for Last 24 hours: Intake & Output 12/20/23 12/21/23 12/22/23 12/23/23 11:59 11:59 11:59 11:59 Intake Total 1932.833 / 8198.584 3331.167 / 2521.167 1745 / 1745 1030 / 1030 Output Total 2300 / 2750 4400 / 4400 2600 / 2600 1475 / 1475 Balance -367.167 / -817.167 -1878.833 / -1878.833 -855 / -855 -445 / -445 Weight 205 lb 14.4 oz 205 lb 14.411 oz 196 lb 190 lb *Routine Respiratory Exam Respiratory: Present CTA bilaterally *Routine Cardiovascular Exam Cardiovascular: Present RRR *Routine Extremities Exam Extremities: Present edema Progress Note: A&P Assessment and plan (1) Acute respiratory failure with hypoxia: Status: Acute (2) Pleural effusion, bilateral: Status: Acute (3) Blister of foot, left: Status: Acute (4) Chronic obstructive lung disease: Status: Chronic (5) Peripheral vascular disease: Status: Chronic (6) Atrial fibrillation: Status: Chronic (7) HTN (hypertension): Status: Chronic (8) HLD (hyperlipidemia): Status: Chronic (9) DM2 (diabetes mellitus, type 2): Status: Chronic (10) Anemia: Status: Acute (11) Pleural effusion: Status: Acute Assessment and Plan Assessment and Plan for All Diagnoses:: Acute on chronic HFpEF, Cor Pulmonale/Bilateral pleural effusions -Known diagnosis with EF 40%, presented to ER with moderate bilateral effusions and proBNP 44,000 -Continue home dose metoprolol -No DEDE/ARB/Entresto due to Acute on CKD -Cont hydralazine, Imdur -strict I/O, low Na diet 12/15: Repeat ECHO shows normal EF, severe RV dilation. ProBNP up to 60k, Cr up to 2.9. Reduce Bumex. Trend labs daily. 12/16: Worsening renal function, hold diuretics and Aldactone, gentle fluid resuscitation 12/19: Worsening CKD over the last 6-8 months. Concern for Nephrotic syndrome or cardio-renal syndrome. 12/20: Renal artery duplex showed evidence of elevated resistive indices bilaterally which can be seen with medical renal disease. No evidence of FRANCIS. Renal ultrasound essentially negative. 12/21: RHC with PCWP of 17 mm Hg 12/22: Feeling better. Legs improving. 12/23: Continues to improve in breathing and leg edema. MV-CAD s/p CABGx4 2016 and numerous stents 2017, 2020 - CCS = 0 - Cont DAPT, BB, Statin PAD with BLE wounds - inpatient wound care - DC Tob - cont DAPT, Statin - further workup outpatient COPD with ongoing tobacco use - recommend tob cessation - nebs, steroids, ab per Hospitalist DM-II - glucose management per primary service - will not use Jardiance/SGLT2 inhibitor due to GFR <20 Severe iron deficiency anemia -s/p transfusion with Hgb stable at 8.3 Acute on chronic CKD, now stage 4 -Cr 3.3 with GFR 19 -hypoalbuminemia/hypoproteinemia -?Nephrotic syndrome clinically stable for discharge home from cardiology standpoint. Home med recommendations: ASA 81 mg daily plavix 75 mg daily isosorbide mononitrate 60 mg dialy metoprolol succinate 100 mg BID Hydralazine 50 mg TID atorvastatin 40 mg daily Bumex 1 mg BID Stop lasix. Follow up in office in one week with BMP.
[2023-12-23] MEDS: BUMETANIDE 1MG/4ML VIAL 1 MG IV (08:31)
[2023-12-23] MEDS: CLOPIDOGREL 75MG TAB 75 MG PO (08:31)
[2023-12-23] MEDS: humaLOG MIX 75/25 3ML FLEXPEN 8 UNIT SQ (08:31)
[2023-12-23] MEDS: METOPROLOL SUCCINATE XL 100MG TABLET 100 MG PO (08:31)
[2023-12-23] MEDS: ASPIRIN EC 81MG TABLET 81 MG PO (08:31)
[2023-12-23] MEDS: ISOSORBIDE MONO 60MG TAB.ER.24H 60 MG PO (08:31)
[2023-12-23] MEDS: HYDRALAZINE HCL 25MG TABLET 50 MG PO (08:31)
--- NOTE | 2023-12-23 09:55 | EXP.PULM.PN ---
Subjective *Date: 12/23/23 *Time: 12:29 Interval history: Patient denies any new respiratory complaints. Admits tolerating Trelegy inhaler. Pulmonology Exam Inpatient Vital signs and Labs for Last 24 Hours: Temp Pulse Resp BP Pulse Ox O2 Del Method O2 Flow Rate 97.8 F 57 L 18 116/54 L 94 L Room Air 1 12/23/23 08:00 12/23/23 08:00 12/23/23 08:00 12/23/23 08:00 12/23/23 08:00 12/23/23 09:50 12/22/23 06:19 FiO2 28 12/18/23 18:57 Laboratory Results - last 24 hr 12/22/23 10:56: POC Glucose 254 H 12/22/23 16:36: POC Glucose 179 H 12/22/23 21:14: POC Glucose 103 12/23/23 05:07: POC Glucose 182 H I & O for Labs for Last 24 Hours: Intake & Output 12/20/23 12/21/23 12/22/23 12/23/23 23:59 23:59 23:59 23:59 Intake Total 2024.000 / 2144.000 2715 / 2715 1050 / 1290 480 / 480 Output Total 2200 / 2200 5050 / 5050 1025 / 1275 950 / 950 Balance -176.000 / -56.000 -2335 / -2335 25 / 15 -470 / -470 Weight 205 lb 14.4 oz 205 lb 14.411 oz 196 lb 190 lb Microbiology Reports for the Last 24 Hours: Microbiology 12/13/23 14:30 Blood Blood Culture - Final 12/13/23 10:55 Blood Blood Culture - Final Constitutional: Present mild distress Head: Present normocephalic and atraumatic ENT: Present normal exam, normal oropharynx and mucous membranes moist Neck: Present normal inspection and full ROM Respiratory: Present respiratory distress and able to speak in complete sentences; Absent prolonged expiratory phase or wheezes Cardiac: Present S1/S2, Tachycardia and radial pulses present GI: Present soft and distention; Absent tenderness or guarding Skin: Present intact; Absent cyanosis or jaundice Neuro: Present alert, awake and oriented x 3 Extremities: Present normal inspection and edema; Absent clubbing or cyanosis Psychiatric: Present normal affect and cooperative Assessment and Plan *Assessment and plan (1) COPD mixed type: Status: Acute Category: Medical Code(s): J44.9 - Chronic obstructive pulmonary disease, unspecified (2) Pleural effusion, bilateral: Status: Acute Category: Medical Code(s): J90 - Pleural effusion, not elsewhere classified (3) Acute respiratory failure with hypoxia: Status: Acute Category: Medical Code(s): J96.01 - Acute respiratory failure with hypoxia Plan Mr. White is a 63-year-old male with reported show diabetes, CAD, CHF with reduced EF presented ER with worsening lower extremity swelling and been admitted and managed for heart failure exacerbation and pulmonary was called for further evaluation. He does have greater than 30 PPD and has a history of COPD. Heart failure EF 50%. CKD stage IV. CT upon admission bilateral effusions right greater than left. No dense consolidation/airspace disease noted in the rest of the lung [place]. Patient needing 2 L oxygen supplementation since admission. Chest x-ray 12/17/2023 concerning for worsening left pleural effusion along with adjacent atelectasis, repeat chest x-ray concern for slight worsening effusions right greater than left. Patient has been aggressively diuresed in the last 48 hours. Oxygen requirements stable since admission at 2 to 3 L. He is not using any oxygen at baseline at home. Interval update: No acute respiratory events overnight. Continued to remain on room air. Improving effusions on chest x-ray from yesterday. Continue diuresis protocol as per primary team Plan: Trelegy 100 inhaler DuoNebs every 6 hours on as-needed basis Thank for involving pulmonary in this patient care. Will follow the patient in pulmonary clinic 4 to 6 weeks post discharge with a full PFT and 6-minute walk testing prior to clinic visit.
--- NOTE | 2023-12-23 11:53 | EXP.DC.SUM ---
General Admission date:: 12/13/23 Discharge date: 12/23/23 HPI HPI HPI: Mr. White is a 63yo M with history of diabetes, hyperlipidemia, neuropathy, CAD, CABG, A-fib and heart failure with reduced ejection fraction. Presented to the ER with complaint of worsening bilateral lower extremity edema, blister on left heel that ruptured today. States the blister began to appear over the past 24 hours on his left heel and open this morning. Had seen his PCP yesterday who instructed him to increase his Lasix. On arrival to the ER he states he has had worsening swelling for some time. He has been following with cardiology and his PCP. They have made adjustments in the outpatient setting but he has not seen improvement. He denies any bleeding, warmth, streaking redness, fever, chills. Has been having weeping of serous fluid from his blisters. Started on Keflex yesterday. Initially presented to the [facility] and was sent to the ER for further evaluation. On workup, noted to have severely elevated BNP and elevated creatinine. Medicine consulted for admission for treatment of CHF exacerbation, edema, blisters on legs. On arrival to the floor, patient is on room air. Hemodynamically stable. 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 Hospital Course Hospital Course Hospital Course: Patient was seen and evaluated at the bedside on the day of discharge. Patient is stable for discharge. Patient wishes to be discharged. All patient questions were answered and patient was given time to ask questions. Patient was discharged in stable condition. Patient understands that she can return to ER in case of any sudden changes in health. Total time spent on DC - 38 mins Stable for discharge Follow up with PCP and Cardiology/pulmonary. Patient was evaluated by cardiology for CHF, and was cleared for discharge. Patient is stable for discharge and wishes to be discharged Exam Data for Last 24 hours Vital signs and Labs for Last 24 Hours: Temp Pulse Resp BP Pulse Ox O2 Del Method O2 Flow Rate 97.8 F 57 L 18 116/54 L 94 L Room Air 1 12/23/23 08:00 12/23/23 08:00 12/23/23 08:00 12/23/23 08:00 12/23/23 08:00 12/23/23 09:50 12/22/23 06:19 FiO2 28 12/18/23 18:57 Laboratory Results - last 24 hr 12/22/23 16:36: POC Glucose 179 H 12/22/23 21:14: POC Glucose 103 12/23/23 05:07: POC Glucose 182 H I & O for Last 24 hours: Intake & Output 12/20/23 12/21/23 12/22/23 12/23/23 23:59 23:59 23:59 23:59 Intake Total 2024.000 / 2144.000 2715 / 2715 1050 / 1290 840 / 840 Output Total 2200 / 2200 5050 / 5050 1025 / 1275 950 / 950 Balance -176.000 / -56.000 -2335 / -2335 25 -110 / -110 Weight 93.395 kg 93.395 kg 88.904 kg 86.183 kg Constitutional Constitutional: no acute distress *Routine HEENT Exam Head: Present normocephalic Eye: Present EOMI and PERRL ENT: Present mucous membranes moist *Routine Neck Exam Neck: Present supple; Absent lymphadenopathy *Routine Respiratory Exam Respiratory: Present CTA bilaterally *Routine Cardiovascular Exam Cardiovascular: Present RRR *Routine Abdominal Exam Abdominal: Present soft and normoactive bowel sounds; Absent tenderness *Routine Extremities Exam Extremities: Present edema; Absent cyanosis or clubbing *Routine Skin Exam Skin: Present warm; Absent rash *Routine Neurological Exam Neurological: Present alert and oriented X3 Results Data Completed and Pending Labs on day of discharge: Labs from last 24 hours 12/23/23 12/22/23 12/22/23 05:07 21:14 16:36 POC Glucose 182 H 103 179 H DS: Diagnosis Discharge Diagnosis (1) COPD mixed type: Status: Acute Code(s): J44.9 - Chronic obstructive pulmonary disease, unspecified (2) Pleural effusion, bilateral: Status: Acute Code(s): J90 - Pleural effusion, not elsewhere classified (3) Acute respiratory failure with hypoxia: Status: Acute Code(s): J96.01 - Acute respiratory failure with hypoxia Meds Home Medications and Allergies Home Medications Medication Instructions Recorded Confirmed Type nitroglycerin 0.4 mg sublingual 0.4 mg sublingual Q5-15M PRN Chest 07/25/18 12/15/23 History tablet Pain aspirin 81 mg tablet,delayed 81 mg PO DAILY 03/22/21 12/15/23 History release glucagon 0.5 mg/0.1 mL 1 mg SQ ONCE PRN Low blood sugar 05/04/21 12/15/23 History subcutaneous auto-injector (Gvoke HypoPen 2-Pack) pen needle, diabetic 32 gauge x #100 ea 01/21/23 12/15/23 Rx 5/32 (BD Ultra-Fine Cheryle Pen Needle) isosorbide mononitrate 60 mg 60 mg PO DAILY #90 tabs 04/14/23 12/15/23 Rx tablet,extended release 24 hr lisinopril 10 mg tablet 10 mg PO DAILY #90 tabs 10/17/23 12/15/23 Rx blood sugar diagnostic (Blood #50 ea 10/28/23 12/15/23 Rx Glucose Test strips) blood-glucose meter #1 ea 10/28/23 12/15/23 Rx budesonide 160 mcg-glycopyr 9 2 inh inhalation BID 10/28/23 12/15/23 History mcg-formot 4.8 mcg/actuation HFA inhaler (Breztri Aerosphere) clopidogrel 75 mg tablet (Plavix) 75 mg PO DAILY #90 tabs 10/28/23 12/15/23 Rx lancing device #1 ea 10/28/23 12/15/23 Rx atorvastatin 40 mg tablet 40 mg PO HS 12/14/23 12/15/23 History hydrocodone 5 mg-acetaminophen 325 1 tab PO TID 12/14/23 12/15/23 History mg tablet insulin aspar prot-insulin aspart 10 - 12 unit SQ BIDP PRN Blood 12/14/23 12/15/23 History 100 unit/mL (70-30) subcutaneous sugar pen (Novolog Mix 70-30FlexPen U-100) metoprolol succinate 100 mg 100 mg PO DAILY 12/14/23 12/15/23 History tablet,extended release 24 hr sennosides 8.6 mg-docusate sodium 1 tab PO HS 12/14/23 12/15/23 History 50 mg tablet (Senna with Docusate Sodium) bumetanide 1 mg tablet 1 mg PO BID #30 tabs 12/23/23 Rx New Prescriptions to Start Prescriptions: bumetanide Lyly Landeros Allergies Allergy/AdvReac Type Severity Reaction Status Date / Time gabapentin [From Neurontin] Allergy Verified 12/13/23 16:01 Penicillins Allergy Verified 12/13/23 16:01 acetaminophen [From Percocet] AdvReac Vomiting Verified 12/13/23 16:01 NSAIDS (Non-Steroidal AdvReac Verified 12/13/23 16:01 Anti-Inflamma oxycodone [From Percocet] AdvReac Vomiting Verified 12/13/23 16:01 Discharge Plan Disposition Patient Disposition: Home Health Service Condition: Fair Discharge Order Discharge Orders: Discharge Order (Routine); Ordered 12/23/23 Ordered By: Lyly Landeros Follow up Plan Follow up with: Kelvin Juan MD [Staff Physician] - 01/05/24 1:45 pm Darren Kline MD [Physician] - 01/05/24 11:00 am Balaji Rosado MD [Primary Care Provider] - 12/30/23 3:30 pm Prescriptions/Medication Reconciliation: New bumetanide 1 mg tablet 1 mg PO BID Qty: 30 0RF Continued nitroglycerin 0.4 mg tablet, sublingual 0.4 mg SUBLINGUAL Q5-15M PRN (Reason: Chest Pain) isosorbide mononitrate 60 mg tablet extended release 24 hr 60 mg PO DAILY Qty: 90 3RF clopidogrel [Plavix] 75 mg tablet 75 mg PO DAILY Qty: 90 3RF Breztri Aerosphere 160-9-4.8 mcg/actuation HFA aerosol inhaler 2 inh inhalation BID Gvoke HypoPen 2-Pack 0.5 mg/0.1 mL auto-injector 1 mg SQ ONCE PRN (Reason: Low blood sugar) (DME) pen needle, diabetic [BD Ultra-Fine Cheryle Pen Needle] 32 gauge x 5/32 needle See Rx Instructions .Route Qty: 100 2RF Rx Instructions: As directed lisinopril 10 mg tablet 10 mg PO DAILY Qty: 90 3RF (DME) Blood Glucose Test Strip See Rx Instructions .Route Qty: 50 10RF Rx Instructions: As directed (DME) blood-glucose meter Kit See Rx Instructions .Route Qty: 1 10RF Rx Instructions: As directed (DME) lancing device Misc See Rx Instructions .Route Qty: 1 10RF Rx Instructions: As directed aspirin 81 MG tablet,delayed release (DR/EC) 81 mg PO DAILY atorvastatin 40 mg tablet 40 mg PO HS hydrocodone-acetaminophen 5-325 mg tablet 1 tab PO TID sennosides-docusate sodium [Senna with Docusate Sodium] 8.6-50 mg Tablet 1 tab PO HS metoprolol succinate 100 mg tablet extended release 24 hr 100 mg PO DAILY insulin asp prt-insulin aspart [Novolog Mix 70-30FlexPen U-100] 100 unit/mL (70-30) Insulin Pen 10 - 12 unit SQ BIDP PRN (Reason: Blood sugar) Discontinued cephalexin 500 mg capsule 500 mg PO Q8H 10 Days Qty: 30 0RF furosemide 20 mg tablet 40 mg PO DAILY Problem Reconciliation Problems Reviewed?: Yes Patient Discharge Instructions ACTIVITY: Ambulate as tolerated DIET: advance to your usual diet Patient Instructions: Cardiac Catheterization, DI for Heart Failure, DI for Cardiac Catheterization, DI for Surgical Site Infection, DI for Acute Kidney Injury Providers Primary Care Provider: Balaji Rosado Admit Provider: Donato Handley Attending Provider: Donato Handley
[2023-12-23 12:00] VITALS: PULSE 60
--- NOTE | 2023-12-23 12:27 | HMH.PHAINT1 ---
Pharmacy Intervention Comments: DISCHARGE MEDICATION COUNSELING PROVIDED. DISCUSSED STOPPING CEFDINIR AND FUROSEMIDE AND STARTING BUMETANIDE (FLUID PILL, TWICE DAILY, INCREASED URINATION, LOW POTASSIUM POSSIBLE) PATIENT VERBALIZED NO QUESTIONS AT THIS TIME.
--- NOTE | 2023-12-26 15:34 | SW/DCPLANNER ---
Follow up phone call was made w/ patient's brother: patient is doing well at home but home health is not able to services this patient due to insurance issues. Patient's brother is working on issue w/ his insurance to attempt to receive home health services.
== END 2023-12-23 13:15 | disposition home health service (06) | DRG 286 ==
LOC: UTC 10:41 → ER 10:42 → 2ND 16:03
PROVIDERS: Internal Medicine; Physician Assistant; Admitting Provider Internal Medicine Adolescent Medicine; Emergency Provider Emergency Medicine; PCP Family Medicine; Visit Provider Internal Medicine Adolescent Medicine
PROC: 4A023N6 Measurement of Cardiac Sampling and Pressure, Right Heart, Percutaneous Approach (ICD-10-PCS; principal; 2023-12-21 14:00)
DX: I11.0 Hypertensive heart disease with heart failure (principal); I50.33 Acute on chronic diastolic (congestive) heart failure; J96.01 Acute respiratory failure with hypoxia; N17.9 Acute kidney failure, unspecified; N18.4 Chronic kidney disease, stage 4 (severe); S90.822A Blister (nonthermal), left foot, initial encounter; J44.9 Chronic obstructive pulmonary disease, unspecified; Z79.4 Long term (current) use of insulin; F17.210 Nicotine dependence, cigarettes, uncomplicated; E11.42 Type 2 diabetes mellitus with diabetic polyneuropathy; I25.10 Atherosclerotic heart disease of native coronary artery without angina pectoris; Z95.5 Presence of coronary angioplasty implant and graft; Z95.1 Presence of aortocoronary bypass graft; I48.91 Unspecified atrial fibrillation; I25.2 Old myocardial infarction; E11.51 Type 2 diabetes mellitus with diabetic peripheral angiopathy without gangrene; E78.2 Mixed hyperlipidemia; E11.22 Type 2 diabetes mellitus with diabetic chronic kidney disease; I12.9 Hypertensive chronic kidney disease with stage 1 through stage 4 chronic kidney disease, or unspecified chronic kidney disease; I25.5 Ischemic cardiomyopathy; F17.200 Nicotine dependence, unspecified, uncomplicated; Z71.6 Tobacco abuse counseling; D50.9 Iron deficiency anemia, unspecified; I27.20 Pulmonary hypertension, unspecified; E11.59 Type 2 diabetes mellitus with other circulatory complications; E88.09 Other disorders of plasma-protein metabolism, not elsewhere classified
CPT/HCPCS: 36415; 71045; 71275; 75635; 76770; 80048; 80053; 82550; 82607; 82728; 82746; 82810; 82962; 83540; 83550; 83605; 83735; 83880; 85014; 85018; 85025; 85610; 85651; 85730; 86140; 86850; 87040; 93306; 93451; 93970; 93976; 94640; 94760; 94761; 97116; 97163; 97166; 97530; 99152; 99285; C1894; J1644; J1756; P9016; P9047; Q9967

== ENCOUNTER 2023-12-30 22:03 | Outpatient (CLI) | payer MEDICARE, MEDICAID, SELFPAY ==
[2023-12-30 19:34] LABS: Blood Urea Nitrogen 59 mg/dl (9-20); Carbon Dioxide 30 mmol/L (22.0-30.0); Chloride 106 mmol/L (98-107); Sodium 140 mmol/L (136-145)
[2023-12-30 19:35] LABS: Calcium 8.8 mg/dl (8.4-10.2); Estimated Glomerular Filt Rate 32 ml/min (>60); GFR (African American) 39 ML/MIN (>60); Glucose 211 mg/dl (74-100)
== END 2023-12-30 23:59 | disposition home or self-care (01) ==
LOC: LAB.DROPOF 22:03
PROVIDERS: PCP Family Medicine; Visit Provider Family Medicine
DX: R60.9 Edema, unspecified (principal)
CPT/HCPCS: 80048

== ENCOUNTER 2024-01-05 13:29 | Outpatient (CLI) | payer MEDICARE, MEDICAID, SELFPAY ==
[2024-01-05 13:56] LABS: Basophils % 0.2 % (0.1-2.0); Eosinophils # 0.1 K/mm3 (0.0-0.4); Eosinophils % 1.6 % (0.1-12.0); Hematocrit 27.1 % (42.0-52.0); Hemoglobin 8.9 g/dL (14.1-18.0); Lymphocytes % 17.4 % (10-50); Mean Corpuscular HGB Conc 32.7 g/dL (31.8-35.4); Mean Corpuscular Hemoglobin 31.2 pg (27.0-31.2); Mean Corpuscular Volume 95.5 fl (80-94); Mean Platelet Volume 9.2 fl (7.4-10.4); Monocytes # 0.3 K/mm3 (0.1-1.0); Monocytes % 6.2 % (1.7-9.3); Neutrophils # 4.1 K/mm3 (1.8-7.8); Neutrophils % 74.7 % (37.0-80.0); Platelet Count 243 K/mm3 (142-424); Red Blood Count 2.84 M/mm3 (4.60-6.20); Red Cell Distribution Width 16.3 % (11.5-17.5); White Blood Count 5.6 K/mm3 (4.8-10.8)
[2024-01-05 14:32] LABS: Anion Gap 9.1 mEq/L (5-15); Blood Urea Nitrogen 54 mg/dl (9-20); Calcium 7.9 mg/dl (8.4-10.2); Carbon Dioxide 28 mmol/L (22.0-30.0); Chloride 104 mmol/L (98-107); Estimated Glomerular Filt Rate 34 ml/min (>60); GFR (African American) 41 ML/MIN (>60); Glucose 233 mg/dl (74-100); Potassium 4.1 mmoL/L (3.5-5.1); Sodium 137 mmol/L (136-145)
== END 2024-01-05 23:59 | disposition home or self-care (01) ==
LOC: LAB 13:30
PROVIDERS: PCP Family Medicine; Visit Provider Physician Assistant
DX: I48.91 Unspecified atrial fibrillation (principal); I50.30 Unspecified diastolic (congestive) heart failure; N17.9 Acute kidney failure, unspecified
CPT/HCPCS: 36415; 80048; 85025

== ENCOUNTER 2024-01-19 08:23 | Emergency (ER) | payer MEDICAID, SELFPAY ==
[2024-01-19] VITALS (7 sets, daily range): BP systolic 136–174; BP diastolic 62–89; PULSE 57–82; RESP 18–20; TEMP 36.6–36.7; O2SAT 94–100; BMI 23.7
--- NOTE | 2024-01-19 08:32 | ECG_ITS ---
APPROVED REPORT Exam: Resting ECG HR:58 bpm ECG Measurements Heart Rate 58 AXES NM 209 P 80 QRSd 113 QRS -72 QT 494 T 113 QTc 490 Conclusion SINUS BRADYCARDIA INCOMPLETE RIGHT BUNDLE BRANCH BLOCK [90+ ms QRS DURATION, TERMINAL R IN V1/V2, 40+ ms S IN I/aVL/V4/V5/V6] LEFT ANTERIOR FASCICULAR BLOCK [QRS AXIS <= -45, QR IN I, RS IN II] SEPTAL MYOCARDIAL INFARCTION , OF INDETERMINATE AGE [40+ ms Q WAVE IN V1/V2] PROBABLE LATERAL MYOCARDIAL INFARCTION , OF INDETERMINATE AGE [35 ms Q WAVE IN I/aVL/V5/V6] ABNORMAL ECG UNCONFIRMED REPORT Electronically signed by : Ezra Huynh MD 01/19/2024 19:58:44
--- NOTE | 2024-01-19 08:32 | XR_ITS ---
FINAL REPORT CLINICAL HISTORY: copd/cough/sob/L decreased movement COMPARISON: 12/19/2023 FINDINGS: PA and lateral views of the chest were obtained. The cardiac silhouette is normal. The patient is status post median sternotomy. There has been interval improvement in the bilateral lower lung opacities. There are persistent but improved bilateral effusions. The lungs are clear. There is no pleural effusion or pneumothorax. No acute osseous abnormality is identified. IMPRESSION: Interval improvement in lower lung opacities and effusions. Reviewed, Interpreted and Dictated by Yesica Bhardwaj MD Transcribed by Cheryle Smith Authenticated and [facility]
--- NOTE | 2024-01-19 08:35 | ED_ITS ---
Discharge Plan Disposition Patient Disposition: Home, Self-Care Prescriptions Prescriptions: New azithromycin [Zithromax Z-Damon] 250 mg tablet 250 mg PO DAILY 4 Days Qty: 4 0RF Rx Instructions: start on day 2 of therapy prednisone 20 mg tablet 20 mg PO DAILY 3 Days Qty: 3 0RF No Action nitroglycerin 0.4 mg tablet, sublingual 0.4 mg SUBLINGUAL Q5-15M PRN (Reason: Chest Pain) isosorbide mononitrate 60 mg tablet extended release 24 hr 60 mg PO DAILY Qty: 90 3RF clopidogrel [Plavix] 75 mg tablet 75 mg PO DAILY Qty: 90 3RF Breztri Aerosphere 160-9-4.8 mcg/actuation HFA aerosol inhaler 2 inh inhalation BID ipratropium-albuterol 0.5 mg-3 mg(2.5 mg base)/3 mL solution for nebulization 3 ml inhalation QID PRN (Reason: shortness of breath or wheezing) 90 Days Qty: 270 2RF albuterol sulfate 90 mcg/actuation HFA aerosol inhaler 2 inh inhalation QID PRN (Reason: shortness of breath or wheezing) 90 Days Qty: 8.5 2RF Breztri Aerosphere 160-9-4.8 mcg/actuation HFA aerosol inhaler 2 inh inhalation BID 90 Days Qty: 10.7 3RF Gvoke HypoPen 2-Pack 0.5 mg/0.1 mL auto-injector 1 mg SQ ONCE PRN (Reason: Low blood sugar) bumetanide 1 mg tablet 1 mg PO BID Qty: 60 5RF metoprolol succinate 100 mg tablet extended release 24 hr 100 mg PO DAILY Qty: 90 3RF atorvastatin 40 mg tablet 40 mg PO HS Qty: 90 3RF (DME) pen needle, diabetic [BD Ultra-Fine Cheryle Pen Needle] 32 gauge x 5/32 needle See Rx Instructions .Route Qty: 100 2RF Rx Instructions: As directed lisinopril 10 mg tablet 10 mg PO DAILY Qty: 90 3RF (DME) Blood Glucose Test Strip See Rx Instructions .Route Qty: 50 10RF Rx Instructions: As directed (DME) blood-glucose meter Kit See Rx Instructions .Route Qty: 1 10RF Rx Instructions: As directed (DME) lancing device Misc See Rx Instructions .Route Qty: 1 10RF Rx Instructions: As directed aspirin 81 MG tablet,delayed release (DR/EC) 81 mg PO DAILY hydrocodone-acetaminophen 5-325 mg tablet 1 tab PO TID sennosides-docusate sodium [Senna with Docusate Sodium] 8.6-50 mg Tablet 1 tab PO HS insulin asp prt-insulin aspart [Novolog Mix 70-30FlexPen U-100] 100 unit/mL (70-30) Insulin Pen 10 - 12 unit SQ BIDP PRN (Reason: Blood sugar) Referrals Follow up/Referrals: Balaji Rosado MD [Primary Care Provider] - See instructions Activity Restrictions/Add. Instructions Additional Instructions/Restrictions: At this time it was felt you are safe to be discharged home. If new or worsening symptoms please do not hesitate to return the emergency department. Please increase your Bumex to 2 mg twice a day for 3 days, and then go back to the weight was prescribed 1 mg twice a day. For shortness of breath and cough please take your albuterol inhaler 4 puffs every 3 hours as needed. Please call and schedule an appointment with Dr. Juan's office in the next week or so. Clinical Impressions Clinical Impression: Acute exacerbation of chronic obstructive pulmonary disease, CHF (congestive heart failure) Discharge ED Provider: Ayo Abdullahi HPI General Chief Complaint: Shortness of Breath/Dyspnea Stated Complaint: cough, SOA Time Seen by Provider: 01/19/24 08:25 History of Present Illness HPI narrative: Patient is a 63-year-old male with past medical history of COPD, CHF, [id number] diabetes who presents emergency department for evaluation of shortness of breath and cough. Patient has chronic shortness of breath at baseline, it is worsened acutely over the last 48 hours has been refractory to his nebulizations at home causing her to present here for continued evaluation. Patient does not have an oxygen requirement at home. Per cardiology chart review patient had heart catheterization 12-21-2023 had normal cardiac output with moderate pulmonary hypertension and persistent elevated left-sided filling pressures. Patient is prescribed Lasix for which she has been compliant. Related Data Home Medications Medication Instructions Recorded Confirmed nitroglycerin 0.4 mg sublingual 0.4 mg sublingual Q5-15M PRN Chest 07/25/18 0 01/05/24 tablet Pain aspirin 81 mg tablet,delayed 81 mg PO DAILY 03/22/21 01/05/24 release glucagon 0.5 mg/0.1 mL 1 mg SQ ONCE PRN Low blood sugar 05/04/21 01/05/24 subcutaneous auto-injector (Gvoke HypoPen 2-Pack) budesonide 160 mcg-glycopyr 9 2 inh inhalation BID 10/28/23 01/05/24 mcg-formot 4.8 mcg/actuation HFA inhaler (Breztri Aerosphere) hydrocodone 5 mg-acetaminophen 325 1 tab PO TID 12/14/23 01/05/24 mg tablet insulin aspar prot-insulin aspart 10 - 12 unit SQ BIDP PRN Blood 12/14/23 01/05/24 100 unit/mL (70-30) subcutaneous sugar pen (Novolog Mix 70-30FlexPen U-100) sennosides 8.6 mg-docusate sodium 1 tab PO HS 12/14/23 01/05/24 50 mg tablet (Senna with Docusate Sodium) Previous Rx's Medication Instructions Recorded pen needle, diabetic 32 gauge x #100 ea 01/21/23 (BD Ultra-Fine Cheryle Pen Needle) isosorbide mononitrate 60 mg 60 mg PO DAILY #90 tabs 04/14/23 tablet,extended release 24 hr lisinopril 10 mg tablet 10 mg PO DAILY #90 tabs 10/17/23 blood sugar diagnostic (Blood #50 ea 10/28/23 Glucose Test strips) blood-glucose meter #1 ea 10/28/23 clopidogrel 75 mg tablet (Plavix) 75 mg PO DAILY #90 tabs 10/28/23 lancing device #1 ea 10/28/23 albuterol sulfate 90 mcg/actuation 2 inh inhalation QID PRN shortness 01/05/24 aerosol inhaler of breath or wheezing 90 days #8.5 grams atorvastatin 40 mg tablet 40 mg PO HS #90 tabs 01/05/24 budesonide 160 mcg-glycopyr 9 2 inh inhalation BID 90 days #10.7 01/05/24 mcg-formot 4.8 mcg/actuation HFA grams inhaler (Breztri Aerosphere) bumetanide 1 mg tablet 1 mg PO BID #60 tabs 01/05/24 ipratropium 0.5 mg-albuterol 3 mg 3 ml inhalation QID PRN shortness 01/05/24 (2.5 mg base)/3 mL nebulization of breath or wheezing 90 days #270 soln mL metoprolol succinate 100 mg 100 mg PO DAILY #90 tabs 01/05/24 tablet,extended release 24 hr azithromycin 250 mg tablet 250 mg PO DAILY 4 days #4 tabs 01/19/24 (Zithromax Z-Damon) prednisone 20 mg tablet 20 mg PO DAILY 3 days #3 tabs 01/19/24 Allergies Allergy/AdvReac Type Severity Reaction Status Date / Time gabapentin [From Neurontin] Allergy Verified 01/05/24 12:51 Penicillins Allergy Verified 01/05/24 12:51 acetaminophen [From Percocet] AdvReac Vomiting Verified 01/05/24 12:51 NSAIDS (Non-Steroidal AdvReac Verified 01/05/24 12:51 Anti-Inflamma oxycodone [From Percocet] AdvReac Vomiting Verified 01/05/24 12:51 PFSH PFSH Disclaimer: The information contained in this section may have been updated after the patient was seen, as this information can be updated by other users. Medical History (Updated 01/19/24 @ 10:25 by RADHA Pete) (HFpEF) heart failure with preserved ejection fraction Acute NC Acute on chronic left systolic heart failure Acute respiratory failure with hypoxia Afib KENNA (acute kidney injury) Amputation toe Anemia Anginal equivalent Atrial fibrillation Blister of foot, left CHF (congestive heart failure) CHF (congestive heart failure) CHF exacerbation Chronic obstructive lung disease Chronic pain COPD exacerbation COPD mixed type Coronary arteriosclerosis Coronary artery disease Diabetes mellitus Diabetic nephropathy DKA (diabetic ketoacidoses) DM2 (diabetes mellitus, type 2) PORTILLO (dyspnea on exertion) Dyspnea Encounter for screening for malignant neoplasm of lung Erosive osteoarthritis of multiple sites FH: CABG (coronary artery bypass surgery) Foot drop, bilateral Dixon gangrene Gastroparesis History of cataract History of myocardial infarction HLD (hyperlipidemia) HTN (hypertension) Leg swelling Peripheral vascular disease Pleural effusion Pleural effusion, bilateral Pulmonary emphysema Recent ST elevation myocardial infarction (STEMI) Renal insufficiency Smoking greater than 30 pack years STEMI (ST elevation myocardial infarction) Systolic heart failure Tobacco dependence syndrome Typical angina Surgical History History of colonoscopy History of coronary artery bypass graft History of heart artery stent History of knee surgery Family History Other Family history of cancer Family history of coronary artery disease Social History Smoking Status: Current every day smoker tobacco type: cigarettes packs per day: 1 second hand exposure: No alcohol intake: never substance use type: denies use current occupational status: disabled Travel in the last 8 weeks: None housing: house current occupational exposures/hazards: No caffeine: Yes ROS Obtained: Yes Systems reviewed as appropriate & no additional complaints except as documented Physical Exam General General appearance: alert and in no apparent distress Head Head exam: atraumatic and normocephalic Eye Eye exam: Present PERRL ENT ENT exam: Present mucous membranes moist Neck Neck exam: Present normal inspection Chest Chest inspection: Present normal inspection and symmetric chest wall rise Respiratory Respiratory exam: Present wheezes, accessory muscle use, prolonged expiratory phase and other (Severely decreased air movement left worse than right.) Cardiovascular Cardiovascular exam: Present regular rate and normal rhythm Abdominal Exam Abdominal exam: Present soft; Absent tenderness Extremities Exam Extremities exam: Present other (Bilateral lower extremity pitting edema. Wound over the left plantar heel) Neurological Exam Neurological exam: Present alert Psychiatric Psychiatric exam: Present normal affect Skin Skin exam: Present warm and dry HEART Score HEART Score HEART Score assessment performed?: Yes History (anamnesis): Slightly suspicious ECG: Non-specific disturbance Age: 45-65 years Risk factors: Atherosclerosis history Troponin: 1-3x normal limit HEART Score: 5 Critical Care Critical Care Time Critical Care Time: No Medical Decision Making [place] Inquiry Pt receiving controlled substance: No Vital Signs Vital Signs: 01/19/24 08:23 01/19/24 08:37 01/19/24 10:01 Temperature 97.8 F Temperature Source Oral Pulse Rate 57 L 78 Pulse Rate [Radial] 60 Respiratory Rate 20 Blood Pressure 174/89 H Blood Pressure [Right Arm] 154/69 H Blood Pressure Mean Blood Pressure Mean [Right Arm] 97 Blood Pressure Source [Right Arm] Automatic Cuff Blood Pressure Position [Right Arm] Sitting 02 Sat by Pulse Oximetry 96 97 100 Oxygen Delivery Method Room Air 01/19/24 10:30 01/19/24 11:00 Temperature Temperature Source Pulse Rate 76 78 Pulse Rate [Radial] Respiratory Rate 20 20 Blood Pressure 136/62 145/72 H Blood Pressure [Right Arm] Blood Pressure Mean 108 96 Blood Pressure Mean [Right Arm] Blood Pressure Source [Right Arm] Blood Pressure Position [Right Arm] 02 Sat by Pulse Oximetry 94 L 94 L Oxygen Delivery Method Lab Data Labs: Lab Results 01/19/24 08:32: VBG pH 7.36, VBG pCO2 53.2 H, VBG pO2 37.3, VBG HCO3 29.3, VBG Total CO2 30.9 H, VBG O2 Saturation 74.2 H, VBG Base Excess 3.8 H 01/19/24 08:47: WBC 4.7 L, RBC 2.89 L, Hgb 8.8 L, Hct 28.5 L, MCV 98.8 H, MCH 30.6, MCHC 30.9 L, RDW 15.7, Plt Count 238, MPV 8.4, Neut % (Auto) 61.8, Lymph % (Auto) 26.4, [place] % (Auto) 7.1, Eos % (Auto) 3.7, Baso % (Auto) 1.1, Neut # (Auto) 2.9, Lymph # (Auto) 1.2, [place] # (Auto) 0.3, Eos # (Auto) 0.2, Baso # (Auto) 0.1, Sodium 139, Potassium 3.9, Chloride 106, Carbon Dioxide 33 H, Anion Gap 3.9 L, BUN 45 H, Creatinine 1.70 H, Estimated Creat Clear 54, Estimated GFR 41 L, Est GFR ( Amer) 49 L, Glucose 214 H, Calcium 8.4, Total Bilirubin 0.4, AST 26, ALT 26, Alkaline Phosphatase 154 H, Troponin I 0.04 H, NT-Pro-B Natriuret Pep 16516 H, Total Protein 6.5, Albumin 3.2 L, Globulin 3.3 H, Album in/Globulin Ratio 1.0 L 01/19/24 08:51: SARS-CoV-2 (PCR) Not detected, Influenza A Untype (PCR) Not detected, Influenza Type B (PCR) Not detected 01/19/24 10:48: Troponin I 0.03 01/19/24 08:47 01/19/24 08:47 Response Orders (Tests/Meds): ED MEDICATIONS Generic Name Dose Route Start Last Admin Trade Name Freq PRN Reason Stop Dose Admin Sodium Chloride 10 ml 01/19/24 09:02 Sodium Chloride 0.9% 10ml Flush Syringe IV 02/18/24 09:01 NEEDED PRN Maintain IV Site Discontinued Medications Generic Name Dose Route Start Last Admin Trade Name Gabriel PRN Reason Stop Dose Admin Albuterol/Ipratropium 9 ml 01/19/24 08:32 01/19/24 08:42 Ipratropium/Albuterol 3 Ml Neb IH 01/19/24 08:33 9 ml ONCE ONE Administration Azithromycin 500 mg/ Sodium 250 mls @ 250 mls/hr 01/19/24 08:34 01/19/24 09:37 Chloride IV 01/19/24 08:35 250 mls/hr ONCE ONE Administration Methylprednisolone Sodium Succinate 125 mg 01/19/24 08:32 01/19/24 08:42 Methylprednisolone Sod Succ 125mg Vial IV 01/19/24 08:33 125 mg ONCE ONE Administration ORDERS Category Date Time Status Cardiology Consult [Consult to Cardiology] [CONS] Cons 01/19/24 09:50 Active Routine CXR 2 view (NOT portable) [XR chest 2V] Stat Exams 01/19/24 08:32 Completed BNP [Brain Natriuretic Peptide] Stat Lab 01/19/24 08:47 Completed CBC w/Auto Diff [Complete Blood Count Auto Diff] Stat Lab 01/19/24 08:47 Completed CMP [Comprehensive Metabolic Panel] Stat Lab 01/19/24 08:47 Completed Rapid PCR Covid and Flu A/B Stat Lab 01/19/24 08:51 Completed Trop I [Troponin I] Stat Lab 01/19/24 08:47 Completed Troponin I Q3H Lab 01/19/24 10:48 Completed Troponin I Q3H Lab 01/19/24 14:45 Ordered VBG [Venous Blood Gas] Stat RT 01/19/24 08:32 Completed ECG initial [place] Routine Y 01/19/24 08:32 Completed ECG Data Tracing #1: ECG Narrative: Independently interpreted by me, rate is 58, rhythm is regular, no ST elevation in anatomical contiguous leads, QTc 490. MDM Narrative Medical Decision Narrative: In summary patient is a 63-year-old male with past medical history described above who presents emergency department for evaluation of shortness of breath. Patient is hemodynamically stable and nontoxic-appearing upon arrival, does have decreased air movement in all lung [place] with some tachypnea. Differential clues COPD exacerbation, heart failure exacerbation, among others. Workup will be conducted with hematologic labs, chest x-ray, EKG, serial troponins. Chest x-ray informally interpreted by me, left-sided pleural effusion, this has been previously evidenced, no acute lobar opacities or large pneumothorax. Initial hematologic labs remarkable for stable anemia, no significant leukocytosis, compensated acid-base status, stable if not improved CKD, no critical electrolyte abnormalities, persistent hyperglycemia. Patient does have elevated troponin 0.04 which may be reflective of his CKD or chronic myocardial injury, less likely acute NSTEMI however could be silent ACS. Given this the case was discussed with cardiology and they will evaluate the patient. Cardiology evaluated the patient and deemed that patient has troponin anemia is likely chronic myocardial injury and recommended diuresis medication adjustment and patient is appropriate for outpatient management at this time. Patient will be discharged with azithromycin and low-dose steroids in an effort to not volume overload him.
[2024-01-19] MEDS: METHYLPREDNISOLONE SOD SUCC 125MG VIAL 125 MG IV (08:42)
[2024-01-19] MEDS: IPRATROPIUM/ALBUTEROL 3 ML NEB 9 ML IH (08:42)
[2024-01-19 08:55] LABS: VBG Base Excess 3.8 mmol/L (-2.4-2.3); VBG HCO3 29.3 mmol/L (23-30); VBG Oxygen Saturation 74.2 % (50-70); VBG PCO2 53.2 mmol/L (35-51); VBG PH 7.36 mmol/L (7.31-7.41); VBG PO2 37.3 mmol/L (28-40); VBG Total CO2 30.9 mmol/L (23-27)
[2024-01-19 08:57] LABS: Coronavirus 19, PCR Not Detected (NotDetected); Influenza A, PCR Not Detected (NotDetected); Influenza B, PCR Not Detected (NotDetected)
[2024-01-19 09:02] LABS: Alanine Aminotransferase 26 U/L (12-78); Albumin Level 3.2 g/dl (3.5-5.0); Alkaline Phosphatase 154 U/L (38-126); Anion Gap 3.9 mEq/L (5-15); Aspartate Amino Transferase 26 U/L (17-59); Bilirubin,Total 0.4 mg/dl (0.2-1.3); Blood Urea Nitrogen 45 mg/dl (9-20); Calcium 8.4 mg/dl (8.4-10.2); Carbon Dioxide 33 mmol/L (22.0-30.0); Chloride 106 mmol/L (98-107); Creatinine Clearance Estimated 54 mL/min (50-200); Estimated Glomerular Filt Rate 41 ml/min (>60); GFR (African American) 49 ML/MIN (>60); Globulin 3.3 g/dL (1.3-3.2); Glucose 214 mg/dl (74-100); Potassium 3.9 mmoL/L (3.5-5.1); Sodium 139 mmol/L (136-145); Total Protein,Serum 6.5 g/dl (6.3-8.2)
[2024-01-19 09:05] LABS: Basophils # 0.1 K/mm3 (0-0.2); Basophils % 1.1 % (0.1-2.0); Eosinophils # 0.2 K/mm3 (0.0-0.4); Eosinophils % 3.7 % (0.1-12.0); Hematocrit 28.5 % (42.0-52.0); Hemoglobin 8.8 g/dL (14.1-18.0); Lymphocytes # 1.2 K/mm3 (0.7-4.5); Lymphocytes % 26.4 % (10-50); Mean Corpuscular HGB Conc 30.9 g/dL (31.8-35.4); Mean Corpuscular Hemoglobin 30.6 pg (27.0-31.2); Mean Corpuscular Volume 98.8 fl (80-94); Mean Platelet Volume 8.4 fl (7.4-10.4); Monocytes # 0.3 K/mm3 (0.1-1.0); Monocytes % 7.1 % (1.7-9.3); Neutrophils # 2.9 K/mm3 (1.8-7.8); Neutrophils % 61.8 % (37.0-80.0); Platelet Count 238 K/mm3 (142-424); Red Blood Count 2.89 M/mm3 (4.60-6.20); Red Cell Distribution Width 15.7 % (11.5-17.5); White Blood Count 4.7 K/mm3 (4.8-10.8)
--- NOTE | 2024-01-19 09:08 | PC.NURSE ---
Patient's left heel dressed and wrapped.
[2024-01-19 09:20] LABS: Troponin I 0.04 ng/ml (0.00-0.034)
[2024-01-19] MEDS: AZITHROMYCIN 500 MG in 0.9 % SODIUM CHLORIDE 250 ML 250 MG IV (09:37)
--- NOTE | 2024-01-19 10:04 | PC.NURSE ---
SHAYY ARREDONDO PA-C [facility]
[2024-01-19 10:05] LABS: NT Pro Brain Natriuretic Pep. 35100 pg/mL (0-125)
--- NOTE | 2024-01-19 10:14 | P.CONCA_ITS ---
History of Present Illness History of Present Illness Consult date: 01/19/24 Requesting physician: Ayo Abdullahi Consult reason: known to you Chief complaint: SOA, cough Additional Medical History:: Acute on chronic HFpEF, Cor Pulmonale/Bilateral pleural effusions 12/15/23: Repeat ECHO shows normal EF at 50%, severe RV dilation. MV-CAD s/p CABGx4 2016 and numerous stents 2020- - Cont DAPT, BB, Statin PAD with BLE wounds - cont DAPT, Statin COPD with ongoing tobacco use - recommend tob cessation DM-II, stable. Severe iron deficiency anemia- -s/p transfusion with Hgb stable at 8.3, November 2023 Acute on chronic CKD, now stage 3 -baseline Cr 2.1 with GFR 32, has appt with Nephro 12/20: Renal artery duplex showed medical renal disease. No evidence of FRANCIS. 12/20-Renal ultrasound essentially negative. History of present illness: 63 yo WM sent to ER from Respiratory Department (scheduled for PFT's today) due to SOA and cough/wheezing and O2 Sat around 89% on RA with history of recent increase in inhaler use. Workup in the ER noted with troponin only mildly elevated at 0.04. Symptoms have improved with breathing treatment. Patient did have some congestion that improved with cough during my exam. Clinically looks stable and actually better than recent hospitalization appearance. Lower extremity edema is stable and patient continues on Bumex 1 mg twice daily at home. Oxygen saturation on room air in the ER is 96-97%. Patient is adamant that he does not want to be admitted. [facility] Disclaimer: The information contained in this section may have been updated after the patient was seen, as this information can be updated by other users. Medical History (Updated 01/19/24 @ 10:25 by RADHA Pete) (HFpEF) heart failure with preserved ejection fraction Acute MA Acute on chronic left systolic heart failure Acute respiratory failure with hypoxia Afib KENNA (acute kidney injury) Amputation toe Anemia Anginal equivalent Atrial fibrillation Blister of foot, left CHF (congestive heart failure) CHF (congestive heart failure) CHF exacerbation Chronic obstructive lung disease Chronic pain COPD exacerbation COPD mixed type Coronary arteriosclerosis Coronary artery disease Diabetes mellitus Diabetic nephropathy DKA (diabetic ketoacidoses) DM2 (diabetes mellitus, type 2) PORTILLO (dyspnea on exertion) Dyspnea Encounter for screening for malignant neoplasm of lung Erosive osteoarthritis of multiple sites FH: CABG (coronary artery bypass surgery) Foot drop, bilateral Dixon gangrene Gastroparesis History of cataract History of myocardial infarction HLD (hyperlipidemia) HTN (hypertension) Leg swelling Peripheral vascular disease Pleural effusion Pleural effusion, bilateral Pulmonary emphysema Recent ST elevation myocardial infarction (STEMI) Renal insufficiency Smoking greater than 30 pack years STEMI (ST elevation myocardial infarction) Systolic heart failure Tobacco dependence syndrome Typical angina Surgical History History of colonoscopy History of coronary artery bypass graft History of heart artery stent History of knee surgery Family History Other Family history of cancer Family history of coronary artery disease Social History Smoking Status: Current every day smoker tobacco type: cigarettes packs per day: 1 second hand exposure: No alcohol intake: never substance use type: denies use current occupational status: disabled Travel in the last 8 weeks: None housing: house current occupational exposures/hazards: No caffeine: Yes Review of Systems Review of Systems Review of systems:: pertinent systems reviewed and negative unless documented below *Cardiovascular Cardiovascular: Denies chest pain and Reports dyspnea *Respiratory Respiratory: Reports chest congestion, Reports cough and Reports dyspnea Exam Data for Last 24 hours Vital signs and Labs for Last 24 Hours: Temp Pulse Resp BP Pulse Ox O2 Del Method 97.8 F 78 20 174/89 H 100 Room Air 01/19/24 08:23 01/19/24 10:01 01/19/24 08:23 01/19/24 10:01 01/19/24 10:01 01/19/24 08:23 Laboratory Results - last 24 hr 01/19/24 08:32: VBG pH 7.36, VBG pCO2 53.2 H, VBG pO2 37.3, VBG HCO3 29.3, VBG T otal CO2 30.9 H, VBG O2 Saturation 74.2 H, VBG Base Excess 3.8 H 01/19/24 08:47: WBC 4.7 L, RBC 2.89 L, Hgb 8.8 L, Hct 28.5 L, MCV 98.8 H, MCH 30.6, MCHC 30.9 L, RDW 15.7, Plt Count 238, MPV 8.4, Neut % (Auto) 61.8, Lymph % (Auto) 26.4, Cassia % (Auto) 7.1, Eos % (Auto) 3.7, Baso % (Auto) 1.1, Neut # (Auto) 2.9, Lymph # (Auto) 1.2, Cassia # (Auto) 0.3, Eos # (Auto) 0.2, Baso # (Auto) 0.1, Sodium 139, Potassium 3.9, Chloride 106, Carbon Dioxide 33 H, Anion Gap 3.9 L, BUN 45 H, Creatinine 1.70 H, Estimated Creat Clear 54, Estimated GFR 41 L, Est GFR ( Amer) 49 L, Glucose 214 H, Calcium 8.4, Total Bilirubin 0.4, AST 26, ALT 26, Alkaline Phosphatase 154 H, Troponin I 0.04 H, NT-Pro-B Natriuret Pep 85421 H, Total Protein 6.5, Albumin 3.2 L, Globulin 3.3 H, Albumin/Globulin Ratio 1.0 L 01/19/24 08:51: SARS-CoV-2 (PCR) Not detected, Influenza A Untype (PCR) Not detected, Influenza Type B (PCR) Not detected I & O for Last 24 hours: Intake & Output 01/16/24 01/17/24 01/18/24 01/19/24 11:59 11:59 11:59 11:59 Weight 190 lb Constitutional Constitutional: no acute distress *Routine Respiratory Exam Respiratory: Present rhonchi and diminished air movement; Absent wheezes *Routine Cardiovascular Exam Cardiovascular: Present RRR and murmur; Absent gallop or rubs *Routine Extremities Exam Extremities: Present edema *Routine Neurological Exam Neurological: Present alert, oriented X3 and CN II-XII intact Meds Home Medications and Allergies Home Medications Medication Instructions Recorded Confirmed Type nitroglycerin 0.4 mg sublingual 0.4 mg sublingual Q5-15M PRN Chest 07/25/18 01/05/24 History tablet Pain aspirin 81 mg tablet,delayed 81 mg PO DAILY 03/22/21 01/05/24 History release glucagon 0.5 mg/0.1 mL 1 mg SQ ONCE PRN Low blood sugar 05/04/21 01/05/24 History subcutaneous auto-injector (Gvoke HypoPen 2-Pack) pen needle, diabetic 32 gauge x #100 ea 01/21/23 01/05/24 Rx 5/32 (BD Ultra-Fine Cheryle Pen Needle) isosorbide mononitrate 60 mg 60 mg PO DAILY #90 tabs 04/14/23 01/05/24 Rx tablet,extended release 24 hr lisinopril 10 mg tablet 10 mg PO DAILY #90 tabs 10/17/23 01/05/24 Rx blood sugar diagnostic (Blood #50 ea 10/28/23 01/05/24 Rx Glucose Test strips) blood-glucose meter #1 ea 10/28/23 01/05/24 Rx budesonide 160 mcg-glycopyr 9 2 inh inhalation BID 10/28/23 01/05/24 History mcg-formot 4.8 mcg/actuation HFA inhaler (Breztri Aerosphere) clopidogrel 75 mg tablet (Plavix) 75 mg PO DAILY #90 tabs 10/28/23 01/05/24 Rx lancing device #1 ea 10/28/23 01/05/24 Rx hydrocodone 5 mg-acetaminophen 325 1 tab PO TID 12/14/23 01/05/24 History mg tablet insulin aspar prot-insulin aspart 10 - 12 unit SQ BIDP PRN Blood 12/14/23 01/05/24 History 100 unit/mL (70-30) subcutaneous sugar pen (Novolog Mix 70-30FlexPen U-100) sennosides 8.6 mg-docusate sodium 1 tab PO HS 12/14/23 01/05/24 History 50 mg tablet (Senna with Docusate Sodium) albuterol sulfate 90 mcg/actuation 2 inh inhalation QID PRN shortness 01/05/24 0 01/05/24 Rx aerosol inhaler of breath or wheezing 90 days #8.5 grams atorvastatin 40 mg tablet 40 mg PO HS #90 tabs 01/05/24 01/05/24 Rx budesonide 160 mcg-glycopyr 9 2 inh inhalation BID 90 days #10.7 01/05/24 01/05/24 Rx mcg-formot 4.8 mcg/actuation HFA grams inhaler (Breztri Aerosphere) bumetanide 1 mg tablet 1 mg PO BID #60 tabs 01/05/24 01/05/24 Rx ipratropium 0.5 mg-albuterol 3 mg 3 ml inhalation QID PRN shortness 01/05/24 01/05/24 Rx (2.5 mg base)/3 mL nebulization of breath or wheezing 90 days #270 soln mL metoprolol succinate 100 mg 100 mg PO DAILY #90 tabs 01/05/24 01/05/24 Rx tablet,extended release 24 hr New Prescriptions to Start Prescriptions: Allergies Allergy/AdvReac Type Severity Reaction Status Date / Time gabapentin [From Neurontin] Allergy Verified 01/05/24 12:51 Penicillins Allergy Verified 01/05/24 12:51 acetaminophen [From Percocet] AdvReac Vomiting Verified 01/05/24 12:51 NSAIDS (Non-Steroidal AdvReac Verified 01/05/24 12:51 Anti-Inflamma oxycodone [From Percocet] AdvReac Vomiting Verified 01/05/24 12:51 Assessment and Plan *Assessment and plan (1) Shortness of breath: Status: Acute Category: Medical Code(s): R06.02 - Shortness of breath (2) Pulmonary hypertension: Status: Acute Category: Medical Code(s): I27.20 - Pulmonary hypertension, unspecified (3) (HFpEF) heart failure with preserved ejection fraction: Status: Acute Qualifiers: Heart failure chronicity: acute on chronic Qualified Code(s): I50.33 - Acute on chronic diastolic (congestive) heart failure Category: Medical Code(s): I50.30 - Unspecified diastolic (congestive) heart failure (4) Pulmonary emphysema: Status: Acute Qualifiers: Emphysema type: centrilobular Qualified Code(s): J43.2 - Centrilobular emphysema Category: Medical Code(s): J43.9 - Emphysema, unspecified (5) Chronic obstructive lung disease: Status: Acute Qualifiers: COPD type: unspecified COPD Qualified Code(s): J44.9 - Chronic obstructive pulmonary disease, unspecified Category: Medical Code(s): J44.9 - Chronic obstructive pulmonary disease, unspecified (6) CKD (chronic kidney disease) stage 3, GFR 30-59 ml/min: Status: Acute Qualifiers: Chronic kidney disease stage 3 subtype: stage 3b (GFR 30-44) Qualified Code(s): N18.32 - Chronic kidney disease, stage 3b Category: Medical Code(s): N18.30 - Chronic kidney disease, stage 3 unspecified (7) Anemia: Status: Acute Qualifiers: Anemia type: iron deficiency Iron deficiency anemia type: unspecified iron deficiency Qualified Code(s): D50.9 - Iron deficiency anemia, unspecified Category: Medical Code(s): D64.9 - Anemia, unspecified (8) Bilateral lower extremity edema: Status: Acute Category: Medical Code(s): R60.0 - Localized edema Plan 1. Acute on chronic shortness of breath with mild hypoxemia -Improved on breathing treatment therapy 2. Pulmonary hypertension/pulmonary emphysema/cor pulmonale/HFpEF/chronic lower extremity edema -Increase Bumex to 2 mg twice daily for 3 days and then return to 1 mg twice daily -BNP 35,000 (improved compared to recent hospitalization BNP of 60,000) 3. CKD, stage III, creatinine 1.7 and GFR 41 -Slightly better than recent hospitalization -Chronic anemia, stable at 8.8 4. CAD with history of bypass in 2017 -Right heart cath in 11/2023 with evidence of moderate pulmonary hypertension, pulmonary artery occlusion pressure 17 mmHg with cardiac index 3.8 -Left heart catheterization 05/15/2021 revealing proximal LAD disease with subsequent AUGUST placement. Patent COLON to diagonal, SVG to RCA and SVG to circumflex. EF 45%, LVEDP 10 mmHg. If second troponin is stable or improved then patient could be discharged home. Bumex instructions as noted above. Follow-up in our office in 2 weeks
--- NOTE | 2024-01-19 10:19 | PC.NURSE ---
ROUNDED ON PT, NO NEEDS AT THIS TIME. CALL LIGHT WITHIN REACH
[2024-01-19 11:15] LABS: Troponin I 0.03 ng/ml (0.00-0.034)
--- NOTE | 2024-01-19 11:20 | PC.NURSE ---
DR ESPINOZA AT BEDSIDE TO UPDATE PT AND FAMILY
== END 2024-01-19 11:32 | disposition home or self-care (01) ==
PROVIDERS: Emergency Provider Emergency Medicine; PCP Family Medicine
DX: J44.1 Chronic obstructive pulmonary disease with (acute) exacerbation; R06.02 Shortness of breath; R05.9 Cough, unspecified; I11.0 Hypertensive heart disease with heart failure; I50.40 Unspecified combined systolic (congestive) and diastolic (congestive) heart failure; I48.91 Unspecified atrial fibrillation; I25.119 Atherosclerotic heart disease of native coronary artery with unspecified angina pectoris; E11.21 Type 2 diabetes mellitus with diabetic nephropathy; E11.43 Type 2 diabetes mellitus with diabetic autonomic (poly)neuropathy; K31.84 Gastroparesis; E11.51 Type 2 diabetes mellitus with diabetic peripheral angiopathy without gangrene; E78.5 Hyperlipidemia, unspecified; I25.2 Old myocardial infarction; F17.210 Nicotine dependence, cigarettes, uncomplicated
CPT/HCPCS: 71046; 80053; 82803; 83880; 84484; 85025; 87636; 93005; 96374; 96375; 99285; J0456

== ENCOUNTER 2024-04-04 15:06 | Outpatient (CLI) | payer BC, SELFPAY ==
--- NOTE | 2024-04-04 15:06 | CT_ITS ---
FINAL REPORT TECHNIQUE: Thin section axial images were obtained from the lung apices to the upper abdomen by computed tomography. Reformatted images were obtained and reviewed. This study was performed with techniques to keep radiation doses al low as reasonably achievable (ALARA). Individualized dose reduction techniques using automated exposure control or adjustment of mA and/or kV according to the patient's size were employed. 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 CTDI vol (mGy): 3.01 DLP (mGy-cm): 108.24 The patient has undergone a prior midline sternotomy. There is no axillary adenopathy. There are multiple small mediastinal lymph nodes present. The heart is normal in size. There are small bilateral effusions present, greater on the left than on the right. There is mild pulmonary scarring. Lung window images demonstrate a 3 mm nodule in the posterior left upper lobe near the fissure, best seen on image #23, stable when compared with prior CT of November.. Limited images of the upper abdomen are unremarkable. IMPRESSION: Lung-RADS category 2. Recommend 12 month follow up low dose chest CT. Reviewed, Interpreted and Dictated by Darren Tellez III, MD Transcribed by Michelle Alfaro Authenticated and [facility]
[2024-04-04 15:50] LABS: Basophils % 0.7 % (0.1-2.0); Eosinophils # 0.2 K/mm3 (0.0-0.4); Eosinophils % 3.6 % (0.1-12.0); Hematocrit 31.8 % (42.0-52.0); Lymphocytes # 1.4 K/mm3 (0.7-4.5); Lymphocytes % 23.2 % (10-50); Mean Corpuscular HGB Conc 31.6 g/dL (31.8-35.4); Mean Corpuscular Hemoglobin 29.8 pg (27.0-31.2); Mean Corpuscular Volume 94.4 fl (80-94); Mean Platelet Volume 8.9 fl (7.4-10.4); Monocytes # 0.3 K/mm3 (0.1-1.0); Monocytes % 5.5 % (1.7-9.3); Platelet Count 193 K/mm3 (142-424); Red Blood Count 3.37 M/mm3 (4.60-6.20); Red Cell Distribution Width 15.4 % (11.5-17.5)
[2024-04-04 16:25] LABS: Alanine Aminotransferase 21 U/L (12-78); Alkaline Phosphatase 109 U/L (38-126); Aspartate Amino Transferase 22 U/L (17-59); Bilirubin,Indirect 0.3 mg/dL (0.0-0.9); Bilirubin,Total 0.3 mg/dl (0.2-1.3); Bilirubin,Unconjugated 0.3 mg/dL (0.0-1.1); Blood Urea Nitrogen 44 mg/dl (9-20); Calcium 8.9 mg/dl (8.4-10.2); Carbon Dioxide 25 mmol/L (22.0-30.0); Chloride 110 mmol/L (98-107); Cholesterol 106 mg/dl (140-200); Estimated Glomerular Filt Rate 38 ml/min (>60); GFR (African American) 46 ML/MIN (>60); Glucose 170 mg/dl (74-100); HDL Cholesterol 52 mg/dl (40-60); Magnesium 2.1 mg/dl (1.6-2.3); Sodium 139 mmol/L (136-145); Total Protein,Serum 5.7 g/dl (6.3-8.2); Triglycerides 67 mg/dl (30-150); VLDL Cholesterol 13 mg/dL (0-40)
[2024-04-04 16:35] LABS: Direct LDL Cholesterol 51.04 mg/dL (100-129)
[2024-04-04 16:41] LABS: Free T4 (Free Thyroxine) 1.14 ng/dl (0.78-2.19)
[2024-04-04 16:56] LABS: Thyroid Stimulating Hormone 1.97 uIU/mL (0.465-4.68)
== END 2024-04-04 23:59 | disposition home or self-care (01) ==
LOC: RAD 15:06
PROVIDERS: Nurse Practitioner; PCP Family Medicine; Visit Provider Internal Medicine Pulmonary Disease
DX: Z12.2 Encounter for screening for malignant neoplasm of respiratory organs (principal); F17.210 Nicotine dependence, cigarettes, uncomplicated; I27.20 Pulmonary hypertension, unspecified; R60.0 Localized edema; I50.9 Heart failure, unspecified; I50.33 Acute on chronic diastolic (congestive) heart failure; R06.02 Shortness of breath; N17.9 Acute kidney failure, unspecified; I48.21 Permanent atrial fibrillation
CPT/HCPCS: 36415; 71271; 80048; 80061; 80076; 83735; 84439; 84443; 85025

== ENCOUNTER 2024-04-24 06:56 | Outpatient (CLI) | payer MEDICARE, BC, SELFPAY ==
--- NOTE | 2024-04-24 | CA_ITS ---
APPROVED REPORT Exam: Pharmacologic Technologist: Darcy Ocampo, Ht: 6 ft 3 in Wt: 160 lbs BSA: 2.00 m2 HR: 60 bpm BP: 172/74 mmHg Rhythm: NSR Medical History Medications: Lisinopril,,,,, Aspirin,,,,, Atorvastatin,,,,, Albuterol,,,,, Plavix,,,,, NovOLOG,,,,, Nitroglycerin,,,,, ViCODIN,,,,, Toprol XL,,,,, BuMETANIDE,,,,, GlUCagon,,,,, Isosorbide Mononitrate ER,,,,, Stress Test Details Test: LEXISCAN Reason for pharmacologic stress test: physical limitation. HR Resting HR: 59 bpm Max Heart Rate (APMHR): 155 bpm Max HR Achieved: 66 bpm Target HR (85% APMHR): 132 bpm % of APMHR: 43 Recovery HR: 66 bpm BP Resting BP: 172.0/74.0 mmHg Max BP: 172.0/74.0 mmHg Recovery BP: 162.0/74.0 mmHg ECG Resting ECG: SR, Nonspecific T wave changes Stress ECG: No significant ST changes Arrhythmia: None Clinical Exercise duration: 04:00 min Highest Stage Achieved: Exercise capacity: 1.0 METs Stress ECG Conclusion Symptoms: chest tightness, dyspnea arrhythmias/Ectopy: None ST-T Changes: No significant ST changes Conclusion: Unremarkable Lexiscan stress test. Myoview images reported separately. Test Summary REST . . . . . . . Resting REST 02:25 . . 59 . 172/ 74 . . Stage 1 . . . . . . . Myoview Injected Stage 1 01:00 . . 60 . . . . Stage 2 01:00 . . 66 . 154/ 58 . . Stage 3 01:00 . . 66 . 147/ 62 . . Stage 4 01:00 . . 66 . 146/ 62 . Stop exercise at 04:00 RECOVERY 01:00 . . 66 . . . . RECOVERY 02:00 . . 66 . 152/ 68 . . RECOVERY 02:19 . . 65 . 162/ 74 . . Electronically signed by : Noemy iWlson MD 04/25/2024 17:12:17
--- NOTE | 2024-04-24 07:00 | NM_ITS ---
APPROVED REPORT Exam: Nuclear Stress Test Indication: Chest pain, SOB, HTN, DM, High cholesterol, Tobacco use, Family history, CHF Patient Location: Outpatient Stress Tech: Darcy Bae MD Tech:Kristen Mathis, ARRT, RT (R)(N) Ht: 6 ft 3 in Wt: 160 lbs HR: 59 bpm BP: 172/74 mmHg BSA: 2.00 m2 TID: 1.16 BMI: 19.9 History: Chest pain, SOB, HTN, DM, High cholesterol, Tobacco use, Family history, CHF Procedure: Patient received 0.4 mg of intravenous Lexiscan, resting heart rate 59 bpm, resting blood pressure 172/74 mmHg, with Lexiscan maximum heart rate achieved was 66 bpm which is % of the maximum predicted heart rate and blood pressure was 172/74 mmHg. With Lexiscan, patient denied any complaint of chest pain. Cardiac Stress and Resting SPECT Images: Cardiac Stress and Resting SPECT images were obtained using technetium 99m Myoview 31.4 mCi stress and 10.16 mCi at rest. Patient was unable to lay on his abdomen. Therefore, prone stress imaging could not be performed. This may affect the diagnostic interpretation of the study findings. Resting and stress imaging in supine positions demonstrate a medium sized, severe, fixed perfusion defect in the mid to distal anterior LV wall involving the LV apex. There is also medium sized, moderate, predominantly fixed perfusion defect in the basal to mid inferior and inferolateral LV lopez. There is a small region of surrounding reversibility towards the lateral wall. Gated imaging demonstrates moderate reduction in global LV systolic function. There is akinesis of the mid to distal anterior LV wall, as well as severe hypokinesis of the basal inferolateral LV wall. LVEF is calculated at 31%. Conclusion: Medium sized, severe, fixed perfusion defect in the mid to distal anterior LV wall involving the LV apex. There is also medium sized, moderate, predominantly fixed perfusion defect in the basal to mid inferior and inferolateral LV lopez. There is a small region of surrounding reversibility towards the lateral wall. Gated imaging demonstrates moderate reduction in global LV systolic function. There is akinesis of the mid to distal anterior LV wall, as well as severe hypokinesis of the basal inferolateral LV wall. LVEF is calculated at 31%. Electronically signed by : Noemy Wilson MD 04/25/2024 17:20:55
[2024-04-24] MEDS: REGADENOSON 0.4MG/5ML SYRINGE 0.4 MG IV (08:52)
[2024-04-24] MEDS: SODIUM CHLORIDE 0.9% 10ML SYR (RAD ONLY) 10 ML IV ×2 (08:52→08:53)
[2024-04-24] MEDS: ISOTOPE MYOVIEW (PER STUDY) 1 DOSE IV (08:53)
== END 2024-04-24 23:59 | disposition home or self-care (01) ==
LOC: RAD 06:57
PROVIDERS: PCP Family Medicine; Visit Provider Nurse Practitioner
DX: I27.20 Pulmonary hypertension, unspecified (principal); R60.0 Localized edema; I50.33 Acute on chronic diastolic (congestive) heart failure; N18.32 Chronic kidney disease, stage 3b; R06.02 Shortness of breath; N17.9 Acute kidney failure, unspecified; I48.21 Permanent atrial fibrillation; F17.210 Nicotine dependence, cigarettes, uncomplicated
CPT/HCPCS: 78452; 93017; 93018; A9502; J2785

== ENCOUNTER 2024-05-18 12:38 | Outpatient (CLI) | payer MEDICARE, BC, SELFPAY ==
--- NOTE | 2024-05-18 12:38 | CA_ITS ---
APPROVED REPORT EXAM: Limited 2D Echocardiogram Software Applications Engineer: Ila Duval, RCS, RVS Ht: 6 ft 3 in Wt: 189lbs BSA: 2.14 BP: 140/58 mmHg Indications: Stress test 04/2024 LVEF=30%, Heart Failure, LVH, CAD, PHTN, Smoker 2D Dimensions IVSd 1.47 cm M: 0.6-1.2 LVEF (Visual) 37.30 % PWd 1.19 cm M: 0.6 - 1.2 GL Strain -11.1 % LVDd 4.73 cm M: 4.2 - 5.9 LVDs 3.88 cm M: 2.5 - 4.0 M-Mode Dimensions RVDd 2.82 cm (0.9-2.6) LVDd 5.13 cm (3.5-5.7) LVDs 3.75 cm (3.5-5.7) IVSd 1.49 cm (0.6-1.1) PWd 1.47 cm (0.6-1.1) EF (Teich) 52.20% FS 26.90% EDV (Teich) 125.50 mL ESV (Teich) 60.00 mL Other Information Study Quality: Fair Conclusion This is a limited study to evaluate for LVEF. Limited windows were obtained. The left ventricle is normal in size. There is marked concentric increase in LV wall thickness (IVSd 1.3 cm). The septum appears asynchronous. No other regional wall motion abnormalities are noted. LVEF is 40%. In the setting of new LVEF reduction compared to prior TTE, further evaluation for ischemia, as well as infiltrative disease, is suggested. Further assessment with cardiac MRI (amyloidosis protocol) + PYP nuclear scan + amyloidosis lab testing is recommended. Electronically signed by : Noemy Wilson MD 05/20/2024 17:25:56
== END 2024-05-18 23:59 | disposition home or self-care (01) ==
LOC: RT 12:38
PROVIDERS: PCP Family Medicine; Visit Provider Nurse Practitioner
DX: I25.10 Atherosclerotic heart disease of native coronary artery without angina pectoris (principal); I50.33 Acute on chronic diastolic (congestive) heart failure; R93.1 Abnormal findings on diagnostic imaging of heart and coronary circulation; F17.210 Nicotine dependence, cigarettes, uncomplicated
CPT/HCPCS: 93308

== ENCOUNTER 2024-06-27 08:53 | Day surgery (SDC) | payer MEDICARE, SELFPAY ==
[2024-06-27] VITALS (16 sets, daily range): BP systolic 93–193; BP diastolic 49–99; PULSE 49–68; RESP 17–18; TEMP 36.9; O2SAT 95–100
--- NOTE | 2024-06-27 07:19 | IR_ITS ---
APPROVED REPORT Patient Location: Outpatient Aircraft Mechanic Electrical And Radio: MAYNOR Michel RT (R) PROCEDURES Left heart catheterization Left ventriculogram Selective coronary angiogram Selective engagement of the left internal mammary artery to the diagonal artery Selective engagement of the saphenous vein graft to the right coronary Selective engagement of the saphenous vein graft to the circumflex artery Bilateral selective renal angiography INDICATION Coronary artery disease, History of coronary bypass surgery, Abnormal Myoview, Systolic congestive heart failure, Worsening angina pectoris, Chronic renal failure creatinine 2.5, Suspect renal artery stenosis with renovascular hypertension, Informed consent was obtained prior to the procedure. COMPLICATIONS NONE Estimated Blood Loss: LESS THAN 10 ML TECHNIQUE One percent lidocaine used to anesthetize the right groin. The right femoral artery was accessed via the Seldinger technique and a 5 Romanian sheath was placed in the right femoral artery. A JL 4, JR4 and JL 5 catheter were used to perform left heart catheterization, left ventriculogram selective coronary angiography as well as selective engagement of the 2 vein grafts and the left internal mammary artery. The JR4 catheter was used to perform bilateral selective renal angiography at the end of the procedure the patient was transferred to the postop holding area in stable condition for sheath removal. ANGIOGRAPHIC RESULTS The left main artery Has a stent in the ostial segment which extends into the LAD which is widely patent free of in-stent restenosis with excellent distal transitioning. The left anterior descending artery Has a stent in its proximal through mid segment which is widely patent with minimal in-stent restenosis The circumflex artery Proximately occluded The right coronary artery Dominant severe proximal and mid vessel 80 to 90% stenosis with evidence of competitive flow distally The SMITH ventriculogram reveals Dilated ventricle ejection fraction 30% The left ventricular end-diastolic pressure 25 mmHg COLON to diagonal 1 is patent Saphenous to circumflex artery patent Saphenous to right coronary artery has mid vessel 30 to 40% atheromatous debris Right renal artery singular normal Left renal artery singular normal IMPRESSION Coronary disease as described above Patent COLON to diagonal 1 Patent stents in the left main artery extending throughout the LAD Patent saphenous to circumflex artery Patent saphenous right coronary artery Severely dilated left ventricle with severely reduced ejection fraction Normal renal arteries PLAN 1. Chemistry panel should be checked tomorrow due to chronic renal failure and use of contrast today 2. GDMT for systolic heart failure 3. Patient should be a candidate for AICD 4. Medical management for coronary disease Electronically signed by : Kelvin Juan MD 06/27/2024 14:55:02
[2024-06-27 09:24] LABS: Basophils # 0.1 K/mm3 (0-0.2); Basophils % 0.9 % (0.1-2.0); Eosinophils # 0.2 K/mm3 (0.0-0.4); Eosinophils % 3.6 % (0.1-12.0); Hematocrit 29.5 % (42.0-52.0); Hemoglobin 9.7 g/dL (14.1-18.0); Lymphocytes # 1.8 K/mm3 (0.7-4.5); Lymphocytes % 31.1 % (10-50); Mean Corpuscular Volume 96.9 fl (80-94); Mean Platelet Volume 8.6 fl (7.4-10.4); Monocytes # 0.3 K/mm3 (0.1-1.0); Monocytes % 5.3 % (1.7-9.3); Neutrophils # 3.5 K/mm3 (1.8-7.8); Neutrophils % 59.1 % (37.0-80.0); Platelet Count 226 K/mm3 (142-424); Red Blood Count 3.04 M/mm3 (4.60-6.20); Red Cell Distribution Width 15.1 % (11.5-17.5); White Blood Count 5.9 K/mm3 (4.8-10.8)
[2024-06-27 09:32] LABS: Blood Urea Nitrogen 56 mg/dl (9-20); Calcium 8.1 mg/dl (8.4-10.2); Carbon Dioxide 25 mmol/L (22.0-30.0); Chloride 110 mmol/L (98-107); Creatinine Clearance Estimated 30 mL/min (50-200); Estimated Glomerular Filt Rate 26 ml/min (>60); GFR (African American) 32 ML/MIN (>60); Glucose 175 mg/dl (74-100); Sodium 139 mmol/L (136-145)
[2024-06-27] MEDS: HEPARIN 1,000 UNITS/500ML NS (CATH LAB) 3000 UNIT IV (13:03)
[2024-06-27] MEDS: LIDOCAINE 1% 10ML MDV 20 ML IJ (13:03)
[2024-06-27] MEDS: diphenhydrAMINE 50MG/ML VIAL 50 MG IV (13:03)
[2024-06-27] MEDS: 0.9 % SODIUM CHLORIDE 500 ML 25 ML IV (13:04)
[2024-06-27] MEDS: MIDAZOLAM HCL 1MG/1ML 5ML VIAL 1 MG IV (13:23)
[2024-06-27] MEDS: FENTANYL 100MCG/2ML VIAL 50 MCG IV (13:23)
[2024-06-27] MEDS: IOPAMIDOL-370 (76%);100ML BOTTLE 40 ML IV (14:22)
== END 2024-06-27 16:27 | disposition home or self-care (01) ==
PROVIDERS: PCP Family Medicine; Visit Provider Internal Medicine
DX: I50.30 Unspecified diastolic (congestive) heart failure (principal); R93.1 Abnormal findings on diagnostic imaging of heart and coronary circulation; I25.118 Atherosclerotic heart disease of native coronary artery with other forms of angina pectoris; Z95.1 Presence of aortocoronary bypass graft; I70.1 Atherosclerosis of renal artery; F17.210 Nicotine dependence, cigarettes, uncomplicated; I13.0 Hypertensive heart and chronic kidney disease with heart failure and stage 1 through stage 4 chronic kidney disease, or unspecified chronic kidney disease; Z79.899 Other long term (current) drug therapy; I48.21 Permanent atrial fibrillation; Z79.02 Long term (current) use of antithrombotics/antiplatelets; Z79.4 Long term (current) use of insulin; E11.22 Type 2 diabetes mellitus with diabetic chronic kidney disease; N18.32 Chronic kidney disease, stage 3b; I27.20 Pulmonary hypertension, unspecified; J44.9 Chronic obstructive pulmonary disease, unspecified
CPT/HCPCS: 36252; 80048; 85025; 93459; 99152; C1725; C1769; C1894; J1200; J1644; J2250; J3010; Q9967

== ENCOUNTER 2024-06-28 10:44 | Outpatient (CLI) | payer MEDICARE, SELFPAY ==
[2024-06-28 19:26] LABS: Basophils % 0.4 % (0.1-2.0); Eosinophils # 0.2 K/mm3 (0.0-0.4); Eosinophils % 2.7 % (0.1-12.0); Hematocrit 25.2 % (42.0-52.0); Hemoglobin 8.2 g/dL (14.1-18.0); Lymphocytes # 1.6 K/mm3 (0.7-4.5); Lymphocytes % 28.8 % (10-50); Mean Corpuscular HGB Conc 32.7 g/dL (31.8-35.4); Mean Corpuscular Hemoglobin 31.6 pg (27.0-31.2); Mean Corpuscular Volume 96.6 fl (80-94); Monocytes # 0.4 K/mm3 (0.1-1.0); Neutrophils # 3.4 K/mm3 (1.8-7.8); Platelet Count 207 K/mm3 (142-424); Red Blood Count 2.61 M/mm3 (4.60-6.20); Red Cell Distribution Width 15.3 % (11.5-17.5); White Blood Count 5.6 K/mm3 (4.8-10.8)
[2024-06-28 19:38] LABS: Alanine Aminotransferase 22 U/L (12-78); Albumin Level 2.5 g/dl (3.5-5.0); Alkaline Phosphatase 85 U/L (38-126); Anion Gap 8.3 mEq/L (5-15); Aspartate Amino Transferase 19 U/L (17-59); Bilirubin,Total 0.2 mg/dl (0.2-1.3); Blood Urea Nitrogen 62 mg/dl (9-20); Calcium 7.7 mg/dl (8.4-10.2); Carbon Dioxide 25 mmol/L (22.0-30.0); Chloride 107 mmol/L (98-107); Estimated Glomerular Filt Rate 21 ml/min (>60); GFR (African American) 26 ML/MIN (>60); Globulin 2.6 g/dL (1.3-3.2); Glucose 301 mg/dl (74-100); Potassium 5.3 mmoL/L (3.5-5.1); Sodium 135 mmol/L (136-145); Total Protein,Serum 5.1 g/dl (6.3-8.2)
[2024-06-28 20:40] LABS: Hemoglobin A1C 8.2 % (4.0-6.0)
== END 2024-06-28 23:59 | disposition home or self-care (01) ==
LOC: LAB.DROPOF 06-29 10:45
PROVIDERS: PCP Family Medicine; Visit Provider Family Medicine
DX: N18.9 Chronic kidney disease, unspecified (principal); Z13.1 Encounter for screening for diabetes mellitus
CPT/HCPCS: 80053; 83036; 85025

== ENCOUNTER 2024-07-09 14:27 | Outpatient (CLI) | payer MEDICARE, SELFPAY ==
[2024-07-09 15:25] VITALS: PULSE 68; PULSE 73
[2024-07-09] MEDS: ALBUTEROL 0.083% 2.5 MG/3 ML NEB IH (15:25)
== END 2024-07-09 23:59 | disposition home or self-care (01) ==
LOC: RT 14:28
PROVIDERS: PCP Family Medicine; Visit Provider Internal Medicine Pulmonary Disease
DX: R06.09 Other forms of dyspnea (principal)
CPT/HCPCS: 94060; 94640; 94726; 94729; J7613

== ENCOUNTER 2024-07-12 11:24 | Outpatient (CLI) | payer MEDICARE, SELFPAY ==
[2024-07-12 18:58] LABS: MANUAL DIFFERENTIAL MANUAL DIFFERENTIAL (MANUAL DIFF)
[2024-07-12 20:02] LABS: Basophils % 0.8 % (0.1-2.0); Eosinophils # 0.3 K/mm3 (0.0-0.4); Eosinophils % 5.2 % (0.1-12.0); Hematocrit 28.3 % (42.0-52.0); Hemoglobin 8.9 g/dL (14.1-18.0); Lymphocytes # 1.4 K/mm3 (0.7-4.5); Lymphocytes % 26.8 % (10-50); Mean Corpuscular HGB Conc 31.4 g/dL (31.8-35.4); Mean Corpuscular Volume 101.6 fl (80-94); Mean Platelet Volume 8.7 fl (7.4-10.4); Monocytes # 0.4 K/mm3 (0.1-1.0); Monocytes % 6.6 % (1.7-9.3); Neutrophils # 3.2 K/mm3 (1.8-7.8); Neutrophils % 60.5 % (37.0-80.0); Platelet Count 207 K/mm3 (142-424); Red Blood Count 2.78 M/mm3 (4.60-6.20); Red Cell Distribution Width 15.2 % (11.5-17.5); White Blood Count 5.3 K/mm3 (4.8-10.8)
[2024-07-12 20:13] LABS: Alanine Aminotransferase 22 U/L (12-78); Albumin Level 2.8 g/dl (3.5-5.0); Alkaline Phosphatase 92 U/L (38-126); Anion Gap 6.6 mEq/L (5-15); Aspartate Amino Transferase 24 U/L (17-59); Bilirubin,Total 0.3 mg/dl (0.2-1.3); Blood Urea Nitrogen 39 mg/dl (9-20); Carbon Dioxide 23 mmol/L (22.0-30.0); Chloride 115 mmol/L (98-107); Estimated Glomerular Filt Rate 30 ml/min (>60); GFR (African American) 37 ML/MIN (>60); Globulin 2.7 g/dL (1.3-3.2); Glucose 187 mg/dl (74-100); Potassium 5.6 mmoL/L (3.5-5.1); Sodium 139 mmol/L (136-145); Total Protein,Serum 5.5 g/dl (6.3-8.2)
[2024-07-12 21:24] LABS: Eosinophils % 3 % (0-3); Lymphocytes % 28 % (10-50); Macrocytosis 1+; Monocytes % 4 % (2-9); Neutrophils % 63 % (42-76); Platelet Estimate Normal; Total Cells Counted 100
[2024-07-12 21:33] LABS: Iron 63 ug/dL (49-181)
[2024-07-12 21:43] LABS: Total Iron Binding Capacity 248 ug/dL (261-462)
== END 2024-07-12 23:59 | disposition home or self-care (01) ==
LOC: LAB.DROPOF 07-13 11:25
PROVIDERS: PCP Family Medicine; Visit Provider Family Medicine
DX: R93.1 Abnormal findings on diagnostic imaging of heart and coronary circulation (principal); D50.9 Iron deficiency anemia, unspecified
CPT/HCPCS: 80053; 83540; 83550; 85007; 85014; 85018; 85048; 85049

== ENCOUNTER 2024-08-09 19:21 | Outpatient (CLI) | payer MEDICARE, SELFPAY ==
[2024-08-09 18:28] LABS: Basophils % 0.6 % (0.1-2.0); Eosinophils # 0.2 K/mm3 (0.0-0.4); Eosinophils % 3.9 % (0.1-12.0); Hematocrit 29.3 % (42.0-52.0); Hemoglobin 9.2 g/dL (14.1-18.0); Lymphocytes # 1.5 K/mm3 (0.7-4.5); Lymphocytes % 23.8 % (10-50); Mean Corpuscular HGB Conc 31.3 g/dL (31.8-35.4); Mean Corpuscular Hemoglobin 31.7 pg (27.0-31.2); Mean Corpuscular Volume 101.2 fl (80-94); Mean Platelet Volume 8.6 fl (7.4-10.4); Monocytes # 0.4 K/mm3 (0.1-1.0); Monocytes % 7.3 % (1.7-9.3); Neutrophils # 3.9 K/mm3 (1.8-7.8); Neutrophils % 64.5 % (37.0-80.0); Platelet Count 180 K/mm3 (142-424); Red Blood Count 2.89 M/mm3 (4.60-6.20); Red Cell Distribution Width 14.6 % (11.5-17.5); White Blood Count 6.1 K/mm3 (4.8-10.8)
[2024-08-09 19:03] LABS: Alanine Aminotransferase 18 U/L (12-78); Albumin Level 2.8 g/dl (3.5-5.0); Albumin/Globulin Ratio 1.1 (1.1-1.8); Alkaline Phosphatase 70 U/L (38-126); Anion Gap 7.6 mEq/L (5-15); Aspartate Amino Transferase 20 U/L (17-59); Bilirubin,Total 0.3 mg/dl (0.2-1.3); Blood Urea Nitrogen 45 mg/dl (9-20); Calcium 8.2 mg/dl (8.4-10.2); Carbon Dioxide 22 mmol/L (22.0-30.0); Chloride 114 mmol/L (98-107); Estimated Glomerular Filt Rate 27 ml/min (>60); GFR (African American) 33 ML/MIN (>60); Globulin 2.6 g/dL (1.3-3.2); Glucose 166 mg/dl (74-100); Potassium 5.6 mmoL/L (3.5-5.1); Sodium 138 mmol/L (136-145); Total Protein,Serum 5.4 g/dl (6.3-8.2)
[2024-08-09 19:48] LABS: Hemoglobin A1C 7.4 % (4.0-6.0)
[2024-08-09 20:42] LABS: Iron 69 ug/dL (49-181)
[2024-08-09 20:51] LABS: Total Iron Binding Capacity 258 ug/dL (261-462)
== END 2024-08-09 23:59 | disposition home or self-care (01) ==
LOC: LAB.DROPOF 19:21
PROVIDERS: PCP Family Medicine; Visit Provider Family Medicine
DX: I50.9 Heart failure, unspecified (principal); E11.9 Type 2 diabetes mellitus without complications; E11.21 Type 2 diabetes mellitus with diabetic nephropathy; D50.9 Iron deficiency anemia, unspecified; N17.9 Acute kidney failure, unspecified
CPT/HCPCS: 80053; 83036; 83540; 83550; 85025

== ENCOUNTER 2024-09-07 13:42 | Outpatient (POV) | payer MEDICARE, SELFPAY | END 2024-09-07 23:59 | disposition home or self-care (01) | LOC: SC 13:42 | PROVIDERS: Visit Provider Student in an Organized Health Care Education/Training Program | DX: Z00.00 Encounter for general adult medical examination without abnormal findings (principal) ==

== ENCOUNTER 2024-09-19 14:11 | Outpatient (CLI) | payer MEDICARE, SELFPAY ==
[2024-09-19 18:11] LABS: Basophils # 0.1 K/mm3 (0-0.2); Basophils % 1.2 % (0.1-2.0); Eosinophils # 0.2 K/mm3 (0.0-0.4); Eosinophils % 3.6 % (0.1-12.0); Hemoglobin 9.7 g/dL (14.1-18.0); Lymphocytes # 1.3 K/mm3 (0.7-4.5); Lymphocytes % 26.8 % (10-50); Mean Corpuscular HGB Conc 33.5 g/dL (31.8-35.4); Mean Corpuscular Hemoglobin 31.8 pg (27.0-31.2); Mean Platelet Volume 8.1 fl (7.4-10.4); Monocytes # 0.4 K/mm3 (0.1-1.0); Monocytes % 7.2 % (1.7-9.3); Neutrophils % 61.2 % (37.0-80.0); Platelet Count 199 K/mm3 (142-424); Red Blood Count 3.06 M/mm3 (4.60-6.20); Red Cell Distribution Width 13.9 % (11.5-17.5); White Blood Count 4.9 K/mm3 (4.8-10.8)
[2024-09-19 18:36] LABS: Albumin Level 2.9 g/dl (3.5-5.0); Chloride 116 mmol/L (98-107); Potassium 5.9 mmoL/L (3.5-5.1); Sodium 142 mmol/L (136-145)
[2024-09-19 18:39] LABS: Alanine Aminotransferase 17 U/L (12-78); Albumin/Globulin Ratio 1.2 (1.1-1.8); Alkaline Phosphatase 74 U/L (38-126); Anion Gap 8.9 mEq/L (5-15); Aspartate Amino Transferase 19 U/L (17-59); Bilirubin,Total 0.3 mg/dl (0.2-1.3); Blood Urea Nitrogen 52 mg/dl (9-20); Calcium 8.5 mg/dl (8.4-10.2); Carbon Dioxide 23 mmol/L (22.0-30.0); Estimated Glomerular Filt Rate 29 ml/min (>60); GFR (African American) 35 ML/MIN (>60); Globulin 2.5 g/dL (1.3-3.2); Glucose 252 mg/dl (74-100); Total Protein,Serum 5.4 g/dl (6.3-8.2)
== END 2024-09-19 23:59 | disposition home or self-care (01) ==
LOC: LAB.DROPOF 09-20 14:11
PROVIDERS: PCP Family Medicine; Visit Provider Family Medicine
DX: N18.9 Chronic kidney disease, unspecified (principal); I50.9 Heart failure, unspecified
CPT/HCPCS: 80053; 85025

== ENCOUNTER 2024-09-24 10:51 | Outpatient (CLI) | payer MEDICARE, SELFPAY ==
--- NOTE | 2024-09-24 10:54 | US_ITS ---
FINAL REPORT CLINICAL HISTORY: STAGE 3 KIDNEY DISEASE COMPARISON: 12/19/2023 FINDINGS: RENAL ULTRASOUND: The right kidney measures 11.8 cm in sagittal length. Mild scarring is noted. There is no evidence of hydronephrosis or mass. The left kidney measures 9.5 cm in length. There are small echogenic foci that may represent nonobstructive stones in the left kidney. There is no evidence of hydronephrosis or mass. IMPRESSION: Small echogenic foci in the left kidney that may represent nonobstructing stones. No evidence of mass or hydronephrosis is seen in either kidney. Reviewed, Interpreted and Dictated by Darren Tellez III, MD Transcribed by Michelle Alfaro Authenticated and [facility]
== END 2024-09-24 23:59 | disposition home or self-care (01) ==
LOC: RAD 10:51
PROVIDERS: PCP Family Medicine; Visit Provider Student in an Organized Health Care Education/Training Program
DX: N18.30 Chronic kidney disease, stage 3 unspecified (principal)
CPT/HCPCS: 76770